=== PATIENT | female | born 1955 | race Caucasian/White ===

== ENCOUNTER → 2020-04-18 13:33 | Outpatient (REF) | payer MEDICARE, SELFPAY ==
--- NOTE | 2020-04-18 | NM_ITS ---
EXAMINATION: RENAL DYNAMIC IMAGING STUDY WITH LASIX CLINICAL INFORMATION: Chronic kidney disease stage IV, hypertension chronic kidney disease. COMPARISON: No previous radionuclide renal scan is available for comparison. No recent anatomic imaging studies of the kidneys are available for comparison. TECHNIQUE: Serial gamma scintillation camera images were obtained over the posterior trunk during the initial transit and subsequent distribution of a bolus intravenous injection of 10 mCi of Tc-99m DTPA. At 30 minutes later, 28 mg of Lasix was administered intravenously and an additional 30 minutes of images obtained. FINDINGS: Initial rapid sequence images show prompt perfusion to the right kidney which is slightly diminished, compare to the spleen. The left kidney is not visualized. Subsequent sequential static images obtained up to 30 minutes show mildly diminished concentration and the right kidney which appears normal in size. The left kidney is not visualized. There is evidence of excretory function by 5 minutes post injection. Initial visualization of the urinary bladder occurs at approximately 5 to 6 minutes post injection and gradually increases in intensity. At 30 minutes postinjection there is only mild retention in the right kidney, predominantly in the upper and lower pole calyces which does not appear dilated. There is good visualization of activity in the urinary bladder at this time. Following Lasix administration, there is prompt washout of the small amount of retained activity in the right renal collecting system and progressive additional filling of the urinary bladder. There continues to be nonvisualization of the left kidney. Meaningful T-1/2 washout times following Lasix administration cannot be calculated on either side. On the left, the kidney is never visualized. On the right, there is insufficient retention in the right renal collecting system at the time of Lasix administration. NM/NM renal flow w pharm int IMPRESSION: LEFT KIDNEY: Absent or nonfunctioning. RIGHT KIDNEY: Mildly diminished function as demonstrated by mildly diminished concentrating ability. There is no hydronephrosis or outflow obstruction.
[2020-04-18] MEDS: Furosemide 40 MG/4 ML VIAL 28 MG IVPUSH (16:08)
== END ==
LOC: HO.NUCMED 13:33
PROVIDERS: PCP Internal Medicine; Visit Provider Internal Medicine Nephrology
DX: I12.9 Hypertensive chronic kidney disease with stage 1 through stage 4 chronic kidney disease, or unspecified chronic kidney disease (principal); N18.4 Chronic kidney disease, stage 4 (severe); Z86.79 Personal history of other diseases of the circulatory system
CPT/HCPCS: 78708; A9539; J1940

== ENCOUNTER 2020-05-10 09:10 | Outpatient (REF) | payer MEDICARE, SELFPAY ==
--- NOTE | 2020-05-10 | US_ITS ---
EXAMINATION: US RENAL DOPPLER CLINICAL INFORMATION: Chronic kidney disease. Worsening renal function. COMPARISON: None. TECHNIQUE: Retroperitoneal ultrasound Doppler was performed. FINDINGS: On renal ultrasound Doppler evaluation, Right kidney: Renal artery velocity proximally measures 44.5 cm/second mid segment measures 112 cm/second and distal segment measures 150 cm/second. Segmental resistive index averages 0.77. The right kidney measures 11.1 cm in length. Renal aortic ratio cannot be evaluated as peak aortic velocity measures 28.8 cm/second and is below the normal 40 cm velocity. Left kidney: Peak systolic velocity proximal segment measures 67.0 cm. The mid and the distal segments are not visualized. Average resistive index is 0.57. Renal aortic ratio cannot be utilized due to decreased aortic velocity of 28.8 cm. Patient has history of AAA repair in the distal segment. On color flow, there is very minimal flow seen in the left renal artery. The left kidney is atrophic with diffuse cortical thinning measuring 6.8 cm in length. US/US renal doppler IMPRESSION: Based on renal Doppler exam, there is no suspicion for renal artery stenosis. However, patient has diminished aortic velocity of 28.8 cm and has AAA repair in the distal segment. The left kidney is small and atrophic measuring 6.8 cm. There is slight increased velocity in the distal right renal artery likely secondary to renal parenchymal disease.
--- NOTE | 2020-05-10 | US_ITS ---
EXAMINATION: US RETROPERITONEAL LIMITED (RENAL ONLY) CLINICAL INFORMATION: Nonfunctioning left kidney since AAA repair in June 2017. COMPARISON: None TECHNIQUE: Routine retroperitoneal Grayscale imaging of both kidneys was performed. FINDINGS: RIGHT KIDNEY: 11.1 x 6.1 x 5.0 cm (SAG x AP x TRV). The kidney is normal in size, contour, and echogenicity. Renal cortical thickness is normal. The anechoic cyst in the upper pole measuring 2.6 x 2.3 x 2.6 cm and an echogenic nonobstructive stone, lower pole, measuring 0.3 x 0.3 x 0.3 cm. LEFT KIDNEY: 6.8 x 3.4 x 2.8 cm (SAG x AP x TRV). The kidney is small size, normal contour, and echogenicity. There is diffuse cortical thinning and atrophy. Renal cortical thickness is normal. No calculi or focal parenchymal lesions. No hydronephrosis. US/US renal BI IMPRESSION: 1. Small atrophic left kidney with diffuse cortical thinning. 2. Nonobstructive echogenic stone in the lower pole and a cyst in the upper pole, right kidney. Normal right kidney size.
== END 2020-05-10 09:11 | disposition home or self-care (01) ==
LOC: HO.US 09:10
PROVIDERS: PCP Internal Medicine; Visit Provider Internal Medicine Nephrology
DX: I12.9 Hypertensive chronic kidney disease with stage 1 through stage 4 chronic kidney disease, or unspecified chronic kidney disease (principal); N18.9 Chronic kidney disease, unspecified
CPT/HCPCS: 76775; 93975

== ENCOUNTER 2020-05-17 07:17 | Outpatient (REF) | payer MEDICARE, SELFPAY ==
[2020-05-17 08:27] LABS: Hematocrit 32.6 % (37-47); Hemoglobin 10.7 g/dl (12.0-16.0); Imm Gran Abs Auto 0.04 X10*3/uL (0.00-0.03); Imm Gran Pct Auto 0.9 % (0.0-0.4); Immature Retic Fraction 9.6 % (3.0-15.9); Lymphocytes Absolute Auto 0.7 X10*3/uL (1.2-4.9); Lymphocytes Percent Auto 16.1 % (20-40); MANUAL DIFF FLAG SCAN; Mean Corpuscular HGB Conc 32.8 g/dl (31.0-35.0); Mean Corpuscular Volume 91.3 fL (80-98); Mean Platelet Volume 12.9 fL (9.4-12.3); Monocytes Absolute Auto 0.3 X10*3/uL (0.1-1.2); Monocytes Percent Auto 5.8 % (2-11); Neutrophils Absolute Auto 3.3 X10*3/uL (2.0-8.3); Neutrophils Percent Auto 77.2 % (45-73); Red Blood Count 3.57 X10*6/uL (4.20-5.50); Red Cell Distribution Width 14.9 % (11.0-16.0); Reticulocyte Percent 1.7 % (0.5-1.8); Reticulocytes Absolute 0.061 X10*6/uL (0.026-0.095); SCAN SMEAR FLAG 1; White Blood Count 4.3 X10*3/uL (4.8-10.8)
[2020-05-17 08:35] LABS: Phosphorus 3.5 mg/dL (2.7-4.5); Uric Acid 8.6 mg/dL (2.4-5.7)
[2020-05-17 08:50] LABS: Alanine Aminotransferase 9 U/L (0-31); Albumin Level 3.2 g/dL (3.5-5.0); Alkaline Phosphatase 102 U/L (39-117); Anion Gap 13 (12-20); Aspartate Amino Transferase 18 U/L (5-31); Bilirubin Total 0.5 mg/dL (0.0-1.0); Blood Urea Nitrogen 18 mg/dL (9-16); Calcium 8.9 mg/dL (8.4-10.2); Carbon Dioxide 23 mmol/L (22-29); Chloride 101 mmol/L (96-108); Cholesterol 160 mg/dL; Estimated Glomerular Filt Rate 30; Glucose Fasting 92 mg/dL (60-99); HDL Cholesterol 27 mg/dL; Iron 47 mcg/dL (30-160); LDL Cholesterol Calculated 97 mg/dl; Percent Iron Saturation 19 % (15-50); Potassium 3.6 mmol/l (3.3-5.1); Sodium 133 mmol/L (135-145); Total Iron Binding Capacity 243 mcg/dL (228-428); Total Protein 7.3 g/dL (6.5-8.0); Triglycerides 183 mg/dL; Unsaturated Iron Binding 196 ug/dL
[2020-05-17 09:13] LABS: T4 Thyroxine 6.2 ug/dL (4.5-12.0)
[2020-05-17 09:27] LABS: Renal w Reflex Lab Use Only Order verified
[2020-05-17 09:30] LABS: SLIDE REVIEW VERIFIED
[2020-05-17 09:45] LABS: Ferritin 183 ng/mL (10-250)
[2020-05-19 17:57] LABS: IgA 187 mg/dL (70-320); IgG 2170 mg/dL (600-1540); IgM 580 mg/dL (50-300)
== END 2020-05-17 07:18 | disposition home or self-care (01) ==
LOC: HO.LAB 07:17
PROVIDERS: Absent Provider Internal Medicine Nephrology; PCP Internal Medicine; Visit Provider Internal Medicine
DX: I12.9 Hypertensive chronic kidney disease with stage 1 through stage 4 chronic kidney disease, or unspecified chronic kidney disease (principal); N18.4 Chronic kidney disease, stage 4 (severe); D63.1 Anemia in chronic kidney disease; E03.9 Hypothyroidism, unspecified; E78.00 Pure hypercholesterolemia, unspecified
CPT/HCPCS: 36415; 80053; 80061; 82306; 82310; 82728; 82784; 83540; 83970; 84100; 84436; 84443; 84550; 85025; 85045

== ENCOUNTER 2020-08-04 12:33 | Outpatient (REF) | payer MEDICARE, SELFPAY ==
[2020-08-04 14:23] LABS: Anion Gap 13 (12-20); Blood Urea Nitrogen 18 mg/dL (9-16); Calcium 9.7 mg/dL (8.4-10.2); Carbon Dioxide 25 mmol/L (22-29); Chloride 100 mmol/L (96-108); Estimated Glomerular Filt Rate 33; Phosphorus 3.2 mg/dL (2.7-4.5); Potassium 3.1 mmol/L (3.3-5.1); Sodium 135 mmol/L (135-145)
[2020-08-04 15:06] LABS: Renal w Reflex Lab Use Only Order verified
== END 2020-08-04 12:34 | disposition home or self-care (01) ==
LOC: HO.LAB 12:33
PROVIDERS: PCP Internal Medicine; Visit Provider Internal Medicine
DX: I12.9 Hypertensive chronic kidney disease with stage 1 through stage 4 chronic kidney disease, or unspecified chronic kidney disease (principal); N18.4 Chronic kidney disease, stage 4 (severe); E87.6 Hypokalemia
CPT/HCPCS: 36415; 80051; 82310; 82565; 84100; 84520

== ENCOUNTER 2020-08-30 11:33 | Outpatient (REF) | payer MEDICARE, SELFPAY ==
[2020-08-30 13:48] LABS: Anion Gap 13 (12-20); Blood Urea Nitrogen 19 mg/dL (9-16); Calcium 9.7 mg/dL (8.4-10.2); Carbon Dioxide 25 mmol/L (22-29); Chloride 102 mmol/L (96-108); Estimated Glomerular Filt Rate 30; Glucose Random 80 mg/dL (60-115); Potassium 3.9 mmol/L (3.3-5.1); Sodium 136 mmol/L (135-145)
[2020-08-30 14:21] LABS: Free T4 (Free Thyroxine) 0.81 ng/dL (0.71-1.85)
[2020-08-30 14:25] LABS: Thyroid Stimulating Hormone 19.23 uIU/mL (0.32-4.0)
== END 2020-08-30 11:34 | disposition home or self-care (01) ==
LOC: HO.LAB 11:33
PROVIDERS: Absent Provider Internal Medicine; PCP Internal Medicine; Visit Provider Surgery Vascular Surgery
DX: E87.6 Hypokalemia (principal); E03.9 Hypothyroidism, unspecified; I71.4 Abdominal aortic aneurysm, without rupture
CPT/HCPCS: 36415; 80048; 84439; 84443

== ENCOUNTER 2020-12-24 18:56 | Inpatient (IN) | payer MEDICARE, SELFPAY ==
--- NOTE | ~2020-12-24 | XR_ITS ---
EXAMINATION: XR HAND, RIGHT CLINICAL INFORMATION: Dog bite. 4th metacarpophalangeal puncture wound. COMPARISON: None TECHNIQUE: PA, lateral, and oblique views of the right hand. FINDINGS: No radiopaque foreign body. No acute fracture or dislocation. Joint space narrowing with subchondral cirrhosis and marginal osteophytes at the 1st carpometacarpal joint. No osseous erosion. XR/XR hand RT min 3V IMPRESSION: No radiopaque foreign body. 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
[2020-12-24 19:17] VITALS: BP 121/75; PULSE 78; RESP 16; TEMP 38.5; O2SAT 100; BMI 16.9
[2020-12-24 20:55] LABS: MANUAL DIFF FLAG NO
[2020-12-24 20:57] LABS: Hemoglobin 8.4 g/dl (12.0-16.0); Imm Gran Abs Auto 0.02 X10*3/uL (0.00-0.03); Imm Gran Pct Auto 0.4 % (0.0-0.4); Lymphocytes Absolute Auto 0.6 X10*3/uL (1.2-4.9); Lymphocytes Percent Auto 10.7 % (20-40); Mean Corpuscular HGB Conc 32.3 g/dl (31.0-35.0); Mean Corpuscular Hemoglobin 30.5 pg (27.0-33.0); Mean Corpuscular Volume 94.5 fL (80-98); Mean Platelet Volume 10.9 fL (9.4-12.3); Monocytes Absolute Auto 0.4 X10*3/uL (0.1-1.2); Monocytes Percent Auto 7.7 % (2-11); Neutrophils Absolute Auto 4.3 X10*3/uL (2.0-8.3); Neutrophils Percent Auto 81.2 % (45-73); Platelet Count 145 X10*3/uL (160-400); Red Blood Count 2.75 X10*6/uL (4.20-5.50); Red Cell Distribution Width 13.8 % (11.0-16.0); White Blood Count 5.3 X10*3/uL (4.8-10.8)
[2020-12-24 21:23] LABS: Lactic Acid 0.7 mmol/L (0.5-2.0)
[2020-12-24 21:27] LABS: Anion Gap 11 (12-20); Blood Urea Nitrogen 23 mg/dL (9-16); Calcium 8.4 mg/dL (8.4-10.2); Carbon Dioxide 23 mmol/L (22-29); Chloride 100 mmol/L (96-108); Creatinine Clr Calc Pharmacy 18.8; Estimated Glomerular Filt Rate 25; Glucose Random 82 mg/dL (60-115); Potassium 4.1 mmol/L (3.3-5.1); Sodium 130 mmol/L (135-145)
[2020-12-24] MEDS: Acetaminophen 325 MG TABLET 650 MG PO (21:43)
[2020-12-24] MEDS: Acetaminophen 325 MG TABLET PO (21:44)
--- NOTE | 2020-12-24 21:57 | ED_ITS ---
HPI - Animal Bite General Chief Complaint: Animal Bite Stated Complaint: Dog bite Time Seen by Provider: 12/24/20 21:57 Source: patient Mode of arrival: ambulatory History of Present Illness HPI narrative: 65-year-old female with history of hypertension and CKD stage 3 presents after receiving a dog bite 3 days ago with increased swelling, pain at the right hand. states that dog has been vaccinated and his was trying to get the dog out of the yd when it bit her. Patient complaint of headache, stomach upset, subjective fever and chills, but otherwise denies dizziness, muscle spasm. Related Data Home Medications Medication Instructions Recorded Confirmed amlodipine 10 mg tablet 10 mg PO DAILY 06/09/20 09/06/20 aspirin 81 mg tablet,delayed 81 mg PO DAILY 06/09/20 09/06/20 release cyanocobalamin (vitamin B-12) 1,000 mcg PO DAILY 06/09/20 09/06/20 1,000 mcg capsule pravastatin 10 mg tablet 10 mg PO DAILY 06/09/20 09/06/20 Previous Rx's Medication Instructions Recorded hydralazine 50 mg tablet See Rx Instructions .ROUTE TID #90 04/14/20 tab metoprolol succinate 100 mg 150 mg PO DAILY #135 tab 05/09/20 tablet,extended release 24 hr ascorbate calcium (vitamin C) 500 500 mg PO BID #60 tab 06/09/20 mg tablet ferrous sulfate 325 mg (65 mg 325 mg PO BID #60 tab 06/09/20 iron) tablet potassium chloride 20 mEq 20 meq PO DAILY #30 tab 08/04/20 tablet,extended release(part/cryst) levothyroxine 150 mcg capsule 150 mcg PO DAILY #30 cap 09/02/20 tramadol 50 mg tablet See Rx Instructions .ROUTE 12/01/20 .COMPLEX #230 tab Allergies Allergy/AdvReac Type Severity Reaction Status Date / Time sumatriptan [From IMITREX] Allergy Severe ANGIOEDEMA Verified 12/24/20 19:17 atorvastatin [Lipitor] Allergy Unknown n Verified 12/24/20 19:17 rosuvastatin [Crestor] Allergy Unknown n Verified 12/24/20 19:17 simvastatin Allergy Unknown n Verified 12/24/20 19:17 pravastatin AdvReac Intermediate shaking Verified 12/24/20 19:17 muscle pain From IMITREX Allergy Severe ANGIOEDEMA Uncoded 02/25/20 15:39 Plavix Allergy Unknown rash Uncoded 10/16/19 00:00 Review of Systems Review of Systems: Pertinent positives and negatives as stated in HPI 10 point review of systems otherwise negative. FORMERLY [facility] Past Medical History Source: nursing notes reviewed Medical History Anxiety Cataract Chronic kidney disease (CKD) stage G4/A1, severely decreased glomerular filtration rate (GFR) between 15-29 mL/min/1.73 square meter and albuminuria creatinine ratio less than 30 mg/g Chronic low back pain History of renal calculi Hypercholesterolemia Hypertension Insomnia Vitamin D deficiency Wrist laceration Surgical History AAA (abdominal aortic aneurysm) History of colectomy History of rectal surgery Hx of cataract surgery Hx of cholecystectomy S/P AICHA-BSO Social History Social History Advance Directives: No Advance Directives Information Provided: No Physical Exam Vital Signs: Vital Signs: Last Vital Signs Temp 99.3 F 12/24/20 23:16 Pulse 78 12/24/20 19:17 Resp 16 12/24/20 23:16 BP 121/75 12/24/20 19:17 Pulse Ox 100 12/24/20 19:17 Body Mass Index 16.9 VITAL SIGNS: Reviewed. GENERAL: Well developed, well nourished, in no acute distress. HEAD: Normocephalic/atraumatic EYES: PERRLA, EOMI OROPHARYNX: no oral lesions noted, posterior pharynx clear NECK: Supple, no adenopathy LUNGS: Normal breath sounds. No adventitious sounds or accessory muscle use. SpO2<100> CARDIOVASCULAR: Regular rate and rhythm without noted murmurs, no JVD or lower extremity edema. ABDOMEN: Soft, non-tender, non-distended with bowel sounds. RIGHT HAND: Edematous, erythematous, puncture site at 4th MCP as well as medial aspect at mid with 5th carpal, limited range of motion secondary to pain and discomfort but sensory intact SKIN: Inspection of the skin reveals no rashes NEUROLOGIC: Alert and oriented x 4. Strength and sensation to light touch were grossly intact x 4. Course Course Course Narrative: 65-year-old female with history and clinical presentation consistent with dog bite to right hand with subsequent cellulitis, infection with systemic signs will receive IV antibiotics and be admitted with plans for hand surgery consultation. Review of all investigations with evidence of left shift, patient received antibiotics, case was discussed with inpatient hospitalist who is agreeable for admission and IV antibiotics. MDM - Animal Bite Lab Data Result diagrams: 12/24/20 20:45 12/24/20 20:45 Labs: Lab Results 12/24/20 12/24/20 12/24/20 Range/Units 20:45 20:45 20:45 WBC 5.3 (4.8-10.8) X10*3/uL RBC 2.75 L D (4.20-5.50) X10*6/uL Hgb 8.4 L D (12.0-16.0) g/dl Hct 26.0 L D (37-47) % MCV 94.5 (80-98) fL MCH 30.5 (27.0-33.0) pg MCHC 32.3 (31.0-35.0) g/dl RDW 13.8 (11.0-16.0) % Plt Count 145 L (160-400) X10*3/uL MPV 10.9 (9.4-12.3) fL Immature Gran % (Auto) 0.4 (0.0-0.4) % Neut % (Auto) 81.2 H (45-73) % Lymph % (Auto) 10.7 L (20-40) % [place] % (Auto) 7.7 (2-11) % Eos % (Auto) 0.0 (0-4) % Baso % (Auto) 0.0 (0-2) % Lymph # (Auto) 0.6 L (1.2-4.9) X10*3/uL [place] # (Auto) 0.4 (0.1-1.2) X10*3/uL Eos # (Auto) 0.0 (0.0-0.4) X10*3/uL Baso # (Auto) 0.0 (0.0-0.2) X10*3/uL Abs Immat Gran (auto) 0.02 (0.00-0.03) X10*3/uL Absolute Neuts (auto) 4.3 (2.0-8.3) X10*3/uL Absolute Nucleated RBC 0.000 (0.0-0.012) X10*3/uL Nucleated RBC % (auto) 0.0 (0.0-0.2) /100WBC Sodium 130 L (135-145) mmol/L Potassium 4.1 (3.3-5.1) mmol/L Chloride 100 (96-108) mmol/L Carbon Dioxide 23 (22-29) mmol/L Anion Gap 11 L (12-20) BUN 23 H (9-16) mg/dL Creatinine 2.02 H (0.5-1.4) mg/dL Estim Creat Clear Calc 18.8 Estimated GFR 25 Random Glucose 82 (60-115) mg/dL Lactic Acid 0.7 (0.5-2.0) mmol/L Calcium 8.4 D (8.4-10.2) mg/dL Discharge Plan Discharge Clinical Impression: Cellulitis of hand, Sepsis Patient Disposition: Admitted As Inpatient
[2020-12-24] MEDS: Diphth,Pertus(ACell),Tet Adult 0.5 ML SYRINGE IM (23:09)
[2020-12-24] MEDS: Clindamycin Phosphate/D5W 300 MG/50 ML PIGGYBACK 100 MG IV (23:12)
[2020-12-24] MEDS: 0.9 % Sodium Chloride 1,000 ML 999 ML IV (23:15)
[2020-12-24 23:16] VITALS: RESP 16; TEMP 37.4
[2020-12-24 23:47] VITALS: BP 161/79; PULSE 69; RESP 16; TEMP 37.1; O2SAT 99
[2020-12-25] VITALS (7 sets, daily range): BP systolic 130–169; BP diastolic 65–94; PULSE 69–78; RESP 16–18; TEMP 36.1–37; O2SAT 93–100; BMI 17.6
[2020-12-25 00:06] LABS: COVID-19 Test Negative (Negative); IDNOW Serial# 9DD0AD1C
[2020-12-25] MEDS: levoFLOXacin/D5W 500 MG/100 ML PIGGYBACK 100 MG IV (00:15)
[2020-12-25 01:48] LABS: C Reactive Protein 8.44 mg/dL (< or = 0.50)
[2020-12-25] MEDS: Piperacillin Sodium/Tazobactam 3.375 GM in 0.9 % Sodium Chloride 50 ML IV ×2 (03:25→13:57)
[2020-12-25] MEDS: 0.9 % Sodium Chloride 1,000 ML 100 ML IVCONT ×2 (03:25→13:57)
[2020-12-25] MEDS: Enoxaparin Sodium 30 MG/0.3 ML SYRINGE SUBCUT (03:29)
--- NOTE | 2020-12-25 03:48 | PC.NURSE ---
nurse to nurse report given to Antonietta CALVIN
--- NOTE | 2020-12-25 06:01 | P.HPHOSP_ITS ---
History of Present Illness Date of Service: 12/25/20 Chief Complaint: dog bite 65-year-old female with past medical history of CKD, hypertension, hyperlipidemia, hypothyroidism and chronic pain who presents to the hospital with complaints of dog bite on her right hand. Patient reports that her dog who is fully vaccinated bed her on Saturday, today she woke up with pain, and swollen hand. She is having difficulty moving her fingers due to the pain. She denies any fever or chills, no chest pain, no shortness of breath, denies any nausea vomiting no diarrhea constipation, no urinary symptoms and no lower extremity edema. Vitals are significant for temp of 101.3?, heart rate of 78, respiratory rate of 16, blood pressure of 121/75, satting 100% on room air Labs are significant for WBC count 5.3, hemoglobin of 8.4 it dropped from 10.7 in May, ESR 51, sodium of 130, BUN of 23, creatinine of 2.2 with a baseline around 1. 5-1.7, CRP of 8.4 Hand x-ray shows no radiopaque foreign body severe osteoarthritis Patient will be admitted and a consult will be made for hand surgeon Review of Systems Review of Systems: Yes all other systems are reviewed and are negative [facility]LY [facility] Medical History Anxiety Cataract Chronic kidney disease (CKD) stage G4/A1, severely decreased glomerular filtr ation rate (GFR) between 15-29 mL/min/1.73 square meter and albuminuria creatinine ratio less than 30 mg/g Chronic low back pain History of renal calculi Hypercholesterolemia Hypertension Insomnia Vitamin D deficiency Wrist laceration Surgical History AAA (abdominal aortic aneurysm) History of colectomy History of rectal surgery Hx of cataract surgery Hx of cholecystectomy S/P AICHA-BSO Social History Household Members: Spouse Housing: House Do you presently have visiting nurse or other home services: No Patient Tobacco Use Status: Former Tobacco user Quit Date: years ago Tobacco use type: Cigarette Smoked in Last 30 Days: No e-Cigarette/Vaping Use: Never Used Second Hand Smoke Exposure: No Use of substances other than those prescribed or required for medical reasons: No Currently Displaying Signs/Symptoms of Drug Intoxication Withdrawal: No Any prior treatment program specific to substance use: No Have you been hit, kicked, punched, or otherwise hurt by someone within the past year? If so, by whom?: No Do you feel safe in your current relationship?: Yes Is there a partner from a previous relationship who is making you feel unsafe now?: No Are you made to feel afraid or neglected: No Advance Directives: No Advance Directives Information Provided: No Do you have thoughts of harming others: None Do you have a plan to hurt others: No Plan Recently lost weight without trying: Unsure Eating poorly because of decreased appetite: Yes Nutrition Risks: Anorexia Patient : No : No Poor oral hygiene: No Meds Allergies Allergy/AdvReac Type Severity Reaction Status Date / Time sumatriptan [From IMITREX] Allergy Severe ANGIOEDEMA Verified 12/24/20 19:17 atorvastatin [Lipitor] Allergy Unknown n Verified 12/24/20 19:17 rosuvastatin [Crestor] Allergy Unknown n Verified 12/24/20 19:17 simvastatin Allergy Unknown n Verified 12/24/20 19:17 pravastatin AdvReac Intermediate shaking Verified 12/24/20 19:17 muscle pain From IMITREX Allergy Severe ANGIOEDEMA Uncoded 02/25/20 15:39 Plavix Allergy Unknown rash Uncoded 10/16/19 00:00 Active Medications: Current Medications Generic Name Dose Route Start Last Admin Trade Name Freq PRN Reason Stop Dose Admin Acetaminophen 650 mg 12/25/20 01:33 Acetaminophen 325 Mg Tablet PO Q6H PRN Pain, Mild (Pain Scale 1-3) Docusate Sodium 100 mg 12/25/20 01:33 Docusate Sodium 100 Mg Capsule PO DAILY PRN Constipation Enoxaparin Sodium 30 mg 12/25/20 02:45 12/25/20 03:29 Enoxaparin Sodium 30 Mg/0.3 Ml Syringe SUBCUT 30 mg Q24H YUNI Administration Sodium Chloride 1,000 mls @ 100 mls/hr 12/25/20 01:33 12/25/20 03:25 Ns IVCONT 100 mls/hr .Q10H YUNI Administration Piperacillin Sod/Tazobactam 50 mls @ 100 mls/hr 12/25/20 03:00 12/25/20 04:14 Sod 3.375 gm/ Sodium Chloride IV Infused Q12H YUNI Infusion Ondansetron HCl 4 mg 12/25/20 01:33 Ondansetron Hcl 4 Mg/2 Ml Vial IVPUSH Q8H PRN Nausea and Vomiting Oxycodone HCl 5 mg 12/25/20 01:33 Oxycodone Hcl Immed Release 5 Mg Tablet PO Q6H PRN Pain, Severe (Pain Scale 7-10) Sodium Chloride 3 ml 12/25/20 08:00 0.9 % Sodium Chloride Flush 3 Ml Syringe IVFLUSH QSHIFT [facility] Home Medications Medication Instructions Recorded Confirmed Last Taken Type amlodipine 10 mg tablet 10 mg PO DAILY 06/09/20 09/06/20 Unknown History aspirin 81 mg tablet,delayed 81 mg PO DAILY 06/09/20 09/06/20 Unknown History release cyanocobalamin (vitamin B-12) 1,000 mcg PO DAILY 06/09/20 09/06/20 Unknown History 1,000 mcg capsule pravastatin 10 mg tablet 10 mg PO DAILY 06/09/20 09/06/20 Unknown History Physical Exam 2 Vital Signs and Narrative: Vital Signs: Last Vital Signs Temp 97.2 F 12/25/20 04:00 Pulse 70 12/25/20 04:00 Resp 16 12/25/20 04:00 BP 148/80 H 12/25/20 04:54 Pulse Ox 93 12/25/20 04:00 Body Mass Index 17.6 Const: General: cooperative and no acute distress Orientation/consciousness: patient oriented x3 Eyes: General: appearance normal, both eyes and all related structures Resp: Effort & Inspection: normal respiratory effort and able to speak in complete sentences Cardio: Rate: regular rate Rhythm: regular rhythm GI: Palpation (GI): Soft to palpation Auscultation: normal bowel sounds Skin: Other: Erythema over the dorsal aspect of the right hand with a puncture wound over the 4th MCP Neuro: General: patient oriented x3 Cognition (Neuro): normal cognition Extrem: Other: Erythema over the dorsal aspect of the right hand with puncture wound over the 4th MCP, edema, tenderness General: Yes no pedal edema Results Labs CBC and Chem 7: 12/24/20 20:45 12/24/20 20:45 Labs: Laboratory Results - last 24 hr 12/24/20 12/24/20 12/24/20 20:45 20:45 20:45 MCV 94.5 MCH 30.5 MCHC 32.3 RDW 13.8 Plt Count 145 L MPV 10.9 Immature Gran % (Auto) 0.4 Neut % (Auto) 81.2 H Lymph % (Auto) 10.7 L [place] % (Auto) 7.7 Eos % (Auto) 0.0 Baso % (Auto) 0.0 Lymph # (Auto) 0.6 L [place] # (Auto) 0.4 Eos # (Auto) 0.0 Baso # (Auto) 0.0 Abs Immat Gran (auto) 0.02 Absolute Neuts (auto) 4.3 Absolute Nucleated RBC 0.000 Nucleated RBC % (auto) 0.0 ESR Anion Gap 11 L Estim Creat Clear Calc 18.8 Estimated GFR 25 Random Glucose 82 Lactic Acid 0.7 Calcium 8.4 D C-Reactive Protein 8.44 H COVID-19 (ROXANE) COVID-19 Clin Com 12/24/20 12/25/20 23:19 20:45 MCV MCH MCHC RDW Plt Count MPV Immature Gran % (Auto) Neut % (Auto) Lymph % (Auto) [place] % (Auto) Eos % (Auto) Baso % (Auto) Lymph # (Auto) [place] # (Auto) Eos # (Auto) Baso # (Auto) Abs Immat Gran (auto) Absolute Neuts (auto) Absolute Nucleated RBC Nucleated RBC % (auto) ESR 51 H Anion Gap Estim Creat Clear Calc Estimated GFR Random Glucose Lactic Acid Calcium C-Reactive Protein COVID-19 (ROXANE) Negative COVID-19 Clin Com See Note Imaging Radiologist's Impressions: Impressions Hand X-Ray 12/24/20 21:57 IMPRESSION: No radiopaque foreign body. 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 Assessment and Plan (1) Cellulitis of hand: Status: Acute (2) Dog bite: Status: Acute (3) Normocytic anemia: Status: Acute (4) Acute kidney injury superimposed on CKD: Status: Acute Female with past medical history of hypertension, hypothyroidism, CKD, who presents to the hospital with complaints of dog bite over her right hand. # cellulitis of the hand secondary to dog bite - per patient dogs fully vaccinated - no evidence of tenosynovitis - has fever with no leukocytosis - will start her on IV antibiotics - consult hand orthopedic surgeon # normocytic anemia - has a significant drop of hemoglobin from 10-8 within 7 months - denies melena or bright red blood per rectum - will obtain occult stool, ferritin, B12 levels - monitor CBC daily with threshold for transfusion hemoglobin less than 7 # TOMASA and CKD - possibly her new baseline - will started on IV fluids - follow BMP # hypertension - continue hydralazine, and amlodipine once medications are reconciled # hypothyroidism - continue levothyroxine once medications are reconciled # hyperlipidemia - continue statin DVT prophylaxis: Lovenox Quality Stroke Does the patient have a stroke diagnosis?: No VTE Prior VTE?: No VTE Risk Level:: Medical - moderate - high VTE Device Contraindication: Treatment Not Indicated VTE Drug Contraindication: N/A - Med Ordered
[2020-12-25 07:10] LABS: Ferritin 250 ng/mL (10-250)
[2020-12-25] MEDS: 0.9 % Sodium Chloride Flush 3 ML SYRINGE IVFLUSH (08:52)
[2020-12-25 09:15] LABS: Erythrocyte Sedimentation Rate 51 MM/HR (0-20)
[2020-12-25 09:24] LABS: Iron 15 mcg/dL (30-160); Percent Iron Saturation 8 % (15-50); Total Iron Binding Capacity 195 mcg/dL (228-428); Unsaturated Iron Binding 180 ug/dL
--- NOTE | 2020-12-25 09:43 | PM.CNOR ---
History of Present Illness HPI Consult date: 12/25/20 Consult reason: other (hand pain) Chief complaint: Dog bit,cellulitis Narrative: Patient presented to the ED yesterday after sustaining a dog bite to her right hand on 12/22/20. This dog was unknown to her and it is unclear if it has been vaccinated. She was admitted to the hospital for cellulitis and has been on abx for less than 24 hours but states that she has begun to see and feel improvement in her pain, erythema, and edema. Review of Systems Review of Systems: Yes all other systems are reviewed and are negative [facility] Past Medical History Medical History Anxiety Cataract Chronic kidney disease (CKD) stage G4/A1, severely decreased glomerular filtration rate (GFR) between 15-29 mL/min/1.73 square meter and albuminuria creatinine ratio less than 30 mg/g Chronic low back pain History of renal calculi Hypercholesterolemia Hypertension Insomnia Vitamin D deficiency Wrist laceration Surgical History Surgical History AAA (abdominal aortic aneurysm) History of colectomy History of rectal surgery Hx of cataract surgery Hx of cholecystectomy S/P AICHA-BSO Social History Social History Household Members: Spouse Housing: House Do you presently have visiting nurse or other home services: No Patient Tobacco Use Status: Former Tobacco user Quit Date: years ago Tobacco use type: Cigarette Smoked in Last 30 Days: No e-Cigarette/Vaping Use: Never Used Second Hand Smoke Exposure: No Use of substances other than those prescribed or required for medical reasons: No Currently Displaying Signs/Symptoms of Drug Intoxication Withdrawal: No Any prior treatment program specific to substance use: No Have you been hit, kicked, punched, or otherwise hurt by someone within the past year? If so, by whom?: No Do you feel safe in your current relationship?: Yes Is there a partner from a previous relationship who is making you feel unsafe now?: No Are you made to feel afraid or neglected: No Advance Directives: No Advance Directives Information Provided: No Do you have thoughts of harming others: None Do you have a plan to hurt others: No Plan Recently lost weight without trying: Unsure Eating poorly because of decreased appetite: Yes Nutrition Risks: Anorexia Patient : No : No Poor oral hygiene: No Meds Allergies Allergy/AdvReac Type Severity Reaction Status Date / Time sumatriptan [From IMITREX] Allergy Severe ANGIOEDEMA Verified 12/24/20 19:17 atorvastatin [Lipitor] Allergy Unknown n Verified 12/24/20 19:17 rosuvastatin [Crestor] Allergy Unknown n Verified 12/24/20 19:17 simvastatin Allergy Unknown n Verified 12/24/20 19:17 pravastatin AdvReac Intermediate shaking Verified 12/24/20 19:17 muscle pain From IMITREX Allergy Severe ANGIOEDEMA Uncoded 02/25/20 15:39 Plavix Allergy Unknown rash Uncoded 10/16/19 00:00 Active Medications: Current Medications Generic Name Dose Route Start Last Admin Trade Name Freq PRN Reason Stop Dose Admin Acetaminophen 650 mg 12/25/20 01:33 Acetaminophen 325 Mg Tablet PO Q6H PRN Pain, Mild (Pain Scale 1-3) Docusate Sodium 100 mg 12/25/20 01:33 Docusate Sodium 100 Mg Capsule PO DAILY PRN Constipation Enoxaparin Sodium 30 mg 12/25/20 02:45 12/25/20 03:29 Enoxaparin Sodium 30 Mg/0.3 Ml Syringe SUBCUT 30 mg Q24H YUNI Administration Sodium Chloride 1,000 mls @ 100 mls/hr 12/25/20 01:33 12/25/20 03:25 Ns IVCONT 100 mls/hr .Q10H YUNI Administration Piperacillin Sod/Tazobactam 50 mls @ 100 mls/hr 12/25/20 03:00 12/25/20 04:14 Sod 3.375 gm/ Sodium Chloride IV Infused Q12H YUNI Infusion Ondansetron HCl 4 mg 12/25/20 01:33 Ondansetron Hcl 4 Mg/2 Ml Vial IVPUSH Q8H PRN Nausea and Vomiting Oxycodone HCl 5 mg 12/25/20 01:33 Oxycodone Hcl Immed Release 5 Mg Tablet PO Q6H PRN Pain, Severe (Pain Scale 7-10) Sodium Chloride 3 ml 12/25/20 08:00 12/25/20 08:52 0.9 % Sodium Chloride Flush 3 Ml Syringe IVFLUSH 3 ml QSHIFT YUNI Administration Home Medications Medication Instructions Recorded Confirmed Last Taken Type amlodipine 10 mg tablet 10 mg PO DAILY 06/09/20 09/06/20 Unknown History aspirin 81 mg tablet,delayed 81 mg PO DAILY 06/09/20 09/06/20 Unknown History release cyanocobalamin (vitamin B-12) 1,000 mcg PO DAILY 06/09/20 09/06/20 Unknown History 1,000 mcg capsule pravastatin 10 mg tablet 10 mg PO DAILY 06/09/20 09/06/20 Unknown History Physical Exam Vital Signs: Vital Signs: Last Vital Signs Temp 97.2 F 12/25/20 04:00 Pulse 70 12/25/20 04:00 Resp 16 12/25/20 04:00 BP 148/80 H 12/25/20 04:54 Pulse Ox 93 12/25/20 04:00 Body Mass Index 17.6 Const: General: cooperative and no acute distress Orientation/consciousness: patient oriented x3 Resp: Effort & Inspection: normal respiratory effort and able to speak in complete sentences Cardio: Peripheral pulses: Peripheral pulses 2+ throughout Skin: General skin exam: no rashes or lesions noted Neuro: General: patient oriented x3 Extrem: Other: Right hand erythema located over the dorsal aspect. There is a puncture wound over the 4th MCP that is draining cloudy fluid. There is significant tenderness to palpation of the fourth and fifth metacarpals. No firm fluctuant area felt on palpation. She is able to demonstrate finger flexion and extension which is mildly limited do to pain and edema. Lacking about 8cm from making a closed fist. Sensation is intact. Radial pulse is intact. capillary refill is brisk. Results Labs Result Diagrams: 12/24/20 20:45 12/24/20 20:45 Labs: Abnormal lab results 12/24/20 12/24/20 12/24/20 Range/Units 20:45 20:45 20:45 RBC 2.75 L D (4.20-5.50) X10*6/uL Hgb 8.4 L D (12.0-16.0) g/dl Hct 26.0 L D (37-47) % Plt Count 145 L (160-400) X10*3/uL Neut % (Auto) 81.2 H (45-73) % Lymph % (Auto) 10.7 L (20-40) % Lymph # (Auto) 0.6 L (1.2-4.9) X10*3/uL ESR 51 H (0-20) MM/HR Sodium 130 L (135-145) mmol/L Anion Gap 11 L (12-20) BUN 23 H (9-16) mg/dL Creatinine 2.02 H (0.5-1.4) mg/dL Iron 15 L (30-160) mcg/dL TIBC 195 L (228-428) mcg/dL % Saturation 8 L (15-50) % C-Reactive Protein 8.44 H (< or = 0.50) mg/dL H & H 12/24/20 Range/Units 20:45 Hgb 8.4 L D (12.0-16.0) g/dl Hct 26.0 L D (37-47) % All other labs normal. Assessment and Plan (1) Dog bite: Status: Acute Continue abx per medicine recommendation Apply warm compress Continue working on wrist hand and finger gentle ROM No sign of tenosynovitis Patient states that dog was unknown to her and it is unknown if dog was vaccinated (2) Cellulitis of hand: Status: Acute Procedures Date of Service Date of Service: 12/25/20
--- NOTE | 2020-12-25 12:25 | HO.PM.IMPN ---
Subjective Subjective Date of Service: 12/26/20 Interval History: right hand celulitis s/p dog bite Physical Exam Vital Signs: Vital Signs: Last Vital Signs Temp 98.1 F 12/25/20 11:44 Pulse 73 12/25/20 11:44 Resp 16 12/25/20 11:44 BP 135/75 12/25/20 11:44 Pulse Ox 99 12/25/20 11:44 Body Mass Index 17.6 Physical exam : Cvs: rrr, [id number] , no murmur res: clear to auscultation ,no rhonchii or wheezing abd: no rebound or guarding ,nt, bs present. ext pulses present , no cyanosis right hand area: swelling and erythema neuro: axo3 , nonfocal. Objective Data Current Medications Generic Name Dose Route Start Last Admin Trade Name Freq PRN Reason Stop Dose Admin Acetaminophen 650 mg 12/25/20 01:33 Acetaminophen 325 Mg Tablet PO Q6H PRN Pain, Mild (Pain Scale 1-3) Docusate Sodium 100 mg 12/25/20 01:33 Docusate Sodium 100 Mg Capsule PO DAILY PRN Constipation Enoxaparin Sodium 30 mg 12/25/20 02:45 12/25/20 03:29 Enoxaparin Sodium 30 Mg/0.3 Ml Syringe SUBCUT 30 mg Q24H YUNI Administration Sodium Chloride 1,000 mls @ 100 mls/hr 12/25/20 01:33 12/25/20 03:25 Ns IVCONT 100 mls/hr .Q10H YUNI Administration Piperacillin Sod/Tazobactam 50 mls @ 100 mls/hr 12/25/20 03:00 12/25/20 04:14 Sod 3.375 gm/ Sodium Chloride IV Infused Q12H YUNI Infusion Ondansetron HCl 4 mg 12/25/20 01:33 Ondansetron Hcl 4 Mg/2 Ml Vial IVPUSH Q8H PRN Nausea and Vomiting Oxycodone HCl 5 mg 12/25/20 01:33 Oxycodone Hcl Immed Release 5 Mg Tablet PO Q6H PRN Pain, Severe (Pain Scale 7-10) Sodium Chloride 3 ml 12/25/20 08:00 12/25/20 08:52 0.9 % Sodium Chloride Flush 3 Ml Syringe IVFLUSH 3 ml QSHIFT YUNI Administration Labs CBC & Chem 7: 12/26/20 10:47 12/26/20 06:09 Labs: Laboratory Results - last 24 hr 12/24/20 12/24/20 12/24/20 20:45 20:45 20:45 WBC 5.3 RBC 2.75 L D Hgb 8.4 L D Hct 26.0 L D MCV 94.5 MCH 30.5 MCHC 32.3 RDW 13.8 Plt Count 145 L MPV 10.9 Immature Gran % (Auto) 0.4 Neut % (Auto) 81.2 H Lymph % (Auto) 10.7 L [place] % (Auto) 7.7 Eos % (Auto) 0.0 Baso % (Auto) 0.0 Lymph # (Auto) 0.6 L [place] # (Auto) 0.4 Eos # (Auto) 0.0 Baso # (Auto) 0.0 Abs Immat Gran (auto) 0.02 Absolute Neuts (auto) 4.3 Absolute Nucleated RBC 0.000 Nucleated RBC % (auto) 0.0 ESR Sodium 130 L Potassium 4.1 Chloride 100 Carbon Dioxide 23 Anion Gap 11 L BUN 23 H Creatinine 2.02 H Estim Creat Clear Calc 18.8 Estimated GFR 25 Random Glucose 82 Lactic Acid 0.7 Calcium 8.4 D Iron 15 L TIBC 195 L % Saturation 8 L Unsat Iron Binding 180 Ferritin C-Reactive Protein 8.44 H COVID-19 (ROXANE) COVID-[employer] 12/24/20 12/24/20 12/25/20 20:45 23:19 06:14 WBC RBC Hgb Hct MCV MCH MCHC RDW Plt Count MPV Immature Gran % (Auto) Neut % (Auto) Lymph % (Auto) [place] % (Auto) Eos % (Auto) Baso % (Auto) Lymph # (Auto) [place] # (Auto) Eos # (Auto) Baso # (Auto) Abs Immat Gran (auto) Absolute Neuts (auto) Absolute Nucleated RBC Nucleated RBC % (auto) ESR 51 H Sodium Potassium Chloride Carbon Dioxide Anion Gap BUN Creatinine Estim Creat Clear Calc Estimated GFR Random Glucose Lactic Acid Calcium Iron TIBC % Saturation Unsat Iron Binding Ferritin 250 C-Reactive Protein COVID-19 (ROXANE) Negative COVID-19 [employer] Info Com See Note 12/25/20 20:45 WBC RBC Hgb Hct MCV MCH MCHC RDW Plt Count MPV Immature Gran % (Auto) Neut % (Auto) Lymph % (Auto) [place] % (Auto) Eos % (Auto) Baso % (Auto) Lymph # (Auto) [place] # (Auto) Eos # (Auto) Baso # (Auto) Abs Immat Gran (auto) Absolute Neuts (auto) Absolute Nucleated RBC Nucleated RBC % (auto) ESR Cancelled Sodium Potassium Chloride Carbon Dioxide Anion Gap BUN Creatinine Estim Creat Clear Calc Estimated GFR Random Glucose Lactic Acid Calcium Iron TIBC % Saturation Unsat Iron Binding Ferritin C-Reactive Protein COVID-19 (ROXANE) COVID-19 Clin Com Quality Stroke Does the patient have a stroke diagnosis?: No VTE Prior VTE?: No VTE Risk Level:: Medical - moderate - high VTE Device Contraindication: Treatment Not Indicated VTE Drug Contraindication: N/A - Med Ordered Assessment and Plan (1) Dog bite: Status: Acute (2) Cellulitis of hand: Status: Acute Assessment and Plan: Female with past medical history of hypertension, hypothyroidism, CKD, who presents to the hospital with complaints of dog bite over her right hand. 1. cellulitis of the hand secondary to dog bite no evidence of tenosynovitis,has fever with no leukocytosis on IV zosyn consult hand orthopedic surgen eval pending 2. normocytic anemia:has a significant drop of hemoglobin from 10-8 within 7 months - denies melena or bright red blood per rectum occult stool for occult ordered, ferritin normal, B12 and folate levels pending iron levels 15 ,tibc 195 and iron sats:8-low monitor CBC daily with threshold for transfusion hemoglobin less than 7 3. TOMASA and CKD- may be cr new baseline cr around 1.6-1.8 since 2017 on IV fluids - follow BMP 4. hypertension- continue hydralazine, and amlodipine once medications are reconciled 5.hypothyroidism - continue levothyroxine once medications are reconciled 6. hyperlipidemia- continue statin. 7. left buttock ? pressure ulcer : as per patient she had it before coming to hospital, she said she was managing it with the dressing change at home. will add frequent turning, air loss mattress, wound care consult, nutrition.
[2020-12-25] MEDS: Acetaminophen 325 MG TABLET 650 MG PO (13:59)
--- NOTE | 2020-12-25 14:22 | MHC.CM.PN ---
PATIENT LIVES WITH HER SPOUSE. NEW HCP IS NOW IN CHART, NAMING HER SISTER, JOSH. COPY ALSO UPLOADED INTO Ratio. PATIENT USES A WHEELCHAIR WHEN SHE LEAVES THE HOME FOR ERRANDS OR APPOINTMENTS SHE IS ASKING FOR A REFERRAL TO [facility] FOR [facility]GEMENT OF HER SORES (NOTED ON ADMISSION) REFERRAL PLACED AND PROVIDER NOTIFIED. IMM 12/25 IN CHART.
--- NOTE | 2020-12-25 14:41 | MHC.CM.PN ---
PATIENT RECEIVED HER 2 DOSES OF [employer] VACCINES IN JUNE 2020.
[2020-12-25] MEDS: Multivitamin TABLET 1 TAB PO (20:13)
[2020-12-26] MEDS: 0.9 % Sodium Chloride 1,000 ML 100 ML IVCONT (00:02)
[2020-12-26] MEDS: Piperacillin Sodium/Tazobactam 3.375 GM in 0.9 % Sodium Chloride 50 ML IV ×2 (02:58→14:34)
[2020-12-26] MEDS: Enoxaparin Sodium 30 MG/0.3 ML SYRINGE SUBCUT (03:42)
[2020-12-26 03:50] VITALS: BP 159/72; PULSE 74; RESP 18; TEMP 36.2; O2SAT 98
[2020-12-26 06:54] LABS: Eosinophils Percent Auto 0.4 % (0-4); Hematocrit 24.9 % (37-47); Hemoglobin 8.1 g/dl (12.0-16.0); Imm Gran Abs Auto 0.03 X10*3/uL (0.00-0.03); Imm Gran Pct Auto 1.3 % (0.0-0.4); Lymphocytes Absolute Auto 0.6 X10*3/uL (1.2-4.9); MANUAL DIFF FLAG SCAN; Mean Corpuscular HGB Conc 32.5 g/dl (31.0-35.0); Mean Corpuscular Hemoglobin 30.3 pg (27.0-33.0); Mean Corpuscular Volume 93.3 fL (80-98); Monocytes Absolute Auto 0.2 X10*3/uL (0.1-1.2); Monocytes Percent Auto 9.3 % (2-11); Neutrophils Absolute Auto 1.4 X10*3/uL (2.0-8.3); Platelet Count 164 X10*3/uL (160-400); Red Blood Count 2.67 X10*6/uL (4.20-5.50); Red Cell Distribution Width 13.4 % (11.0-16.0); SCAN SMEAR FLAG 1
[2020-12-26 06:58] LABS: White Blood Count 2.3 X10*3/uL (4.8-10.8)
[2020-12-26 07:13] VITALS: BP 140/63; PULSE 72; RESP 18; TEMP 36; O2SAT 99
[2020-12-26 07:26] LABS: SLIDE REVIEW VERIFIED
[2020-12-26 07:41] LABS: Anion Gap 12 (12-20); Blood Urea Nitrogen 17 mg/dL (9-16); Calcium 7.5 mg/dL (8.4-10.2); Carbon Dioxide 19 mmol/L (22-29); Chloride 110 mmol/L (96-108); Estimated Glomerular Filt Rate 30; Glucose Random 77 mg/dL (60-115); Potassium 3.6 mmol/L (3.3-5.1); Sodium 137 mmol/L (135-145)
--- NOTE | 2020-12-26 08:12 | PM.PNORT ---
Subjective Subjective Date of Service: 12/26/20 Interval history: Patient presented to the ED two days ago after sustaining a dog bite to her right hand on 12/22/20. This dog was unknown to her and it is unclear if it has been vaccinated. She was admitted to the hospital for cellulitis and has been on abx for about 24 hours now and states that she has begun to see and feel improvement in her ROM, pain, erythema, and edema. Physical Exam Vital Signs: Vital Signs: Last Vital Signs Temp 96.8 F 12/26/20 07:13 Pulse 72 12/26/20 07:13 Resp 18 12/26/20 07:13 BP 140/63 H 12/26/20 07:13 Pulse Ox 99 12/26/20 07:13 Body Mass Index 17.6 Const: General: cooperative, healthy appearing and no acute distress Resp: Effort & Inspection: normal respiratory effort and able to speak in complete sentences Cardio: Rate: regular rate Peripheral pulses: Peripheral pulses 2+ throughout GI: Palpation (GI): Soft to palpation Skin: Lesions: no lesions Rashes: no rashes Extrem: Other: Right hand decrease in erythema located over the dorsal aspect of the hand. There is a puncture wound over the 4th MCP that has some bloody discharge. There is significant tenderness to palpation of the fourth and fifth metacarpals. No firm fluctuant area felt on palpation. She is able to demonstrate finger flexion and extension which is mildly limited do to pain and edema. She is now able to make a closed fist. Sensation is intact. Radial pulse is intact. capillary refill is brisk. Progress Note: A&P Assessment and plan (1) Dog bite: Status: Acute (2) Cellulitis of hand: Status: Acute Assessment and Plan: Continue abx per medicine recommendation Apply warm compress Continue working on wrist hand and finger gentle ROM -- Ordered OT No sign of tenosynovitis Fall Risk Details Current Medications: Current Medications Generic Name Dose Route Start Last Admin Trade Name Freq PRN Reason Stop Dose Admin Acetaminophen 650 mg 12/25/20 01:33 12/25/20 13:59 Acetaminophen 325 Mg Tablet PO 650 mg Q6H PRN Administration Pain, Mild (Pain Scale 1-3) Docusate Sodium 100 mg 12/25/20 01:33 Docusate Sodium 100 Mg Capsule PO DAILY PRN Constipation Ferrous Sulfate 324 mg 12/26/20 08:30 Ferrous Sulfate 324 Mg Tablet. PO BIDWM YUNI Piperacillin Sod/Tazobactam 50 mls @ 100 mls/hr 12/25/20 03:00 12/26/20 03:40 Sod 3.375 gm/ Sodium Chloride IV Infused Q12H YUNI Infusion Multivitamins/Vitamin C 1 tab 12/25/20 21:00 12/25/20 20:13 Multivitamin Tablet PO 1 tab BEDTIME YUNI Administration Ondansetron HCl 4 mg 12/25/20 01:33 Ondansetron Hcl 4 Mg/2 Ml Vial IVPUSH Q8H PRN Nausea and Vomiting Oxycodone HCl 5 mg 12/25/20 01:33 Oxycodone Hcl Immed Release 5 Mg Tablet PO Q6H PRN Pain, Severe (Pain Scale 7-10) Polyethylene Glycol 17 gm 12/26/20 09:00 Polyethylene Glycol 3350 17 Gm Powd.Pack PO DAILY YUNI Sodium Chloride 3 ml 12/25/20 08:00 12/26/20 00:03 0.9 % Sodium Chloride Flush 3 Ml Syringe IVFLUSH Not Given QSHIFT YUNI Time Spent With Patient Time: Total time spent is greater than 50% in coordination of care (as documented) at patient's floor/unit and/or counseling patient: Time with patient: less than 15 minutes Procedures Date of Service Date of Service: 12/26/20 Quality Stroke Does the patient have a stroke diagnosis?: No VTE Prior VTE?: No VTE Risk Level:: Medical - moderate - high VTE Device Contraindication: Treatment Not Indicated VTE Drug Contraindication: N/A - Med Ordered
[2020-12-26] MEDS: Ferrous Sulfate 324 MG TABLET.DR PO ×2 (08:40→17:47)
[2020-12-26 08:50] LABS: Folate 8.3 ng/mL (> or = 4.0); Vitamin B12 666 pg/mL (200-900)
[2020-12-26 11:13] VITALS: BP 178/84; PULSE 87; RESP 18; TEMP 36.1; O2SAT 90
[2020-12-26 11:16] LABS: Hematocrit 23.7 % (37-47); Hemoglobin 7.6 g/dl (12.0-16.0)
[2020-12-26] MEDS: Cyanocobalamin (Vitamin B-12) 1,000 MCG/ML VIAL 1000 MCG IM (14:34)
[2020-12-26] MEDS: hydrALAZINE HCl 25 MG TABLET 75 MG PO ×2 (14:34→20:54)
[2020-12-26 15:20] LABS: OBS Int Ctl Valid YES; OBS1 NEGATIVE (NEGATIVE)
[2020-12-26 15:41] VITALS: BP 165/89; PULSE 99; RESP 20; TEMP 36.8; O2SAT 98
[2020-12-26 15:56] VITALS: BMI 17.6
--- NOTE | 2020-12-26 16:09 | MHC.CLN ---
NUTRITION SEE NUTRITION ASSESSMENT. PATIENT WITH STAGE III COCCYX WOUND. STARTED ENSURE 240 ML BID AND MARCY 1 PAKET BID FOR NUTRITION AND TO PROMOTE WOUND HEALING.
--- NOTE | 2020-12-26 16:11 | W.PM.IDCN ---
History of Present Illness Data of Consult Service Date: 12/26/20 Requesting physician: Makeda Sultana Primary Care Provider: MD ALLY Reddy Reason for consult: right hand dog bite She presents with hospital with right hand pain and swelling after dog bite four days ago. She noticed swelling and serosanguinous drainage. She has no fever or chills Review of Systems Review of Systems: Yes all other systems are reviewed and are negative PMFSH Past Medical History Medical History Anxiety Cataract Chronic kidney disease (CKD) stage G4/A1, severely decreased glomerular filtration rate (GFR) between 15-29 mL/min/1.73 square meter and albuminuria creatinine ratio less than 30 mg/g Chronic low back pain History of renal calculi Hypercholesterolemia Hypertension Insomnia Vitamin D deficiency Wrist laceration Family History Family history: reviewed and not pertinent Surgical History Surgical History AAA (abdominal aortic aneurysm) History of colectomy History of rectal surgery Hx of cataract surgery Hx of cholecystectomy S/P AICHA-BSO Social History Social History Household Members: Spouse Housing: House Do you presently have visiting nurse or other home services: No Patient Tobacco Use Status: Former Tobacco user Quit Date: years ago Tobacco use type: Cigarette e-Cigarette/Vaping Use: Never Used Second Hand Smoke Exposure: No service: No Current occupational status: retired Meds Allergies Allergy/AdvReac Type Severity Reaction Status Date / Time sumatriptan [From IMITREX] Allergy Severe ANGIOEDEMA Verified 12/24/20 19:17 atorvastatin [Lipitor] Allergy Unknown n Verified 12/24/20 19:17 rosuvastatin [Crestor] Allergy Unknown n Verified 12/24/20 19:17 simvastatin Allergy Unknown n Verified 12/24/20 19:17 pravastatin AdvReac Intermediate shaking Verified 12/24/20 19:17 muscle pain From IMITREX Allergy Severe ANGIOEDEMA Uncoded 02/25/20 15:39 Plavix Allergy Unknown rash Uncoded 10/16/19 00:00 Active Medications: Current Medications Generic Name Dose Route Start Last Admin Trade Name Freq PRN Reason Stop Dose Admin Acetaminophen 650 mg 12/25/20 01:33 07/18/21 13:59 Acetaminophen 325 Mg Tablet PO 650 mg Q6H PRN Administration Pain, Mild (Pain Scale 1-3) Cyanocobalamin 1,000 mcg 12/26/20 11:00 12/26/20 14:34 Cyanocobalamin (Vitamin B-12) 1,000 Mcg/Ml Vial IM 1,000 mcg Q30D [facility] Administration Docusate Sodium 100 mg 12/25/20 01:33 Docusate Sodium 100 Mg Capsule PO DAILY PRN Constipation Ferrous Sulfate 324 mg 12/26/20 08:30 12/26/20 08:40 Ferrous Sulfate 324 Mg Tablet.Dr PO 324 mg BIDWM [facility] Administration Hydralazine HCl 75 mg 12/26/20 15:00 12/26/20 14:34 Hydralazine Hcl 25 Mg Tablet PO 75 mg TID [facility] Administration Protocol Piperacillin Sod/Tazobactam 50 mls @ 100 mls/hr 12/25/20 03:00 12/26/20 15:41 Sod 3.375 gm/ Sodium Chloride IV Infused Q12H [facility] Infusion Isosorbide Mononitrate 30 mg 12/27/20 09:00 Isosorbide Mononitrate 30 Mg Tab.Er.24h PO DAILY [facility] Protocol Levothyroxine Sodium 125 mcg 12/27/20 06:00 Levothyroxine Sodium 125 Mcg Tablet PO DAILY@0600 [facility] Metoprolol Succinate 150 mg 12/27/20 09:00 Metoprolol Succinate Er 50 Mg Tab.Er.24h PO DAILY [facility] Protocol Multivitamins/Vitamin C 1 tab 12/25/20 21:00 12/25/20 20:13 Multivitamin Tablet PO 1 tab BEDTIME [facility] Administration Ondansetron HCl 4 mg 12/25/20 01:33 Ondansetron Hcl 4 Mg/2 Ml Vial IVPUSH Q8H PRN Nausea and Vomiting Oxycodone HCl 5 mg 12/25/20 01:33 Oxycodone Hcl Immed Release 5 Mg Tablet PO Q6H PRN Pain, Severe (Pain Scale 7-10) Polyethylene Glycol 17 gm 12/26/20 09:00 12/26/20 08:40 Polyethylene Glycol 3350 17 Gm Powd.Pack PO Not Given DAILY [facility] Sodium Chloride 3 ml 12/25/20 08:00 12/26/20 08:40 0.9 % Sodium Chloride Flush 3 Ml Syringe IVFLUSH Not Given QSHIFT YUNI Tramadol HCl 50 mg 12/26/20 10:49 Tramadol Hcl 50 Mg Tablet PO Q6H PRN Pain Home Medications Medication Instructions Recorded Confirmed Last Taken Type aspirin 81 mg tablet,delayed 81 mg PO DAILY 06/09/20 12/25/20 Unknown History release cyanocobalamin (vitamin B-12) 1 ml IM QMONTH 12/25/20 12/25/20 Unknown History hydralazine 75 mg PO TID 12/25/20 12/25/20 Unknown History isosorbide mononitrate 1 tab PO DAILY 12/25/20 12/25/20 Unknown History levothyroxine 125 mcg PO DAILY 12/25/20 12/25/20 Unknown History tramadol 50 mg PO Q6-8H PRN 12/25/20 12/25/20 Unknown History Physical Exam Vital Signs: Vital Signs: Last Vital Signs Temp 98.3 F 12/26/20 15:41 Pulse 99 12/26/20 15:41 Resp 20 12/26/20 15:41 BP 165/89 H 12/26/20 15:41 Pulse Ox 98 12/26/20 15:41 Body Mass Index 17.6 Const: General: cooperative HENMT: Head: Yes normal to inspection Mouth: Normal oral and palatal mucosa present Resp: Effort & Inspection: normal respiratory effort Cardio: Rate: regular rate Rhythm: regular rhythm Heart sounds: S1 normal heart sound present GI: Palpation (GI): Soft to palpation and nontender Skin: General skin exam: no rashes or lesions noted Extrem: Other: right hand swelling and erythema can move nearly full ROM Results Labs CBC & Chem 7: 12/26/20 10:47 12/26/20 06:09 Labs: Short CBC 12/26/20 12/26/20 Range/Units 06:09 10:47 WBC 2.3 L (4.8-10.8) X10*3/uL Hgb 8.1 L 7.6 L (12.0-16.0) g/dl Hct 24.9 L 23.7 L (37-47) % Plt Count 164 (160-400) X10*3/uL BMP 12/26/20 06:09 Sodium 137 Potassium 3.6 Chloride 110 H Carbon Dioxide 19 L BUN 17 H Creatinine 1.72 H Calcium 7.5 L D Microbiology Microbiology Results: Microbiology 12/24/20 20:47 Blood - Venous Blood Culture - Preliminary Prelim: GNR Gram Stain only 12/24/20 20:47 Blood - Venous Blood Culture - Preliminary No growth after 24 hours. Assessment and Plan (1) Dog bite: Status: Acute The area is still swollen She has been on Zosyn Organisms include gram negative,anerobes and gram positive Would continue IV antibiotics another day but if not improving would give eval Hand Surgery Tetanus shot if not given (2) Cellulitis of hand: Status: Acute
--- NOTE | 2020-12-26 16:21 | P.PNIM_ITS ---
Subjective Subjective Date of Service: 12/26/20 Interval History: anemia , cellulitis Review of Systems Patient denies any chest pain shortness of breath or abdominal pain or nausea vomiting. Physical Exam Vital Signs: Vital Signs: Last Vital Signs Temp 98.3 F 12/26/20 15:41 Pulse 99 12/26/20 15:41 Resp 20 12/26/20 15:41 BP 165/89 H 12/26/20 15:41 Pulse Ox 98 12/26/20 15:41 Body Mass Index 17.6 Physical exam: Constitutional: not in acute distress Cvs: rrr, [id number] , no murmur res: clear to auscultation ,no rhonchii or wheezing abd: no rebound or guarding ,nt, bs present. ext pulses present , no cyanosis right hand area: swelling and erythema neuro: axo3 , nonfocal. Objective Data Current Medications Generic Name Dose Route Start Last Admin Trade Name Freq PRN Reason Stop Dose Admin Acetaminophen 650 mg 12/25/20 01:33 12/25/20 13:59 Acetaminophen 325 Mg Tablet PO 650 mg Q6H PRN Administration Pain, Mild (Pain Scale 1-3) Cyanocobalamin 1,000 mcg 12/26/20 11:00 12/26/20 14:34 Cyanocobalamin (Vitamin B-12) 1,000 Mcg/Ml Vial IM 1,000 mcg Q30D [facility]I Administration Docusate Sodium 100 mg 12/25/20 01:33 Docusate Sodium 100 Mg Capsule PO DAILY PRN Constipation Ferrous Sulfate 324 mg 12/26/20 08:30 12/26/20 08:40 Ferrous Sulfate 324 Mg Tablet. PO 324 mg BIDWM Y[facility]I Administration Hydralazine HCl 75 mg 12/26/20 15:00 12/26/20 14:34 Hydralazine Hcl 25 Mg Tablet PO 75 mg TID [facility] Administration Protocol Piperacillin Sod/Tazobactam 50 mls @ 100 mls/hr 12/25/20 03:00 12/26/20 15:41 Sod 3.375 gm/ Sodium Chloride IV Infused Q12H [facility]I Infusion Isosorbide Mononitrate 30 mg 12/27/20 09:00 Isosorbide Mononitrate 30 Mg Tab.Er.24h PO DAILY [facility] Protocol Levothyroxine Sodium 125 mcg 12/27/20 06:00 Levothyroxine Sodium 125 Mcg Tablet PO DAILY@0600 [facility] Metoprolol Succinate 150 mg 12/27/20 09:00 Metoprolol Succinate Er 50 Mg Tab.Er.24h PO DAILY [facility] Protocol Multivitamins/Vitamin C 1 tab 12/25/20 21:00 12/25/20 20:13 Multivitamin Tablet PO 1 tab BEDTIME [facility] Administration Ondansetron HCl 4 mg 12/25/20 01:33 Ondansetron Hcl 4 Mg/2 Ml Vial IVPUSH Q8H PRN Nausea and Vomiting Oxycodone HCl 5 mg 12/25/20 01:33 Oxycodone Hcl Immed Release 5 Mg Tablet PO Q6H PRN Pain, Severe (Pain Scale 7-10) Polyethylene Glycol 17 gm 12/26/20 09:00 12/26/20 08:40 Polyethylene Glycol 3350 17 Gm Powd.Pack PO Not Given DAILY [facility] Sodium Chloride 3 ml 12/25/20 08:00 12/26/20 08:40 0.9 % Sodium Chloride Flush 3 Ml Syringe IVFLUSH Not Given QSHIFT [facility] Tramadol HCl 50 mg 12/26/20 10:49 Tramadol Hcl 50 Mg Tablet PO Q6H PRN Pain Labs CBC & Chem 7: 12/26/20 10:47 12/26/20 06:09 Labs: Laboratory Results - last 24 hr 12/25/20 12/26/20 12/26/20 06:14 06:09 06:09 WBC 2.3 L RBC 2.67 L Hgb 8.1 L Hct 24.9 L MCV 93.3 MCH 30.3 MCHC 32.5 RDW 13.4 Plt Count 164 MPV 11.0 Immature Gran % (Auto) 1.3 H Neut % (Auto) 63.0 Lymph % (Auto) 26.0 [place] % (Auto) 9.3 Eos % (Auto) 0.4 Baso % (Auto) 0.0 Lymph # (Auto) 0.6 L [place] # (Auto) 0.2 Eos # (Auto) 0.0 Baso # (Auto) 0.0 Abs Immat Gran (auto) 0.03 Absolute Neuts (auto) 1.4 L Absolute Nucleated RBC 0.000 Nucleated RBC % (auto) 0.0 Smear Tech's Comments VERIFIED Sodium 137 Potassium 3.6 Chloride 110 H Carbon Dioxide 19 L Anion Gap 12 BUN 17 H Creatinine 1.72 H Estim Creat Clear Calc 23.0 Estimated GFR 30 Random Glucose 77 Calcium 7.5 L D Vitamin B12 666 Folate 8.3 Stool Occult Blood 12/26/20 12/26/20 10:47 14:55 WBC RBC Hgb 7.6 L Hct 23.7 L MCV MCH MCHC RDW Plt Count MPV Immature Gran % (Auto) Neut % (Auto) Lymph % (Auto) [place] % (Auto) Eos % (Auto) Baso % (Auto) Lymph # (Auto) [place] # (Auto) Eos # (Auto) Baso # (Auto) Abs Immat Gran (auto) Absolute Neuts (auto) Absolute Nucleated RBC Nucleated RBC % (auto) Smear Tech's Comments Sodium Potassium Chloride Carbon Dioxide Anion Gap BUN Creatinine Estim Creat Clear Calc Estimated GFR Random Glucose Calcium Vitamin B12 Folate Stool Occult Blood NEGATIVE Microbiology Microbiology Results: Microbiology 12/24/20 20:47 Blood Culture - Preliminary Blood - Venous Prelim: GNR Gram Stain only 12/24/20 20:47 Blood Culture - Preliminary Blood - Venous No growth after 24 hours. Quality Stroke Does the patient have a stroke diagnosis?: No VTE Prior VTE?: No VTE Risk Level:: Medical - moderate - high VTE Device Contraindication: Treatment Not Indicated VTE Drug Contraindication: N/A - Med Ordered Assessment and Plan (1) Cellulitis of hand: Status: Acute (2) CKD (chronic kidney disease) stage 3, GFR 30-59 ml/min: Status: Acute Assessment and Plan: Female with past medical history of hypertension, hypothyroidism, CKD, who presents to the hospital with complaints of dog bite over her right hand. 1. cellulitis of the hand secondary to dog bite no evidence of tenosynovitis,has fever with no leukocytosis on IV zosyn consult hand orthopedic surgen eval noted , id eval pending 2. normocytic anemia:has a significant drop of hemoglobin from 10-8 within 7 months - denies melena or bright red blood per rectum occult stool for occult ordered, ferritin normal, B12 and folate levels pending iron levels 15 ,tibc 195 and iron sats:8-low Probably iron deficiency plus anemia of chronic disease Stool for occult blood negative Also on home b12. A monitor CBC daily with threshold for transfusion hemoglobin less than 7 3. TOMASA and CKD- may be cr new baseline cr around 1.6-1.8 since 2017 on IV fluids - follow BMP 4. hypertension- continue hydralazine, and amlodipine once medications are reconciled 5.hypothyroidism - continue levothyroxine once medications are reconciled 6. hyperlipidemia- continue statin. 7. left buttock ? pressure ulcer : as per patient she had it before coming to hospital, she said she was managing it with the dressing change at home. will add frequent turning, air loss mattress, wound care consult, nutrition.
[2020-12-26] MEDS: 0.9 % Sodium Chloride Flush 3 ML SYRINGE IVFLUSH (17:47)
--- NOTE | 2020-12-26 18:16 | PC.NURSE ---
Skin/Wound assessment completed today. Patient has a stage 4 pressure ulcer which was present on admission. Patient states that she and her niece have been trying to take care of it at home. The wound looks very clean, no evidence of infection but is deep and tunnels at 12:00 o clock about 1 cm. It measures 2.5 x 1.2 x 0.3. Applied collagen gel to wound and covered with foam. Conferring with wound clinic if a wound vac may help her heal this wound. Also has some small shearing on buttocks. Triad applied to those wound. Patient also has a dog bite to right hand-Cellulitis. Covered with gauze and roll gauze.
[2020-12-26 19:27] VITALS: BP 146/67; PULSE 105; RESP 19; TEMP 37.3; O2SAT 98
[2020-12-26] MEDS: Multivitamin TABLET 1 TAB PO (20:54)
[2020-12-26 23:49] VITALS: BP 169/77; PULSE 98; RESP 20; TEMP 36; O2SAT 96
[2020-12-27] VITALS (15 sets, daily range): BP systolic 116–188; BP diastolic 62–84; PULSE 66–97; RESP 16–20; TEMP 36.1–37.5; O2SAT 97–99
[2020-12-27] MEDS: 0.9 % Sodium Chloride Flush 3 ML SYRINGE IVFLUSH ×3 (00:34→15:31)
[2020-12-27] MEDS: Piperacillin Sodium/Tazobactam 3.375 GM in 0.9 % Sodium Chloride 50 ML IV ×2 (02:58→14:34)
[2020-12-27] MEDS: Acetaminophen 325 MG TABLET 650 MG PO ×3 (02:58→22:26)
[2020-12-27] MEDS: Levothyroxine Sodium 125 MCG TABLET PO (06:36)
[2020-12-27 07:00] LABS: Hematocrit 23.6 % (37-47); Hemoglobin 7.6 g/dl (12.0-16.0)
--- NOTE | 2020-12-27 07:48 | P.PNIM_ITS ---
Subjective Subjective Date of Service: 12/27/20 Interval History: anemia , cellulits Review of Systems seems cellulitis area seems improving back wound seems clean Physical Exam Vital Signs: Vital Signs: Last Vital Signs Temp 97.7 F 12/27/20 07:27 Pulse 87 12/27/20 07:27 Resp 16 12/27/20 07:27 BP 188/82 H 12/27/20 07:27 Pulse Ox 99 12/27/20 07:27 Body Mass Index 17.6 Constitutional: not in acute distress Cvs: rrr, [id number] , no murmur res: clear to auscultation ,no rhonchii or wheezing abd: no rebound or guarding ,nt, bs present. ext pulses present , no cyanosis right hand area: swelling and erythema seems improving has back wound -seems clean , no discharge neuro: axo3 , nonfocal. Objective Data Current Medications Generic Name Dose Route Start Last Admin Trade Name Freq PRN Reason Stop Dose Admin Acetaminophen 650 mg 12/25/20 01:33 12/27/20 02:58 Acetaminophen 325 Mg Tablet PO 650 mg Q6H PRN Administration Pain, Mild (Pain Scale 1-3) Cyanocobalamin 1,000 mcg 12/26/20 11:00 12/26/20 14:34 Cyanocobalamin (Vitamin B-12) 1,000 Mcg/Ml Vial IM 1,000 mcg Q30D Y[facility]I Administration Docusate Sodium 100 mg 12/25/20 01:33 Docusate Sodium 100 Mg Capsule PO DAILY PRN Constipation Ferrous Sulfate 324 mg 12/26/20 08:30 12/26/20 17:47 Ferrous Sulfate 324 Mg Tablet. PO 324 mg BIDWM Y[facility]I Administration Hydralazine HCl 75 mg 12/26/20 15:00 12/26/20 20:54 Hydralazine Hcl 25 Mg Tablet PO 75 mg TID [facility] Administration Protocol Piperacillin Sod/Tazobactam 50 mls @ 100 mls/hr 12/25/20 03:00 12/27/20 03:35 Sod 3.375 gm/ Sodium Chloride IV Infused Q12H [facility]I Infusion Isosorbide Mononitrate 30 mg 12/27/20 09:00 Isosorbide Mononitrate 30 Mg Tab.Er.24h PO DAILY [facility] Protocol Levothyroxine Sodium 125 mcg 12/27/20 06:00 12/27/20 06:36 Levothyroxine Sodium 125 Mcg Tablet PO 125 mcg DAILY@0600 [facility] Administration Metoprolol Succinate 150 mg 12/27/20 09:00 Metoprolol Succinate Er 50 Mg Tab.Er.24h PO DAILY [facility] Protocol Multivitamins/Vitamin C 1 tab 12/25/20 21:00 12/26/20 20:54 Multivitamin Tablet PO 1 tab BEDTIME [facility] Administration Ondansetron HCl 4 mg 12/25/20 01:33 Ondansetron Hcl 4 Mg/2 Ml Vial IVPUSH Q8H PRN Nausea and Vomiting Oxycodone HCl 5 mg 12/25/20 01:33 Oxycodone Hcl Immed Release 5 Mg Tablet PO Q6H PRN Pain, Severe (Pain Scale 7-10) Polyethylene Glycol 17 gm 12/26/20 09:00 12/26/20 08:40 Polyethylene Glycol 3350 17 Gm Powd.Pack PO Not Given DAILY [facility] Sodium Chloride 3 ml 12/25/20 08:00 12/27/20 00:34 0.9 % Sodium Chloride Flush 3 Ml Syringe IVFLUSH 3 ml QSHIFT [facility] Administration Tramadol HCl 50 mg 12/26/20 10:49 Tramadol Hcl 50 Mg Tablet PO Q6H PRN Pain Labs CBC & Chem 7: 12/27/20 06:37 12/26/20 06:09 Labs: Laboratory Results - last 24 hr 12/25/20 12/26/20 12/26/20 06:14 10:47 14:55 Hgb 7.6 L Hct 23.7 L Vitamin B12 666 Folate 8.3 Stool Occult Blood NEGATIVE 12/27/20 06:37 Hgb 7.6 L Hct 23.6 L Vitamin B12 Folate Stool Occult Blood Microbiology Microbiology Results: Microbiology 12/24/20 20:47 Blood Culture - Preliminary Blood - Venous No growth after 48 hours. 12/24/20 20:47 Blood Culture - Preliminary Blood - Venous Prelim: GNR Gram Stain only Quality Stroke Does the patient have a stroke diagnosis?: No VTE Prior VTE?: No VTE Risk Level:: Medical - moderate - high VTE Device Contraindication: Treatment Not Indicated VTE Drug Contraindication: N/A - Med Ordered Assessment and Plan (1) Normocytic anemia: Status: Acute (2) Cellulitis of hand: Status: Acute Assessment and Plan: day-4 65 y/o fFemale with past medical history of hypertension, hypothyroidism, CKD, who presents to the hospital with complaints of dog bite over her right hand. 1. cellulitis of the hand secondary to dog bite Checked with pharmacy patient got tetanus short on arrival in [place]. no evidence of tenosynovitis,has fever with no leukocytosis on IV zosyn Ortho following-recommended continue dressing change, OT Id recommended to continue IV antibiotic . 2. normocytic anemia:has a significant drop of hemoglobin from 10-8 within 7 months - denies melena or bright red blood per rectum occult stool for occult ordered, ferritin normal, B12 and folate levels pending iron levels 15 ,tibc 195 and iron sats:8-low d/w nephro and hematology - added 2prbc 3. TOMASA and CKD- may be cr near baseline cr around 1.6-1.8 since 2017 off IV fluids - follow BMP 4. hypertension- continue hydralazine, and amlodipine once medications are reconciled 5.hypothyroidism - continue levothyroxine once medications are reconciled 6. hyperlipidemia- continue statin. 7. left buttock ? pressure ulcer : as per patient she had it before coming to hospital, she said she was managing it with the dressing change at home. will add frequent turning, air loss mattress, wound care and nutrition following .
--- NOTE | 2020-12-27 07:55 | P.PNOP_ITS ---
Subjective Subjective Date of Service: 12/27/20 Interval history: Patient is s/p dog bite right hand and has been on IV Zosyn. Patient states that her pain and rom continue to improve. She states that the drainage is better than yesterday. No overnight events. Physical Exam Vital Signs: Vital Signs: Last Vital Signs Temp 97.7 F 12/27/20 07:27 Pulse 87 12/27/20 07:27 Resp 16 12/27/20 07:27 BP 188/82 H 12/27/20 07:27 Pulse Ox 99 12/27/20 07:27 Body Mass Index 17.6 Const: General: cooperative and no acute distress Orientation/consciousness: patient oriented x3 Resp: Effort & Inspection: normal respiratory effort and able to speak in complete sentences Cardio: Peripheral pulses: Peripheral pulses 2+ throughout Skin: General skin exam: no rashes or lesions noted Neuro: General: patient oriented x3 Extrem: Other: Right hand decrease in erythema located over the dorsal aspect of the hand. There is a puncture wound over the 4th MCP that has some bloody discharge. There is significant tenderness to palpation of the fourth and fifth metacarpals. No firm fluctuant area felt on palpation. She is able to demonstrate finger flexion and extension which is mildly limited do to pain and edema. She is now able to make a closed fist. Sensation is intact. Radial pulse is intact. capillary refill is brisk. Progress Note: A&P Assessment and plan (1) Dog bite: Status: Acute Assessment and Plan: Continue abx per medicine recommendation Continue working on wrist hand and finger gentle ROM -- Ordered OT No sign of tenosynovitis Medicine to continue following with daily wound checks and dressing changes No additional orthopedic care needed at this time but will be available if symptoms worsen (2) Cellulitis of hand: Status: Acute Fall Risk Details Current Medications: Current Medications Generic Name Dose Route Start Last Admin Trade Name Freq PRN Reason Stop Dose Admin Acetaminophen 650 mg 12/25/20 01:33 12/27/20 02:58 Acetaminophen 325 Mg Tablet PO 650 mg Q6H PRN Administration Pain, Mild (Pain Scale 1-3) Cyanocobalamin 1,000 mcg 12/26/20 11:00 12/26/20 14:34 Cyanocobalamin (Vitamin B-12) 1,000 Mcg/Ml Vial IM 1,000 mcg Q30D YUNI Administration Docusate Sodium 100 mg 07/18/21 01:33 Docusate Sodium 100 Mg Capsule PO DAILY PRN Constipation Ferrous Sulfate 324 mg 12/26/20 08:30 12/26/20 17:47 Ferrous Sulfate 324 Mg Tablet.Dr PO 324 mg BIDWM [facility] Administration Hydralazine HCl 75 mg 12/26/20 15:00 12/26/20 20:54 Hydralazine Hcl 25 Mg Tablet PO 75 mg TID [facility] Administration Protocol Piperacillin Sod/Tazobactam 50 mls @ 100 mls/hr 12/25/20 03:00 12/27/20 03:35 Sod 3.375 gm/ Sodium Chloride IV Infused Q12H [facility] Infusion Isosorbide Mononitrate 30 mg 12/27/20 09:00 Isosorbide Mononitrate 30 Mg Tab.Er.24h PO DAILY [facility] Protocol Levothyroxine Sodium 125 mcg 12/27/20 06:00 12/27/20 06:36 Levothyroxine Sodium 125 Mcg Tablet PO 125 mcg DAILY@0600 [facility] Administration Metoprolol Succinate 150 mg 12/27/20 09:00 Metoprolol Succinate Er 50 Mg Tab.Er.24h PO DAILY [facility] Protocol Multivitamins/Vitamin C 1 tab 12/25/20 21:00 12/26/20 20:54 Multivitamin Tablet PO 1 tab BEDTIME [facility] Administration Ondansetron HCl 4 mg 12/25/20 01:33 Ondansetron Hcl 4 Mg/2 Ml Vial IVPUSH Q8H PRN Nausea and Vomiting Oxycodone HCl 5 mg 12/25/20 01:33 Oxycodone Hcl Immed Release 5 Mg Tablet PO Q6H PRN Pain, Severe (Pain Scale 7-10) Polyethylene Glycol 17 gm 12/26/20 09:00 12/26/20 08:40 Polyethylene Glycol 3350 17 Gm Powd.Pack PO Not Given DAILY [facility] Sodium Chloride 3 ml 12/25/20 08:00 12/27/20 00:34 0.9 % Sodium Chloride Flush 3 Ml Syringe IVFLUSH 3 ml QSHIFT [facility] Administration Tramadol HCl 50 mg 12/26/20 10:49 Tramadol Hcl 50 Mg Tablet PO Q6H PRN Pain Time Spent With Patient Time: Total time spent is greater than 50% in coordination of care (as documented) at patient's floor/unit and/or counseling patient: Time with patient: less than 15 minutes Procedures Date of Service Date of Service: 12/27/20 Quality Stroke Does the patient have a stroke diagnosis?: No VTE Prior VTE?: No VTE Risk Level:: Medical - moderate - high VTE Device Contraindication: Treatment Not Indicated VTE Drug Contraindication: N/A - Med Ordered
[2020-12-27 07:59] LABS: Imm Gran Abs Auto 0.04 X10*3/uL (0.00-0.03); Imm Gran Pct Auto 1.7 % (0.0-0.4); Lymphocytes Absolute Auto 0.3 X10*3/uL (1.2-4.9); Lymphocytes Percent Auto 12.7 % (20-40); MANUAL DIFF FLAG SCAN; Mean Corpuscular HGB Conc 31.9 g/dl (31.0-35.0); Mean Corpuscular Hemoglobin 30.2 pg (27.0-33.0); Mean Corpuscular Volume 94.4 fL (80-98); Mean Platelet Volume 10.9 fL (9.4-12.3); Monocytes Absolute Auto 0.2 X10*3/uL (0.1-1.2); Monocytes Percent Auto 8.3 % (2-11); Neutrophils Absolute Auto 1.8 X10*3/uL (2.0-8.3); Neutrophils Percent Auto 77.3 % (45-73); Platelet Count 113 X10*3/uL (160-400); Red Blood Count 2.52 X10*6/uL (4.20-5.50); Red Cell Distribution Width 13.9 % (11.0-16.0); SCAN SMEAR FLAG 1
[2020-12-27 08:01] LABS: White Blood Count 2.3 X10*3/uL (4.8-10.8)
[2020-12-27 08:17] LABS: Alanine Aminotransferase 12 U/L (0-31); Albumin Level 2.5 g/dL (3.5-5.0); Alkaline Phosphatase 112 U/L (39-117); Aspartate Amino Transferase 30 U/L (5-31); Bilirubin Direct 0.2 mg/dL (0.0-0.5); Bilirubin Total 0.4 mg/dL (0.0-1.0)
[2020-12-27 08:32] LABS: SLIDE REVIEW VERIFIED
[2020-12-27] MEDS: Ferrous Sulfate 324 MG TABLET.DR PO ×2 (09:03→15:31)
[2020-12-27] MEDS: Isosorbide Mononitrate 30 MG TAB.ER.24H PO (09:03)
[2020-12-27] MEDS: Metoprolol Succinate ER 50 MG TAB.ER.24H 150 MG PO (09:03)
[2020-12-27] MEDS: hydrALAZINE HCl 25 MG TABLET 75 MG PO ×3 (09:04→20:33)
[2020-12-27] MEDS: diphenhydrAMINE HCL 25 MG TABLET PO (10:23)
--- NOTE | 2020-12-27 13:41 | HO.WOUNDCONS ---
History of Present Illness Data of Consult Service Date: 12/27/20 Requesting physician: Makeda Sultana Primary Care Provider: MD ALLY Reddy Reason for consult: left medial gluteus stage 3 pressure ulcer 65 year old female currently having a blood transfusion for anemia, history of right lung mass, acute on chronic kidney disease now hospitalized for dog bite of the right hand. The wound on the buttock is painful. It has been present for several weeks. The wound nurse applied wound dress appropriately. It has been draining. No imaging is completed thus far. Review of Systems Review of Systems: Pain in the right hand is manageable, feeling better. Denies chest pain and shortness of breath. No urinary or bowel difficulties are reported. She has a history of colostomy about 15 years ago. Yes all other systems are reviewed and are negative [facility] Medical History Anxiety Cataract Chronic kidney disease (CKD) stage G4/A1, severely decreased glomerular filtration rate (GFR) between 15-29 mL/min/1.73 square meter and albuminuria creatinine ratio less than 30 mg/g Chronic low back pain History of renal calculi Hypercholesterolemia Hypertension Insomnia Vitamin D deficiency Wrist laceration Family history: reviewed and not pertinent Surgical History AAA (abdominal aortic aneurysm) History of colectomy History of rectal surgery Hx of cataract surgery Hx of cholecystectomy S/P AICHA-BSO Social History Household Members: Spouse Housing: House Do you presently have visiting nurse or other home services: No Patient Tobacco Use Status: Former Tobacco user Quit Date: years ago Tobacco use type: Cigarette e-Cigarette/Vaping Use: Never Used Second Hand Smoke Exposure: No service: No Current occupational status: retired Meds Allergies Allergy/AdvReac Type Severity Reaction Status Date / Time sumatriptan [From IMITREX] Allergy Severe ANGIOEDEMA Verified 12/24/20 19:17 atorvastatin [Lipitor] Allergy Unknown n Verified 12/24/20 19:17 rosuvastatin [Crestor] Allergy Unknown n Verified 12/24/20 19:17 simvastatin Allergy Unknown n Verified 12/24/20 19:17 pravastatin AdvReac Intermediate shaking Verified 12/24/20 19:17 muscle pain From IMITREX Allergy Severe ANGIOEDEMA Uncoded 02/25/20 15:39 Plavix Allergy Unknown rash Uncoded 10/16/19 00:00 Active Medications: Current Medications Generic Name Dose Route Start Last Admin Trade Name Freq PRN Reason Stop Dose Admin Acetaminophen 650 mg 12/25/20 01:33 12/27/20 02:58 Acetaminophen 325 Mg Tablet PO 650 mg Q6H PRN Administration Pain, Mild (Pain Scale 1-3) Cyanocobalamin 1,000 mcg 12/26/20 11:00 12/26/20 14:34 Cyanocobalamin (Vitamin B-12) 1,000 Mcg/Ml Vial IM 1,000 mcg Q30D [facility] Administration Docusate Sodium 100 mg 12/25/20 01:33 Docusate Sodium 100 Mg Capsule PO DAILY PRN Constipation Ferrous Sulfate 324 mg 12/26/20 08:30 12/27/20 09:03 Ferrous Sulfate 324 Mg Tablet.Dr PO 324 mg BIDWM [facility] Administration Hydralazine HCl 75 mg 12/26/20 15:00 12/27/20 09:04 Hydralazine Hcl 25 Mg Tablet PO 75 mg TID [facility] Administration Protocol Piperacillin Sod/Tazobactam 50 mls @ 100 mls/hr 12/25/20 03:00 12/27/20 03:35 Sod 3.375 gm/ Sodium Chloride IV Infused Q12H [facility] Infusion Isosorbide Mononitrate 30 mg 12/27/20 09:00 12/27/20 09:03 Isosorbide Mononitrate 30 Mg Tab.Er.24h PO 30 mg DAILY [facility] Administration Protocol Levothyroxine Sodium 125 mcg 12/27/20 06:00 12/27/20 06:36 Levothyroxine Sodium 125 Mcg Tablet PO 125 mcg DAILY@0600 [facility] Administration Metoprolol Succinate 150 mg 12/27/20 09:00 12/27/20 09:03 Metoprolol Succinate Er 50 Mg Tab.Er.24h PO 150 mg DAILY [facility] Administration Protocol Multivitamins/Vitamin C 1 tab 12/25/20 21:00 12/26/20 20:54 Multivitamin Tablet PO 1 tab BEDTIME [facility] Administration Ondansetron HCl 4 mg 12/25/20 01:33 Ondansetron Hcl 4 Mg/2 Ml Vial IVPUSH Q8H PRN Nausea and Vomiting Oxycodone HCl 5 mg 12/25/20 01:33 Oxycodone Hcl Immed Release 5 Mg Tablet PO Q6H PRN Pain, Severe (Pain Scale 7-10) Polyethylene Glycol 17 gm 12/26/20 09:00 12/27/20 09:05 Polyethylene Glycol 3350 17 Gm Powd.Pack PO Not Given DAILY [facility] Sodium Chloride 3 ml 12/25/20 08:00 12/27/20 09:05 0.9 % Sodium Chloride Flush 3 Ml Syringe IVFLUSH 3 ml QSHIFT [facility] Administration Tramadol HCl 50 mg 12/26/20 10:49 Tramadol Hcl 50 Mg Tablet PO Q6H PRN Pain Home Medications Medication Instructions Recorded Confirmed Last Taken Type aspirin 81 mg tablet,delayed 81 mg PO DAILY 06/09/20 12/25/20 Unknown History release cyanocobalamin (vitamin B-12) 1 ml IM QMONTH 12/25/20 12/25/20 Unknown History hydralazine 75 mg PO TID 12/25/20 12/25/20 Unknown History isosorbide mononitrate 1 tab PO DAILY 12/25/20 12/25/20 Unknown History levothyroxine 125 mcg PO DAILY 12/25/20 12/25/20 Unknown History tramadol 50 mg PO Q6-8H PRN 12/25/20 12/25/20 Unknown History Physical Exam Vital Signs and Narrative: Vital Signs: Last Vital Signs Temp 97.2 F 12/27/20 13:26 Pulse 66 12/27/20 13:26 Resp 20 12/27/20 13:26 BP 161/76 H 12/27/20 13:26 Pulse Ox 99 12/27/20 07:27 Body Mass Index 17.6 Body habitus is thin. Prominence of the left anterior superior iliac spine suggests protein calorie malnutrition. No redness streaking or warmth of the buttocks or left leg. The wound is stas sacral. It is full-thickness. There is some soft tissue in there that granular. It is not expressing any purulence. It is adjacent to sacral bone by proximity. There does not appear to be any cross contamination with stool at this time. Results Labs CBC and Chem 7: 12/27/20 06:37 12/26/20 06:09 Labs: Laboratory Results - last 24 hr 0712/26/20 12/27/20 06:09 14:55 06:37 MCV 94.4 MCH 30.2 MCHC 31.9 RDW 13.9 Plt Count 113 L D MPV 10.9 Immature Gran % (Auto) 1.7 H Neut % (Auto) 77.3 H Lymph % (Auto) 12.7 L [place] % (Auto) 8.3 Eos % (Auto) 0.0 Baso % (Auto) 0.0 Lymph # (Auto) 0.3 L [place] # (Auto) 0.2 Eos # (Auto) 0.0 Baso # (Auto) 0.0 Abs Immat Gran (auto) 0.04 H Absolute Neuts (auto) 1.8 L Absolute Nucleated RBC 0.000 Nucleated RBC % (auto) 0.0 Smear Tech's Comments VERIFIED Smear Path Review SEE NOTE Total Bilirubin Direct Bilirubin AST ALT Alkaline Phosphatase Total Protein Albumin Stool Occult Blood NEGATIVE Blood Type Antibody Screen Crossmatch 12/27/20 12/27/20 08:15 Unknown MCV MCH MCHC RDW Plt Count MPV Immature Gran % (Auto) Neut % (Auto) Lymph % (Auto) [place] % (Auto) Eos % (Auto) Baso % (Auto) Lymph # (Auto) [place] # (Auto) Eos # (Auto) Baso # (Auto) Abs Immat Gran (auto) Absolute Neuts (auto) Absolute Nucleated RBC Nucleated RBC % (auto) Smear Tech's Comments Smear Path Review Total Bilirubin 0.4 Direct Bilirubin 0.2 AST 30 D ALT 12 Alkaline Phosphatase 112 Total Protein 6.0 L Albumin 2.5 L D Stool Occult Blood Blood Type O Positive Antibody Screen NEGATIVE Crossmatch See Detail Assessment and Plan (1) Pressure ulcer of left buttock, stage 3: Start date: 12/27/20 Status: Acute 65-year-old female with impaired mobility hospitalized for non related issue with chronic comorbidities of anemia and kidney disease. Right lung mass. Pressure ulcer of the buttock is likely to be long-standing due to impaired mobility. Does not appear to be hospital acquired. Agree with wound nurse that wound dress is a reasonable waited provide moisture and collagen to the wound bed. It wound VAC is quite appropriate for this full-thickness wound particularly in its location. It will encourage offloading and promote granulation. It is imperative to consider osteomyelitis prior to placing a VAC. An x-ray would be most appropriate prior to placement. These are non urgent issues and if the patient wants to be seen as an outpatient in our clinic we could pursue the above recommendations at that time. In the meantime, continue wound dress every other day with dry clean dressing through transition of care. Thank you for allowing us to participate in your patient's care.
--- NOTE | 2020-12-27 14:23 | MHC.CM.PN ---
PATIENT TO REMAIN TODAY FOR BLOOD ADMINISTRATION. [facility] WOUND VAC ORDER/REFERRAL PLACED IN [facility]. [facility] MADE AWARE OF PLAN. CASE MANAGEMENT CONTINUING TO FOLLOW. PLAN IS DC HOME SATURDAY OR SATURDAY.
--- NOTE | 2020-12-27 15:27 | MHC.CLN ---
RE: CONSULT SEE CLINICAL NUTRITION ASSESSMENT 12/27/[address] TO PROMOTE WOUND HEALING FOLLOWING
--- NOTE | 2020-12-27 16:57 | CONS_ITS ---
DATE OF SERVICE: 12/27/2020 REASON FOR CONSULTATION: Consult requested by Dr. Sultana to evaluate and help in management of patient with acute kidney injury and anemia. HISTORY OF PRESENT ILLNESS: The patient is a 65-year-old female with past medical history of hypertension, history of coronary artery disease, hyperlipidemia, hypothyroidism, chronic pain, who presented to the hospital complains of dog bite in her right hand. She has difficulty moving her fingers due to pain. She denies any fever or chills. No chest pain or shortness of breath. She denies any nausea, vomiting, or diarrhea. There is no urinary symptoms or constipation. Vitals showed the patient was febrile at 101 degrees Fahrenheit. She was hemodynamically stable. Lab work showed the patient's creatinine was around 2.2 with a baseline of 1.5 to 1.7. She was admitted to the hospital and her creatinine has dropped to her baseline, but she is still anemic. She is getting 2 units of packed red blood transfusion at the present time. REVIEW OF SYSTEMS: As noted above. Other system review negative. PAST MEDICAL HISTORY: History of CKD stage 4 at baseline, history of proteinuria, chronic low back pain, cataract, anxiety, history of renal calculi, hypercholesterolemia, hypertension, insomnia, vitamin D deficiency, and wrist laceration. PAST SURGICAL HISTORY: Include history of AAA, history of colectomy, rectal surgery, cataract surgery, cholecystectomy, and total abdominal hysterectomy with bilateral salpingo-oophorectomy. PERSONAL AND SOCIAL HISTORY: The patient smokes cigarettes. Does not drink alcohol. ALLERGIES: INCLUDE ALLERGIES TO SUMATRIPTAN, ATORVASTATIN, ROSUVASTATIN, SIMVASTATIN, PRAVASTATIN, IMITREX, AND PLAVIX. MEDICATIONS: As an outpatient and inpatient were reviewed. Home medications include amlodipine, aspirin, cyanocobalamin, and pravastatin. PHYSICAL EXAMINATION: GENERAL: The patient is resting in the bed. Awake, alert, oriented x3. VITAL SIGNS: Blood pressure was 188/82, pulse 87, afebrile. HEENT: Shows pupils equal bilaterally and reactive to light. No jugular venous distention is noted. NECK: Supple. No thyromegaly is noted. Mucosa was dry. There is no scleral icterus or conjunctival congestion. CARDIOVASCULAR SYSTEM: S1, S2 without rub or murmur. RESPIRATORY SYSTEM: Air entry decreased in bases. No crepitation or rhonchi is noted. ABDOMEN: Soft, nontender. Bowel sounds normal. EXTREMITIES: Showed trace edema without any peripheral cyanosis or clubbing. NEURO: Essentially nonfocal. LABORATORY DATA: Labs done today. Sodium 137, potassium 3.6, chloride 110, CO2 of 19, BUN 17, creatinine 1.72. Baseline creatinine was 1.6 to 1.8. Iron stores; iron level was 15%, saturation 8%, ferritin 250, albumin 2.5. IMPRESSION: 1. 65-year-old female with acute kidney injury. Acute kidney injury in this patient likely secondary to renal hypoperfusion in the setting of cellulitis which is improved. 2. Chronic kidney disease stage 3B/4 at baseline in the setting of hypertension and possible renovascular disease. 3. Anemia mainly iron deficiency with low iron stores. We could also have component of erythropoietin deficiency given severe chronic kidney disease. 4. Hypertension, which is uncontrolled. RECOMMENDATIONS: At this juncture, the patient's renal function is improved and we will continue to avoid nephrotoxic agents. I agree with Zosyn dose on this patient q.12 hourly. In regard to anemia, I agree with the transfusion and I agree with ferrous sulfate 324 mg p.o. b.i.d. In regard to hypertension, I recommend optimizing of hydralazine. We can increase it to 100 mg 3 times a day. She is not a candidate for SUMMER inhibitor or angiotensin receptor jose rafael. We can try using clonidine patch. If needed, patch #1/1 mg if the pulse rate is above 60. I will give a dose of erythropoietin 20,000 units subcutaneously. Thank you for allowing me to participate in the medical management of patient. I will arrange for outpatient followup with the patient after discharge. MD CORRINE Larkin/SRINIVASAN / [phone]
[2020-12-27] MEDS: Multivitamin TABLET 1 TAB PO (20:33)
[2020-12-28] MEDS: 0.9 % Sodium Chloride Flush 3 ML SYRINGE IVFLUSH ×2 (00:17→08:14)
[2020-12-28] MEDS: Piperacillin Sodium/Tazobactam 3.375 GM in 0.9 % Sodium Chloride 50 ML IV (03:20)
[2020-12-28 03:48] VITALS: BP 171/77; PULSE 63; RESP 18; TEMP 36.2; O2SAT 95
[2020-12-28] MEDS: Levothyroxine Sodium 125 MCG TABLET PO (06:21)
[2020-12-28 06:29] LABS: Hematocrit 37.6 % (37-47); Hemoglobin 12.5 g/dl (12.0-16.0); Mean Corpuscular HGB Conc 33.2 g/dl (31.0-35.0); Mean Corpuscular Hemoglobin 30.9 pg (27.0-33.0); Mean Corpuscular Volume 93.1 fL (80-98); Platelet Count 127 X10*3/uL (160-400); Red Blood Count 4.04 X10*6/uL (4.20-5.50); Red Cell Distribution Width 14.1 % (11.0-16.0); White Blood Count 2.8 X10*3/uL (4.8-10.8)
[2020-12-28 06:57] LABS: Anion Gap 11 (12-20); Blood Urea Nitrogen 12 mg/dL (9-16); Calcium 7.9 mg/dL (8.4-10.2); Carbon Dioxide 20 mmol/L (22-29); Chloride 109 mmol/L (96-108); Creatinine Clr Calc Pharmacy 23.1; Estimated Glomerular Filt Rate 30; Glucose Random 82 mg/dL (60-115); Sodium 137 mmol/L (135-145)
[2020-12-28 08:00] VITALS: BP 191/85; PULSE 68; RESP 16; TEMP 36.5; O2SAT 97
[2020-12-28] MEDS: Potassium Chloride ER 20 MEQ TAB.ER.PRT 40 MEQ PO (08:13)
[2020-12-28] MEDS: Metoprolol Succinate ER 50 MG TAB.ER.24H 150 MG PO (08:14)
[2020-12-28] MEDS: Isosorbide Mononitrate 30 MG TAB.ER.24H PO (08:14)
[2020-12-28] MEDS: Ferrous Sulfate 324 MG TABLET.DR PO (08:14)
[2020-12-28] MEDS: hydrALAZINE HCl 25 MG TABLET 75 MG PO (08:14)
[2020-12-28 12:00] VITALS: BP 188/82; PULSE 66; RESP 18; TEMP 36.6; O2SAT 97
--- NOTE | 2020-12-28 12:14 | MHC.CLN ---
NUTRITION CONSULT STAGE IV WOUND PRESENT ON COCCYX. SEE CLINICAL NUTRITION ASSESSMENT. AMEND TO STAGE IV WOUND. HAS ENSURE BID AND MARCY BID IN PLACE TO PROMOTE NUTRITION AND WOUND HEALING. EATING 50-100% AT MEALS PER DOCUMENTATION. SUPPLEMENTS PROVIDING 860 KCAL AND 45 G PROTEIN. CONTINUE CURRENT DIET AND SUPPLEMENT ORDER.
--- NOTE | 2020-12-28 12:27 | PM.DS ---
DS: Providers Provider Date of Service: 12/28/20 Date of admission: 12/25/20 00:55 Primary care physician: Carla Koehler MD Consults: 12/25/20 01:33 Consult to Orthopedics Routine Consulting Provider: Keshia Woodward Reason for consultation: cellulitis of hand post dog bite, with bite puncture over MCP Has provider been notified: No 12/25/20 12:26 Consult to Infectious Diseases Routine Consulting Provider: Swetha Ladd Reason for consultation: hand cellulitis after dog bite Has provider been notified: No 12/26/20 15:25 Consult to Wound Care Routine Consulting Provider: Bernadette Brock Reason for consultation: stage 3 or 4 coccyx ulcer 12/27/20 07:46 Consult to Nephrology Routine Consulting Provider: Maximo Nick Reason for consultation: CKD/anemia Has provider been notified: No DS: Diagnosis Discharge Diagnosis (1) Pressure ulcer of left buttock, stage 3: Status: Acute (2) Dog bite: Status: Acute (3) Cellulitis of hand: Status: Acute DS: Medications Discharge Medications Home Medications: Home Medications Medication Instructions Recorded Confirmed aspirin 81 mg tablet,delayed 81 mg PO DAILY 06/09/20 12/25/20 release cyanocobalamin (vitamin B-12) 1 ml IM QMONTH 12/25/20 12/25/20 hydralazine 75 mg PO TID 12/25/20 12/25/20 isosorbide mononitrate 1 tab PO DAILY 12/25/20 12/25/20 levothyroxine 125 mcg PO DAILY 12/25/20 12/25/20 tramadol 50 mg PO Q6-8H PRN 12/25/20 12/25/20 Previous Rx's Medication Instructions Recorded metoprolol succinate 100 mg 150 mg PO DAILY #135 tab 05/09/20 tablet,extended release 24 hr amoxicillin-pot clavulanate 1 tab PO Q12H #20 tab 12/28/20 [Augmentin] ferrous sulfate 324 mg PO DAILY #30 tab 12/28/20 DS: Summary Hospital Course Hospital Course: patient was admitted for dog bite/cellulitis of right hand. was treated with zosyn, cultures negative, was seen by ortho who recommended no surgical intervention at this time. she had noted improvement and will continue 10 more days of augmentin. blood pressure was noted to be uncontrolled, hydralazine increased to 100mg tid. also seen by wound care for chronic stage III pressure ulcer, will follow up with them as outpatient. Time Spent with Patient Time attestation: Total time spent providing and/or coordinating discharge services: Discharge coordination time: Greater than 30 minutes Quality: Stroke Does the patient have a stroke diagnosis?: No Physical Exam Vital Signs: Vital Signs: Last Vital Signs Temp 97.9 F 12/28/20 12:00 Pulse 66 12/28/20 12:00 Resp 18 12/28/20 12:00 BP 188/82 H 12/28/20 12:00 Pulse Ox 97 12/28/20 12:00 Body Mass Index 17.6 General: AO X 3, no acute distress Resp: CTA bilateral CVS: S1,S2,RRR GI: soft, non tender, non distended Neuro: motor grossly intact Psych: appropriate affect Right hand dog bite DS: Data Data Completed and Pending Labs on day of discharge: Laboratory Results - last 24 hr 12/27/20 12/28/20 12/28/20 08:15 05:35 05:35 WBC 2.8 L RBC 4.04 L D Hgb 12.5 D Hct 37.6 D MCV 93.1 MCH 30.9 MCHC 33.2 RDW 14.1 Plt Count 127 L MPV 10.0 Absolute Nucleated RBC 0.000 Nucleated RBC % (auto) 0.0 Sodium 137 Potassium 3.0 L Chloride 109 H Carbon Dioxide 20 L Anion Gap 11 L BUN 12 Creatinine 1.71 H Estim Creat Clear Calc 23.1 Estimated GFR 30 Random Glucose 82 Calcium 7.9 L Blood Type O Positive Antibody Screen NEGATIVE Crossmatch See Detail Preliminary micro results at discharge 12/24/20 20:47 Blood Culture - Preliminary Blood - Venous Prelim: GNR Gram Stain only 12/24/20 20:47 Blood Culture - Preliminary Blood - Venous No growth after 48 hours. Discharge Plan Discharge Patient Disposition: Home, Self-Care Discharge Diagnosis: dog bite Referrals: [facility] [Outside] - 3-5 Days ([facility] WILL START ON Saturday12/31/2020 ) Carla Koehler MD [Primary Care Provider] - 1 Week Grecia Barajas MD [Physician] - 1 Week (APPT IS ON December AT 12:45PM, WOUND CLINIC WILL CALL YOU TOMORROW 12/29/2020.) Discharge Medications: New ferrous sulfate 324 mg (65 mg iron) Tablet,Delayed Release (Dr/Ec) 324 mg PO DAILY Qty: 30 RF: 0 amoxicillin-pot clavulanate [Augmentin] 875-125 mg tablet 1 tab PO Q12H Qty: 20 RF: 0 Continued metoprolol succinate 100 mg tablet extended release 24 hr 150 mg PO DAILY Qty: 135 RF: 2 tramadol 50 mg tablet 50 mg PO Q6-8H PRN (Reason: Pain) RF: 0 levothyroxine 150 mcg capsule 125 mcg PO DAILY RF: 0 isosorbide mononitrate 30 mg tablet extended release 24 hr 1 tab PO DAILY RF: 0 cyanocobalamin (vitamin B-12) 1,000 mcg/mL solution 1 ml IM QMONTH RF: 0 aspirin [Adult Aspirin Regimen] 81 mg tablet,delayed release (DR/EC) 81 mg PO DAILY RF: 0 Changed hydralazine 50 mg tablet 100 mg PO TID Qty: 90 RF: 0 Discharge Orders: Discharge Order (Routine); Ordered 12/28/20 Ordered By: Daniel Marino Diet: advance to usual diet Activity on Discharge: As tolerated Stand Alone Forms: Patient Portal Discharge page Care Plan Goals: recovery Health Concerns: dog bite pressure ulcer Plan of Treatment: augmentin, wound care follow up Assessment: see above Discharge Date/Time: 12/28/20 15:44
--- NOTE | 2020-12-28 13:00 | W.MHC.F2F ---
Service Date Service Date: 12/28/20 Reasons for Services Reason for intermediate: wound care Reason for occupational therapy: home safety and mobility and therapeutic exercises Homebound: Leaving the home is medically contraindicated at this time without the asist of a device and/or another person due th the listed conditions above and below. Certification: Based on the above findings, I certify that this patient is confined to the home and needs intermittent intermediate care, physical therapy and/or speech therapy, or continues to need occupational therapy. The patient is under my care, and I have initiated the establishment of the plan of care. The patient will be followed by a physician who will periodically review the plan of care.
[2020-12-28] MEDS: hydrALAZINE HCl 50 MG TABLET 100 MG PO (13:11)
--- NOTE | 2020-12-28 15:20 | MHC.CM.PN ---
PT DISCHARGING HOME W/[facility] FOR WOUND CARE AND HOME OT, PT'S TO TRANSPORT. PT HAS APPT W/KARY BILLINGS AT [facility] 01/06/2021 AT 12:45PM FOR [facility]OUND [facility]AC, [facility] IS AWARE.
--- NOTE | 2020-12-29 08:33 | MHC.CM.PN ---
CM CONTACTED PT AT 0815 AT NUMBER ON FILE TO NOTIFY HER OF [facility] CHANGE FROM [facility] TO [facility], PER PT SHE HAS ALREADY RECEIVED A CALL FROM [facility] AND THEY WILL BE AT PT'S HOME BETWEEN 10AM-12PM TODAY. PT ALSO NOTIFIED OF [facility] APPT CHANGE TO 01/06/2021 1245 AND DIRECTIONS TO BRING WOUND VAC WITH HER TO APPT AND THAT SHE WILL RECEIVE A CALL FROM OFFICE LATER TODAY.
== END 2020-12-28 15:44 | disposition home or self-care (01) | DRG 602 ==
LOC: HO.ED 23:22 → HO.EDOVER 12-25 01:09 → HO.S3 12-25 03:28
PROVIDERS: Internal Medicine; Admitting Provider Internal Medicine; Emergency Provider Student in an Organized Health Care Education/Training Program; PCP Internal Medicine; Visit Provider Internal Medicine
DX: L03.113 Cellulitis of right upper limb (principal); L89.323 Pressure ulcer of left buttock, stage 3; N17.9 Acute kidney failure, unspecified; I12.9 Hypertensive chronic kidney disease with stage 1 through stage 4 chronic kidney disease, or unspecified chronic kidney disease; E03.9 Hypothyroidism, unspecified; D63.1 Anemia in chronic kidney disease; E78.5 Hyperlipidemia, unspecified; N18.30 Chronic kidney disease, stage 3 unspecified; Z20.822 Contact with and (suspected) exposure to COVID-19; Z87.891 Personal history of nicotine dependence; Z79.82 Long term (current) use of aspirin; Z79.890 Hormone replacement therapy; Z79.891 Long term (current) use of opiate analgesic; Z79.899 Other long term (current) drug therapy
CPT/HCPCS: 36415; 73130; 80048; 80076; 82272; 82607; 82728; 82746; 83540; 83605; 85014; 85018; 85025; 85027; 85652; 86140; 86850; 86900; 86901; 86923; 87040; 87076; 87185; 87205; 87635; 90715; 97110; 97165; 99285; J0885; J1650; J1956; J2543; P9016; Q0163

== ENCOUNTER 2021-01-06 12:48 | Outpatient (RCR) | payer MEDICARE, SELFPAY ==
--- NOTE | ~2021-01-06 | XR_ITS ---
EXAMINATION: XR SACRUM AND COCCYX CLINICAL INFORMATION: Nonhealing wound COMPARISON: CT of March 04, 2012 TECHNIQUE: 2 views of the sacrum and 2 views of the coccyx were obtained. FINDINGS: No definite bony abnormality of the sacrum and coccyx identified. Vascular calcifications are seen. Distal aspect of aortoiliac stent graft present. No periosteal new bone formation or bony destruction is appreciated with question soft tissue ulceration overlying the coccyx. There is some mild degenerative change of the sacroiliac joints. There is bilateral facet arthropathy L5-S1. XR/XR sacrum coccyx min 2V IMPRESSION: Soft tissue defect without underlying bony abnormality of the sacrum and coccyx identified.
[2021-03-28 15:58] LABS: Hematocrit 24.8 % (37-47); Hemoglobin 8.1 g/dl (12.0-16.0); Imm Gran Abs Auto 0.03 X10*3/uL (0.00-0.03); Imm Gran Pct Auto 1.2 % (0.0-0.4); Immature Retic Fraction 7.9 % (3.0-15.9); Lymphocytes Absolute Auto 0.4 X10*3/uL (1.2-4.9); Lymphocytes Percent Auto 15.9 % (20-40); MANUAL DIFF FLAG SCAN; Mean Corpuscular HGB Conc 32.7 g/dl (31.0-35.0); Mean Corpuscular Hemoglobin 30.5 pg (27.0-33.0); Mean Corpuscular Volume 93.2 fL (80-98); Mean Platelet Volume 11.7 fL (9.4-12.3); Monocytes Absolute Auto 0.2 X10*3/uL (0.1-1.2); Monocytes Percent Auto 6.2 % (2-11); Neutrophils Percent Auto 76.7 % (45-73); PLT CLUMP 1; Red Blood Count 2.66 X10*6/uL (4.20-5.50); Retic HGB Equivalent 33.8 pg (30.0-35.0); Reticulocytes Absolute 0.052 X10*6/uL (0.026-0.095); SCAN SMEAR FLAG 1
[2021-03-28 15:59] LABS: White Blood Count 2.6 X10*3/uL (4.8-10.8)
[2021-03-28 16:04] LABS: Estimated Average Glucose 68 mg/dL
[2021-03-28 16:19] LABS: Alanine Aminotransferase 7 U/L (0-31); Albumin Level 2.9 g/dL (3.5-5.0); Alkaline Phosphatase 96 U/L (39-117); Anion Gap 14 (12-20); Aspartate Amino Transferase 19 U/L (5-31); Bilirubin Direct 0.2 mg/dL (0.0-0.5); Bilirubin Total 0.3 mg/dL (0.0-1.0); Blood Urea Nitrogen 33 mg/dL (9-16); C Reactive Protein 5.59 mg/dL (< or = 0.50); Calcium 9.6 mg/dL (8.4-10.2); Carbon Dioxide 20 mmol/L (22-29); Chloride 101 mmol/L (96-108); Estimated Glomerular Filt Rate 26; Glucose Random 73 mg/dL (60-115); Iron 49 mcg/dL (30-160); Lactate Dehydrogenase 236 U/L (122-220); Percent Iron Saturation 25 % (15-50); Potassium 3.6 mmol/L (3.3-5.1); Sodium 131 mmol/L (135-145); Total Iron Binding Capacity 193 mcg/dL (228-428); Total Protein 7.5 g/dL (6.5-8.0); Unsaturated Iron Binding 144 ug/dL
[2021-03-28 16:38] LABS: SLIDE REVIEW VERIFIED
[2021-03-28 16:40] LABS: Ferritin 438 ng/mL (10-250)
[2021-03-28 16:44] LABS: Erythrocyte Sedimentation Rate 64 MM/HR (0-20)
[2021-03-28 16:51] LABS: Folate 6.9 ng/mL (> or = 4.0); Vitamin B12 699 pg/mL (200-900)
[2021-03-29 11:42] LABS: Haptoglobin 199 mg/dL (43-212)
== END 2021-08-22 15:43 | disposition home or self-care (01) ==
LOC: HO.WCC 12:48
PROVIDERS: PCP Internal Medicine; Visit Provider Physician Assistant
DX: L89.153 Pressure ulcer of sacral region, stage 3 (principal); E44.0 Moderate protein-calorie malnutrition; D51.3 Other dietary vitamin B12 deficiency anemia; N18.9 Chronic kidney disease, unspecified; D63.1 Anemia in chronic kidney disease
CPT/HCPCS: 11042; 36415; 72220; 80048; 80076; 82607; 82728; 82746; 83010; 83036; 83540; 83615; 84134; 85025; 85045; 85652; 86140; 99212; 99213; 99214

== ENCOUNTER → 2021-01-16 14:51 | Outpatient (BNVA) | payer MEDICARE, SELFPAY | PROVIDERS: PCP Internal Medicine; Visit Provider Physician Assistant | DX: L03.011 Cellulitis of right finger (principal); W54.0XXA Bitten by dog, initial encounter | CPT/HCPCS: 99202 ==

== ENCOUNTER 2021-01-30 16:37 | Outpatient (REF) | payer MEDICARE, SELFPAY ==
[2021-01-30 17:55] LABS: MANUAL DIFF FLAG NO
[2021-01-30 17:56] LABS: Hematocrit 31.7 % (37-47); Hemoglobin 10.3 g/dl (12.0-16.0); Imm Gran Abs Auto 0.01 X10*3/uL (0.00-0.03); Imm Gran Pct Auto 0.4 % (0.0-0.4); Lymphocytes Absolute Auto 0.5 X10*3/uL (1.2-4.9); Lymphocytes Percent Auto 16.8 % (20-40); Mean Corpuscular HGB Conc 32.5 g/dl (31.0-35.0); Mean Corpuscular Hemoglobin 30.4 pg (27.0-33.0); Mean Corpuscular Volume 93.5 fL (80-98); Monocytes Absolute Auto 0.2 X10*3/uL (0.1-1.2); Monocytes Percent Auto 5.9 % (2-11); Neutrophils Absolute Auto 2.1 X10*3/uL (2.0-8.3); Neutrophils Percent Auto 76.9 % (45-73); Red Blood Count 3.39 X10*6/uL (4.20-5.50); Red Cell Distribution Width 13.9 % (11.0-16.0); White Blood Count 2.7 X10*3/uL (4.8-10.8)
[2021-01-30 18:04] LABS: Estimated Average Glucose 77 mg/dL; Hemoglobin A1c % 4.3 %
[2021-01-30 18:26] LABS: Anion Gap 11 (12-20); Blood Urea Nitrogen 25 mg/dL (9-16); C Reactive Protein 3.49 mg/dL (< or = 0.50); Calcium 9.3 mg/dL (8.4-10.2); Carbon Dioxide 23 mmol/L (22-29); Chloride 103 mmol/L (96-108); Estimated Glomerular Filt Rate 27; Glucose Random 85 mg/dL (60-115); Potassium 3.7 mmol/L (3.3-5.1); Sodium 133 mmol/L (135-145)
[2021-01-30 18:49] LABS: Erythrocyte Sedimentation Rate 25 MM/HR (0-20)
== END 2021-01-30 16:38 | disposition home or self-care (01) ==
LOC: HO.MRI 16:37
PROVIDERS: Surgery; PCP Internal Medicine; Visit Provider Physician Assistant
DX: Z13.89 Encounter for screening for other disorder (principal)
CPT/HCPCS: 36415; 80048; 83036; 84134; 85025; 85652; 86140

== ENCOUNTER 2021-02-02 15:41 | Outpatient (REF) | payer MEDICARE, SELFPAY ==
--- NOTE | ~2021-02-02 | MR_ITS ---
EXAMINATION: MR HAND WITH AND WITHOUT CONTRAST, RIGHT CLINICAL INFORMATION: Dog bite injury. One month of swelling and pain. COMPARISON: Radiograph dated 12/24/2020. TECHNIQUE: Multiplanar MR imaging was obtained through the right hand with and without contrast material on a 1.5 Nora magnet. Images were obtained before and after the intravenous administration of 4 mL Gadavist. FINDINGS: There is subcutaneous edema and soft tissue enhancement at the dorsal aspect of the hand near the 4th and 5th MCP joints as well as at the 4th intermetacarpal space between the 4th and 5th metacarpal head. No fractures. No peripherally enhancing fluid collections are identified. 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 MCP joints are unremarkable. There is mild/tenosynovitis involving the index finger flexor tendons and, to a lesser extent, the thumb flexor pollicis longus. Tendon sheaths are intact. No tendon tears or tendinosis. Extensor tendons are unremarkable. Subcortical cystic changes are present at the 2nd and 3rd metacarpals. No acute osseous abnormalities. Trace 2nd MTP joint effusion. MR/MR hand RT wo/w con IMPRESSION: 1. No evidence of abscess or chronic infection. 2. 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 No acute osseous or articular abnormalities.
== END 2021-02-02 15:42 | disposition home or self-care (01) ==
LOC: HO.MRI 15:41
PROVIDERS: PCP Internal Medicine; Visit Provider Physician Assistant
DX: S61.451A Open bite of right hand, initial encounter (principal)
CPT/HCPCS: 73220; A9585

== ENCOUNTER → 2021-02-20 12:52 | Outpatient (BNVA) | payer MEDICARE, SELFPAY | PROVIDERS: Visit Provider Physician Assistant | DX: L03.119 Cellulitis of unspecified part of limb (principal); W54.0XXD Bitten by dog, subsequent encounter | CPT/HCPCS: 99212 ==

== ENCOUNTER 2021-05-29 11:01 | Outpatient (REF) | payer MEDICARE, SELFPAY ==
--- NOTE | ~2021-05-29 | MR_ITS ---
EXAMINATION: MR PELVIS WITHOUT AND WITH CONTRAST CLINICAL INFORMATION: Pressure ulcer from the coccyx. Evaluate for osteomyelitis. COMPARISON: Previous x-ray of the sacrum and coccyx March 2021 TECHNIQUE: Sagittal, axial and coronal sequences through the pelvis were performed with and without contrast. The patient received 3.5 mL of intravenous gadolinium contrast. Exam is significantly limited due to artifact from aortobiiliac stent graft. FINDINGS: There is a soft tissue defect and fluid seen overlying the lower sacrum and coccyx. The fluid abuts the bone. No abnormal signal in the bone or enhancement to suggest osteomyelitis is seen. MR/MR pelvis wo/w con IMPRESSION: Very limited exam due to artifact from aortobiiliac stent graft. No evidence of osteomyelitis is seen. Other imaging such as CT scan or nuclear medicine Ceretec or bone scan should be considered if clinically indicated.
[2021-05-29 11:00] LABS: Hematocrit 33.2 % (37.0-47.0); Hemoglobin 10.3 g/dl (12.0-16.0); Imm Gran Abs Auto 0.01 X10*3/uL (0.00-0.03); Imm Gran Pct Auto 0.3 % (0.0-0.4); Lymphocytes Absolute Auto 0.4 X10*3/uL (1.2-4.9); Lymphocytes Percent Auto 14.1 % (20-40); MANUAL DIFF FLAG SCAN; Mean Corpuscular Hemoglobin 28.8 pg (27.0-33.0); Mean Corpuscular Volume 92.7 fL (80.0-98.0); Mean Platelet Volume 10.9 fL (9.4-12.3); Monocytes Absolute Auto 0.2 X10*3/uL (0.1-1.2); Monocytes Percent Auto 5.8 % (2-11); Neutrophils Absolute Auto 2.5 x10*3/uL (2.0-8.3); Neutrophils Percent Auto 79.8 % (45-73); PLT CLUMP 1; Red Blood Count 3.58 X10*6/uL (4.20-5.50); Red Cell Distribution Width 14.1 % (11.0-16.0); SCAN SMEAR FLAG 1
[2021-05-29 11:06] LABS: Estimated Average Glucose 77 mg/dL; Hemoglobin A1c % 4.3 %
[2021-05-29 11:21] LABS: Platelet Count 137 X10*3/uL (160-400); White Blood Count 3.1 X10*3/uL (4.8-10.8)
[2021-05-29 11:22] LABS: SLIDE REVIEW VERIFIED
[2021-05-29 11:48] LABS: Anion Gap 11 (12-20); Blood Urea Nitrogen 29 mg/dL (9-16); C Reactive Protein 2.33 mg/dL (< or = 0.50); Calcium 9.3 mg/dL (8.4-10.2); Carbon Dioxide 22 mmol/L (22-29); Chloride 106 mmol/L (96-108); Estimated Glomerular Filt Rate 28; Glucose Random 77 mg/dL (60-115); Potassium 3.6 mmol/L (3.3-5.1); Sodium 135 mmol/L (135-145)
[2021-05-29 11:55] LABS: Erythrocyte Sedimentation Rate 38 MM/HR (0-20)
== END 2021-05-29 11:02 | disposition home or self-care (01) ==
LOC: HO.MRI 11:01
PROVIDERS: Visit Provider Physician Assistant
DX: L89.153 Pressure ulcer of sacral region, stage 3 (principal); D64.9 Anemia, unspecified
CPT/HCPCS: 36415; 72197; 80048; 83036; 84134; 85025; 85652; 86140; A9585

== ENCOUNTER 2021-09-08 16:14 | Inpatient (IN) | payer MEDICARE, SELFPAY ==
--- NOTE | ~2021-09-08 | FL_ITS ---
EXAMINATION: XR BARIUM SWALLOW CLINICAL INFORMATION: Aspiration COMPARISON: None TECHNIQUE: Routine modified barium swallow was performed with the patient in a left lateral seated position. The patient took thin, pureed and solid food consistencies of barium without difficulty. FINDINGS: The patient demonstrated normal oral bolus formation. There was a no delay in the swallow trigger mechanism with no significant pooling of fluid in the vallecula and piriform sinuses. There was good contraction and elevation of the soft palate without evidence of nasopharyngeal reflux. There was good anterior-superior excursion of the laryngeal-hyoid complex with good posterior-inferior tipping of the epiglottis. Prominent cricopharyngeus noted. The pharynx and cervical spine have a normal appearance. No aspiration or laryngeal penetration was seen with any oral intake. FLUOROSCOPY TIME: 1.4 minutes DOSE AREA PRODUCT: 0.921 Gy-cm2 (mckeon-centimeter squared) FL/FL barium swallow modified IMPRESSION: No aspiration or penetration with any intake. Prominent cricopharyngeus. Otherwise unremarkable evaluation. Please see speech pathology report for further information and specific diet recommendations.
--- NOTE | ~2021-09-08 | CT_ITS ---
EXAMINATION: CT CHEST WITHOUT CONTRAST CLINICAL INFORMATION: Consolidation COMPARISON: Chest film dated 09/08/2021 TECHNIQUE: Multidetector volumetric CT imaging of the chest was done. Axial MIP volume rendering provided. Sagittal and coronal reformatted images were obtained. This CT examination was performed using dose optimization techniques as appropriate, variously including the following: *Automated exposure control *Adjustment of mA and/or kV according to patient size (this includes techniques or standardized protocols for targeted exams where dose is matched to indication/reason for exam; i.e. extremities or head) *Use of iterative reconstruction technique DLP: 145 mGy-cm FINDINGS: The thoracic inlet is within normal limits. The axillary regions are unremarkable. 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 Nonobstructing calculus mid pole right kidney. Atrophic calcified left kidney. Centrally coronary calcifications are noted and calcified aorta. There is some mild mediastinal adenopathy. The left hilum is within normal limits. The right hilum cannot be adequately evaluated. Lack of contrast limits this exam. Imaging lung voss. Right lung; There is evidence for COPD. Opacity on image 23 measures 1.4 x 1.1 cm. This could represent a lesion or focal patchy infiltrate. Large area of consolidation identified on plain film of the chest in the right middle lobe. Air bronchograms are noted There are other worrisome findings in the region. There is a spiculated mass on image 44 measuring 1.6 cm. I must consider also a mass at the right base measuring 2.4 cm but differential would include dense infiltrate. I must consider some enlargement of the right hilum. A central lesion or reactive adenopathy would be a consideration. There is a 1.2 cm lesion on image 32 and day 1.0 cm lesion on image 31 in the right lower lobe. Left lung; 1.3 cm lesion anterior on image 23. Bilateral small effusions are present. Review of the bone windows does not demonstrate evidence for bony lesion. CT/CT chest wo con IMPRESSION: This exam is abnormal. The opacity on recent chest film is felt to represent dense consolidation in the right middle lobe and part of the right lower lobe. There are, however other worrisome findings with lung lesions as described. I also feel there may be some enlargement of the right hilum and underlying lesion here cannot be excluded. Malignancy needs to be considered. PET/CT and/or tissue sampling is recommended in this patient's workup Fleischner guidelines were followed.
--- NOTE | ~2021-09-08 | XR_ITS ---
EXAMINATION: XR CHEST CLINICAL INFORMATION: Chest pain and cough. COMPARISON: None TECHNIQUE: Frontal portable view of the chest was obtained. 1747 hours FINDINGS: Dense consolidation at right lung base. Probable small right pleural effusion with blunting of the costophrenic angle. Cardiac mediastinal contours normal. No pulmonary vascular congestion. Vascular cast calcifications of aorta. Aortic stent seen in the upper abdomen. XR/XR chest 1V IMPRESSION: Dense consolidation at the right lung base
[2021-09-08 16:26] VITALS: BP 171/84; BP 242/130; PULSE 94; PULSE 95; RESP 16; TEMP 36.9; O2SAT 97; O2SAT 99; BMI 15.2
--- NOTE | 2021-09-08 16:37 | ED_ITS ---
HPI - General Adult General Chief complaint: General Medical Stated complaint: WEAKNESS/HYPERTENSION Time Seen by Provider: 09/08/21 16:19 Source: patient Mode of arrival: EMS Limitations: no limitations History of Present Illness HPI narrative: 65-year-old female who presents emergency department for evaluation of nausea, vomiting, diarrhea, cough weakness lightheadedness times 10 days. Patient states that she has had nausea and vomiting daily however this improved 3 days prior she has had no further episodes. She states she has also had diarrhea which continues. She has had ileostomy and states that she is putting out large amounts of fluid into the ileostomy bag. She has not noticed any blood in the emesis or the diarrhea. She had subjective fever and chills at home but did not take her temperature. She states she has a cough which is nonproductive. She is able to eat and drink but states that her appetite is poor. She states she is feeling very weak, lightheaded and dizzy. She is having myalgias. She denied frequency, urgency or dysuria. Patient states that she received the [employer] COVID-19 vaccine x2 and a booster shot as well. MD complaint: Nausea, vomiting, diarrhea cough Onset (ago): day(s) (10) Severity: moderate Relieving factors: none Exacerbating factors: none Associated symptoms: cough, fever/chills, loss of appetite, malaise, nausea/vomiting and weakness Treatments prior to arrival: none Related Data Home Medications Medication Instructions Recorded Confirmed isosorbide mononitrate 30 mg 1 tab PO DAILY 12/25/20 09/08/21 tablet,extended release 24 hr Previous Rx's Medication Instructions Recorded metoprolol succinate 100 mg 150 mg PO DAILY #135 tab 02/01/21 tablet,extended release 24 hr tramadol 50 mg tablet 50 mg PO Q6-8H PRN #230 tab 07/27/21 hydralazine 50 mg tablet 100 mg PO TID 90 Days #540 tab 08/08/21 levothyroxine 137 mcg tablet 137 mcg PO DAILY 90 Days #90 tab 08/08/21 Allergies Allergy/AdvReac Type Severity Reaction Status Date / Time sumatriptan [From IMITREX] Allergy Severe ANGIOEDEMA Verified 06/14/21 10:07 atorvastatin [Lipitor] Allergy Unknown n Verified 06/14/21 10:07 rosuvastatin [Crestor] Allergy Unknown n Verified 06/14/21 10:07 simvastatin Allergy Unknown n Verified 06/14/21 10:07 pravastatin AdvReac Intermediate shaking Verified 06/14/21 10:07 muscle pain From IMITREX Allergy Severe ANGIOEDEMA Uncoded 01/16/21 14:56 Plavix Allergy Unknown rash Uncoded 01/16/21 14:56 Review of Systems Review of Systems: Yes all other systems are reviewed and are negative [facility] Past Medical History [facility] Narrative: Past surgical history: Reviewed below, the patient has a right-sided ileostomy. Social history: She denies tobacco, alcohol and drug use. Medical History Anxiety Cataract Chronic kidney disease (CKD) stage G4/A1, severely decreased glomerular filtration rate (GFR) between 15-29 mL/min/1.73 square meter and albuminuria creatinine ratio less than 30 mg/g Chronic low back pain History of renal calculi Hypercholesterolemia Hypertension Insomnia Vitamin D deficiency Wrist laceration Surgical History AAA (abdominal aortic aneurysm) History of colectomy History of rectal surgery Hx of cataract surgery Hx of cholecystectomy S/P AICHA-BSO Family History Family History Mother Hypertension Father Lung cancer Brother Skin cancer (melanoma) Social History Social History Household Members: Spouse Housing: House Do you presently have visiting nurse or other home services: No Patient Tobacco Use Status: Former Tobacco user Quit Date: years ago Tobacco use type: Cigarette Smoked in Last 30 Days: No e-Cigarette/Vaping Use: Never Used Second Hand Smoke Exposure: No Use of substances other than those prescribed or required for medical reasons: No Advance Directives: No Advance Directives Information Provided: Yes service: No Current occupational status: retired Current occupation: left handed Physical Exam ED Vital Signs: Vital Signs - 24 hr 09/08/21 16:26 09/08/21 19:23 09/08/21 20:59 Temperature 98.5 F Pulse Rate 94 90 91 Respiratory Rate 16 16 14 Blood Pressure 171/84 H 165/84 H 135/80 Pulse Oximetry 97 100 97 BMI result Body Mass Index 15.2 Const Other: Very thin, female patient, awake, alert, very pleasant and cooperative, does not appear to be in distress, answers all questions appropriately. [facility] Head: Yes normal to inspection, Yes normocephalic and Yes atraumatic Ears: external ears normal General nose exam: Normal external nose present Face and sinus: Yes normal facial exam Mouth: Normal oral and palatal mucosa present Throat: Yes posterior oropharynx normal Eyes General: appearance normal, both eyes and all related structures Pupils: Equal, round and reactive pupils present Neck Neck: Yes normal visual inspection, Yes no lymphadenopathy, Yes trachea midline and Yes supple Chest Chest palpation & inspection: normal inspection of the chest and normal palpation of entire chest wall Resp Effort & Inspection: normal respiratory effort and able to speak in complete sentences Auscultation: clear to auscultation bilaterally Cardio Rate: regular rate Rhythm: regular rhythm Heart sounds: S1 normal heart sound present, S2 normal heart sound present and no murmurs GI Inspection: Yes normal to inspection Palpation (GI): Soft to palpation, nontender and no guarding Auscultation: normal bowel sounds General: Yes no CVA tenderness Back/Spine/Pelvis Back: no CVA tenderness Skin General skin exam: no rashes or lesions noted Neuro Cranial nerves: Yes CN's II-XII intact bilaterally and Yes Equal, round and reactive pupils present Cognition (Neuro): normal cognition Motor exam (neuro): 5/5 motor strength present throughout Extrem General: Yes normal to inspection Psych Appearance: grossly normal Speech and movement: Normal speech and movement present Affect: normal affect Attitude: cooperative Thought process: Normal thought process present Thought content: Normal thought content present Course Course Course Narrative: 65-year-old female who presents emergency department for evaluation of 10 days of viral-like illness with symptoms that include cough, shortness of breath, dyspnea on exertion, nausea, vomiting, diarrhea and subjective fever and chills. She also states she is feeling very weak and lightheaded and has had a poor appetite but is able to eat and drink. The patient's vital signs were normal. Physical examination was unremarkable. Laboratory evaluation be obtained including CBC, CMP, troponin, lactate, blood cultures x2, urinalysis. I will also obtain an EKG and chest x-ray. The patient will be tested for COVID-19, influenza and RSV. 1956: Laboratory evaluation anemia with an H&H of 8.1 and 25.3 with an MCV of 92, this is chronic. Low platelets a [id number], this is chronic. Elevated BUN and creatinine 292.15, chronic. COVID-19, influenza and RSV negative. Chest x-ray, one-view: Right lower lobe consolidation consistent with pneumonia Patient will be treated for the acquired pneumonia with ceftriaxone 1 g IV and azithromycin 500 mg IV. Lactic acid and blood cultures will be obtained prior to antibiotics. I will discuss the patient's admission with the covering hospitalist. Medical Decision Making Lab Data Result diagrams: 09/08/21 17:21 09/08/21 17:21 Labs: Lab Results 09/08/21 09/08/21 09/08/21 Range/Units 17:14 17:21 17:21 WBC 7.6 (4.8-10.8) X10*3/uL RBC 2.74 L D (4.20-5.50) X10*6/uL Hgb 8.1 L D (12.0-16.0) g/dl Hct 25.3 L D (37.0-47.0) % MCV 92.3 (80.0-98.0) fL MCH 29.6 (27.0-33.0) pg MCHC 32.0 (31.0-35.0) g/dl RDW 12.8 (11.0-16.0) % Plt Count 157 L (160-400) X10*3/uL MPV 11.1 (9.4-12.3) fL Immature Gran % (Auto) Cancelled Neut % (Auto) Cancelled Lymph % (Auto) Cancelled [place] % (Auto) Cancelled Eos % (Auto) Cancelled Baso % (Auto) Cancelled Lymph # (Auto) Cancelled [place] # (Auto) Cancelled Eos # (Auto) Cancelled Baso # (Auto) Cancelled Abs Immat Gran (auto) Cancelled Absolute Neuts (auto) Cancelled Absolute Nucleated RBC 0.000 (0.0-0.012) X10*3/uL Nucleated RBC % (auto) 0.0 (0.0-0.2) /100WBC Neutrophils % (Manual) 38 L (45-73) % Band Neutrophils % 51 H (3-5) % Lymphocytes % (Manual) 2 L (20-40) % Monocytes % (Manual) 8 (2-11) % Metamyelocytes % 1 % Abs Neuts (Manual) 6.8 (2.0-8.3) X10*3/uL Lymphocytes # (Manual) 0.2 L (1.2-4.9) X10*3/uL Monocytes # (Manual) 0.6 (0.1-1.2) X10*3/uL Metamyelocytes # 0.1 X10*3/uL Platelet Estimate NORMAL (NORMAL) Plt Morphology Comment NORMAL RBC Morphology NORMAL Sodium 127 L (135-145) mmol/L Potassium 4.0 (3.3-5.1) mmol/L Chloride 98 (96-108) mmol/L Carbon Dioxide 20 L (22-29) mmol/L Anion Gap 13 (12-20) BUN 29 H (9-16) mg/dL Creatinine 2.15 H (0.5-1.4) mg/dL Estim Creat Clear Calc 15.8 Estimated GFR 23 Random Glucose 74 (60-115) mg/dL Lactic Acid (0.5-2.0) mmol/L Calcium 9.6 (8.4-10.2) mg/dL Total Bilirubin 0.4 (0.0-1.0) mg/dL AST 21 (5-31) U/L ALT 11 (0-31) U/L Alkaline Phosphatase 96 (39-117) U/L Troponin I High Sens (<3.5-17.0) ng/L Total Protein 7.0 (6.5-8.0) g/dL Albumin 2.6 L (3.5-5.0) g/dL Lipase 26 (8-78) U/L Influenza Type A (PCR) NEGATIVE (Negative) Influenza Type B (PCR) NEGATIVE (Negative) RSV RNA Qual (PCR) NEGATIVE (Negative) SARS-CoV-2 RNA (RT-PCR) NEGATIVE (Negative) 09/08/21 09/08/21 Range/Units 17:21 17:21 WBC (4.8-10.8) X10*3/uL RBC (4.20-5.50) X10*6/uL Hgb (12.0-16.0) g/dl Hct (37.0-47.0) % MCV (80.0-98.0) fL MCH (27.0-33.0) pg MCHC (31.0-35.0) g/dl RDW (11.0-16.0) % Plt Count (160-400) X10*3/uL MPV (9.4-12.3) fL Immature Gran % (Auto) Neut % (Auto) Lymph % (Auto) Scott % (Auto) Eos % (Auto) Baso % (Auto) Lymph # (Auto) Scott # (Auto) Eos # (Auto) Baso # (Auto) Abs Immat Gran (auto) Absolute Neuts (auto) Absolute Nucleated RBC (0.0-0.012) X10*3/uL Nucleated RBC % (auto) (0.0-0.2) /100WBC Neutrophils % (Manual) (45-73) % Band Neutrophils % (3-5) % Lymphocytes % (Manual) (20-40) % Monocytes % (Manual) (2-11) % Metamyelocytes % % Abs Neuts (Manual) (2.0-8.3) X10*3/uL Lymphocytes # (Manual) (1.2-4.9) X10*3/uL Monocytes # (Manual) (0.1-1.2) X10*3/uL Metamyelocytes # X10*3/uL Platelet Estimate (NORMAL) Plt Morphology Comment RBC Morphology Sodium (135-145) mmol/L Potassium (3.3-5.1) mmol/L Chloride (96-108) mmol/L Carbon Dioxide (22-29) mmol/L Anion Gap (12-20) BUN (9-16) mg/dL Creatinine (0.5-1.4) mg/dL Estim Creat Clear Calc Estimated GFR Random Glucose (60-115) mg/dL Lactic Acid 1.2 (0.5-2.0) mmol/L Calcium (8.4-10.2) mg/dL Total Bilirubin (0.0-1.0) mg/dL AST (5-31) U/L ALT (0-31) U/L Alkaline Phosphatase (39-117) U/L Troponin I High Sens 4.8 (<3.5-17.0) ng/L Total Protein (6.5-8.0) g/dL Albumin (3.5-5.0) g/dL Lipase (8-78) U/L Influenza Type A (PCR) (Negative) Influenza Type B (PCR) (Negative) RSV RNA Qual (PCR) (Negative) SARS-CoV-2 RNA (RT-PCR) (Negative) ECG Data Interpretation: 1700: Normal sinus rhythm with a rate of 85, normal [place] interval QRS duration and QTC interval, no ST segment elevation, no ST segment depression, no PACs, no PVCs, LVH by voltage criteria Discharge Plan Discharge Clinical Impression: Pneumonia Qualifiers: Laterality: right Lung location: lower lobe of lung Patient Disposition: Admitted As Inpatient
--- NOTE | 2021-09-08 16:50 | ECG_ITS ---
Test Reason : CHEST PAIN/DYSPNEA Blood Pressure : / mmHG Vent. Rate : 085 BPM Atrial Rate : 085 BPM P-R Int : 124 ms QRS Dur : 104 ms QT Int : 360 ms P-R-T Axes : 071 056 047 degrees QTc Int : 428 ms Normal sinus rhythm Possible Left atrial enlargement Borderline ECG When compared with ECG of 13-JAN-2020 15:14, Vent. rate has increased BY 29 BPM Referred By: Yovany Jaramillo Electronically Signed By:OSVALDO MERA
[2021-09-08] MEDS: 0.9 % Sodium Chloride 1,000 ML 999 ML IV (17:21)
[2021-09-08 17:32] LABS: Hematocrit 25.3 % (37.0-47.0); Hemoglobin 8.1 g/dl (12.0-16.0); Mean Corpuscular Hemoglobin 29.6 pg (27.0-33.0); Mean Corpuscular Volume 92.3 fL (80.0-98.0); Mean Platelet Volume 11.1 fL (9.4-12.3); Platelet Count 157 X10*3/uL (160-400); Red Blood Count 2.74 X10*6/uL (4.20-5.50); Red Cell Distribution Width 12.8 % (11.0-16.0); White Blood Count 7.6 X10*3/uL (4.8-10.8)
[2021-09-08 17:42] LABS: Lactic Acid 1.2 mmol/L (0.5-2.0)
[2021-09-08 17:47] LABS: Alanine Aminotransferase 11 U/L (0-31); Albumin Level 2.6 g/dL (3.5-5.0); Alkaline Phosphatase 96 U/L (39-117); Anion Gap 13 (12-20); Aspartate Amino Transferase 21 U/L (5-31); Bilirubin Total 0.4 mg/dL (0.0-1.0); Blood Urea Nitrogen 29 mg/dL (9-16); Calcium 9.6 mg/dL (8.4-10.2); Carbon Dioxide 20 mmol/L (22-29); Chloride 98 mmol/L (96-108); Creatinine Clr Calc Pharmacy 15.8; Estimated Glomerular Filt Rate 23; Glucose Random 74 mg/dL (60-115); Lipase 26 U/L (8-78); Sodium 127 mmol/L (135-145)
[2021-09-08 17:54] LABS: Troponin-I High Sensitivity 4.8 ng/L (<3.5-17.0)
[2021-09-08 18:08] LABS: Influenza A PCR NEGATIVE (Negative); Influenza B PCR NEGATIVE (Negative); Resp Syncy Virus RNA Qual PCR NEGATIVE (Negative); SARS COV2 PCR INHOUSE NEGATIVE (Negative)
[2021-09-08 18:08] LABS: Band Neutrophils Percent 51 % (3-5); Lymphocytes Absolute Manual 0.2 X10*3/uL (1.2-4.9); Lymphocytes Percent Manual 2 % (20-40); Metamyelocytes Absolute 0.1 X10*3/uL; Metamyelocytes Percent 1 %; Monocytes Absolute Manual 0.6 X10*3/uL (0.1-1.2); Monocytes Percent Manual 8 % (2-11); Neutrophils Absolute Manual 6.8 X10*3/uL (2.0-8.3); Neutrophils Percent Manual 38 % (45-73); Platelet Estimate NORMAL (NORMAL); Platelet Morphology Comment NORMAL; RBC Morphology NORMAL
[2021-09-08 19:23] VITALS: BP 165/84; PULSE 90; RESP 16; O2SAT 100
--- NOTE | 2021-09-08 20:19 | PHA.MEDREC ---
Pharmacy Consult ? Medication Reconciliation Pharmacy has completed the medication reconciliation.
[2021-09-08] MEDS: cefTRIAXone sodium 1 GM in 0.9 % Sodium Chloride 50 ML IV (20:22)
[2021-09-08] MEDS: Lactated Ringers 1,000 ML 999 ML IV (20:58)
[2021-09-08] MEDS: Azithromycin 500 MG in 0.9 % Sodium Chloride 250 ML 125 MG IV (20:58)
[2021-09-08 20:59] VITALS: BP 135/80; PULSE 91; RESP 14; O2SAT 97
--- NOTE | 2021-09-08 22:09 | PM.IMHP ---
History of Present Illness Date of Service: 09/08/21 Chief Complaint: Nausea/vomiting/diarrhea 65F 65-year-old female with a past medical history of hypertension, hyperlipidemia, hypothyroidism, history of colectomy status post ileostomy bag; CKD; presented to the hospital today with a chief complaint of nausea vomiting and diarrhea. Patient reports that over the past 10 days she has been having nausea vomiting and diarrhea, decreased oral intake; also complains of runny nose and body aches. Denies any sick contacts or recent travel. At the symptoms were not improving decided to come to the hospital for further evaluation. Reported in generally weak. Denies any chest pain or palpitations. Denies any numbness tingling or focal weakness. Reports she is like are unsteady because of generalized weakness; denies any falls. Denies any loss of consciousness. Review of all other systems is negative except mentioned above ER course: Per ER team patient's abdominal exam was benign; chest x-ray showed pneumonia; started on antibiotics. Admitted for further management [facility] Medical History Anxiety Cataract Chronic kidney disease (CKD) stage G4/A1, severely decreased glomerular filtration rate (GFR) between 15-29 mL/min/1.73 square meter and albuminuria creatinine ratio less than 30 mg/g Chronic low back pain History of renal calculi Hypercholesterolemia Hypertension Insomnia Vitamin D deficiency Wrist laceration Family History Mother Hypertension Father Lung cancer Brother Skin cancer (melanoma) Surgical History AAA (abdominal aortic aneurysm) History of colectomy History of rectal surgery Hx of cataract surgery Hx of cholecystectomy S/P AICHA-BSO Social History Household Members: Spouse Housing: House Do you presently have visiting nurse or other home services: No Patient Tobacco Use Status: Former Tobacco user Quit Date: years ago Tobacco use type: Cigarette Smoked in Last 30 Days: No e-Cigarette/Vaping Use: Never Used Second Hand Smoke Exposure: No Use of substances other than those prescribed or required for medical reasons: No Advance Directives: No Advance Directives Information Provided: Yes service: No Current occupational status: retired Current occupation: left handed Meds Allergies Allergy/AdvReac Type Severity Reaction Status Date / Time sumatriptan [From IMITREX] Allergy Severe ANGIOEDEMA Verified 06/14/21 10:07 atorvastatin [Lipitor] Allergy Unknown n Verified 06/14/21 10:07 rosuvastatin [Crestor] Allergy Unknown n Verified 06/14/21 10:07 simvastatin Allergy Unknown n Verified 06/14/21 10:07 pravastatin AdvReac Intermediate shaking Verified 06/14/21 10:07 muscle pain From IMITREX Allergy Severe ANGIOEDEMA Uncoded 01/16/21 14:56 Plavix Allergy Unknown rash Uncoded 01/16/21 14:56 Active Medications: Current Medications Acetaminophen (Acetaminophen 325 Mg Tablet) 650 mg PO Q6H PRN PRN Reason: Pain, Mild (Pain Scale 1-3) Benzonatate (Benzonatate 100 Mg Capsule) 100 mg PO TID PRN PRN Reason: Cough Heparin Sodium (Porcine) (Heparin Sodium,Porcine 5,000 Unit/Ml Vial) 5,000 unit SUBCUT Q8H YUNI Dextrose/Sodium Chloride (D5ns) 1,000 mls @ 75 mls/hr IVCONT .[id number] YUNI Ceftriaxone Sodium 1 gm/ (Sodium Chloride) 50 mls @ 100 mls/hr IV Q24H YUNI Azithromycin 500 mg/ Sodium (Chloride) 250 mls @ 125 mls/hr IV Q24H YUNI Melatonin (Melatonin 3 Mg Tablet) 6 mg PO BEDTIME PRN PRN Reason: Insomnia Pharmacy Consult (Consult Rx Perform Med Rec) 1 each MISCELLANE ONCE PRN PRN Reason: Consult order Senna (Sennosides 8.6 Mg Tablet) 17.2 mg PO BEDTIME PRN PRN Reason: Constipation Sodium Chloride (0.9 % Sodium Chloride Flush 3 Ml Syringe) 3 ml IVFLUSH QSHIFT YUNI Temazepam (Temazepam 15 Mg Capsule) 15 mg PO BEDTIME PRN PRN Reason: Insomnia Home Medications Medication Instructions Recorded Confirmed Last Taken Type isosorbide mononitrate 30 mg 1 tab PO DAILY 12/25/20 09/08/21 09/07/21 History tablet,extended release 24 hr Physical Exam Vital Signs and Narrative: Vital Signs: Last Vital Signs Temp 98.5 F 09/08/21 16:26 Pulse 91 09/08/21 20:59 Resp 14 09/08/21 20:59 BP 135/80 09/08/21 20:59 Pulse Ox 97 09/08/21 20:59 BMI result Body Mass Index 15.2 Gen: Appears be in no acute distress HEENT: NCAT, Moist mucosa. Pulmonary: Vesicular breath sounds, fair air entry CVS: Normal S1-S2 Abdomen: BS+, Soft, Nontender Extremities: Warm well perfused Neuro: Alert and awake. Results Labs CBC and Chem 7: 09/08/21 17:21 09/08/21 17:21 Labs: Laboratory Results - last 24 hr 09/08/21 09/08/21 09/08/21 17:14 17:21 17:21 MCV 92.3 MCH 29.6 MCHC 32.0 RDW 12.8 Plt Count 157 L MPV 11.1 Immature Gran % (Auto) Cancelled Neut % (Auto) Cancelled Lymph % (Auto) Cancelled [place] % (Auto) Cancelled Eos % (Auto) Cancelled Baso % (Auto) Cancelled Lymph # (Auto) Cancelled [place] # (Auto) Cancelled Eos # (Auto) Cancelled Baso # (Auto) Cancelled Abs Immat Gran (auto) Cancelled Absolute Neuts (auto) Cancelled Absolute Nucleated RBC 0.000 Nucleated RBC % (auto) 0.0 Neutrophils % (Manual) 38 L Band Neutrophils % 51 H Lymphocytes % (Manual) 2 L Monocytes % (Manual) 8 Metamyelocytes % 1 Abs Neuts (Manual) 6.8 Lymphocytes # (Manual) 0.2 L Monocytes # (Manual) 0.6 Metamyelocytes # 0.1 Platelet Estimate NORMAL Plt Morphology Comment NORMAL RBC Morphology NORMAL Anion Gap 13 Estim Creat Clear Calc 15.8 Estimated GFR 23 Random Glucose 74 Lactic Acid Calcium 9.6 Total Bilirubin 0.4 AST 21 ALT 11 Alkaline Phosphatase 96 Troponin I High Sens Total Protein 7.0 Albumin 2.6 L Lipase 26 Influenza Type A (PCR) NEGATIVE Influenza Type B (PCR) NEGATIVE RSV RNA Qual (PCR) NEGATIVE SARS-CoV-2 RNA (RT-PCR) NEGATIVE 09/08/21 09/08/21 17:21 17:21 MCV MCH MCHC RDW Plt Count MPV Immature Gran % (Auto) Neut % (Auto) Lymph % (Auto) [place] % (Auto) Eos % (Auto) Baso % (Auto) Lymph # (Auto) [place] # (Auto) Eos # (Auto) Baso # (Auto) Abs Immat Gran (auto) Absolute Neuts (auto) Absolute Nucleated RBC Nucleated RBC % (auto) Neutrophils % (Manual) Band Neutrophils % Lymphocytes % (Manual) Monocytes % (Manual) Metamyelocytes % Abs Neuts (Manual) Lymphocytes # (Manual) Monocytes # (Manual) Metamyelocytes # Platelet Estimate Plt Morphology Comment RBC Morphology Anion Gap Estim Creat Clear Calc Estimated GFR Random Glucose Lactic Acid 1.2 Calcium Total Bilirubin AST ALT Alkaline Phosphatase Troponin I High Sens 4.8 Total Protein Albumin Lipase Influenza Type A (PCR) Influenza Type B (PCR) RSV RNA Qual (PCR) SARS-CoV-2 RNA (RT-PCR) Imaging Radiologist's Impressions: Impressions Chest X-Ray 09/08/21 17:47 IMPRESSION: Dense consolidation at the right lung base Assessment and Plan (1) Pneumonia: Qualifiers: Laterality: right Lung location: lower lobe of lung Status: Acute (2) Gastroenteritis: Status: Acute Plan 65F 65-year-old female with a past medical history of hypertension, hyperlipidemia, hypothyroidism, history of colectomy status post ileostomy bag; CKD; presented to the hospital today with a chief complaint of nausea vomiting and diarrhea. Nausea/vomiting/diarrhea: Benign abdominal examination. Likely gastroenteritis. Supportive care. Pneumonia: Continue ceftriaxone azithromycin. Follow up cultures. Hyponatremia: Likely in the setting of low solute state. Patient on IV fluids. Sodium level on presentation was 127. Repeat BMP. History of CKD: Creatinine at baseline. Avoid nephrotoxins. History of hypothyroidism: Continue home levothyroxine History of hypertension/hyperlipidemia: Continue home medications DVT prophylaxis: Subcu heparin Code status: DNR/DNI Quality Stroke Does the patient have a stroke diagnosis?: No VTE Prior VTE?: No VTE Risk Level:: Medical - moderate - high VTE Device Contraindication: Treatment Not Indicated VTE Drug Contraindication: N/A - Med Ordered
[2021-09-09] VITALS (7 sets, daily range): BP systolic 120–172; BP diastolic 58–84; PULSE 69–87; RESP 12–18; TEMP 36.6–37.6; O2SAT 96–99
--- NOTE | 2021-09-09 00:15 | PC.NURSE ---
PATIENT CAME OVER TO ED OVER FLOW ,CARE CONTINUE ,PATIENT VITALS TAKEN PATIENT WAS HELP INTO BED ,PATIENT NOW RESTING IN BED .
[2021-09-09] MEDS: 0.9 % Sodium Chloride Flush 3 ML SYRINGE IVFLUSH ×2 (01:05→20:09)
[2021-09-09] MEDS: Heparin Sodium,Porcine 5,000 UNIT/ML VIAL 5000 UNIT SUBCUT ×4 (01:05→22:45)
[2021-09-09] MEDS: Dextrose 5 % and 0.9 % NaCl 1,000 ML 75 ML IVCONT ×3 (01:05→19:11)
[2021-09-09 02:46] LABS: MANUAL DIFF FLAG NO
[2021-09-09 02:48] LABS: Basophils Percent Auto 0.2 % (0-2); Eosinophils Percent Auto 0.6 % (0-4); Hematocrit 23.9 % (37.0-47.0); Hemoglobin 7.8 g/dl (12.0-16.0); Imm Gran Abs Auto 0.04 X10*3/uL (0.00-0.03); Imm Gran Pct Auto 0.8 % (0.0-0.4); Lymphocytes Absolute Auto 0.4 X10*3/uL (1.2-4.9); Lymphocytes Percent Auto 8.1 % (20-40); Mean Corpuscular HGB Conc 32.6 g/dl (31.0-35.0); Mean Corpuscular Hemoglobin 30.1 pg (27.0-33.0); Mean Corpuscular Volume 92.3 fL (80.0-98.0); Mean Platelet Volume 10.5 fL (9.4-12.3); Monocytes Absolute Auto 0.4 X10*3/uL (0.1-1.2); Monocytes Percent Auto 6.8 % (2-11); Neutrophils Absolute Auto 4.3 x10*3/uL (2.0-8.3); Neutrophils Percent Auto 83.5 % (45-73); Platelet Count 179 X10*3/uL (160-400); Red Blood Count 2.59 X10*6/uL (4.20-5.50); Red Cell Distribution Width 12.9 % (11.0-16.0); White Blood Count 5.2 X10*3/uL (4.8-10.8)
[2021-09-09 03:13] LABS: Anion Gap 10 (12-20); Blood Urea Nitrogen 26 mg/dL (9-16); Calcium 8.6 mg/dL (8.4-10.2); Carbon Dioxide 19 mmol/L (22-29); Chloride 104 mmol/L (96-108); Estimated Glomerular Filt Rate 27; Glucose Random 78 mg/dL (60-115); Potassium 3.9 mmol/L (3.3-5.1); Sodium 129 mmol/L (135-145)
[2021-09-09 07:22] LABS: Anion Gap 11 (12-20); Blood Urea Nitrogen 25 mg/dL (9-16); Calcium 8.6 mg/dL (8.4-10.2); Carbon Dioxide 19 mmol/L (22-29); Chloride 106 mmol/L (96-108); Creatinine Clr Calc Pharmacy 18.8; Estimated Glomerular Filt Rate 28; Glucose Random 83 mg/dL (60-115); Potassium 3.8 mmol/L (3.3-5.1); Sodium 132 mmol/L (135-145)
[2021-09-09] MEDS: Levothyroxine Sodium 112 MCG, Levothyroxine Sodium 25 MCG 137 MCG PO (07:26)
[2021-09-09] MEDS: Metoprolol Succinate ER 50 MG TAB.ER.24H 150 MG PO (09:36)
[2021-09-09] MEDS: hydrALAZINE HCl 50 MG TABLET 100 MG PO ×3 (09:36→22:45)
[2021-09-09] MEDS: Isosorbide Mononitrate 30 MG TAB.ER.24H PO (09:37)
[2021-09-09 11:43] LABS: Appearance Urine HAZY; Color Urine YELLOW; Glucose Urine UA NEG (NEG); Leukocyte Esterase Urine NEG (NEG); Nitrite Urine NEG (NEG); Specific Gravity - Urine 1.025 (1.005-1.025); UACC Culture Trigger NO; Urine Blood 1+ (NEG); Urine Ketones NEG (NEG); Urine Protein TRACE MG/DL (NEG-TRACE)
[2021-09-09 11:50] LABS: Bacteria Urine TRACE /LPF; Calcium Oxalate Crystals Urine 1+ /LPF
[2021-09-09 11:54] LABS: Mucus Urine TRACE /LPF; Squamous Epithelial Cell Urine TRACE /LPF
--- NOTE | 2021-09-09 12:34 | PC.NURSE ---
Addendum entered by Martina Bustillos RN 09/09/21 12:37: Continuous telemetry and pulse ox discontinued per written order from hospitalist Chela Thapa. Original Note: Pt resting in hospital bed. A/O, ambulatory to the bedside commode with ax1, urine sample sent to the lab. Pt emptied her own illeostomy into urinal. medicated pt AUG. callshiva and belongins within reach.
--- NOTE | 2021-09-09 12:59 | HO.PM.IMPN ---
Subjective Subjective Date of Service: 09/09/21 Review of Systems Follow up CAP Feeling better today, no sob or chest pain no nausea or vomiting Physical Exam Vital Signs: Vital Signs: Last Vital Signs Temp 98.3 F 09/09/21 08:21 Pulse 84 09/09/21 09:36 Resp 18 09/09/21 09:36 BP 163/84 H 09/09/21 09:36 Pulse Ox 99 09/09/21 09:36 BMI result Body Mass Index 15.2 Appearing in no acute distress lung sounds are clear to auscultation heart regular rate rhythm, clear S1, S2 positive bowel sounds, abdomen is soft, nontender neuro patient is alert x3, no focal deficits Objective Data Active Medications Acetaminophen (Acetaminophen 325 Mg Tablet) 650 mg PO Q6H PRN PRN Reason: Pain, Mild (Pain Scale 1-3) Benzonatate (Benzonatate 100 Mg Capsule) 100 mg PO TID PRN PRN Reason: Cough Heparin Sodium (Porcine) (Heparin Sodium,Porcine 5,000 Unit/Ml Vial) 5,000 unit SUBCUT Q8H [facility] Last Admin: 09/09/21 09:37 Dose: 5,000 unit Documented by: VIV Hydralazine HCl (Hydralazine Hcl 50 Mg Tablet) 100 mg PO TID [facility]; Protocol Last Admin: 09/09/21 09:36 Dose: 100 mg Documented by: VIV Dextrose/Sodium Chloride (D5ns) 1,000 mls @ 75 mls/hr IVCONT .[id number] [facility] Last Admin: 09/09/21 12:23 Dose: 75 mls/hr Documented by: VIV Ceftriaxone Sodium 1 gm/ (Sodium Chloride) 50 mls @ 100 mls/hr IV Q24H [facility] Azithromycin 500 mg/ Sodium (Chloride) 250 mls @ 125 mls/hr IV Q24H [facility] Isosorbide Mononitrate (Isosorbide Mononitrate 30 Mg Tab.Er.24h) 30 mg PO DAILY [facility]; Protocol Last Admin: 09/09/21 09:37 Dose: 30 mg Documented by: VIV Levothyroxine Sodium 112 mcg/ (Levothyroxine Sodium 25 mcg) 137 mcg PO DAILY@0600 [facility] Last Admin: 09/09/21 07:26 Dose: 137 mcg Documented by: MADDISON Melatonin (Melatonin 3 Mg Tablet) 6 mg PO BEDTIME PRN PRN Reason: Insomnia Metoprolol Succinate (Metoprolol Succinate Er 50 Mg Tab.Er.24h) 150 mg PO DAILY [facility]; Protocol Last Admin: 09/09/21 09:36 Dose: 150 mg Documented by: VIV Pharmacy Consult (Consult Rx Perform Med Rec) 1 each MISCELLANE ONCE PRN PRN Reason: Consult order Senna (Sennosides 8.6 Mg Tablet) 17.2 mg PO BEDTIME PRN PRN Reason: Constipation Sodium Chloride (0.9 % Sodium Chloride Flush 3 Ml Syringe) 3 ml IVFLUSH QSHIFT [facility] Last Admin: 09/09/21 09:37 Dose: Not Given Documented by: VIV Non-Admin Reason: Previously Administered Temazepam (Temazepam 15 Mg Capsule) 15 mg PO BEDTIME PRN PRN Reason: Insomnia Labs CBC & Chem 7: 09/09/21 02:42 09/09/21 06:43 Labs: Laboratory Results - last 24 hr 09/08/21 09/08/21 09/08/21 17:14 17:21 17:21 MCV 92.3 MCH 29.6 MCHC 32.0 RDW 12.8 Plt Count 157 L MPV 11.1 Immature Gran % (Auto) Cancelled Neut % (Auto) Cancelled Lymph % (Auto) Cancelled Hutchinson % (Auto) Cancelled Eos % (Auto) Cancelled Baso % (Auto) Cancelled Lymph # (Auto) Cancelled Hutchinson # (Auto) Cancelled Eos # (Auto) Cancelled Baso # (Auto) Cancelled Abs Immat Gran (auto) Cancelled Absolute Neuts (auto) Cancelled Absolute Nucleated RBC 0.000 Nucleated RBC % (auto) 0.0 Neutrophils % (Manual) 38 L Band Neutrophils % 51 H Lymphocytes % (Manual) 2 L Monocytes % (Manual) 8 Metamyelocytes % 1 Abs Neuts (Manual) 6.8 Lymphocytes # (Manual) 0.2 L Monocytes # (Manual) 0.6 Metamyelocytes # 0.1 Platelet Estimate NORMAL Plt Morphology Comment NORMAL RBC Morphology NORMAL Anion Gap 13 Estim Creat Clear Calc 15.8 Estimated GFR 23 Random Glucose 74 Lactic Acid Calcium 9.6 Total Bilirubin 0.4 AST 21 ALT 11 Alkaline Phosphatase 96 Troponin I High Sens Total Protein 7.0 Albumin 2.6 L Lipase 26 Urine Color Urine Appearance Urine pH Ur Specific [place] Urine Protein Urine Glucose (UA) Urine Ketones Urine Blood Urine Nitrite Ur Leukocyte Esterase Urine RBC Urine WBC Ur Squamous Epith Cells Calcium Oxalate Crystal Urine Bacteria Urine Mucus Influenza Type A (PCR) NEGATIVE Influenza Type B (PCR) NEGATIVE RSV RNA Qual (PCR) NEGATIVE SARS-CoV-2 RNA (RT-PCR) NEGATIVE 09/08/21 09/08/21 09/09/21 17:21 17:21 02:42 MCV 92.3 MCH 30.1 MCHC 32.6 RDW 12.9 Plt Count 179 MPV 10.5 Immature Gran % (Auto) 0.8 H Neut % (Auto) 83.5 H Lymph % (Auto) 8.1 L Hutchinson % (Auto) 6.8 Eos % (Auto) 0.6 Baso % (Auto) 0.2 Lymph # (Auto) 0.4 L Hutchinson # (Auto) 0.4 Eos # (Auto) 0.0 Baso # (Auto) 0.0 Abs Immat Gran (auto) 0.04 H Absolute Neuts (auto) 4.3 Absolute Nucleated RBC 0.000 Nucleated RBC % (auto) 0.0 Neutrophils % (Manual) Band Neutrophils % Lymphocytes % (Manual) Monocytes % (Manual) Metamyelocytes % Abs Neuts (Manual) Lymphocytes # (Manual) Monocytes # (Manual) Metamyelocytes # Platelet Estimate Plt Morphology Comment RBC Morphology Anion Gap Estim Creat Clear Calc Estimated GFR Random Glucose Lactic Acid 1.2 Calcium Total Bilirubin AST ALT Alkaline Phosphatase Troponin I High Sens 4.8 Total Protein Albumin Lipase Urine Color Urine Appearance Urine pH Ur Specific [place] Urine Protein Urine Glucose (UA) Urine Ketones Urine Blood Urine Nitrite Ur Leukocyte Esterase Urine RBC Urine WBC Ur Squamous Epith Cells Calcium Oxalate Crystal Urine Bacteria Urine Mucus Influenza Type A (PCR) Influenza Type B (PCR) RSV RNA Qual (PCR) SARS-CoV-2 RNA (RT-PCR) 09/09/21 09/09/21 09/09/21 02:42 06:43 11:25 MCV MCH MCHC RDW Plt Count MPV Immature Gran % (Auto) Neut % (Auto) Lymph % (Auto) Hutchinson % (Auto) Eos % (Auto) Baso % (Auto) Lymph # (Auto) Hutchinson # (Auto) Eos # (Auto) Baso # (Auto) Abs Immat Gran (auto) Absolute Neuts (auto) Absolute Nucleated RBC Nucleated RBC % (auto) Neutrophils % (Manual) Band Neutrophils % Lymphocytes % (Manual) Monocytes % (Manual) Metamyelocytes % Abs Neuts (Manual) Lymphocytes # (Manual) Monocytes # (Manual) Metamyelocytes # Platelet Estimate Plt Morphology Comment RBC Morphology Anion Gap 10 L 11 L Estim Creat Clear Calc 18.0 18.8 Estimated GFR 27 28 Random Glucose 78 83 Lactic Acid Calcium 8.6 D 8.6 Total Bilirubin AST ALT Alkaline Phosphatase Troponin I High Sens Total Protein Albumin Lipase Urine Color YELLOW Urine Appearance HAZY Urine pH 6.0 Ur Specific [place] 1.025 Urine Protein TRACE Urine Glucose (UA) NEG Urine Ketones NEG Urine Blood 1+ H Urine Nitrite NEG Ur Leukocyte Esterase NEG Urine RBC 15-29 H Urine WBC 1-4 Ur Squamous Epith Cells TRACE Calcium Oxalate Crystal 1+ Urine Bacteria TRACE Urine Mucus TRACE Influenza Type A (PCR) Influenza Type B (PCR) RSV RNA Qual (PCR) SARS-CoV-2 RNA (RT-PCR) Assessment and Plan (1) Pneumonia: Status: Acute Plan 65F 65-year-old female with a past medical history of hypertension, hyperlipidemia, hypothyroidism, history of colectomy status post ileostomy bag; CKD; presented to the hospital today with a chief complaint of nausea vomiting and diarrhea.? CAP. No hypoxia Continue ceftriaxone azithromycin.? Follow up cultures.? Chest CT pending to better assess consolidation Nausea/vomiting/diarrhea Benign abdominal examination.? Likely gastroenteritis.? Supportive care.? Hyponatremia Likely in the setting of low solute state.? IV fluids.? Follow History of CKD4 Creatinine at baseline.? Avoid nephrotoxins.? History of hypothyroidism Continue home levothyroxine History of hypertension/hyperlipidemia Continue home medications DVT prophylaxis:? Subcu heparin Code status:? DNR/DNI Attending Dr. Jamila Aguirre Stroke Does the patient have a stroke diagnosis?: No VTE Prior VTE?: No VTE Risk Level:: Medical - moderate - high VTE Device Contraindication: Treatment Not Indicated VTE Drug Contraindication: N/A - Med Ordered
[2021-09-09] MEDS: Benzonatate 100 MG CAPSULE PO (19:11)
[2021-09-09] MEDS: cefTRIAXone sodium 1 GM in 0.9 % Sodium Chloride 50 ML IV (19:11)
[2021-09-09] MEDS: Azithromycin 500 MG in 0.9 % Sodium Chloride 250 ML 125 MG IV (20:06)
[2021-09-10] MEDS: 0.9 % Sodium Chloride Flush 3 ML SYRINGE IVFLUSH ×2 (02:23→23:38)
--- NOTE | 2021-09-10 03:23 | PC.NURSE ---
Patient denies nausea, vomiting, or diarrhea since admission. Endoses some transient SOB at times with cough. Tessalon perles with good effect. Patient ileostomy with minimal output. Appliance intact. Says her will bring in additional appliance. Denies pain, but said her chest was tender in response to the weight of the stethescope while listening to breath sounds. Appears cachectic and malnourished, apparent sarcopenia. Patient with very poor intake and hyponnatremia on D5% NS, trending up. Patient ate only 25% of dinner despite encouragement. Patient drank about 100 ccs of coca cola her brought in. 1 assist to commode, 2x voided, patient reports very little and concentrated urine, CKD 4, creatinine was 1.81 today, and her baseline looked like 1.5-1.6 per simple review of labs over last two years. No renal consult yet. H/H dropped over last 24 hours 7.8/23.9. Discussed with MD ? renal and nutrition consult and also passing to day shift in nursing report
[2021-09-10 06:30] VITALS: BP 137/67; PULSE 73; RESP 16; TEMP 37; O2SAT 96
[2021-09-10 06:42] LABS: Hematocrit 25.4 % (37.0-47.0); Hemoglobin 8.3 g/dl (12.0-16.0); Mean Corpuscular HGB Conc 32.7 g/dl (31.0-35.0); Mean Corpuscular Volume 91.7 fL (80.0-98.0); Mean Platelet Volume 10.6 fL (9.4-12.3); Platelet Count 203 X10*3/uL (160-400); Red Blood Count 2.77 X10*6/uL (4.20-5.50); Red Cell Distribution Width 12.9 % (11.0-16.0); White Blood Count 5.9 X10*3/uL (4.8-10.8)
[2021-09-10] MEDS: Levothyroxine Sodium 112 MCG, Levothyroxine Sodium 25 MCG 137 MCG PO (06:57)
[2021-09-10] MEDS: Heparin Sodium,Porcine 5,000 UNIT/ML VIAL 5000 UNIT SUBCUT ×3 (06:58→22:34)
[2021-09-10 07:03] LABS: Anion Gap 9 (12-20); Blood Urea Nitrogen 21 mg/dL (9-16); Calcium 8.7 mg/dL (8.4-10.2); Carbon Dioxide 19 mmol/L (22-29); Chloride 109 mmol/L (96-108); Creatinine Clr Calc Pharmacy 18.4; Estimated Glomerular Filt Rate 27; Glucose Random 93 mg/dL (60-115); Potassium 3.4 mmol/L (3.3-5.1); Sodium 134 mmol/L (135-145)
[2021-09-10 10:03] VITALS: BP 153/75; PULSE 64; RESP 20; O2SAT 99
[2021-09-10] MEDS: Metoprolol Succinate ER 50 MG TAB.ER.24H 150 MG PO (10:04)
[2021-09-10] MEDS: Isosorbide Mononitrate 30 MG TAB.ER.24H PO (10:04)
[2021-09-10] MEDS: hydrALAZINE HCl 50 MG TABLET 100 MG PO ×3 (10:04→20:43)
--- NOTE | 2021-09-10 11:10 | PC.NURSE ---
Pt resting in hospital bed. VSS. pt denies pain and discomfort at this time. family at bedside. pt ambulatory to the bedside commode with ax1. Callbell and belongings within reach.
--- NOTE | 2021-09-10 11:51 | HO.PM.IMPN ---
Subjective Subjective Date of Service: 09/11/21 Review of Systems Follow up CAP Feeling better today, no sob or chest pain no nausea or vomiting Physical Exam Vital Signs: Vital Signs: Last Vital Signs Temp 98.6 F 09/10/21 06:30 Pulse 64 09/10/21 10:03 Resp 20 09/10/21 10:03 BP 153/75 H 09/10/21 10:03 Pulse Ox 99 09/10/21 10:03 BMI result Body Mass Index 15.2 Appearing in no acute distress head is normocephalic atraumatic eyes pupils are PERRLA sclera is anicteric mouth throat mucous membranes are intact and moist neck is supple no lymphadenopathy, no JVD noted lung sounds are clear to auscultation heart regular rate rhythm, clear S1, S2 positive bowel sounds, abdomen is soft, nontender neuro patient is alert x3, no focal deficits Objective Data Active Medications Acetaminophen (Acetaminophen 325 Mg Tablet) 650 mg PO Q6H PRN PRN Reason: Pain, Mild (Pain Scale 1-3) Benzonatate (Benzonatate 100 Mg Capsule) 100 mg PO TID PRN PRN Reason: Cough Last Admin: 09/09/21 19:11 Dose: 100 mg Documented by: ROXIE Heparin Sodium (Porcine) (Heparin Sodium,Porcine 5,000 Unit/Ml Vial) 5,000 unit SUBCUT Q8H [facility] Last Admin: 09/10/21 06:58 Dose: 5,000 unit Documented by: URVASHI Hydralazine HCl (Hydralazine Hcl 50 Mg Tablet) 100 mg PO TID [facility]; Protocol Last Admin: 09/10/21 10:04 Dose: 100 mg Documented by: VIV Dextrose/Sodium Chloride (D5ns) 1,000 mls @ 75 mls/hr IVCONT .[id number] [facility] Last Infusion: 09/10/21 09:02 Dose: 0 mls/hr Documented by: VIV Ceftriaxone Sodium 1 gm/ (Sodium Chloride) 50 mls @ 100 mls/hr IV Q24H [facility] Last Infusion: 09/09/21 20:06 Dose: 0 mls/hr Documented by: ROXIE Azithromycin 500 mg/ Sodium (Chloride) 250 mls @ 125 mls/hr IV Q24H [facility] Last Infusion: 09/10/21 03:51 Dose: 0 mls/hr Documented by: URVASHI Isosorbide Mononitrate (Isosorbide Mononitrate 30 Mg Tab.Er.24h) 30 mg PO DAILY [facility]; Protocol Last Admin: 09/10/21 10:04 Dose: 30 mg Documented by: VIV Levothyroxine Sodium 112 mcg/ (Levothyroxine Sodium 25 mcg) 137 mcg PO DAILY@0600 [facility] Last Admin: 09/10/21 06:57 Dose: 137 mcg Documented by: URVASHI Melatonin (Melatonin 3 Mg Tablet) 6 mg PO BEDTIME PRN PRN Reason: Insomnia Metoprolol Succinate (Metoprolol Succinate Er 50 Mg Tab.Er.24h) 150 mg PO DAILY [facility]; Protocol Last Admin: 09/10/21 10:04 Dose: 150 mg Documented by: VIV Pharmacy Consult (Consult Rx Perform Med Rec) 1 each MISCELLANE ONCE PRN PRN Reason: Consult order Senna (Sennosides 8.6 Mg Tablet) 17.2 mg PO BEDTIME PRN PRN Reason: Constipation Sodium Chloride (0.9 % Sodium Chloride Flush 3 Ml Syringe) 3 ml IVFLUSH QSHIFT [facility] Last Admin: 09/10/21 09:02 Dose: Not Given Documented by: VIV Non-Admin Reason: IV Running Temazepam (Temazepam 15 Mg Capsule) 15 mg PO BEDTIME PRN PRN Reason: Insomnia Labs CBC & Chem 7: 09/10/21 06:25 09/10/21 06:25 Labs: Laboratory Results - last 24 hr 09/09/21 09/10/21 09/10/21 11:25 06:25 06:25 MCV 91.7 MCH 30.0 MCHC 32.7 RDW 12.9 Plt Count 203 MPV 10.6 Absolute Nucleated RBC 0.000 Nucleated RBC % (auto) 0.0 Anion Gap 9 L Estim Creat Clear Calc 18.4 Estimated GFR 27 Random Glucose 93 Calcium 8.7 Urine RBC 15-29 H Urine WBC 1-4 Ur Squamous Epith Cells TRACE Calcium Oxalate Crystal 1+ Urine Bacteria TRACE Urine Mucus TRACE Microbiology Microbiology Results: Microbiology 09/08/21 18:02 Blood Culture - Preliminary Blood - Venous No growth after 24 hours. 09/08/21 17:21 Blood Culture - Preliminary Blood - Venous No growth after 24 hours. Assessment and Plan (1) Pneumonia: Status: Acute Plan 65F 65-year-old female with a past medical history of hypertension, hyperlipidemia, hypothyroidism, history of colectomy status post ileostomy bag; CKD; presented to the hospital today with a chief complaint of nausea vomiting and diarrhea.? CAP. No hypoxia Continue ceftriaxone azithromycin.? Follow up cultures.? Chest CT pending to better assess consolidation Nausea/vomiting/diarrhea Benign abdominal examination.? Likely gastroenteritis.? Supportive care.? Hyponatremia Likely in the setting of low solute state.? IV fluids.? Follow History of CKD4 Creatinine at baseline.? Avoid nephrotoxins.? History of hypothyroidism Continue home levothyroxine History of hypertension/hyperlipidemia Continue home medications DVT prophylaxis:? Subcu heparin Code status:? DNR/DNI Attending Dr. Marino Quality Stroke Does the patient have a stroke diagnosis?: No VTE Prior VTE?: No VTE Risk Level:: Medical - moderate - high VTE Device Contraindication: Treatment Not Indicated VTE Drug Contraindication: N/A - Med Ordered
[2021-09-10] MEDS: Dextrose 5 % and 0.9 % NaCl 1,000 ML 75 ML IVCONT (14:31)
[2021-09-10 16:22] VITALS: BP 134/64
[2021-09-10] MEDS: cefTRIAXone sodium 1 GM in 0.9 % Sodium Chloride 50 ML IV (18:42)
[2021-09-10 20:45] VITALS: BP 132/58; PULSE 60; RESP 18; TEMP 36.6; O2SAT 98
[2021-09-10] MEDS: Azithromycin 500 MG in 0.9 % Sodium Chloride 250 ML 125 MG IV (20:47)
[2021-09-11] VITALS (8 sets, daily range): BP systolic 119–154; BP diastolic 55–70; PULSE 50–61; RESP 14–18; TEMP 36.3–36.9; O2SAT 96–98
[2021-09-11] MEDS: Heparin Sodium,Porcine 5,000 UNIT/ML VIAL 5000 UNIT SUBCUT ×2 (06:38→15:47)
[2021-09-11] MEDS: Levothyroxine Sodium 112 MCG, Levothyroxine Sodium 25 MCG 137 MCG PO (06:38)
[2021-09-11] MEDS: Isosorbide Mononitrate 30 MG TAB.ER.24H PO (08:04)
[2021-09-11] MEDS: Metoprolol Succinate ER 50 MG TAB.ER.24H 150 MG PO (08:04)
[2021-09-11] MEDS: hydrALAZINE HCl 50 MG TABLET 100 MG PO ×3 (08:04→22:06)
--- NOTE | 2021-09-11 09:50 | HO.PM.IMPN ---
Subjective Subjective Date of Service: 09/11/21 Review of Systems Follow up PNA Feeling fine no sob or coughing no nausea Physical Exam Vital Signs: Vital Signs: Last Vital Signs Temp 97.4 F 09/11/21 07:58 Pulse 55 09/11/21 07:58 Resp 14 09/11/21 07:58 BP 128/65 09/11/21 07:58 Pulse Ox 98 09/11/21 07:58 BMI result Body Mass Index 15.2 Appearing in no acute distress lung sounds are clear to auscultation heart regular rate rhythm, clear S1, S2 positive bowel sounds, abdomen is soft, nontender neuro patient is alert x3, no focal deficits Objective Data Active Medications Acetaminophen (Acetaminophen 325 Mg Tablet) 650 mg PO Q6H PRN PRN Reason: Pain, Mild (Pain Scale 1-3) Benzonatate (Benzonatate 100 Mg Capsule) 100 mg PO TID PRN PRN Reason: Cough Last Admin: 09/09/21 19:11 Dose: 100 mg Documented by: ROXIE Heparin Sodium (Porcine) (Heparin Sodium,Porcine 5,000 Unit/Ml Vial) 5,000 unit SUBCUT Q8H [facility] Last Admin: 09/11/21 06:38 Dose: 5,000 unit Documented by: TATI Hydralazine HCl (Hydralazine Hcl 50 Mg Tablet) 100 mg PO TID [facility]; Protocol Last Admin: 09/11/21 08:04 Dose: 100 mg Documented by: VIV Vancomycin HCl 1,000 mg/ (Sodium Chloride) 270 mls @ 270 mls/hr IV Q12H [facility] Piperacillin Sod/Tazobactam (Sod 2.25 gm/ Sodium Chloride) 50 mls @ 100 mls/hr IV Q6H [facility] Isosorbide Mononitrate (Isosorbide Mononitrate 30 Mg Tab.Er.24h) 30 mg PO DAILY [facility]; Protocol Last Admin: 09/11/21 08:04 Dose: 30 mg Documented by: VIV Levothyroxine Sodium 112 mcg/ (Levothyroxine Sodium 25 mcg) 137 mcg PO DAILY@0600 [facility] Last Admin: 09/11/21 06:38 Dose: 137 mcg Documented by: TATI Melatonin (Melatonin 3 Mg Tablet) 6 mg PO BEDTIME PRN PRN Reason: Insomnia Metoprolol Succinate (Metoprolol Succinate Er 50 Mg Tab.Er.24h) 150 mg PO DAILY [facility]; Protocol Last Admin: 09/11/21 08:04 Dose: 150 mg Documented by: VIV Pharmacy Consult (Consult Rx Perform Med Rec) 1 each MISCELLANE ONCE PRN PRN Reason: Consult order Pharmacy Consult (Consult Rx Vancomycin Dosing) 1 each MISCELLANE DAILY PRN PRN Reason: Consult order Senna (Sennosides 8.6 Mg Tablet) 17.2 mg PO BEDTIME PRN PRN Reason: Constipation Sodium Chloride (0.9 % Sodium Chloride Flush 3 Ml Syringe) 3 ml IVFLUSH QSHIFT [facility] Last Admin: 09/11/21 09:45 Dose: Not Given Documented by: VIV Non-Admin Reason: IV Running Temazepam (Temazepam 15 Mg Capsule) 15 mg PO BEDTIME PRN PRN Reason: Insomnia Labs CBC & Chem 7: 09/10/21 06:25 09/10/21 06:25 Microbiology Microbiology Results: Microbiology 09/08/21 18:02 Blood Culture - Preliminary Blood - Venous No growth after 48 hours. 09/08/21 17:21 Blood Culture - Preliminary Blood - Venous No growth after 48 hours. Assessment and Plan (1) Pneumonia: Status: Acute Plan 65F 65-year-old female with a past medical history of hypertension, hyperlipidemia, hypothyroidism, history of colectomy status post ileostomy bag; CKD; presented to the hospital today with a chief complaint of nausea vomiting and diarrhea.? CAP. No hypoxia Changed ceftriaxone, azithromycin to vancomycin and zosyn Chest CT showed concern for malignancy with continued dense consolidation Pulm consult, may need bronch neg cx to date continue supplemental oxygen as needed Nausea/vomiting/diarrhea. Resolved Benign abdominal examination.? Likely gastroenteritis.? Supportive care.? Hyponatremia. mild Likely in the setting of low solute state.? ? Follow History of CKD4 Creatinine at baseline.? Avoid nephrotoxins.? History of hypothyroidism Continue home levothyroxine History of hypertension/hyperlipidemia Continue home medications DVT prophylaxis:? Subcu heparin Code status:? DNR/DNI Attending Dr. Molina Patient requires continued hospitalization for follow-up with pulmonology for question of malignancy on chest CT and continue treatment with IV antibiotics. Quality Stroke Does the patient have a stroke diagnosis?: No VTE Prior VTE?: No VTE Risk Level:: Medical - moderate - high VTE Device Contraindication: Treatment Not Indicated VTE Drug Contraindication: N/A - Med Ordered
[2021-09-11] MEDS: Piperacillin Sodium/Tazobactam 2.25 GM in 0.9 % Sodium Chloride 50 ML IV ×3 (10:11→22:00)
--- NOTE | 2021-09-11 10:23 | MHC.CDI.CONC ---
CDI Concurrent Query Documentation Clarification: PHYSICIAN'S DOCUMENTATION REQUEST Date of Query: 09/11/21 1024 Patient Name: Hayley Bassett Admit Date: 09/08/21 Dear Doctor, A review of the medical record indicates additional documentation may be needed. Please review below and update the documentation accordingly. Clinical Indicators: Documentation in the medical record includes: Risk Factors/Clinical Indicators/Treatments BMI: 15.2 5' 3 in height Albumin 2.6 poor appetite ,poor oral intake, malaise, weakness. ASPEN Criteria* Acute Illness Chronic Illness Clinical Characteristic Non-Severe (2 or more criteria present) Severe (2 or more criteria present) Non-Severe (2 or more criteria present) Severe (2 or more criteria present) Energy Intake <75% for >7 days <=50% for >=5 days <75% for >=1 month <=75% for >=1 month Weight Loss 1 week 1 ? 2% >2% N/A N/A 1 month 5% >5% 5% >5% 3 months 7.5 % >7.5% 7.5% >7.5% 6 months N/A N/A 10% >10% 1 year N/A N/A 20% >20% Body Fat Mild Moderate Mild Severe Muscle Mass Mild Moderate Mild Severe Fluid Accumulation Mild Moderate to Severe Mild Severe Reduced Foundry Operator Strength N/A Measurably Reduced N/A Measurably Reduced *[facility] Hospitalist, 2017 Based on the above, which of the following most accurately represents the patient's BMI: Underweight Malnutrition (specify if mild, moderate, or severe) Protein calorie malnutrition (specify if mild, moderate, or severe) Cachexia without malnutrition No nutritional deficiency Other (please specify): Unable to determine Use of terms such as suspected, likely, concern for, or probable (associated with a specific diagnosis that is being evaluated, monitored, or treated as if it exists) are acceptable and can be coded in the inpatient setting, when documented at the time of discharge. Thank you, Tiffany Webb [facility], CDIS Extension: [phone] Please use your independent medical judgment in providing your response. THIS QUERY IS PART OF THE PERMANENT MEDICAL RECORD Provider Response: Moderate Protein-Calorie Malnutrition
--- NOTE | 2021-09-11 10:32 | PHA.PROG ---
Admission Date/Time: September 08, 2021 22:06 Indication: pnemonia Weight in k.2 kg Adjusted body weight in Kg: Tyler body weight in Kg: Obesity Dosing Indication % IBW: Serum Creatinine - Last 168 Hours 09/08/21 09/09/21 09/09/21 17:21 02:42 06:43 Creatinine 2.15 H 1.89 H 1.81 H 09/10/21 06:25 Creatinine 1.85 H Estimated CrCl and GFR - Last 168 Hours 09/08/21 09/09/21 09/09/21 17:21 02:42 06:43 Estim Creat Clear Calc 15.8 18.0 18.8 Estimated GFR 23 27 28 09/10/21 06:25 Estim Creat Clear Calc 18.4 Estimated GFR 27 Vancomycin Loading Dose: 750 mg Current Vancomycin Dosing Regimen: 500 mg q48 Vancomycin Monitoring using AUC goal of 400 - 600 range with trough as surrogate marker: Date and Time for next Vancomycin Level to be drawn: 09/12@0800 Pharmacist Comments on Vancomycin Plan:Patient is underweight- verified weight with RN 40.2 kg as bed scale weight. Patient also has CKD 4, recommending q48 hrs based on age, weight, and renal function status. First level to be tomorrow at 0800, may need to adjust dose/frequency. Vancomycin dosing will take advantage of [employer] as a clinical decision support tool that uses Bayesian modeling to calculate individual patient's pharmacokinetic parameters and forecast the patient's drug concentration time course with the target goal AUC 24 range of 400 - 600 mg/L/hr.
--- NOTE | 2021-09-11 10:44 | PC.NURSE ---
Pt is alert and oriented. VSS. Resting in hospital bed. Wound dressing changed and cleaned to her coccyx and left hip by this RN yesterday. Pt is ax1 to the bedside commode, emptys illeostomy independently. Family at bedside. Report given to Eun CALVIN in [facility]. Pt offering no complaints. Tech to bring pt upstairs at this time.
[2021-09-11] MEDS: vancomycin HCL 750 MG in 0.9 % Sodium Chloride 250 ML 265 MG IV (11:42)
--- NOTE | 2021-09-11 13:02 | MHC.CM.PN ---
CM met with Patient//Sister(Alternate HCP) at bedside and addressed IMM with them, providing original to Patient and a copy has been placed on the chart. Patient lives in a house with her /HCP and she was active with [facility]. Home/resume said services is the goal and CM has initiated and will follow for dc planning. Patient has received Covid/Pfizer vax X3 and the PCP is Dr. MACK.
--- NOTE | 2021-09-11 17:46 | MHC.SL.IMP ---
Date of Plan of Treatment: 09/11/21 Onset of Symptoms/Illness: 09/11/21 Date Treatment Started: 09/11/21 Admitting Diagnosis: Hypertension Hyperlipidemia Hypothyroidism Colectomy s/p ileostomy bag CKD Anxiety Cataract Chronic low back pain Hx renal calculi Hypercholesterolemia Vitamin D deficiency Wrist laceration AAA Rectal surgery Cataract surgery Cholecystectomy s/p AICHA-BSO Primary Speech & Language Diagnosis: R13.12 Oropharyngeal Phase Dysphagia Reason for Today's Visit: 44496 Modified Barium Swallow Study Pre-evaluation Dietary Consistencies: Regular Pre-evaluation Liquid Consistency: Thin Pre-evaluation Medication Administration: Whole with Liquid Medical History: [place], [place] Modified Barium Swallow Study Fluoroscopic Evaluation of Swallowing Function CPT Code 15601 Evaluation Year: 2021 Reason for Study: ? Dysphagia Referring Physician: Chela Thapa NP Evaluating Clinician: Janice Magallon MA, CCC-GRAVEL WEIGHER Study Number: 1 Patient Name: Hayley Bassett Status: Inpatient, Stretcher Age: 65 Gender: Female MEDICAL HISTORY: Year of Onset or Diagnosis: 2021 Comorbidities: Hypertension Hyperlipidemia Hypothyroidism Colectomy s/p ileostomy bag CKD Anxiety Cataract Chronic low back pain Hx renal calculi Hypercholesterolemia Vitamin D deficiency Wrist laceration AAA Rectal surgery Cataract surgery Cholecystectomy s/p AICHA-BSO Current (pre-evaluation) Intake/Diet: Route: PO Diet Grade: Regular Liquid Consistencies: Thin Pre-Study Functional Oral Intake Scale (FOIS): 7- Total oral intake with no restrictions Pain: None reported at time of study SUBJECTIVE: Patient is a 65 year old female brought to ED with nausea, vomiting, diarrhea. Patient was admitted for hyponatremia, CAP, 09/10/[address] showing concern for malignancy w/ continued dense consolidation. Patient denies dysphagia. She denies coughing when eating, globus sensation, and odynophagia. 09/10/[address]: ?This exam is abnormal. The opacity on recent chest film is felt to represent dense consolidation in the right middle lobe and part of the right lower lobe. There are, however other worrisome findings with lung lesions as described. I also feel there may be some enlargement of the right hilum and underlying lesion here cannot be excluded. Malignancy needs to be considered. PET/CT and/or tissue sampling is recommended in this patient's workup? Oral Motor Exam Facial Symmetry: Symmetrical Mouth Occlusion: Normal Oral-Facial Teeth Characteristics: Edentulous Oral-Facial Lip Pucker Description: Normal Oral-Facial Smile (Lips) Description: Normal Oral-Facial Puff Cheeks Description: Reduced Strength Tongue Size: Normal Tongue Excursion Description: Normal Tongue Range of Movement Description: Normal Tongue Speed of Movement Description: Normal Tongue Strength of Movement (against opposing pressure): Normal Tongue Movement Characteristics: Normal/Absent Tongue Movement Miscellaneous Observation: Patient reports she has dentures that do not fit well. Is patient able to manage secretions?: Yes Food and Liquid Trials: Oral Impairment: Lip Closure: Did not test Oral Impairment: Tongue Control During Bolus Hold: 0=Cohesive bolus between tongue to palatal seal Oral Impairment: Bolus Preparation/Mastication: 1=Slow prolonged chewing/mashing with complete re-collection Oral Impairment: Bolus Transport/Lingual Motion: 2=Slowed tongue motion Oral Impairment: Oral Residue: 2=Residue collection on oral structures Oral Impairment:Initiation of Pharyngeal Swallow: 1=Bolus head in valleculae Pharyngeal Impairment: Soft Palate Elevation: 0=No bolus between soft palate (SP)/pharyngeal wall (PW) Pharyngeal Impairment: Laryngeal Elevation: 1=Partial thyroid cartilage/arytenoids to epiglottic petiole movement Pharyngeal Impairment: Anterior Hyoid Excursion: 1=Partial anterior movement Pharyngeal Impairment: Epiglottic Movement: 0=Complete inversion Pharyngeal Impairment: Laryngeal Vestibular Closure:: 0=Complete: no air/contrast in laryngeal vestibule Pharyngeal Impairment: Pharyngeal Stripping Wave: 0=Present: complete Pharyngeal Impairment: Pharyngeal Contraction: Did not test Pharyngeal Impairment: Pharyngoesophageal Segment Openin=Complete distension and complete duration: no obstruction of flow Pharyngeal Impairment: Tongue Base (TB) Retraction: 2=Narrow column of contrast/air between TB and posterior PW Pharyngeal Impairment: Pharyngeal Residue: 0=Complete pharyngeal clearance Pharyngeal Impairment: Esophageal Clearance Upright Position: Did not test Impressions and Recommendations Clinical Observations: OBJECTIVE: Time-out: performed at 02:45 Evaluation Start: 02:30; Stop: 02:40 Patient Positioning: Seated 70-90 degrees Viewing Planes: LATERAL ONLY Contrast: MBSImP? Standardized Protocol using commercially prepared, standardized Barium viscosities, including: Varibar? THIN LIQUID (40% w/v, <15 cps) , 1/2 Shortbread Cookie (1 x1 x.25 ) MBSImP ID: [id number] [facility] Results: Lip closure for intraoral bolus containment could not be assessed due to logistical reasons not related to physiologic impairment. Tongue control during bolus hold maintained a cohesive bolus held between tongue to palate seal. Bolus preparation and mastication resulted in slow, prolonged chewing/mashing but with complete re-collection. Bolus transport/lingual motion was with slowed tongue motion. Oral residue was a collection on oral structures. Initiation of the pharyngeal swallow occurred when the bolus head was in the valleculae. Soft palate elevation resulted in no bolus between the soft palate and the pharyngeal wall. Laryngeal elevation was decreased, with partial superior movement of the thyroid cartilage/partial approximation of the arytenoids to the epiglottic petiole. Anterior hyoid excursion demonstrated partial anterior movement. Epiglottic movement resulted in complete inversion. Laryngeal vestibular closure was complete, as indicated by no air or contrast within the laryngeal vestibule at the height of the swallow. Pharyngeal stripping wave was present and complete. Pharyngeal contraction could not be determined due to logistical reasons not related to physiologic impairment. Pharyngoesophageal segment opening was completely distended for complete duration with no obstruction of bolus flow. Tongue base retraction allowed a narrow column of contrast or air between the retracted tongue base and the posterior pharyngeal wall. Pharyngeal residue was not present. There was complete pharyngeal clearance. Esophageal clearance in the upright position could not be assessed due to logistical reasons not related to physiologic impairment. Oral Impairment Score: 6 (absence of score, component 1) Pharyngeal Impairment Score: 4 (absence of score, component 13) Esophageal Impairment Score: --- (absence of score, component 17) Laryngeal Penetration and Aspiration: Neither penetration nor aspiration was observed in today's study with Cookie, Thin. ASSESSMENT: Clinician Assessment: This exam was conducted by a multidisciplinary team, which included radiologist, speech pathologist, and special equipment technician. Patient was seated upright at 90 degree angle in chair for lateral view only. Patient trialed the following liquid and solid consistencies: 5 mL thin liquid barium, individual cup sip thin liquid barium, chain sips thin liquid barium, pureed solid (mixture applesauce with barium paste), ground solid (mixture chicken salad with barium paste), regular solid (Anum Doone cookie coated with barium paste). Patient demonstrated good bolus control, maintaining a cohesive bolus between tongue to palatal seal. Mastication was mildly prolonged secondary to edentulous status. Slowed posterior tongue movement. Mild oral residue cleared with subsequent dry swallow. Pharyngeal swallow trigger initiated as bolus head reached valleculae. No nasopharyngeal reflux. Partial laryngeal elevation with partial anterior hyoid excursion. Complete epiglottic inversion. Complete laryngeal vestibular closure. No evidence of penetration or aspiration with solids and liquids. Complete pharyngeal clearance. No obstruction of flow through pharyngoesophageal segment opening. Radiologist noted cricopharyngeal prominence. Liquid Intake Recommendation: Thin Liquid Intake Strategies: Unrestricted Dietary Recommendations: Regular Medication Administration: Whole with Liquid Please contact the pharmacy regarding appropriate crushable or liquid drug formulations that are available whenever modified delivery is recommended. Compensatory Strategies Recommended: Sitting Upright (90 deg) Small Bites and Sips Alternate Liquids/Solids Rate of Ingestion Change Avoid Specific Foods Supervision during eating and or drinking: None Needed Recommendation for Speech Therapy: NA:Typical Evaluation PLAN: Intake Recommendations: Route: PO Diet Grade: Regular Liquid Consistencies: Thin Post-Study Functional Oral Intake Scale (FOIS): 7- Total oral intake with no restrictions No evidence of aspiration or penetration during this exam. Good clearance of oral and pharyngeal cavities. This exam was unremarkable. Recommend continue with unmodified diet regular solids and thin liquids. Further ST intervention is not warranted as swallow function is deemed to be within functional limits. Therapy Recommendations: Therapy will be discontinued Prognosis for Improvement: The prognosis for the patient to meet nutritional needs by mouth is excellent based on results of this exam. Clinician - Supplemental, Miscellaneous Communication: It is important to note MBSS objective studies are snapshots in time and Patient function might vary with factors such as time of day or concomitant medical conditions. For this reason, the final treatment plan for this patient should rest with their medical care team. Additional recommendations should be considered with the totality of the Patient in mind. Thank for the opportunity to participate in the care of this patient. If you have any questions about the content of this report, please contact the [facility] at [facility]. Education: Education regarding findings from today's study and plans for therapy were provided to Patient only through Verbal Instruction. Understanding was expressed by the Patient only. Cloth [employer] Singer Clinician/Clinical Fellow: No Supervisory Statement: N/A Speech Language Pathologist: Janice Magallon M.A., CCC-GRAVEL WEIGHER
[2021-09-11] MEDS: 0.9 % Sodium Chloride Flush 3 ML SYRINGE IVFLUSH (22:06)
[2021-09-12] MEDS: Heparin Sodium,Porcine 5,000 UNIT/ML VIAL 5000 UNIT SUBCUT ×3 (00:39→17:52)
[2021-09-12 03:33] VITALS: BP 150/71; PULSE 54; RESP 20; TEMP 36.8; O2SAT 97
[2021-09-12] MEDS: Piperacillin Sodium/Tazobactam 2.25 GM in 0.9 % Sodium Chloride 50 ML IV ×4 (03:34→20:32)
[2021-09-12] MEDS: Levothyroxine Sodium 112 MCG, Levothyroxine Sodium 25 MCG 137 MCG PO (06:13)
[2021-09-12 07:32] VITALS: BP 154/77; PULSE 63; RESP 18; TEMP 36.9; O2SAT 98
--- NOTE | 2021-09-12 08:31 | MHC.CDI.CONC ---
CDI Concurrent Query Documentation Clarification: PHYSICIAN'S DOCUMENTATION REQUEST Date of Query: 09/12/21 0831 Patient Name: Hayley Bassett Admit Date: 09/08/21 Dear Doctor, A review of the medical record indicates additional documentation may be needed. Please review below and update the documentation accordingly. Clinical Indicators: Risk Factors/Clinical Indicators/Treatments PN: Nausea/vomiting/diarrhea/poor appetite/malnourished/viral like illness. Gastroenteritis, supportive care. Please indicate in your progress notes if you are in agreement that the above diagnosis is valid for this patient: Gastroenteritis Viral gastroenteritis Infectious gastroenteritis Other (please specify) Unable to determine Use of terms such as suspected, likely, concern for, or probable (associated with a specific diagnosis that is being evaluated, monitored, or treated as if it exists) are acceptable and can be coded in the inpatient setting, when documented at the time of discharge. Thank you, Tiffany Webb [facility], CDIS Extension:[phone] Please use your independent medical judgment in providing your response. THIS QUERY IS PART OF THE PERMANENT MEDICAL RECORD Other Diagnosis: nausea and vomiting due to infection
[2021-09-12 08:56] LABS: Anion Gap 12 (12-20); Blood Urea Nitrogen 22 mg/dL (9-16); Calcium 9.1 mg/dL (8.4-10.2); Carbon Dioxide 19 mmol/L (22-29); Chloride 108 mmol/L (96-108); Creatinine Clr Calc Pharmacy 15.3; Estimated Glomerular Filt Rate 22; Glucose Random 73 mg/dL (60-115); Potassium 3.5 mmol/L (3.3-5.1); Sodium 135 mmol/L (135-145)
[2021-09-12] MEDS: Isosorbide Mononitrate 30 MG TAB.ER.24H PO (09:00)
[2021-09-12] MEDS: Metoprolol Succinate ER 50 MG TAB.ER.24H 150 MG PO (09:00)
[2021-09-12] MEDS: hydrALAZINE HCl 50 MG TABLET 100 MG PO ×3 (09:01→20:33)
[2021-09-12] MEDS: 0.9 % Sodium Chloride Flush 3 ML SYRINGE IVFLUSH ×2 (09:01→20:33)
[2021-09-12 09:05] LABS: Vancomycin Random 8.7 mcg/mL (15-20)
--- NOTE | 2021-09-12 09:19 | P.CONPL_ITS ---
History of Present Illness History of Present Illness Consult date: 09/12/21 Chief complaint: Pneumonia/gastroenteritis Narrative: This is an inpatient pulmonary consultation. The patient is a 65-year-old female with a past medical history of hypertension, hyperlipidemia, hypothyroidism, history of colectomy status post ileostomy bag; CKD; presented to the hospital today with a chief complaint of nausea vomiting and diarrhea.?Patient reports that over the past 10 days she has been having nausea vomiting and diarrhea, decreased oral intake; also complains of runny nose and body aches.?In the ER, the patient's abdominal exam was benign; chest x-ray showed pneumonia; started on antibiotics.? Admitted for further management. The patient has been slow to recover even after multiple days of antibiotics. In addition to that she started complaining of significant right-sided pleuritic discomfort. Therefore she had a CT scan of the chest to better address the abnormal findings on the x-ray and her ongoing symptoms. She is found to have a significant right lower lobe consolidation with some other irregular nodular densities which appear to be spiculated to some degree. Also associated with small pleural effusion that is not palpable. But is could resulting in significant pleuritic discomfort. Unfortunately she has renal insufficiency and she cannot tolerate NSAIDs. Although will provide her with some anti- inflammatories to help her with the discomfort at this time. I talked to the patient about treating the pneumonia currently she is on more broaden coverage and hopefully if her pain is under control she can be switched to an oral regimen which she can complete and follow up closely with Pulmonary. The patient will need to have close monitoring of the imaging findings in case she could have a concomitant process because malignancy is still in the differen tial. Malignancy will be more concerning specially if the findings do not clear after adequate antibiotic coverage. Review of Systems Constitutional: Constitutional: Reports fatigue and Denies fever(s) Eyes: Eyes: Denies change in vision ENT: Denies nasal congestion and Denies sore throat Cardiovascular: Cardiovascular: Denies rapid heart rate and Denies leg edema Respiratory: Respiratory: Reports chest congestion, Reports cough, Reports pain on inspiration and Reports pain with cough Gastrointestinal: Gastrointestinal: Reports as per HPI Musculoskeletal: Musculoskeletal: Reports myalgias Endocrine: Endocrine: Reports fatigue PMFSH Past Medical History Medical History (Updated 09/12/21 @ 09:24 by Greyson Thapa MD) Anxiety Cataract Chronic kidney disease (CKD) stage G4/A1, severely decreased glomerular filtration rate (GFR) between 15-29 mL/min/1.73 square meter and albuminuria creatinine ratio less than 30 mg/g Chronic low back pain COPD (chronic obstructive pulmonary disease) History of renal calculi Hypercholesterolemia Hypertension Insomnia Pulmonary nodules Vitamin D deficiency Wrist laceration Family History Family History Mother Hypertension Father Lung cancer Brother Skin cancer (melanoma) Surgical History Surgical History AAA (abdominal aortic aneurysm) History of colectomy History of rectal surgery Hx of cataract surgery Hx of cholecystectomy S/P AICHA-BSO Social History Social History Household Members: Spouse Housing: House Do you presently have visiting nurse or other home services: No Patient Tobacco Use Status: Former Tobacco user Quit Date: years ago Tobacco use type: Cigarette e-Cigarette/Vaping Use: Never Used Second Hand Smoke Exposure: No service: No Current occupational status: retired Current occupation: left handed Meds Allergies Allergy/AdvReac Type Severity Reaction Status Date / Time sumatriptan [From IMITREX] Allergy Severe ANGIOEDEMA Verified 06/14/21 10:07 atorvastatin [Lipitor] Allergy Unknown n Verified 06/14/21 10:07 rosuvastatin [Crestor] Allergy Unknown n Verified 06/14/21 10:07 simvastatin Allergy Unknown n Verified 06/14/21 10:07 pravastatin AdvReac Intermediate shaking Verified 06/14/21 10:07 muscle pain From IMITREX Allergy Severe ANGIOEDEMA Uncoded 01/16/21 14:56 Plavix Allergy Unknown rash Uncoded 01/16/21 14:56 Active Medications: Current Medications Acetaminophen (Acetaminophen 325 Mg Tablet) 650 mg PO Q6H PRN PRN Reason: Pain, Mild (Pain Scale 1-3) Benzonatate (Benzonatate 100 Mg Capsule) 100 mg PO TID PRN PRN Reason: Cough Last Admin: 09/09/21 19:11 Dose: 100 mg Documented by: Heparin Sodium (Porcine) (Heparin Sodium,Porcine 5,000 Unit/Ml Vial) 5,000 unit SUBCUT Q8H YUNI Last Admin: 09/12/21 09:02 Dose: 5,000 unit Documented by: Hydralazine HCl (Hydralazine Hcl 50 Mg Tablet) 100 mg PO TID [facility]; Protocol Last Admin: 09/12/21 09:01 Dose: 100 mg Documented by: Piperacillin Sod/Tazobactam (Sod 2.25 gm/ Sodium Chloride) 50 mls @ 100 mls/hr IV Q6H [facility] Last Admin: 09/12/21 09:02 Dose: 100 mls/hr Documented by: Vancomycin HCl 500 mg/ Sodium (Chloride) 110 mls @ 110 mls/hr IV Q48H [facility] Isosorbide Mononitrate (Isosorbide Mononitrate 30 Mg Tab.Er.24h) 30 mg PO DAILY [facility]; Protocol Last Admin: 09/12/21 09:00 Dose: 30 mg Documented by: Levothyroxine Sodium 112 mcg/ (Levothyroxine Sodium 25 mcg) 137 mcg PO DAILY@0600 [facility] Last Admin: 09/12/21 06:13 Dose: 137 mcg Documented by: Melatonin (Melatonin 3 Mg Tablet) 6 mg PO BEDTIME PRN PRN Reason: Insomnia Metoprolol Succinate (Metoprolol Succinate Er 50 Mg Tab.Er.24h) 150 mg PO DAILY [facility]; Protocol Last Admin: 09/12/21 09:00 Dose: 150 mg Documented by: Pharmacy Consult (Consult Rx Perform Med Rec) 1 each MISCELLANE ONCE PRN PRN Reason: Consult order Pharmacy Consult (Consult Rx Vancomycin Dosing) 1 each MISCELLANE DAILY PRN PRN Reason: Consult order Senna (Sennosides 8.6 Mg Tablet) 17.2 mg PO BEDTIME PRN PRN Reason: Constipation Sodium Chloride (0.9 % Sodium Chloride Flush 3 Ml Syringe) 3 ml IVFLUSH QSHIFT [facility] Last Admin: 09/12/21 09:01 Dose: 3 ml Documented by: Temazepam (Temazepam 15 Mg Capsule) 15 mg PO BEDTIME PRN PRN Reason: Insomnia Home Medications Medication Instructions Recorded Confirmed Last Taken Type isosorbide mononitrate 30 mg 1 tab PO DAILY 12/25/20 09/08/21 09/07/21 History tablet,extended release 24 hr Physical Exam Vital Signs: Vital Signs: Last Vital Signs Temp 98.4 F 09/12/21 07:32 Pulse 63 09/12/21 07:32 Resp 18 09/12/21 07:32 BP 154/77 H 09/12/21 07:32 Pulse Ox 98 09/12/21 07:32 BMI result Body Mass Index 15.2 Const: General: alert Neck: Neck: Yes normal visual inspection, Yes full ROM and Yes no lymphadenopathy Chest: Chest palpation & inspection: normal inspection of the chest Resp: Auscultation: diminished lung sounds Cardio: Rate: regular rate Rhythm: regular rhythm Heart sounds: S1 normal heart sound present and S2 normal heart sound present GI: Palpation (GI): Soft to palpation and nontender Auscultation: normal bowel sounds Skin: General skin exam: rashes and/or lesions noted Results Laboratory Findings CBC and BMP: 09/10/21 06:25 09/12/21 08:27 Abnormal lab findings: Abnormal Labs 09/08/21 09/08/21 09/09/21 17:21 17:21 02:42 RBC 2.74 L D 2.59 L Hgb 8.1 L D 7.8 L Hct 25.3 L D 23.9 L Plt Count 157 L Immature Gran % (Auto) 0.8 H Neut % (Auto) 83.5 H Lymph % (Auto) 8.1 L Lymph # (Auto) 0.4 L Abs Immat Gran (auto) 0.04 H Neutrophils % (Manual) 38 L Band Neutrophils % 51 H Lymphocytes % (Manual) 2 L Lymphocytes # (Manual) 0.2 L Sodium 127 L Chloride Carbon Dioxide 20 L Anion Gap BUN 29 H Creatinine 2.15 H Albumin 2.6 L Urine Blood Urine RBC Random Vancomycin 09/09/21 09/09/21 09/09/21 02:42 06:43 11:25 RBC Hgb Hct Plt Count Immature Gran % (Auto) Neut % (Auto) Lymph % (Auto) Lymph # (Auto) Abs Immat Gran (auto) Neutrophils % (Manual) Band Neutrophils % Lymphocytes % (Manual) Lymphocytes # (Manual) Sodium 129 L 132 L Chloride Carbon Dioxide 19 L 19 L Anion Gap 10 L 11 L BUN 26 H 25 H Creatinine 1.89 H 1.81 H Albumin Urine Blood 1+ H Urine RBC 15-29 H Random Vancomycin 09/10/21 09/10/21 09/12/21 06:25 06:25 08:27 RBC 2.77 L Hgb 8.3 L Hct 25.4 L Plt Count Immature Gran % (Auto) Neut % (Auto) Lymph % (Auto) Lymph # (Auto) Abs Immat Gran (auto) Neutrophils % (Manual) Band Neutrophils % Lymphocytes % (Manual) Lymphocytes # (Manual) Sodium 134 L Chloride 109 H Carbon Dioxide 19 L Anion Gap 9 L BUN 21 H Creatinine 1.85 H Albumin Urine Blood Urine RBC Random Vancomycin 8.7 L 09/12/21 08:27 RBC Hgb Hct Plt Count Immature Gran % (Auto) Neut % (Auto) Lymph % (Auto) Lymph # (Auto) Abs Immat Gran (auto) Neutrophils % (Manual) Band Neutrophils % Lymphocytes % (Manual) Lymphocytes # (Manual) Sodium Chloride Carbon Dioxide 19 L Anion Gap BUN 22 H Creatinine 2.22 H Albumin Urine Blood Urine RBC Random Vancomycin Microbiology: Microbiology 09/08/21 18:02 Blood - Venous Blood Culture - Preliminary No growth after 48 hours. 09/08/21 17:21 Blood - Venous Blood Culture - Preliminary No growth after 48 hours. Assessment and Plan (1) Pneumonia: Qualifiers: Laterality: right Lung location: lower lobe of lung Status: Acute (2) Pleuritic chest pain: Status: Acute (3) Pulmonary nodules: Status: Acute (4) COPD (chronic obstructive pulmonary disease): Status: Acute Plan Continue broad spectrum antibiotics with Zosyn and vancomycin. Hopefully deescalate to oral antibiotics the next 48 hours Prednisone to treat her significant pleuritis since she cannot tolerate NSAIDs Mucinex to help with expectoration Please provide a flutter valve for chest physical therapy Will continue to monitor her in the hospital. Hold off on any bronchoscopies at this point. Will arrange for her to have close outpatient follow-up with imaging studies once she is discharged. Procedures Date of Service Date of Service: 09/12/21
--- NOTE | 2021-09-12 09:27 | P.PNIM_ITS ---
Subjective Subjective Date of Service: 09/12/21 Review of Systems Follow up PNA Feeling fine no sob , dry cough no nausea Physical Exam 2 Vital Signs: Vital Signs: Last Vital Signs Temp 98.4 F 09/12/21 07:32 Pulse 63 09/12/21 07:32 Resp 18 09/12/21 07:32 BP 154/77 H 09/12/21 07:32 Pulse Ox 98 09/12/21 07:32 BMI result Body Mass Index 15.2 Appearing in no acute distress lung sounds are clear to auscultation heart regular rate rhythm, clear S1, S2 positive bowel sounds, abdomen is soft, nontender neuro patient is alert x3, no focal deficits Objective Data Active Medications Acetaminophen (Acetaminophen 325 Mg Tablet) 650 mg PO Q6H PRN PRN Reason: Pain, Mild (Pain Scale 1-3) Benzonatate (Benzonatate 100 Mg Capsule) 100 mg PO TID PRN PRN Reason: Cough Last Admin: 09/09/21 19:11 Dose: 100 mg Documented by: ROXIE Heparin Sodium (Porcine) (Heparin Sodium,Porcine 5,000 Unit/Ml Vial) 5,000 unit SUBCUT Q8H [facility] Last Admin: 09/12/21 09:02 Dose: 5,000 unit Documented by: AYLIN Hydralazine HCl (Hydralazine Hcl 50 Mg Tablet) 100 mg PO TID [facility]; Protocol Last Admin: 09/12/21 09:01 Dose: 100 mg Documented by: AYLIN Piperacillin Sod/Tazobactam (Sod 2.25 gm/ Sodium Chloride) 50 mls @ 100 mls/hr IV Q6H [facility] Last Admin: 09/12/21 09:02 Dose: 100 mls/hr Documented by: AYLIN Vancomycin HCl 500 mg/ Sodium (Chloride) 110 mls @ 110 mls/hr IV Q48H [facility] Isosorbide Mononitrate (Isosorbide Mononitrate 30 Mg Tab.Er.24h) 30 mg PO DAILY [facility]; Protocol Last Admin: 09/12/21 09:00 Dose: 30 mg Documented by: AYLIN Levothyroxine Sodium 112 mcg/ (Levothyroxine Sodium 25 mcg) 137 mcg PO DAILY@0600 [facility] Last Admin: 09/12/21 06:13 Dose: 137 mcg Documented by: EMERSON Melatonin (Melatonin 3 Mg Tablet) 6 mg PO BEDTIME PRN PRN Reason: Insomnia Metoprolol Succinate (Metoprolol Succinate Er 50 Mg Tab.Er.24h) 150 mg PO DAILY [facility]; Protocol Last Admin: 09/12/21 09:00 Dose: 150 mg Documented by: AYLIN Pharmacy Consult (Consult Rx Perform Med Rec) 1 each MISCELLANE ONCE PRN PRN Reason: Consult order Pharmacy Consult (Consult Rx Vancomycin Dosing) 1 each MISCELLANE DAILY PRN PRN Reason: Consult order Senna (Sennosides 8.6 Mg Tablet) 17.2 mg PO BEDTIME PRN PRN Reason: Constipation Sodium Chloride (0.9 % Sodium Chloride Flush 3 Ml Syringe) 3 ml IVFLUSH QSHIFT [facility] Last Admin: 09/12/21 09:01 Dose: 3 ml Documented by: AYLIN Temazepam (Temazepam 15 Mg Capsule) 15 mg PO BEDTIME PRN PRN Reason: Insomnia Labs CBC & Chem 7: 09/10/21 06:25 09/12/21 08:27 Labs: Laboratory Results - last 24 hr 09/12/21 09/12/21 08:27 08:27 Anion Gap 12 Estim Creat Clear Calc 15.3 Estimated GFR 22 Random Glucose 73 Calcium 9.1 Random Vancomycin 8.7 L Assessment and Plan (1) Pneumonia: Status: Acute Plan 65F 65-year-old female with a past medical history of hypertension, hyperlipidemia, hypothyroidism, history of colectomy status post ileostomy bag; CKD; presented to the hospital today with a chief complaint of nausea vomiting and diarrhea.? CAP. No hypoxia Changed ceftriaxone, azithromycin to vancomycin and zosyn due to continued dense consolidation Chest CT showed concern for malignancy, seen and evaluated by pulmonology, no n eed for invasive procedure at this time, will treat pneumonia 1st and then likely outpatient follow-up with pulmonology office neg cx to date Will add Mucinex for dry cough, Scheduled tylenol for msk pain, IS continue supplemental oxygen as needed Nausea/vomiting/diarrhea. Resolved Benign abdominal examination.? Likely secondary to infection Hyponatremia. Resolved Likely in the setting of low solute state.? ? Follow History of CKD4 Creatinine at baseline.? Avoid nephrotoxins.? History of hypothyroidism Continue home levothyroxine History of hypertension/hyperlipidemia Continue home medications DVT prophylaxis:? Subcu heparin Code status:? DNR/DNI Attending Dr. Molina Patient requires continued hospitalization for For treatment with IV antibiotics of dense consolidation. Quality Stroke Does the patient have a stroke diagnosis?: No VTE Prior VTE?: No VTE Risk Level:: Medical - moderate - high VTE Device Contraindication: Treatment Not Indicated VTE Drug Contraindication: N/A - Med Ordered
--- NOTE | 2021-09-12 10:03 | HE.PHANOTE ---
RE FRANCINE Patient SCR elevated at 2.22 today. Will keep 500 q48h, but will start from today to get pt therapeutic faster. Scheduled trough for tomorrow 09/13 @0900
[2021-09-12] MEDS: methylPREDNISolone Sod Succ 40 MG/ML VIAL IVPUSH ×2 (10:19→20:33)
[2021-09-12 11:24] VITALS: BP 132/65; PULSE 52; RESP 17; TEMP 36.6; O2SAT 98
[2021-09-12 11:28] VITALS: BMI 15.2
--- NOTE | 2021-09-12 11:33 | MHC.CLN ---
RE: CONSULT PT IS MODERATELY MALNOURISHED PT WITH MILDLY DEPLETED SUBCUTANEOUS FAT AND MODERATELY DEPLETED MUSCE MASS, BMI 15.2 WITH POOR PO INTAKE X 10 DAYS AND 14% SIGNIFICANT WT LOSS X 6MONTHS PO 25-50% X 3 MEALS DIET RX: 2GM NA-APPROPRIATE IF PO INTAKE REMAINS POOR MAY CONSIDER LIBERALIZING DIET RECOMMEND ADDING ENSURE BID TO INCREASE KCALS AND PROMOTE WOUND HEALING SUPP TO PROVIDE 700KCALS, 40G PROTEIN MONITOR PO INTAKE CLOSELY SEE ALSO CLINICAL NUTRITION ASSESSMENT
[2021-09-12] MEDS: vancomycin HCL 500 MG in 0.9 % Sodium Chloride 100 ML 110 MG IV (11:40)
--- NOTE | 2021-09-12 15:11 | PC.NURSE ---
Skin/wound assessment completed. Patient has stage 2 pressure injuries with detached wound margins with undermining. Granulation and yellow tissue present. Hydrofera blue applied to all wound beds covered with foam dressing. Patient also has discolored skin on bilateral thighs and scabs from a heating pad. Sween 24 moisturizer cream applied.
[2021-09-12 15:14] VITALS: BP 140/67; PULSE 53; RESP 18; TEMP 37.2; O2SAT 97
[2021-09-12 19:40] VITALS: BP 118/59; PULSE 57; RESP 17; TEMP 37; O2SAT 97
[2021-09-12] MEDS: Acetaminophen 325 MG TABLET 650 MG PO (20:33)
[2021-09-12] MEDS: guaiFENesin LA 600 MG TAB.ER.12H PO (20:33)
[2021-09-12 23:31] VITALS: BP 134/63; PULSE 50; RESP 16; TEMP 36.4; O2SAT 99
[2021-09-13] MEDS: Piperacillin Sodium/Tazobactam 2.25 GM in 0.9 % Sodium Chloride 50 ML IV ×4 (03:33→21:14)
[2021-09-13] MEDS: Acetaminophen 325 MG TABLET 650 MG PO ×2 (03:34→10:18)
[2021-09-13] MEDS: Heparin Sodium,Porcine 5,000 UNIT/ML VIAL 5000 UNIT SUBCUT ×3 (03:34→18:04)
[2021-09-13 04:00] VITALS: BP 149/71; PULSE 50; RESP 20; TEMP 36.4; O2SAT 100
[2021-09-13] MEDS: Levothyroxine Sodium 112 MCG, Levothyroxine Sodium 25 MCG 137 MCG PO (04:07)
[2021-09-13 07:48] VITALS: BP 151/70; PULSE 55; RESP 18; TEMP 36.4; O2SAT 99
[2021-09-13] MEDS: guaiFENesin LA 600 MG TAB.ER.12H PO ×2 (08:15→21:14)
[2021-09-13] MEDS: hydrALAZINE HCl 50 MG TABLET 100 MG PO ×3 (08:15→21:14)
[2021-09-13] MEDS: Metoprolol Succinate ER 50 MG TAB.ER.24H 150 MG PO (08:15)
[2021-09-13] MEDS: Isosorbide Mononitrate 30 MG TAB.ER.24H PO (08:15)
[2021-09-13] MEDS: 0.9 % Sodium Chloride Flush 3 ML SYRINGE IVFLUSH ×3 (08:17→21:14)
--- NOTE | 2021-09-13 08:39 | P.CONGS_ITS ---
History of Present Illness Consult details Consult date: 09/13/21 Narrative: 65-year-old female referred for decubitus ulcers. She was admitted last 09/08/2021 for nausea and vomiting and was diagnosed to have a gastroenteritis. She also has and pneumonia. She was noted to have sacral decubitus ulcers, stage III shows consulted. She says she feels better overall. She had a previous ileostomy for colon resection. The exact indication is uncertain at this time. She also has COPD as well as pulmonary nodules. Review of Systems Constitutional: Constitutional: Denies chills and Denies fever(s) Cardiovascular: Cardiovascular: Denies chest pain, Denies dyspnea and Reports dyspnea on exertion Respiratory: Respiratory: Denies cough, Denies dyspnea and Reports dyspnea on exertion Gastrointestinal: Gastrointestinal: Denies hematochezia and Denies change in bowel habits Comments: Has ileostomy Genitourinary: Genitourinary: Denies hematuria Musculoskeletal: Musculoskeletal: Denies back pain and Denies limited range of motion Neurologic: Denies focal weakness and Denies convulsions Psychiatric: Psychiatric: Denies depression and Denies mood swings [facility] Past Medical History Medical History (Updated 09/13/21 @ 08:45 by Gregorio Knutson MD) Anxiety Cataract Chronic kidney disease (CKD) stage G4/A1, severely decreased glomerular filtration rate (GFR) between 15-29 mL/min/1.73 square meter and albuminuria creatinine ratio less than 30 mg/g Chronic low back pain COPD (chronic obstructive pulmonary disease) History of renal calculi Hypercholesterolemia Hypertension Insomnia Pulmonary nodules Sacral decubitus ulcer, stage III Vitamin D deficiency Wrist laceration Family History Family History Mother Hypertension Father Lung cancer Brother Skin cancer (melanoma) Surgical History Surgical History AAA (abdominal aortic aneurysm) History of colectomy History of rectal surgery Hx of cataract surgery Hx of cholecystectomy S/P AICHA-BSO Social History Social History Household Members: Spouse Housing: House Do you presently have visiting nurse or other home services: No Patient Tobacco Use Status: Former Tobacco user Quit Date: years ago Tobacco use type: Cigarette Smoked in Last 30 Days: No e-Cigarette/Vaping Use: Never Used Second Hand Smoke Exposure: No Use of substances other than those prescribed or required for medical reasons: No Currently Displaying Signs/Symptoms of Drug Intoxication Withdrawal: No Have you been hit, kicked, punched, or otherwise hurt by someone within the past year? If so, by whom?: No Do you feel safe in your current relationship?: Yes Is there a partner from a previous relationship who is making you feel unsafe now?: No Are you made to feel afraid or neglected: No Advance Directives: No Advance Directives Information Provided: Yes Do you have thoughts of harming others: None Do you have a plan to hurt others: No Plan Recently lost weight without trying: Yes How much weight loss: 34pounds or more Eating poorly because of decreased appetite: Yes Nutrition screen score: 7 service: No Current occupational status: retired Current occupation: left handed Meds Allergies Allergy/AdvReac Type Severity Reaction Status Date / Time sumatriptan [From IMITREX] Allergy Severe ANGIOEDEMA Verified 06/14/21 10:07 atorvastatin [Lipitor] Allergy Unknown n Verified 06/14/21 10:07 rosuvastatin [Crestor] Allergy Unknown n Verified 06/14/21 10:07 simvastatin Allergy Unknown n Verified 06/14/21 10:07 pravastatin AdvReac Intermediate shaking Verified 06/14/21 10:07 muscle pain From IMITREX Allergy Severe ANGIOEDEMA Uncoded 01/16/21 14:56 Plavix Allergy Unknown rash Uncoded 01/16/21 14:56 Active Medications: Current Medications Acetaminophen (Acetaminophen 325 Mg Tablet) 650 mg PO Q6H PRN PRN Reason: Pain, Mild (Pain Scale 1-3) Acetaminophen (Acetaminophen 325 Mg Tablet) 650 mg PO Q6H [facility] Last Admin: 09/13/21 03:34 Dose: 650 mg Documented by: Benzonatate (Benzonatate 100 Mg Capsule) 100 mg PO TID PRN PRN Reason: Cough Last Admin: 09/09/21 19:11 Dose: 100 mg Documented by: Guaifenesin (Guaifenesin La 600 Mg Tab.Er.12h) 600 mg PO BID [facility] Last Admin: 09/13/21 08:15 Dose: 600 mg Documented by: Heparin Sodium (Porcine) (Heparin Sodium,Porcine 5,000 Unit/Ml Vial) 5,000 unit SUBCUT Q8H [facility] Last Admin: 09/13/21 03:34 Dose: 5,000 unit Documented by: Hydralazine HCl (Hydralazine Hcl 50 Mg Tablet) 100 mg PO TID [facility]; Protocol Last Admin: 09/13/21 08:15 Dose: 100 mg Documented by: Piperacillin Sod/Tazobactam (Sod 2.25 gm/ Sodium Chloride) 50 mls @ 100 mls/hr IV Q6H [facility] Last Infusion: 09/13/21 04:08 Dose: Infused Documented by: Vancomycin HCl 500 mg/ Sodium (Chloride) 110 mls @ 110 mls/hr IV Q48H [facility] Last Infusion: 09/12/21 12:51 Dose: Infused Documented by: Isosorbide Mononitrate (Isosorbide Mononitrate 30 Mg Tab.Er.24h) 30 mg PO DAILY [facility]; Protocol Last Admin: 09/13/21 08:15 Dose: 30 mg Documented by: Levothyroxine Sodium 112 mcg/ (Levothyroxine Sodium 25 mcg) 137 mcg PO DAILY@0600 [facility] Last Admin: 09/13/21 04:07 Dose: 137 mcg Documented by: Melatonin (Melatonin 3 Mg Tablet) 6 mg PO BEDTIME PRN PRN Reason: Insomnia Methylprednisolone Sodium Succinate (Methylprednisolone Sod Succ 40 Mg/Ml Vial) 40 mg IVPUSH Q12H [facility] Last Admin: 09/12/21 20:33 Dose: 40 mg Documented by: Metoprolol Succinate (Metoprolol Succinate Er 50 Mg Tab.Er.24h) 150 mg PO DAILY [facility]; Protocol Last Admin: 09/13/21 08:15 Dose: 150 mg Documented by: Pharmacy Consult (Consult Rx Perform Med Rec) 1 each MISCELLANE ONCE PRN PRN Reason: Consult order Pharmacy Consult (Consult Rx Vancomycin Dosing) 1 each MISCELLANE DAILY PRN PRN Reason: Consult order Senna (Sennosides 8.6 Mg Tablet) 17.2 mg PO BEDTIME PRN PRN Reason: Constipation Sodium Chloride (0.9 % Sodium Chloride Flush 3 Ml Syringe) 3 ml IVFLUSH QSHIFT [facility] Last Admin: 09/13/21 08:17 Dose: 3 ml Documented by: Temazepam (Temazepam 15 Mg Capsule) 15 mg PO BEDTIME PRN PRN Reason: Insomnia Home Medications Medication Instructions Recorded Confirmed Last Taken Type isosorbide mononitrate 30 mg 1 tab PO DAILY 12/25/20 09/08/21 09/07/21 History tablet,extended release 24 hr Physical Exam Vital Signs: Vital Signs: Last Vital Signs Temp 97.6 F 09/13/21 07:48 Pulse 55 09/13/21 07:48 Resp 18 09/13/21 07:48 BP 151/70 H 09/13/21 07:48 Pulse Ox 99 09/13/21 07:48 BMI result Body Mass Index 15.2 Const: Other: Appears frail General: comfortable and no acute distress Orientation/consciousness: patient oriented x3 Neck: Neck: Yes no lymphadenopathy Resp: Auscultation: clear to auscultation bilaterally Cardio: Rhythm: regular rhythm GI: Other: Ileostomy functioning Palpation (GI): Soft to palpation, nontender and no guarding Back/Spine/Pelvis: Other: Decubitus ulcers, sacral area, near the buttock 1. 4x3 cm in diameter, stage 3, clean, no necrotic areas, with undermining of edges 2. 3 x 3 cm in diameter, stage III, clean, also with undermining of edges, and seems to tunnel to another much smaller ulcer laterally Neuro: General: patient oriented x3 Results Labs Result diagrams: 09/10/21 06:25 09/12/21 08:27 Labs: Abnormal lab results 09/12/21 09/12/21 Range/Units 08:27 08:27 Carbon Dioxide 19 L (22-29) mmol/L BUN 22 H (9-16) mg/dL Creatinine 2.22 H (0.5-1.4) mg/dL Random Vancomycin 8.7 L (15-20) mcg/mL BMP 09/12/21 08:27 Sodium 135 Potassium 3.5 Chloride 108 Carbon Dioxide 19 L BUN 22 H Creatinine 2.22 H Calcium 9.1 Urine 09/09/21 Range/Units 11:25 Urine Color YELLOW Urine Appearance HAZY Urine pH 6.0 (5.0-8.0) Ur Specific Vista 1.025 (1.005-1.025) Urine Protein TRACE (NEG-TRACE) MG/DL Urine Glucose (UA) NEG (NEG) MG/DL All other labs normal. Assessment and Plan (1) Sacral decubitus ulcer, stage III: Status: Acute She has multiple decubitus ulcers as described above. These are all clean, non necrotic, with no pus or cellulitis. She does not require any treatment at this time. These do have some undermining of the edges. The most important thing is for her to not stay in 1 position for long periods of time to allow healing. She will require good wound care as well. I have discussed the above with the wound care nurse Melania Kumar. Procedures Date of Service Date of Service: 09/13/21
--- NOTE | 2021-09-13 09:32 | PM.PNPUL ---
Subjective Subjective Date of Service: 09/13/21 Interval history: The patient was seen on exam. Her chest discomfort appears to be improved. Her cough is better. She feels a little better. She still on room air. She is still on IV antibiotics. She seems to have responded better to broad-spectrum antibiotics. Likely can start deescalating tomorrow if continues to be stable Objective Data Labs CBC & Chem 7: 09/10/21 06:25 09/12/21 08:27 Microbiology Microbiology Results: Microbiology 09/08/21 18:02 Blood - Venous Blood Culture - Preliminary No growth after 48 hours. 09/08/21 17:21 Blood - Venous Blood Culture - Preliminary No growth after 48 hours. Review of Systems Constitutional: Reports fatigue and Denies fever(s) Eyes: Denies change in vision Denies nasal congestion and Denies sore throat Cardiovascular: Denies rapid heart rate and Denies leg edema Respiratory: Reports chest congestion, Reports cough, Reports pain on inspiration and Reports pain with cough Gastrointestinal: Reports as per HPI Musculoskeletal: Reports myalgias Endocrine: Reports fatigue Physical Exam Vital Signs: Vital Signs: Last Vital Signs Temp 97.6 F 09/13/21 07:48 Pulse 55 09/13/21 07:48 Resp 18 09/13/21 07:48 BP 151/70 H 09/13/21 07:48 Pulse Ox 99 09/13/21 07:48 BMI result Body Mass Index 15.2 Const: General: alert Neck: Neck: Yes normal visual inspection, Yes full ROM and Yes no lymphadenopathy Chest: Chest palpation & inspection: normal inspection of the chest Resp: Auscultation: rales on the right at the base and diminished lung sounds Cardio: Rate: regular rate Rhythm: regular rhythm Heart sounds: S1 normal heart sound present and S2 normal heart sound present GI: Palpation (GI): Soft to palpation and nontender Auscultation: normal bowel sounds Skin: General skin exam: rashes and/or lesions noted Procedures Date of Service Date of Service: 09/13/21 Assessment and Plan Assessment and plan (1) COPD (chronic obstructive pulmonary disease): Status: Acute (2) Pulmonary nodules: Status: Acute (3) Pleuritic chest pain: Status: Acute (4) Pneumonia: Status: Acute Plan Continue IV antibiotics will likely be okay to switch over to the oral equivalent to their tomorrow Continue prednisone taper which is helping for the pleuritis Continue respiratory therapy Will need close follow-up regarding the nodular densities in the masslike consolidation in case this is a concomitant malignant process Time Spent With Patient Time: Total time spent is greater than 50% in coordination of care (as documented) at patient's floor/unit and/or counseling patient: Progress Note: Quality Stroke Does the patient have a stroke diagnosis?: No
[2021-09-13 09:38] LABS: Hematocrit 27.4 % (37.0-47.0); Hemoglobin 8.8 g/dl (12.0-16.0); Mean Corpuscular HGB Conc 32.1 g/dl (31.0-35.0); Mean Corpuscular Hemoglobin 29.5 pg (27.0-33.0); Mean Corpuscular Volume 91.9 fL (80.0-98.0); Mean Platelet Volume 11.1 fL (9.4-12.3); Platelet Count 179 X10*3/uL (160-400); Red Blood Count 2.98 X10*6/uL (4.20-5.50); Red Cell Distribution Width 13.3 % (11.0-16.0); White Blood Count 5.5 X10*3/uL (4.8-10.8)
[2021-09-13 09:51] LABS: Creatinine Clr Calc Pharmacy 15.3; Estimated Glomerular Filt Rate 22
[2021-09-13] MEDS: methylPREDNISolone Sod Succ 40 MG/ML VIAL IVPUSH ×2 (10:17→21:14)
[2021-09-13 10:21] LABS: Vancomycin Trough 11.5 mcg/mL (10.0-20.0)
[2021-09-13 10:36] LABS: MRSA Nasal PCR NEGATIVE (Negative); SA Nasal PCR NEGATIVE (Negative)
--- NOTE | 2021-09-13 11:02 | HE.PHANOTE ---
Pt trough today was 11.5, since pt is underweight- 39 kg and cr was elevated from admission, will keep q48 for now, if cr decreased or is stable, may be able to increase to 750 mg q48h or 500 mg q24 hr
[2021-09-13 11:05] VITALS: BP 137/61; PULSE 50; RESP 18; TEMP 36.3; O2SAT 99
--- NOTE | 2021-09-13 11:33 | MHC.CLN ---
RE: CONSULT PT IS MODERATELY MALNOURISHED SEE CLINICAL NUTRITION ASSESSMENT DATED 09/12/21 PO 25-50% DIET RX: 2GM NA-APPROPRIATE IF PO INTAKE REMAINS POOR MAY CONSIDER LIBERALIZING DIET PT RECEIVING ENSURE BID TO INCREASE KCALS AND PROMOTE WOUND HEALING SUPP PROVIDES 700KCALS, 40G PROTEIN MONITOR PO INTAKE CLOSELY
[2021-09-13 15:13] VITALS: BP 147/67; PULSE 55; RESP 18; TEMP 37.2; O2SAT 98
--- NOTE | 2021-09-13 16:06 | HO.PM.IMPN ---
Subjective Subjective Date of Service: 09/13/21 Interval History: No acute issues overnight; improved since admission per patient Review of Systems Denies chest pain Denies shortness of breath Denies nausea vomiting diarrhea Physical Exam Vital Signs: Vital Signs: Last Vital Signs Temp 98.9 F 09/13/21 15:13 Pulse 55 09/13/21 15:13 Resp 18 09/13/21 15:13 BP 147/67 H 09/13/21 15:13 Pulse Ox 98 09/13/21 15:13 BMI result Body Mass Index 15.2 Const: Other: Awake alert oriented x3 no acute distress Resp: Other: Diminished throughout with rales at bilateral bases right greater than left Cardio: Other: No S4; positive S1-S2; no S3 murmurs rubs or gallops GI: Other: Soft nontender nondistended with normoactive bowel sounds Extrem: Other: No edema bilaterally Objective Data Active Medications Acetaminophen (Acetaminophen 325 Mg Tablet) 650 mg PO Q6H PRN PRN Reason: Pain, Mild (Pain Scale 1-3) Acetaminophen (Acetaminophen 325 Mg Tablet) 650 mg PO Q6H [facility] Last Admin: 09/13/21 15:35 Dose: Not Given Documented by: OSEI Non-Admin Reason: Patient Refused Benzonatate (Benzonatate 100 Mg Capsule) 100 mg PO TID PRN PRN Reason: Cough Last Admin: 09/09/21 19:11 Dose: 100 mg Documented by: ROXIE Guaifenesin (Guaifenesin La 600 Mg Tab.Er.12h) 600 mg PO BID [facility] [place] Last Admin: 09/13/21 08:15 Dose: 600 mg Documented by: KATH Heparin Sodium (Porcine) (Heparin Sodium,Porcine 5,000 Unit/Ml Vial) 5,000 unit SUBCUT Q8H [facility] [place] Last Admin: 09/13/21 10:17 Dose: 5,000 unit Documented by: KATH Hydralazine HCl (Hydralazine Hcl 50 Mg Tablet) 100 mg PO TID [facility] [place]; Protocol Last Admin: 09/13/21 14:27 Dose: 100 mg Documented by: KATH Piperacillin Sod/Tazobactam (Sod 2.25 gm/ Sodium Chloride) 50 mls @ 100 mls/hr IV Q6H [facility] [place] Last Infusion: 09/13/21 15:06 Dose: 0 mls/hr Documented by: KATH Vancomycin HCl 500 mg/ Sodium (Chloride) 110 mls @ 110 mls/hr IV Q48H [facility] [place] Last Infusion: 09/12/21 12:51 Dose: 0 mls/hr Documented by: AYLIN Isosorbide Mononitrate (Isosorbide Mononitrate 30 Mg Tab.Er.24h) 30 mg PO DAILY [facility] [place]; Protocol Last Admin: 09/13/21 08:15 Dose: 30 mg Documented by: KATH Levothyroxine Sodium 112 mcg/ (Levothyroxine Sodium 25 mcg) 137 mcg PO DAILY@0600 [facility] [place] Last Admin: 09/13/21 04:07 Dose: 137 mcg Documented by: JACK Comments: pt request. pt wnts to sleep Melatonin (Melatonin 3 Mg Tablet) 6 mg PO BEDTIME PRN PRN Reason: Insomnia Methylprednisolone Sodium Succinate (Methylprednisolone Sod Succ 40 Mg/Ml Vial) 40 mg IVPUSH Q12H [facility] [place] Last Admin: 09/13/21 10:17 Dose: 40 mg Documented by: KATH Metoprolol Succinate (Metoprolol Succinate Er 50 Mg Tab.Er.24h) 150 mg PO DAILY [facility] [place]; Protocol Last Admin: 09/13/21 08:15 Dose: 150 mg Documented by: KATH Pharmacy Consult (Consult Rx Perform Med Rec) 1 each MISCELLANE ONCE PRN PRN Reason: Consult order Pharmacy Consult (Consult Rx Vancomycin Dosing) 1 each MISCELLANE DAILY PRN PRN Reason: Consult order Senna (Sennosides 8.6 Mg Tablet) 17.2 mg PO BEDTIME PRN PRN Reason: Constipation Sodium Chloride (0.9 % Sodium Chloride Flush 3 Ml Syringe) 3 ml IVFLUSH QSHIFT [facility] Last Admin: 09/13/21 15:35 Dose: 3 ml Documented by: OSEI Temazepam (Temazepam 15 Mg Capsule) 15 mg PO BEDTIME PRN PRN Reason: Insomnia Labs CBC & Chem 7: 09/13/21 09:11 09/13/21 09:10 Labs: Laboratory Results - last 24 hr 09/08/21 09/09/21 09/09/21 17:21 02:42 06:43 MCV MCH MCHC RDW Plt Count MPV Absolute Nucleated RBC Nucleated RBC % (auto) Creatinine 2.15 H 1.89 H 1.81 H Estim Creat Clear Calc Estimated GFR Nasal Screen MRSA (PCR) Nasal S. aureus Screen Nasal MRSA/S.aureus Interp Vancomycin Trough 09/10/21 09/12/21 09/13/21 06:25 08:27 08:11 MCV MCH MCHC RDW Plt Count MPV Absolute Nucleated RBC Nucleated RBC % (auto) Creatinine 1.85 H 2.22 H Estim Creat Clear Calc Estimated GFR Nasal Screen MRSA (PCR) NEGATIVE Nasal S. aureus Screen NEGATIVE Nasal MRSA/S.aureus Interp SEE NOTE Vancomycin Trough 09/13/21 09/13/21 09/13/21 09:10 09:10 09:11 MCV 91.9 MCH 29.5 MCHC 32.1 RDW 13.3 Plt Count 179 MPV 11.1 Absolute Nucleated RBC 0.000 Nucleated RBC % (auto) 0.0 Creatinine 2.22 H Estim Creat Clear Calc 15.3 Estimated GFR 22 Nasal Screen MRSA (PCR) Nasal S. aureus Screen Nasal MRSA/S.aureus Interp Vancomycin Trough 11.5 Assessment and Plan (1) Pneumonia: Status: Acute (2) CKD (chronic kidney disease) stage 3, GFR 30-59 ml/min: Status: Acute (3) Anemia: Status: Acute Plan 65F 65-year-old female with a past medical history of hypertension, hyperlipidemia, hypothyroidism, history of colectomy status post ileostomy bag; CKD; presented to the hospital today with a chief complaint of nausea vomiting and diarrhea.?INfiltrates/?mass on CT 1.Community acquired pneumonia -good response to IV vancomycin/azithromycin -titrate steroids as per pulmonology -titrate O2 2.CKD 3 -Creatinine at baseline.? -follow renals/divalents 3. HTN -acceptable control -adjust as indicated 4. Anemia -baseline -follow CBC DVT prophylaxis:? Subcu heparin Code status:? DNR/DNI Will likely require 1-2 midnights to complete IV therapy for pneumonia before switching to orals Quality Stroke Does the patient have a stroke diagnosis?: No VTE Prior VTE?: No VTE Risk Level:: Medical - moderate - high VTE Device Contraindication: Treatment Not Indicated VTE Drug Contraindication: N/A - Med Ordered
[2021-09-13 19:11] VITALS: BP 149/68; PULSE 55; RESP 18; TEMP 37.1; O2SAT 98
[2021-09-13 23:18] VITALS: BP 140/60; PULSE 54; RESP 18; TEMP 36.4; O2SAT 98
[2021-09-14] MEDS: Piperacillin Sodium/Tazobactam 2.25 GM in 0.9 % Sodium Chloride 50 ML IV ×3 (03:23→15:35)
[2021-09-14] MEDS: Heparin Sodium,Porcine 5,000 UNIT/ML VIAL 5000 UNIT SUBCUT ×3 (03:23→17:26)
[2021-09-14 03:45] VITALS: BP 157/73; PULSE 52; RESP 16; TEMP 36.1; O2SAT 98
[2021-09-14] MEDS: Levothyroxine Sodium 112 MCG, Levothyroxine Sodium 25 MCG 137 MCG PO (06:09)
[2021-09-14 06:35] LABS: MANUAL DIFF FLAG NO
[2021-09-14 06:44] LABS: Basophils Percent Auto 0.3 % (0-2); Hematocrit 25.4 % (37.0-47.0); Hemoglobin 7.9 g/dl (12.0-16.0); Imm Gran Abs Auto 0.29 X10*3/uL (0.00-0.03); Imm Gran Pct Auto 4.2 % (0.0-0.4); Lymphocytes Absolute Auto 0.6 X10*3/uL (1.2-4.9); Lymphocytes Percent Auto 8.9 % (20-40); Mean Corpuscular HGB Conc 31.1 g/dl (31.0-35.0); Mean Corpuscular Hemoglobin 29.2 pg (27.0-33.0); Mean Corpuscular Volume 93.7 fL (80.0-98.0); Mean Platelet Volume 10.5 fL (9.4-12.3); Monocytes Absolute Auto 0.4 X10*3/uL (0.1-1.2); Monocytes Percent Auto 6.1 % (2-11); Neutrophils Absolute Auto 5.6 x10*3/uL (2.0-8.3); Neutrophils Percent Auto 80.5 % (45-73); Platelet Count 210 X10*3/uL (160-400); Red Blood Count 2.71 X10*6/uL (4.20-5.50); Red Cell Distribution Width 13.3 % (11.0-16.0); White Blood Count 6.9 X10*3/uL (4.8-10.8)
[2021-09-14 07:27] LABS: Alanine Aminotransferase 7 U/L (0-31); Albumin Level 2.3 g/dL (3.5-5.0); Alkaline Phosphatase 75 U/L (39-117); Anion Gap 12 (12-20); Aspartate Amino Transferase 15 U/L (5-31); Bilirubin Total 0.3 mg/dL (0.0-1.0); Blood Urea Nitrogen 31 mg/dL (9-16); Calcium 9.2 mg/dL (8.4-10.2); Carbon Dioxide 20 mmol/L (22-29); Chloride 108 mmol/L (96-108); Estimated Glomerular Filt Rate 22; Glucose Fasting 118 mg/dL (60-99); Potassium 3.7 mmol/L (3.3-5.1); Sodium 136 mmol/L (135-145)
[2021-09-14 07:39] VITALS: BP 169/82; PULSE 54; RESP 20; TEMP 36.3; O2SAT 100
[2021-09-14] MEDS: 0.9 % Sodium Chloride Flush 3 ML SYRINGE IVFLUSH ×2 (10:04→15:40)
[2021-09-14] MEDS: methylPREDNISolone Sod Succ 40 MG/ML VIAL IVPUSH (10:06)
[2021-09-14] MEDS: guaiFENesin LA 600 MG TAB.ER.12H PO (10:12)
[2021-09-14] MEDS: Isosorbide Mononitrate 30 MG TAB.ER.24H PO (10:12)
[2021-09-14] MEDS: hydrALAZINE HCl 50 MG TABLET 100 MG PO ×2 (10:12→15:36)
[2021-09-14 10:16] VITALS: BP 169/82; PULSE 53; O2SAT 99
--- NOTE | 2021-09-14 10:33 | P.PNPL_ITS ---
Subjective Subjective Date of Service: 09/14/21 Interval history: The patient was seen on exam. She is feeling better. She continues to be on room air. Denies any pleuritic discomfort. She continues on the IV antibiotics. Will switch her today to oral antibiotics and she can go home. The patient should be evaluated by physical therapy to make sure that should be safe at home. I will make sure she has a follow-up appointment in 2 weeks without pulmonary office to follow-up with the masslike consolidation and other pulmonary nodules. Objective Data Labs CBC & Chem 7: 09/14/21 06:22 09/14/21 06:22 Labs: Laboratory Results - last 24 hr 09/13/21 09/14/21 09/14/21 08:11 06:22 06:22 WBC 6.9 RBC 2.71 L Hgb 7.9 L Hct 25.4 L MCV 93.7 MCH 29.2 MCHC 31.1 RDW 13.3 Plt Count 210 MPV 10.5 Immature Gran % (Auto) 4.2 H Neut % (Auto) 80.5 H Lymph % (Auto) 8.9 L [place] % (Auto) 6.1 Eos % (Auto) 0.0 Baso % (Auto) 0.3 Lymph # (Auto) 0.6 L [place] # (Auto) 0.4 Eos # (Auto) 0.0 Baso # (Auto) 0.0 Abs Immat Gran (auto) 0.29 H Absolute Neuts (auto) 5.6 Absolute Nucleated RBC 0.000 Nucleated RBC % (auto) 0.0 Sodium 136 Potassium 3.7 Chloride 108 Carbon Dioxide 20 L Anion Gap 12 BUN 31 H Creatinine 2.27 H Estim Creat Clear Calc 15.0 Estimated GFR 22 Fasting Glucose 118 H Calcium 9.2 Total Bilirubin 0.3 AST 15 ALT 7 Alkaline Phosphatase 75 D Total Protein 6.0 L Albumin 2.3 L Nasal Screen MRSA (PCR) NEGATIVE Nasal S. aureus Screen NEGATIVE Nasal MRSA/S.aureus Interp SEE NOTE Microbiology Microbiology Results: Microbiology 09/08/21 18:02 Blood - Venous Blood Culture - Final No growth after 5 days. 09/08/21 17:21 Blood - Venous Blood Culture - Final No growth after 5 days. Review of Systems Constitutional: Reports fatigue and Denies fever(s) Eyes: Denies change in vision Denies nasal congestion and Denies sore throat Cardiovascular: Denies rapid heart rate and Denies leg edema Respiratory: Reports chest congestion, Reports cough, Reports pain on inspiration and Reports pain with cough Gastrointestinal: Reports as per HPI Musculoskeletal: Reports myalgias Endocrine: Reports fatigue Physical Exam Vital Signs: Vital Signs: Last Vital Signs Temp 97.4 F 09/14/21 07:39 Pulse 53 09/14/21 10:16 Resp 20 09/14/21 07:39 BP 169/82 H 09/14/21 10:16 Pulse Ox 99 09/14/21 10:16 BMI result Body Mass Index 15.2 Const: General: alert Neck: Neck: Yes normal visual inspection, Yes full ROM and Yes no lymphadenopathy Chest: Chest palpation & inspection: normal inspection of the chest Resp: Auscultation: diminished lung sounds Cardio: Rate: regular rate Rhythm: regular rhythm Heart sounds: S1 normal heart sound present and S2 normal heart sound present GI: Palpation (GI): Soft to palpation and nontender Auscultation: normal bowel sounds Procedures Date of Service Date of Service: 09/14/21 Assessment and Plan Assessment and plan (1) COPD (chronic obstructive pulmonary disease): Status: Acute (2) Pulmonary nodules: Status: Acute (3) Pneumonia: Status: Acute (4) Physical deconditioning: Status: Acute Plan Switch over to oral antibiotics; Augmentin and doxycycline would be sufficient to complete a 2 week course Continue respiratory therapy Will need follow-up with Pulmonary in 2 weeks Prednisone taper Disposition rehab versus home with services Time Spent With Patient Time: Total time spent is greater than 50% in coordination of care (as documented) at patient's floor/unit and/or counseling patient: Progress Note: Quality Stroke Does the patient have a stroke diagnosis?: No
[2021-09-14 11:01] VITALS: BP 165/77; PULSE 51; RESP 20; TEMP 36.3; O2SAT 100
[2021-09-14] MEDS: vancomycin HCL 500 MG in 0.9 % Sodium Chloride 100 ML 110 MG IV (11:29)
--- NOTE | 2021-09-14 14:49 | PM.DS ---
DS: Providers Provider Date of Service: 09/14/21 Date of admission: 09/08/21 22:06 Date of discharge: 09/14/21 Primary care physician: Carla Koehler MD Consults: 09/11/21 07:43 Consult to Pulmonology Routine Consulting Provider: Greyson Thapa Reason for consultation: abnormal chest CT Has provider been notified: No 09/12/21 15:04 Consult to General Surgery Routine Consulting Provider: Gregorio Knutson Reason for consultation: Pressure injuries to sacrum with undermining and detached margins DS: Diagnosis Discharge Diagnosis (1) COPD (chronic obstructive pulmonary disease): Status: Acute (2) Pulmonary nodules: Status: Acute (3) Pneumonia: Status: Acute (4) Physical deconditioning: Status: Acute DS: Summary Status at Discharge Cognitive/behavioral status at discharge: The patient is a? 65-year-old female with a past medical history of hypertension, hyperlipidemia, hypothyroidism, history of colectomy status post ileostomy bag; CKD; presented to the hospital today with a chief complaint of nausea vomiting and diarrhea.?Patient reports that over the past 10 days she has been having nausea vomiting and diarrhea, decreased oral intake; also complains of runny nose and body aches.?In the ER, the patient's abdominal exam was benign; chest x-ray showed pneumonia; started on antibiotics.? Admitted for further management.? The patient has been slow to recover even after multiple days of antibiotics.? In addition to that she started complaining of significant right-sided pleuritic discomfort.? Therefore she had a CT scan of the chest to better address the abnormal findings on the x-ray and her ongoing symptoms.? She is found to have a significant right lower lobe consolidation with some other irregular nodular densities which appear to be spiculated to some degree.? Also associated with small pleural effusion that is not palpable.? [facility] Patient admitted IV fluids and antiemetics. Over the course of the next 2 days gastroenteritis resolved. She was seen in consultation by pulmonology who advised broad-spectrum antibiotics along with a prednisone taper. Over the next several days she continue to improve and at this point in time is stable from a medical/pulmonary standpoint for discharge. She was seen by Physical therapy for evaluation and was deemed safe to go home with home physical therapy. At this time she will be discharged home in stable/improved condition and will follow-up with PCP and Dr. Thapa in the office Time Spent with Patient Time attestation: Total time spent providing and/or coordinating discharge services: Discharge coordination time: Greater than 30 minutes Quality: Safe Use of Opioids Does Pt have an Active Cancer Diagnosis on the Problem List?: No Quality: Stroke Does the patient have a stroke diagnosis?: No Physical Exam Vital Signs: Vital Signs: Last Vital Signs Temp 97.4 F 09/14/21 11:01 Pulse 51 09/14/21 11:01 Resp 20 09/14/21 11:01 BP 165/77 H 09/14/21 11:01 Pulse Ox 100 09/14/21 11:01 BMI result Body Mass Index 15.2 Const: Other: Awake alert oriented x3 no acute distress Resp: Other: Diminished throughout with rales at bilateral bases right greater than left Cardio: Other: No S4; positive S1-S2; no S3 murmurs rubs or gallops GI: Other: Soft nontender nondistended with normoactive bowel sounds Extrem: Other: No edema bilaterally DS: Data Data Completed and Pending Completed studies during hospitalization [Text1]: Procedures Transfusion of Nonautologous Red Blood Cells into Peripheral Vein, Percutaneous Approach (12/25/20) Labs on day of discharge: Laboratory Results - last 24 hr 09/14/21 09/14/21 06:22 06:22 WBC 6.9 RBC 2.71 L Hgb 7.9 L Hct 25.4 L MCV 93.7 MCH 29.2 MCHC 31.1 RDW 13.3 Plt Count 210 MPV 10.5 Immature Gran % (Auto) 4.2 H Neut % (Auto) 80.5 H Lymph % (Auto) 8.9 L [place] % (Auto) 6.1 Eos % (Auto) 0.0 Baso % (Auto) 0.3 Lymph # (Auto) 0.6 L [place] # (Auto) 0.4 Eos # (Auto) 0.0 Baso # (Auto) 0.0 Abs Immat Gran (auto) 0.29 H Absolute Neuts (auto) 5.6 Absolute Nucleated RBC 0.000 Nucleated RBC % (auto) 0.0 Sodium 136 Potassium 3.7 Chloride 108 Carbon Dioxide 20 L Anion Gap 12 BUN 31 H Creatinine 2.27 H Estim Creat Clear Calc 15.0 Estimated GFR 22 Fasting Glucose 118 H Calcium 9.2 Total Bilirubin 0.3 AST 15 ALT 7 Alkaline Phosphatase 75 D Total Protein 6.0 L Albumin 2.3 L Discharge Plan Discharge Patient Disposition: Home Health Service Discharge Diagnosis: Pneumonia Referrals: Po,Carla Fuchs MD [Primary Care Provider] - 1 Week Discharge Medications: New amoxicillin-pot clavulanate 875-125 mg tablet 1 tab PO BID Qty: 14 0RF doxycycline hyclate 100 mg tablet 100 mg PO BID 7 Days Qty: 14 0RF prednisone 10 mg tablet See Rx Instructions .Route .COMPLEX Qty: 45 0RF Rx Instructions: 10 mg orally; 5 tabs p.o. daily x3 days; 4 tabs p.o. daily x3 days; 3 tabs daily x3 days; 2 tabs daily x3 days; 1 tab daily x3 days Continued metoprolol succinate 100 mg tablet extended release 24 hr 150 mg PO DAILY Qty: 135 3RF tramadol 50 mg tablet 50 mg PO Q6-8H PRN (Reason: Pain) Qty: 230 1RF Rx Instructions: 1-2 tablets every 6-8 hours as needed for pain; hydralazine 50 mg tablet 100 mg PO TID 90 Days Qty: 540 2RF Rx Instructions: This is the corrected dose 02/28/2021 ( Nephrology changed dose to this one) levothyroxine 137 mcg tablet 137 mcg PO DAILY 90 Days Qty: 90 3RF isosorbide mononitrate 30 mg tablet extended release 24 hr 1 tab PO DAILY 0RF Discharge Orders: Discharge Order (Routine); Ordered 09/14/21 Ordered By: Amadou Dash Diet: advance to usual diet Activity on Discharge: As tolerated Stand Alone Forms: Patient Portal Discharge page Care Plan Goals: Complete Augmentin and doxycycline twice a day for 7 days as ordered Health Concerns: Follow-up with Dr. Thapa; his office will call for appointment Plan of Treatment: Complete prednisone taper as outlined Assessment: See discharge summary
--- NOTE | 2021-09-14 14:54 | P.F2F_ITS ---
Service Date Service Date: 09/14/21 Encounter Date of encounter: 09/14/21 Encounter: Acute hospitalization Reasons for Services Signs and symptoms assessed: Deconditioning secondary to pneumonia Homebound: Leaving the home is medically contraindicated at this time without the asist of a device and/or another person due th the listed conditions above and below. Reason homebound: unsteady gait / fall risk and shortness of breath with minimal effort Certification: Based on the above findings, I certify that this patient is confined to the home and needs intermittent [facility] care, physical therapy and/or speech therapy, or continues to need occupational therapy. The patient is under my care, and I have initiated the establishment of the plan of care. The patient will be followed by a physician who will periodically review the plan of care.
[2021-09-14 15:01] VITALS: BP 184/88; PULSE 57; RESP 17; TEMP 36; O2SAT 98
--- NOTE | 2021-09-14 16:16 | MHC.CM.PN ---
PT WILL DC HOME TODAY WITH RESUMPTION OF [facility] DC SUMMARY AND FACE TO FACE SENT TO [facility]IA [facility]
== END 2021-09-14 18:35 | disposition home health service (06) | DRG 193 ==
LOC: HO.ED 20:07 → HO.EDOVER 22:34 → HO.IMC 09-11 09:09
PROVIDERS: Nurse Practitioner Acute Care; Admitting Provider Hospitalist; Emergency Provider Emergency Medicine Emergency Medical Services; PCP Internal Medicine; Visit Provider Hospitalist
DX: J18.9 Pneumonia, unspecified organism (principal); L89.153 Pressure ulcer of sacral region, stage 3; E87.1 Hypo-osmolality and hyponatremia; N18.4 Chronic kidney disease, stage 4 (severe); E44.0 Moderate protein-calorie malnutrition; Z68.1 Body mass index [BMI] 19.9 or less, adult; J44.0 Chronic obstructive pulmonary disease with (acute) lower respiratory infection; J91.8 Pleural effusion in other conditions classified elsewhere; Z66 Do not resuscitate; I12.9 Hypertensive chronic kidney disease with stage 1 through stage 4 chronic kidney disease, or unspecified chronic kidney disease; R91.8 Other nonspecific abnormal finding of lung field; D63.1 Anemia in chronic kidney disease; E78.5 Hyperlipidemia, unspecified; K52.9 Noninfective gastroenteritis and colitis, unspecified; E03.9 Hypothyroidism, unspecified; Z93.2 Ileostomy status; Z20.822 Contact with and (suspected) exposure to COVID-19; Z87.891 Personal history of nicotine dependence; Z79.890 Hormone replacement therapy; Z79.899 Other long term (current) drug therapy
CPT/HCPCS: 0241U; 36415; 71045; 71250; 74230; 80048; 80053; 80202; 81001; 82565; 83605; 83690; 84484; 85007; 85025; 85027; 87040; 87640; 87641; 92611; 93005; 96361; 96365; 96367; 97162; 99285; J0456; J0696; J2543; J2920; J3370

== ENCOUNTER 2021-09-15 18:06 | Observation (INO) | payer MEDICARE, SELFPAY ==
[2021-09-15 18:15] VITALS: BP 199/110; PULSE 80; RESP 16; TEMP 36.7; O2SAT 99; BMI 15.4
--- NOTE | 2021-09-15 18:40 | ED.NAVMDI ---
HPI - Nausea/Vomiting/Diarrhea General Chief complaint: Nausea/Vomiting/Diarrhea Stated complaint: nausea Time Seen by Provider: 09/15/21 18:40 Source: patient Mode of arrival: ambulatory Limitations: no limitations History of Present Illness HPI Narrative: 65-year-old female returned to the emergency department for vomiting and unable to tolerate p.o. intake. Patient just had a recent hospitalization for nausea, vomiting, diarrhea due to right lower lobe pneumonia, patient was hospitalized for a week, which just discharged home yesterday after tolerated p.o. intake, when patient got home chest start have nausea and vomiting and could not tolerate p.o. intake And patient feels generalized weakness. Patient is unable to take her p.o. medication for blood pressure. Related Data Home Medications Medication Instructions Recorded Confirmed isosorbide mononitrate 30 mg 1 tab PO DAILY 12/25/20 09/08/21 tablet,extended release 24 hr Previous Rx's Medication Instructions Recorded metoprolol succinate 100 mg 150 mg PO DAILY #135 tab 02/01/21 tablet,extended release 24 hr tramadol 50 mg tablet 50 mg PO Q6-8H PRN #230 tab 07/27/21 hydralazine 50 mg tablet 100 mg PO TID 90 Days #540 tab 08/08/21 levothyroxine 137 mcg tablet 137 mcg PO DAILY 90 Days #90 tab 08/08/21 amoxicillin 875 mg-potassium 1 tab PO BID #14 tab 09/14/21 clavulanate 125 mg tablet doxycycline hyclate 100 mg tablet 100 mg PO BID 7 Days #14 tab 09/14/21 prednisone 10 mg tablet See Rx Instructions .ROUTE 09/14/21 .COMPLEX #45 tab Allergies Allergy/AdvReac Type Severity Reaction Status Date / Time sumatriptan [From IMITREX] Allergy Severe ANGIOEDEMA Verified 06/14/21 10:07 atorvastatin [Lipitor] Allergy Unknown n Verified 06/14/21 10:07 rosuvastatin [Crestor] Allergy Unknown n Verified 06/14/21 10:07 simvastatin Allergy Unknown n Verified 06/14/21 10:07 pravastatin AdvReac Intermediate shaking Verified 06/14/21 10:07 muscle pain From IMITREX Allergy Severe ANGIOEDEMA Uncoded 01/16/21 14:56 Plavix Allergy Unknown rash Uncoded 01/16/21 14:56 Review of Systems Review of Systems: All other systems are reviewed and are negative Constitutional: Reports as per HPI and Reports no additional constitutional complaints Eyes: Reports as per HPI and Reports no additional eye complaints Reports system reviewed and no additional complaints, except as documented Cardiovascular: Reports as per HPI and Reports no additional cardiovascular complaints Respiratory: Reports as per HPI and Reports no additional respiratory complaints Gastrointestinal: Reports as per HPI and Reports no additional gastrointestinal complaints Genitourinary: Reports no additional female genitourinary complaints Musculoskeletal: Reports no additional musculoskeletal complaints Skin/Breast: Reports system reviewed and no additional complaints, except as docu Psychiatric: Reports no additional psychiatric complaints Endocrine: Reports no additional endocrine complaints Hematologic/Lymphatic: Reports no additional hematologic/lymphatic complaints Allergic/Immunologic: Reports no additional allergic/immunologic complaints Reports system reviewed and no additional complaints, except as documented and Reports Abnormal speech present [facility] Past Medical History Medical History Anxiety Cataract Chronic kidney disease (CKD) stage G4/A1, severely decreased glomerular filtration rate (GFR) between 15-29 mL/min/1.73 square meter and albuminuria creatinine ratio less than 30 mg/g Chronic low back pain COPD (chronic obstructive pulmonary disease) History of renal calculi Hypercholesterolemia Hypertension Insomnia Physical deconditioning Pulmonary nodules Sacral decubitus ulcer, stage III Vitamin D deficiency Wrist laceration Surgical History AAA (abdominal aortic aneurysm) History of colectomy History of rectal surgery Hx of cataract surgery Hx of cholecystectomy S/P AICHA-BSO Family History Family History Mother Hypertension Father Lung cancer Brother Skin cancer (melanoma) Social History Social History Household Members: Spouse Housing: House Do you presently have visiting nurse or other home services: No Alcohol intake: never Patient Tobacco Use Status: Former Tobacco user Quit Date: years ago Tobacco use type: Cigarette e-Cigarette/Vaping Use: Never Used Second Hand Smoke Exposure: No Use of substances other than those prescribed or required for medical reasons: No Advance Directives: No Advance Directives Information Provided: No service: No Current occupational status: retired Current occupation: left handed Physical Exam Vital Signs: Vital Signs: Last Vital Signs Temp 98.2 F 09/15/21 22:00 Pulse 64 09/15/21 22:00 Resp 15 09/15/21 22:00 BP 178/84 H 09/15/21 22:00 Pulse Ox 98 09/15/21 22:00 BMI result Body Mass Index 15.4 Vital signs have been reviewed as appeared to be correct. Blood pressure elevated. Heart rate normal. Respiration rate normal. Temperature normal. Oxygen saturation normal. Appearance: Alert. Oriented X3. No acute distress. Head: Normal external exam. Normocephalic. Atraumatic. No S[place] signs noted. No raccoon eyes noted Eyes: PERRLA. EOMI. Conjunctiva and sclera normal. Eyelids normal. ENT: TM's Normal. Pharynx normal. Uvula midline. Moist mucous membranes. No trismus noted. No drooling noted. No muffled voice noted. Neck: Normal inspection. Neck supple. FROM. No adenopathy. Thyroid Normal. No meningeal signs. No neck mass noted. CVS: Normal heart rate and rhythm. Heart sound normal. No murmurs noted. Pulses normal throughout. Respiratory: No respiratory distress. Painless inspiration. Breath sounds normal. No wheezes/rales/rhonchi noted. Chest nontender. No accessory muscle usage noted or decreased air movement noted. Abdomen: Soft and nontender. Bowel sounds normal in all 4 quadrants. No distention noted. No organomegaly noted. No visible injury noted. Back: No CVA tenderness. Full range of motion noted. Skin: Skin warm and dry. Normal skin color. Normal skin turgor. No rashes/lesions/lacerations noted. Extremities: No lower extremity edema. Extremities exhibit normal range of motion. Extremities nontender. Neuro: Oriented X 3. Cranial nerve exam: II-XII are grossly intact No motor deficit. No sensory deficit. Reflexes normal. Course Course Course Narrative: assessment and plan. 65-year-old female recently discharged from the hospital for intractable vomiting and treatment for pneumonia, patient came back for unable to tolerate p.o. intake including her blood pressure medication, patient found to be hypertensive was given IV metoprolol and IV hydralazine, patient also found to be hypokalemic. Will IV hydration, replete potassium, keep monitoring blood pressure, and a readmit. MDM - Nausea/Vomiting/Diarrhea Medical Records Attestation: I reviewed the patient's medical records. Lab Data Attestation: I reviewed the patient's lab results. Result diagrams: 09/15/21 19:46 09/15/21 19:46 Labs: Lab Results 09/15/21 09/15/21 09/15/21 Range/Units 19:46 19:46 19:46 WBC 5.6 (4.8-10.8) X10*3/uL RBC 3.03 L (4.20-5.50) X10*6/uL Hgb 8.9 L (12.0-16.0) g/dl Hct 27.9 L (37.0-47.0) % MCV 92.1 (80.0-98.0) fL MCH 29.4 (27.0-33.0) pg MCHC 31.9 (31.0-35.0) g/dl RDW 13.2 (11.0-16.0) % Plt Count 190 (160-400) X10*3/uL MPV 10.0 (9.4-12.3) fL Immature Gran % (Auto) 1.4 H (0.0-0.4) % Neut % (Auto) 87.0 H (45-73) % Lymph % (Auto) 7.5 L (20-40) % [place] % (Auto) 4.1 (2-11) % Eos % (Auto) 0.0 (0-4) % Baso % (Auto) 0.0 (0-2) % Lymph # (Auto) 0.4 L (1.2-4.9) X10*3/uL [place] # (Auto) 0.2 (0.1-1.2) X10*3/uL Eos # (Auto) 0.0 (0.0-0.4) X10*3/uL Baso # (Auto) 0.0 (0.0-0.2) X10*3/uL Abs Immat Gran (auto) 0.08 H (0.00-0.03) X10*3/uL Absolute Neuts (auto) 4.9 (2.0-8.3) x10*3/uL Absolute Nucleated RBC 0.000 (0.0-0.012) X10*3/uL Nucleated RBC % (auto) 0.0 (0.0-0.2) /100WBC Sodium 134 L (135-145) mmol/L Potassium 2.6 L D (3.3-5.1) mmol/L Chloride 102 (96-108) mmol/L Carbon Dioxide 24 (22-29) mmol/L Anion Gap 11 L (12-20) BUN 28 H (9-16) mg/dL Creatinine 1.86 H (0.5-1.4) mg/dL Estim Creat Clear Calc 19.1 Estimated GFR 27 Random Glucose 71 (60-115) mg/dL Calcium 9.0 (8.4-10.2) mg/dL Total Bilirubin 0.3 (0.0-1.0) mg/dL Direct Bilirubin 0.2 (0.0-0.5) mg/dL AST 34 H D (5-31) U/L ALT 15 (0-31) U/L Alkaline Phosphatase 95 D (39-117) U/L Troponin I High Sens 7.1 (<3.5-17.0) ng/L Total Protein 6.5 (6.5-8.0) g/dL Albumin 2.7 L (3.5-5.0) g/dL Lipase 29 (8-78) U/L Urine Color Urine Appearance Urine pH (5.0-8.0) Ur Specific [place] (1.005-1.025) Urine Protein (NEG-TRACE) MG/DL Urine Glucose (UA) (NEG) MG/DL Urine Ketones (NEG) MG/DL Urine Blood (NEG) Urine Nitrite (NEG) Ur Leukocyte Esterase (NEG) 09/15/21 Range/Units 20:43 WBC (4.8-10.8) X10*3/uL RBC (4.20-5.50) X10*6/uL Hgb (12.0-16.0) g/dl Hct (37.0-47.0) % MCV (80.0-98.0) fL MCH (27.0-33.0) pg MCHC (31.0-35.0) g/dl RDW (11.0-16.0) % Plt Count (160-400) X10*3/uL MPV (9.4-12.3) fL Immature Gran % (Auto) (0.0-0.4) % Neut % (Auto) (45-73) % Lymph % (Auto) (20-40) % [place] % (Auto) (2-11) % Eos % (Auto) (0-4) % Baso % (Auto) (0-2) % Lymph # (Auto) (1.2-4.9) X10*3/uL [place] # (Auto) (0.1-1.2) X10*3/uL Eos # (Auto) (0.0-0.4) X10*3/uL Baso # (Auto) (0.0-0.2) X10*3/uL Abs Immat Gran (auto) (0.00-0.03) X10*3/uL Absolute Neuts (auto) (2.0-8.3) x10*3/uL Absolute Nucleated RBC (0.0-0.012) X10*3/uL Nucleated RBC % (auto) (0.0-0.2) /100WBC Sodium (135-145) mmol/L Potassium (3.3-5.1) mmol/L Chloride (96-108) mmol/L Carbon Dioxide (22-29) mmol/L Anion Gap (12-20) BUN (9-16) mg/dL Creatinine (0.5-1.4) mg/dL Estim Creat Clear Calc Estimated GFR Random Glucose (60-115) mg/dL Calcium (8.4-10.2) mg/dL Total Bilirubin (0.0-1.0) mg/dL Direct Bilirubin (0.0-0.5) mg/dL AST (5-31) U/L ALT (0-31) U/L Alkaline Phosphatase (39-117) U/L Troponin I High Sens (<3.5-17.0) ng/L Total Protein (6.5-8.0) g/dL Albumin (3.5-5.0) g/dL Lipase (8-78) U/L Urine Color YELLOW Urine Appearance CLEAR Urine pH 5.5 (5.0-8.0) Ur Specific [place] 1.020 (1.005-1.025) Urine Protein TRACE (NEG-TRACE) MG/DL Urine Glucose (UA) NEG (NEG) MG/DL Urine Ketones NEG (NEG) MG/DL Urine Blood NEG (NEG) Urine Nitrite NEG (NEG) Ur Leukocyte Esterase NEG (NEG) Discharge Plan Discharge Clinical Impression: Intractable vomiting, Hypertension, Dehydration, Acute hypokalemia Patient Disposition: Admitted As Inpatient Prescriptions: No Action metoprolol succinate 100 mg tablet extended release 24 hr 150 mg PO DAILY Qty: 135 3RF tramadol 50 mg tablet 50 mg PO Q6-8H PRN (Reason: Pain) Qty: 230 1RF Rx Instructions: 1-2 tablets every 6-8 hours as needed for pain; hydralazine 50 mg tablet 100 mg PO TID 90 Days Qty: 540 2RF Rx Instructions: This is the corrected dose 02/28/2021 ( Nephrology changed dose to this one) levothyroxine 137 mcg tablet 137 mcg PO DAILY 90 Days Qty: 90 3RF isosorbide mononitrate 30 mg tablet extended release 24 hr 1 tab PO DAILY 0RF amoxicillin-pot clavulanate 875-125 mg tablet 1 tab PO BID Qty: 14 0RF doxycycline hyclate 100 mg tablet 100 mg PO BID 7 Days Qty: 14 0RF prednisone 10 mg tablet See Rx Instructions .Route .COMPLEX Qty: 45 0RF Rx Instructions: 10 mg orally; 5 tabs p.o. daily x3 days; 4 tabs p.o. daily x3 days; 3 tabs daily x3 days; 2 tabs daily x3 days; 1 tab daily x3 days
[2021-09-15 19:01] VITALS: BP 203/99; PULSE 73; RESP 16; TEMP 36.6; O2SAT 99
--- NOTE | 2021-09-15 19:06 | ECG_ITS ---
Test Reason : NAUSEA/VOMITING Blood Pressure : / mmHG Vent. Rate : 064 BPM Atrial Rate : 064 BPM P-R Int : 108 ms QRS Dur : 104 ms QT Int : 422 ms P-R-T Axes : 051 060 063 degrees QTc Int : 435 ms Sinus rhythm with short IA Minimal voltage criteria for LVH, may be normal variant ( Terrance product ) Borderline ECG When compared with ECG of 08-SEP-2021 17:00, No significant change was found Referred By: Selvin Monsivais Electronically Signed By:RANDY SIDDIQI MD
[2021-09-15] MEDS: Metoprolol Tartrate 5 MG/5 ML VIAL IVPUSH (19:44)
[2021-09-15] MEDS: ondansetron HCL 4 MG/2 ML VIAL IVPUSH (19:44)
[2021-09-15] MEDS: hydrALAZINE HCl 20 MG/ML VIAL 5 MG IVPUSH (19:44)
[2021-09-15] MEDS: 0.9 % Sodium Chloride 1,000 ML 999 ML IV (19:45)
--- NOTE | 2021-09-15 19:50 | PC.NURSE ---
IV established, pt medicated per AUG. sleep lab technician at bedside for EKG.
[2021-09-15 19:51] LABS: MANUAL DIFF FLAG NO
[2021-09-15 19:53] LABS: Hematocrit 27.9 % (37.0-47.0); Hemoglobin 8.9 g/dl (12.0-16.0); Imm Gran Abs Auto 0.08 X10*3/uL (0.00-0.03); Imm Gran Pct Auto 1.4 % (0.0-0.4); Lymphocytes Absolute Auto 0.4 X10*3/uL (1.2-4.9); Lymphocytes Percent Auto 7.5 % (20-40); Mean Corpuscular HGB Conc 31.9 g/dl (31.0-35.0); Mean Corpuscular Hemoglobin 29.4 pg (27.0-33.0); Mean Corpuscular Volume 92.1 fL (80.0-98.0); Monocytes Absolute Auto 0.2 X10*3/uL (0.1-1.2); Monocytes Percent Auto 4.1 % (2-11); Neutrophils Absolute Auto 4.9 x10*3/uL (2.0-8.3); Platelet Count 190 X10*3/uL (160-400); Red Blood Count 3.03 X10*6/uL (4.20-5.50); Red Cell Distribution Width 13.2 % (11.0-16.0); White Blood Count 5.6 X10*3/uL (4.8-10.8)
[2021-09-15 20:00] VITALS: BP 179/81; PULSE 63; RESP 16; TEMP 37; O2SAT 100
[2021-09-15 20:12] LABS: Troponin-I High Sensitivity 7.1 ng/L (<3.5-17.0)
[2021-09-15 20:14] LABS: Alanine Aminotransferase 15 U/L (0-31); Albumin Level 2.7 g/dL (3.5-5.0); Alkaline Phosphatase 95 U/L (39-117); Anion Gap 11 (12-20); Aspartate Amino Transferase 34 U/L (5-31); Bilirubin Direct 0.2 mg/dL (0.0-0.5); Bilirubin Total 0.3 mg/dL (0.0-1.0); Blood Urea Nitrogen 28 mg/dL (9-16); Carbon Dioxide 24 mmol/L (22-29); Chloride 102 mmol/L (96-108); Creatinine Clr Calc Pharmacy 19.1; Estimated Glomerular Filt Rate 27; Glucose Random 71 mg/dL (60-115); Lipase 29 U/L (8-78); Potassium 2.6 mmol/L (3.3-5.1); Sodium 134 mmol/L (135-145); Total Protein 6.5 g/dL (6.5-8.0)
--- NOTE | 2021-09-15 20:44 | PC.NURSE ---
PATIENT WAS ASSISTED ON BEDPAN BY THIS PCT .
[2021-09-15 21:15] LABS: Appearance Urine CLEAR; Color Urine YELLOW; Glucose Urine UA NEG (NEG); Leukocyte Esterase Urine NEG (NEG); Nitrite Urine NEG (NEG); PH 5.5 (5.0-8.0); Urine Blood NEG (NEG); Urine Ketones NEG (NEG); Urine Protein TRACE MG/DL (NEG-TRACE)
--- NOTE | 2021-09-15 21:59 | PC.NURSE ---
PATIENT WAS ASSISTED ON BED FINCH ,VOIDED LARGE AMOUNT .
[2021-09-15 22:00] VITALS: BP 178/84; PULSE 64; RESP 15; TEMP 36.8; O2SAT 98
--- NOTE | 2021-09-15 22:48 | PHA.MEDREC ---
Pharmacy Consult ? Medication Reconciliation Pharmacy has completed the medication reconciliation. completed as per her discharge summary from yesterday
[2021-09-15] MEDS: Potassium Chloride/H20 10 MEQ/100 ML PIGGYBACK 100 MEQ IV (22:54)
--- NOTE | 2021-09-15 23:12 | PC.NURSE ---
Took report from Parisa to assume care of Pt, Pt resting, call light in reach, this RN continues to monitor.
--- NOTE | 2021-09-15 23:38 | P.HPHOSP_ITS ---
History of Present Illness Date of Service: 09/15/21 Chief Complaint: nausea, vomiting, weakness pt presented to the hospital later in the evening with complaints of persistent nausea and vomiting, patient had been discharged from the hospital on 09/14 after being managed for gastroenteritis. Patient was also treated for pneumonia and was discharged with antibiotics. Patient also stated that she has been feeling very weak and unsteady and unable to stay home without relying completely on her . The plan was to admit the patient, continue her p.o. antibiotics for treatment of pneumonia, IV hydration, and antiemetics for nausea vomiting, with plan for possible rehab and evaluation by Physical therapy parted around 04:00 patient stated that she wants to leave AMA. She had called a ride for self bef ore talking to me. I went and discussed the situation with the patient stating that she would be leaving against my advice as I do believe that she needs IV hydration and IV antiemetics in order to be able to tolerate her p.o. antibiotics the patient adamant that she is doing better and that she does not want to stay in the hospital for treatment. I also discussed the risk of leaving while being weak and not having adequate support at home, risk being falling, hip fractures, intracranial trauma, and potentially but patient reports that she will have support at home And is hiring support 24 hours a day and she understands the risks she is taking by leaving AMA. patient is leaving against my medical advice [facility] Medical History Anxiety Cataract Chronic kidney disease (CKD) stage G4/A1, severely decreased glomerular filtration rate (GFR) between 15-29 mL/min/1.73 square meter and albuminuria creatinine ratio less than 30 mg/g Chronic low back pain COPD (chronic obstructive pulmonary disease) History of renal calculi Hypercholesterolemia Hypertension Insomnia Physical deconditioning Pulmonary nodules Sacral decubitus ulcer, stage III Vitamin D deficiency Wrist laceration Family History Mother Hypertension Father Lung cancer Brother Skin cancer (melanoma) Surgical History AAA (abdominal aortic aneurysm) History of colectomy History of rectal surgery Hx of cataract surgery Hx of cholecystectomy S/P AICHA-BSO Social History Household Members: Spouse Housing: House Do you presently have visiting nurse or other home services: No Alcohol intake: never Patient Tobacco Use Status: Former Tobacco user Quit Date: years ago Tobacco use type: Cigarette e-Cigarette/Vaping Use: Never Used Second Hand Smoke Exposure: No Use of substances other than those prescribed or required for medical reasons: No Advance Directives: No Advance Directives Information Provided: No service: No Current occupational status: retired Current occupation: left handed Meds Allergies Allergy/AdvReac Type Severity Reaction Status Date / Time sumatriptan [From IMITREX] Allergy Severe ANGIOEDEMA Verified 06/14/21 10:07 atorvastatin [Lipitor] Allergy Unknown n Verified 06/14/21 10:07 rosuvastatin [Crestor] Allergy Unknown n Verified 06/14/21 10:07 simvastatin Allergy Unknown n Verified 06/14/21 10:07 pravastatin AdvReac Intermediate shaking Verified 06/14/21 10:07 muscle pain From IMITREX Allergy Severe ANGIOEDEMA Uncoded 01/16/21 14:56 Plavix Allergy Unknown rash Uncoded 01/16/21 14:56 Active Medications: Current Medications Acetaminophen (Acetaminophen 325 Mg Tablet) 650 mg PO Q6H PRN PRN Reason: Pain, Mild (Pain Scale 1-3) Docusate Sodium (Docusate Sodium 100 Mg Capsule) 100 mg PO DAILY PRN PRN Reason: Constipation Heparin Sodium (Porcine) (Heparin Sodium,Porcine 5,000 Unit/Ml Vial) 5,000 unit SUBCUT Q12H YUNI Sodium Chloride (Ns) 1,000 mls @ 100 mls/hr IVCONT .Q10H YUNI Ondansetron HCl (Ondansetron Hcl 4 Mg/2 Ml Vial) 4 mg IVPUSH Q8H PRN PRN Reason: Nausea and Vomiting Sodium Chloride (0.9 % Sodium Chloride Flush 3 Ml Syringe) 3 ml IVFLUSH QSHIFT [facility] Home Medications Medication Instructions Recorded Confirmed Last Taken Type isosorbide mononitrate 30 mg 1 tab PO DAILY 12/25/20 09/15/21 09/07/21 History tablet,extended release 24 hr Physical Exam Vital Signs and Narrative: Vital Signs: Last Vital Signs Temp 98.2 F 09/15/21 22:00 Pulse 64 09/15/21 22:00 Resp 15 09/15/21 22:00 BP 178/84 H 09/15/21 22:00 Pulse Ox 98 09/15/21 22:00 BMI result Body Mass Index 15.4 Results Labs CBC and Chem 7: 09/15/21 19:46 09/15/21 19:46 Labs: Laboratory Results - last 24 hr 09/15/21 09/15/21 09/15/21 19:46 19:46 19:46 MCV 92.1 MCH 29.4 MCHC 31.9 RDW 13.2 Plt Count 190 MPV 10.0 Immature Gran % (Auto) 1.4 H Neut % (Auto) 87.0 H Lymph % (Auto) 7.5 L Crawford % (Auto) 4.1 Eos % (Auto) 0.0 Baso % (Auto) 0.0 Lymph # (Auto) 0.4 L Crawford # (Auto) 0.2 Eos # (Auto) 0.0 Baso # (Auto) 0.0 Abs Immat Gran (auto) 0.08 H Absolute Neuts (auto) 4.9 Absolute Nucleated RBC 0.000 Nucleated RBC % (auto) 0.0 Anion Gap 11 L Estim Creat Clear Calc 19.1 Estimated GFR 27 Random Glucose 71 Calcium 9.0 Total Bilirubin 0.3 Direct Bilirubin 0.2 AST 34 H D ALT 15 Alkaline Phosphatase 95 D Troponin I High Sens 7.1 Total Protein 6.5 Albumin 2.7 L Lipase 29 Urine Color Urine Appearance Urine pH Ur Specific [place] Urine Protein Urine Glucose (UA) Urine Ketones Urine Blood Urine Nitrite Ur Leukocyte Esterase 09/15/21 20:43 MCV MCH MCHC RDW Plt Count MPV Immature Gran % (Auto) Neut % (Auto) Lymph % (Auto) Crawford % (Auto) Eos % (Auto) Baso % (Auto) Lymph # (Auto) Crawford # (Auto) Eos # (Auto) Baso # (Auto) Abs Immat Gran (auto) Absolute Neuts (auto) Absolute Nucleated RBC Nucleated RBC % (auto) Anion Gap Estim Creat Clear Calc Estimated GFR Random Glucose Calcium Total Bilirubin Direct Bilirubin AST ALT Alkaline Phosphatase Troponin I High Sens Total Protein Albumin Lipase Urine Color YELLOW Urine Appearance CLEAR Urine pH 5.5 Ur Specific [place] 1.020 Urine Protein TRACE Urine Glucose (UA) NEG Urine Ketones NEG Urine Blood NEG Urine Nitrite NEG Ur Leukocyte Esterase NEG Quality Stroke Does the patient have a stroke diagnosis?: No VTE Prior VTE?: No VTE Risk Level:: Medical - moderate - high VTE Device Contraindication: Treatment Not Indicated VTE Drug Contraindication: N/A - Med Ordered
[2021-09-16] MEDS: Heparin Sodium,Porcine 5,000 UNIT/ML VIAL 5000 UNIT SUBCUT (00:43)
[2021-09-16] MEDS: 0.9 % Sodium Chloride 1,000 ML 100 ML IVCONT (00:57)
[2021-09-16 01:42] VITALS: BP 175/78; PULSE 67; RESP 14; TEMP 36.6; O2SAT 100
[2021-09-16 05:02] VITALS: BP 210/97; PULSE 83; RESP 16; O2SAT 98
--- NOTE | 2021-09-16 05:17 | PC.NURSE ---
Hospitalist at bedside due to pt request to leave AMA.
== END 2021-09-16 07:20 | disposition left against medical advice (07) ==
LOC: HO.ED 22:14 → HO.EDOVER 23:37
PROVIDERS: Admitting Provider Internal Medicine; Emergency Provider Emergency Medicine; Visit Provider Hospitalist
DX: R11.10 Vomiting, unspecified (principal); I12.9 Hypertensive chronic kidney disease with stage 1 through stage 4 chronic kidney disease, or unspecified chronic kidney disease; E86.0 Dehydration; E87.6 Hypokalemia; R19.7 Diarrhea, unspecified; J18.9 Pneumonia, unspecified organism; J44.9 Chronic obstructive pulmonary disease, unspecified; R91.8 Other nonspecific abnormal finding of lung field; N18.4 Chronic kidney disease, stage 4 (severe); L89.153 Pressure ulcer of sacral region, stage 3; E78.00 Pure hypercholesterolemia, unspecified; E55.9 Vitamin D deficiency, unspecified; Z87.891 Personal history of nicotine dependence; Z20.822 Contact with and (suspected) exposure to COVID-19; Z90.49 Acquired absence of other specified parts of digestive tract; Z90.3 Acquired absence of stomach [part of]; Z88.8 Allergy status to other drugs, medicaments and biological substances; Z79.899 Other long term (current) drug therapy; Z53.29 Procedure and treatment not carried out because of patient's decision for other reasons
CPT/HCPCS: 36415; 80048; 80076; 81003; 83690; 84484; 85025; 93005; 96361; 96365; 96372; 96375; 96376; 99218; 99284; 99285; J2405

== ENCOUNTER 2021-12-06 14:16 | Inpatient (IN) | payer MEDICARE, SELFPAY ==
--- NOTE | 2021-12-06 | ECG_ITS ---
Test Reason : chest pain Blood Pressure : / mmHG Vent. Rate : 092 BPM Atrial Rate : 092 BPM P-R Int : 122 ms QRS Dur : 098 ms QT Int : 372 ms P-R-T Axes : 081 060 076 degrees QTc Int : 460 ms Normal sinus rhythm Right atrial enlargement Minimal voltage criteria for LVH, may be normal variant ( [place] product ) Nonspecific ST abnormality Abnormal ECG When compared with ECG of 15-SEP-2021 20:00, No significant change was found Referred By: Angle Clement Electronically Signed By:OSVALDO MERA
--- NOTE | ~2021-12-06 | XR_ITS ---
EXAMINATION: XR CHEST CLINICAL INFORMATION: Chest pain COMPARISON: Chest 09/08/2021 TECHNIQUE: Frontal view of the chest was obtained. FINDINGS: The lungs are hyperexpanded with patchy ill-defined opacities seen in the right upper mid and lower lobe and the parahilar fashion question small infiltrates or nodules. Relatively left lung is clear. The heart size and pulmonary vascularity is normal. The patient is rotated to the right side. No gross bony abnormality seen. XR/XR chest 1V IMPRESSION: Hyperinflated lungs with patchy opacity right upper, mid and lower lobe question infiltrate versus nodules. Right lower lobe consolidation seen on 09/08/2021 has resolved.
--- NOTE | ~2021-12-06 | CT_ITS ---
EXAMINATION: CT CHEST WITHOUT CONTRAST CLINICAL INFORMATION: Evaluate consolidation versus nodules. Chest x-ray earlier today demonstrated hyperinflated lungs with patchy opacity right upper, mid and lower lobe, question infiltrate versus nodules. COMPARISON: Chest radiograph earlier today, 12/06/2021. In addition, the patient had a chest radiograph on 09/08/2021 followed by a chest CT on 09/10/2021. TECHNIQUE: Multidetector volumetric CT imaging of the chest was done. Axial MIP volume rendering provided. Sagittal and coronal reformatted images were obtained. This CT examination was performed using dose optimization techniques as appropriate, variously including the following: *Automated exposure control. *Adjustment of mA and/or kV according to patient size (this includes techniques or standardized protocols for targeted exams where dose is matched to indication/reason for exam; i.e. extremities or head). *Use of iterative reconstruction technique. DLP: 165 mGy-cm FINDINGS: LUNGS: Compared to the prior chest CT from 09/10/2021: - A 1.5 cm mass-like area in the right upper lobe has cleared completely and is no longer present (5:208 compare prior 5:185). - A 1.4 cm left upper lobe mass-like area has completely cleared (5:210 compare prior 5:187). - Marked consolidation along with mass-like opacities in the right middle lobe and right lower lobe have significantly cleared (compare 5:321 with prior 5:298). - There is a new area of infiltrate present in the right upper lobe posteriorly which was not present previously (5:194). No worrisome new lung masses are seen. The process is consistent with an inflammatory/infectious process and not a neoplastic process. MEDIASTINUM: Some prominent mediastinal lymph nodes are present but there is no gross adenopathy. Evaluation for hilar lymphadenopathy is suboptimal because of lack of IV contrast. PLEURA: There is no pleural effusion. No pleural mass or thickening. AXILLA: No lymphadenopathy. UPPER ABDOMEN: The upper portion of an aortic stent graft is seen with stented bilateral renal artery and presumed SMA, poorly assessed without IV contrast. The left kidney is tiny and atrophic with multiple calcifications. There is a 2 cm Bosniak class I right upper pole renal cyst which needs no further imaging or follow up. OSSEOUS STRUCTURES: Mild degenerative changes in the spine. CT/CT chest wo con IMPRESSION: Pattern and behavior of disease in the chest is not compatible with malignancy but compatible with infectious/inflammatory etiologies. Mass-like areas of infiltrate have completely resolved and there is a new area of benign-appearing infiltrate in the right lower lobe. Incidental abdominal findings as described above. Fleischner guidelines were followed.
[2021-12-06 14:25] VITALS: BP 153/84; BP 161/90; PULSE 105; PULSE 120; RESP 18; TEMP 37.4; O2SAT 100; O2SAT 96; BMI 14.2
[2021-12-06 14:45] VITALS: BP 172/82; PULSE 99; RESP 14; TEMP 37.4; O2SAT 97
--- NOTE | 2021-12-06 15:00 | ED.CHESTPAIN ---
HPI - Chest Pain General Chief Complaint: Chest Pain Stated Complaint: CP Time Seen by Provider: 12/06/21 14:20 Source: patient and EMS Mode of arrival: EMS History of Present Illness HPI narrative: 66-year-old female with a past medical history of anxiety, CKD, COPD, HLD, HTN, insomnia, pulmonary nodules, vitamin-D deficiency, presenting to ED via EMS complaining of substernal/left-sided chest pain radiating to left shoulder since last night. Patient also reports generalized fatigue/weakness, lethargy, lightheadedness, exertional SOB, diarrhea, nausea and vomiting with decreased p.o. intake. Reports she is falling asleep/needing to take naps every few hours. Denies falls, abdominal pain, pedal edema MD complaint: chest pain Pertinent past history: coronary artery disease Onset (ago): day(s) Related Data Home Medications Medication Instructions Recorded Confirmed tramadol 50 mg tablet 100 mg PO Q6H PRN Pain 12/06/21 12/06/21 Previous Rx's Medication Instructions Recorded levothyroxine 137 mcg tablet 137 mcg PO DAILY 90 days #90 tabs 08/08/21 hydralazine 50 mg tablet 100 mg PO TID 90 days #540 tabs 10/23/21 metoprolol succinate 100 mg 150 mg PO DAILY #135 tabs 10/23/21 tablet,extended release 24 hr isosorbide mononitrate 30 mg 30 mg PO DAILY 90 days #90 tabs 10/26/21 tablet,extended release 24 hr Allergies Allergy/AdvReac Type Severity Reaction Status Date / Time sumatriptan [From IMITREX] Allergy Severe ANGIOEDEMA Verified 06/14/21 10:07 atorvastatin [Lipitor] Allergy Unknown n Verified 06/14/21 10:07 rosuvastatin [Crestor] Allergy Unknown n Verified 06/14/21 10:07 simvastatin Allergy Unknown n Verified 06/14/21 10:07 pravastatin AdvReac Intermediate shaking Verified 06/14/21 10:07 muscle pain From IMITREX Allergy Severe ANGIOEDEMA Uncoded 01/16/21 14:56 Plavix Allergy Unknown rash Uncoded 01/16/21 14:56 Review of Systems Review of Systems: Constitutional: No Fever, No Chills, + Fatigue, + Malaise ENT/Mouth: No Ear Pain, No Nasal Congestion, No Sinus Pain, No Hoarseness, No sore throat, No Rhinorrhea, No Swallowing Difficulty Eyes: No Eye Pain, No Swelling, No Redness, No Vision Changes Cardiovascular: + Chest Pain, No SOB, + Dyspnea on Exertion, No Orthopnea, No Edema, No Palpitations Respiratory: No Cough, No Sputum, No Dyspnea Gastrointestinal: + Nausea, + Vomiting, + Diarrhea, No Constipation, No Abdominal pain, No Hematochezia, No Melena Genitourinary: No Dysuria, No Urinary Frequency, No Hematuria, No Flank Pain, No Urinary Flow Changes Musculoskeletal: No joint pain, No Myalgias, No Joint Swelling Skin: No Skin Lesions, No rash Neuro: + Weakness, No Numbness, No Paresthesias, No Loss of Consciousness, + Lightheadedness, No Headache Yes all other systems are reviewed and are negative [facility] Past Medical History Attestation statement: The following information was validated with the patient. Medical History Cataract Chronic kidney disease (CKD) stage G4/A1, severely decreased glomerular filtration rate (GFR) between 15-29 mL/min/1.73 square meter and albuminuria creatinine ratio less than 30 mg/g History of renal calculi Insomnia Vitamin D deficiency Wrist laceration Surgical History AAA (abdominal aortic aneurysm) History of colectomy History of rectal surgery Hx of cataract surgery Hx of cholecystectomy S/P AICHA-BSO Family History Family History Mother Hypertension Father Lung cancer Brother Skin cancer (melanoma) Social History Social History Household Members: Spouse Housing: House Do you presently have visiting nurse or other home services: No Alcohol intake: never Patient Tobacco Use Status: Current someday Tobacco user Tobacco use type: Cigarette Smoked in Last 30 Days: Yes e-Cigarette/Vaping Use: Never Used Second Hand Smoke Exposure: No Use of substances other than those prescribed or required for medical reasons: No Advance Directives: No Advance Directives Information Provided: No service: No Current occupational status: retired Current occupation: left handed Physical Exam Vital Signs: Vital Signs: Last Vital Signs Temp 99.7 F 12/06/21 15:29 Pulse 94 12/06/21 15:29 Resp 12 12/06/21 15:29 BP 170/82 H 12/06/21 15:29 Pulse Ox 98 12/06/21 15:29 O2 Del Method 12/06/21 15:29 BMI result Body Mass Index 14.2 Const: General: cooperative, no acute distress and ill appearing Nutritional Appearance: cachectic Orientation/consciousness: patient oriented x3 Limitations: no limitations HEENT: Head: Yes normal to inspection and Yes atraumatic Ears: hearing grossly normal bilaterally General nose exam: Normal external nose present Face and sinus: Yes normal facial exam Eyes: General: appearance normal, both eyes and all related structures Pupils: Equal, round and reactive pupils present EOM: EOMs intact bilaterally Neck: Neck: Yes normal visual inspection and Yes no meningeal signs Resp: Effort & Inspection: normal respiratory effort and no respiratory distress Auscultation: clear to auscultation bilaterally and diminished lung sounds diffuse Cardio: Rate: regular rate Heart sounds: S1 normal heart sound present and S2 normal heart sound present GI: Inspection: Yes normal to inspection Palpation (GI): Soft to palpation, nontender, no guarding and not rigid : General: Yes no CVA tenderness Back/Spine/Pelvis: Back: no CVA tenderness Skin: Rashes: no rashes Wounds: no wounds Neuro: General: patient oriented x3, tone normal, moves all extremities, no meningeal signs, no focal motor deficits and CN's II-XI intact bilaterally Cranial nerves: Yes Equal, round and reactive pupils present Extrem: General: Yes normal to inspection and Yes no pedal edema Course Course Course Narrative: -1621--leukopenic to 3.9. H&H at patient's baseline. Platelets acute on chronically low. Hyponatremic to 131 likely from dehydration -BUN/creatinine chronically elevated. Magnesium low at 1.3 > 2 g IV repletion ordered -COVID-19 and influenza negative XR chest 1V IMPRESSION: Hyperinflated lungs with patchy opacity right upper, mid and lower lobe question infiltrate versus nodules. Right lower lobe consolidation seen on 09/08/2021 has resolved. > will obtain CT chest for further evaluation 1809--CT chest wo con IMPRESSION: Pattern and behavior of disease in the chest is not compatible with malignancy but compatible with infectious/inflammatory etiologies. Mass-like areas of infiltrate have completely resolved and there is a new area of benign-appearing infiltrate in the right lower lobe. Incidental abdominal findings as described above. ? Fleischner guidelines were followed. >> empiric IV Zosyn ordered. Plan to repeat troponin and BMP. Port score =67 meaning outpatient treatment could be reasonable. Patient would like to be discharged home. >1900--ED care transferred to [facility] [place] pending repeat BMP/magnesium and troponin, if improved/unchanged patient can be sent home for outpatient treatment with close follow-up MDM - Chest Pain MDM Narrative Medical decision making narrative: 66-year-old female with a past medical history of anxiety, CKD, COPD, HLD, HTN, insomnia, pulmonary nodules, vitamin-D deficiency, presenting to ED via EMS complaining of substernal/left-sided chest pain radiating to left shoulder since last night. Patient also reports generalized fatigue/weakness, lethargy, lightheadedness, exertional SOB, diarrhea, nausea and vomiting with decreased p.o. intake. On exam initially tachycardic likely from dehydration, low-grade temperature to 99.4, cachectic, lungs with diminished lung sounds throughout, no focal neuro deficits. Concern for ACS vs metabolic abnormalities due to dehydration vs malignancy. Rule out infectious etiologies. Low suspicion for severe sepsis at this time Plan: EKG, labs, UA, CXR, IVF, COVID-19/influenza testing, admission Differential Diagnosis Differential diagnosis: Likely stable angina, unstable angina pectoris and atypical chest pain Medical Records Data Attestation: I reviewed the patient's medical records. Lab Data Attestation: I reviewed the patient's lab results. Result diagrams: 12/06/21 15:42 12/06/21 15:42 Labs: Lab Results 12/06/21 12/06/21 12/06/21 Range/Units 15:42 15:42 15:42 WBC 3.9 L (4.8-10.8) X10*3/uL RBC 2.83 L (4.20-5.50) X10*6/uL Hgb 8.3 L (12.0-16.0) g/dl Hct 25.6 L (37.0-47.0) % MCV 90.5 (80.0-98.0) fL MCH 29.3 (27.0-33.0) pg MCHC 32.4 (31.0-35.0) g/dl RDW 13.2 (11.0-16.0) % Plt Count 119 L D (160-400) X10*3/uL MPV 10.9 (9.4-12.3) fL Immature Gran % (Auto) Cancelled Neut % (Auto) Cancelled Lymph % (Auto) Cancelled Beckham % (Auto) Cancelled Eos % (Auto) Cancelled Baso % (Auto) Cancelled Lymph # (Auto) Cancelled [place] # (Auto) Cancelled Eos # (Auto) Cancelled Baso # (Auto) Cancelled Abs Immat Gran (auto) Cancelled Absolute Neuts (auto) Cancelled Absolute Nucleated RBC 0.000 (0.0-0.012) X10*3/uL Nucleated RBC % (auto) 0.0 (0.0-0.2) /100WBC Neutrophils % (Manual) 66 (45-73) % Band Neutrophils % 27 H (3-5) % Lymphocytes % (Manual) 5 L (20-40) % Monocytes % (Manual) 2 (2-11) % Abs Neuts (Manual) 3.6 (2.0-8.3) X10*3/uL Lymphocytes # (Manual) 0.2 L (1.2-4.9) X10*3/uL Monocytes # (Manual) 0.1 (0.1-1.2) X10*3/uL Dohle Bodies PRESENT Platelet Estimate SLIGHTLY DECREASED (NORMAL) Plt Morphology Comment NORMAL RBC Morphology NOTED Hypochromasia 1+ (5-14) /OIF Macrocytosis 1+ (5-14) /OIF Sodium 131 L (135-145) mmol/L Potassium 3.5 D (3.3-5.1) mmol/L Chloride 101 (96-108) mmol/L Carbon Dioxide 22 (22-29) mmol/L Anion Gap 12 (12-20) BUN 24 H (9-16) mg/dL Creatinine 1.90 H (0.5-1.4) mg/dL Estim Creat Clear Calc 17.0 Estimated GFR 26 Random Glucose 69 (60-115) mg/dL Lactic Acid (0.5-2.0) mmol/L Calcium 8.9 (8.4-10.2) mg/dL Magnesium 1.3 L* (1.6-2.6) mg/dL Total Bilirubin 0.4 (0.0-1.0) mg/dL Direct Bilirubin 0.2 (0.0-0.5) mg/dL AST 22 (5-31) U/L ALT 7 (0-31) U/L Alkaline Phosphatase 76 (39-117) U/L Troponin I High Sens 8.7 (<3.5-17.0) ng/L B-Natriuretic Peptide (<100) pg/mL Total Protein 6.6 (6.5-8.0) g/dL Albumin 2.5 L (3.5-5.0) g/dL Lipase 11 (8-78) U/L COVID-19 (ROXANE) (Negative) COVID-19 Clin Com Influenza Type A (JAY) (Negative) Influenza Type B (JAY) (Negative) Influenza A & B Note 12/06/21 12/06/21 12/06/21 Range/Units 15:42 15:42 15:42 WBC (4.8-10.8) X10*3/uL RBC (4.20-5.50) X10*6/uL Hgb (12.0-16.0) g/dl Hct (37.0-47.0) % MCV (80.0-98.0) fL MCH (27.0-33.0) pg MCHC (31.0-35.0) g/dl RDW (11.0-16.0) % Plt Count (160-400) X10*3/uL MPV (9.4-12.3) fL Immature Gran % (Auto) Neut % (Auto) Lymph % (Auto) Beck[place] % (Auto) Eos % (Auto) Baso % (Auto) Lymph # (Auto) Beck[place] # (Auto) Eos # (Auto) Baso # (Auto) Abs Immat Gran (auto) Absolute Neuts (auto) Absolute Nucleated RBC (0.0-0.012) X10*3/uL Nucleated RBC % (auto) (0.0-0.2) /100WBC Neutrophils % (Manual) (45-73) % Band Neutrophils % (3-5) % Lymphocytes % (Manual) (20-40) % Monocytes % (Manual) (2-11) % Abs Neuts (Manual) (2.0-8.3) X10*3/uL Lymphocytes # (Manual) (1.2-4.9) X10*3/uL Monocytes # (Manual) (0.1-1.2) X10*3/uL Dohle Bodies Platelet Estimate (NORMAL) Plt Morphology Comment RBC Morphology Hypochromasia /OIF Macrocytosis /OIF Sodium (135-145) mmol/L Potassium (3.3-5.1) mmol/L Chloride (96-108) mmol/L Carbon Dioxide (22-29) mmol/L Anion Gap (12-20) BUN (9-16) mg/dL Creatinine (0.5-1.4) mg/dL Estim Creat Clear Calc Estimated GFR Random Glucose (60-115) mg/dL Lactic Acid 1.2 (0.5-2.0) mmol/L Calcium (8.4-10.2) mg/dL Magnesium (1.6-2.6) mg/dL Total Bilirubin (0.0-1.0) mg/dL Direct Bilirubin (0.0-0.5) mg/dL AST (5-31) U/L ALT (0-31) U/L Alkaline Phosphatase (39-117) U/L Troponin I High Sens (<3.5-17.0) ng/L B-Natriuretic Peptide 159 H (<100) pg/mL Total Protein (6.5-8.0) g/dL Albumin (3.5-5.0) g/dL Lipase (8-78) U/L COVID-19 (ROXANE) Negative (Negative) COVID-19 Clin Com See Note Influenza Type A (JAY) (Negative) Influenza Type B (JAY) (Negative) Influenza A & B Note 12/06/21 Range/Units 15:42 WBC (4.8-10.8) X10*3/uL RBC (4.20-5.50) X10*6/uL Hgb (12.0-16.0) g/dl Hct (37.0-47.0) % MCV (80.0-98.0) fL MCH (27.0-33.0) pg MCHC (31.0-35.0) g/dl RDW (11.0-16.0) % Plt Count (160-400) X10*3/uL MPV (9.4-12.3) fL Immature Gran % (Auto) Neut % (Auto) Lymph % (Auto) Beck[place] % (Auto) Eos % (Auto) Baso % (Auto) Lymph # (Auto) [place] # (Auto) Eos # (Auto) Baso # (Auto) Abs Immat Gran (auto) Absolute Neuts (auto) Absolute Nucleated RBC (0.0-0.012) X10*3/uL Nucleated RBC % (auto) (0.0-0.2) /100WBC Neutrophils % (Manual) (45-73) % Band Neutrophils % (3-5) % Lymphocytes % (Manual) (20-40) % Monocytes % (Manual) (2-11) % Abs Neuts (Manual) (2.0-8.3) X10*3/uL Lymphocytes # (Manual) (1.2-4.9) X10*3/uL Monocytes # (Manual) (0.1-1.2) X10*3/uL Dohle Bodies Platelet Estimate (NORMAL) Plt Morphology Comment RBC Morphology Hypochromasia /OIF Macrocytosis /OIF Sodium (135-145) mmol/L Potassium (3.3-5.1) mmol/L Chloride (96-108) mmol/L Carbon Dioxide (22-29) mmol/L Anion Gap (12-20) BUN (9-16) mg/dL Creatinine (0.5-1.4) mg/dL Estim Creat Clear Calc Estimated GFR Random Glucose (60-115) mg/dL Lactic Acid (0.5-2.0) mmol/L Calcium (8.4-10.2) mg/dL Magnesium (1.6-2.6) mg/dL Total Bilirubin (0.0-1.0) mg/dL Direct Bilirubin (0.0-0.5) mg/dL AST (5-31) U/L ALT (0-31) U/L Alkaline Phosphatase (39-117) U/L Troponin I High Sens (<3.5-17.0) ng/L B-Natriuretic Peptide (<100) pg/mL Total Protein (6.5-8.0) g/dL Albumin (3.5-5.0) g/dL Lipase (8-78) U/L COVID-19 (ROXANE) (Negative) COVID-19 Clin Com Influenza Type A (JAY) Negative (Negative) Influenza Type B (JAY) Negative (Negative) Influenza A & B Note See Note ECG Data ECG #1: Attestation: I personally reviewed and interpreted this ECG as follows: ECG interpretation date: 12/06/21 ECG interpretation time: 14:32 Prior ECG tracings: available for review Interpretation: EKG normal sinus rhythm at a rate of 92. QTC 460. Nonspecific ST abnormality. When compared to prior EKG from September 2021 no significant change Critical Care Time Critical Care Time Critical Care Time: Yes Total Critical Care Time: 35 Attestation: I have personally provided critical care time exclusive of time spent on separately billable procedures. Time includes review of lab data, radiology results, discussion with consultants, and monitoring for potential decompensation. Intervention performed as documented. Discharge Plan Discharge Clinical Impression: Pneumonia Patient Disposition: Still a Patient Instructions: Pneumonia (ED) Prescriptions: No Action levothyroxine 137 mcg tablet 137 mcg PO DAILY 90 Days Qty: 90 3RF hydralazine 50 mg tablet 100 mg PO TID 90 Days Qty: 540 2RF Rx Instructions: This is the corrected dose 02/28/2021 ( Nephrology changed dose to this one) metoprolol succinate 100 mg tablet extended release 24 hr 150 mg PO DAILY Qty: 135 3RF isosorbide mononitrate 30 mg tablet extended release 24 hr 30 mg PO DAILY 90 Days Qty: 90 2RF tramadol 50 mg tablet 100 mg PO Q6H PRN (Reason: Pain) Rx Instructions: 1-2 tablets every 6-8 hours as needed for pain;
[2021-12-06] MEDS: 0.9 % Sodium Chloride 1,000 ML 999 ML IV (15:22)
[2021-12-06 15:29] VITALS: BP 170/82; PULSE 94; RESP 12; TEMP 37.6; O2SAT 98
--- NOTE | 2021-12-06 15:54 | PHA.MEDREC ---
Pharmacy Consult ? Medication Reconciliation Pharmacy has completed the medication reconciliation.
[2021-12-06 15:58] LABS: Hematocrit 25.6 % (37.0-47.0); Hemoglobin 8.3 g/dl (12.0-16.0); Mean Corpuscular HGB Conc 32.4 g/dl (31.0-35.0); Mean Corpuscular Hemoglobin 29.3 pg (27.0-33.0); Mean Corpuscular Volume 90.5 fL (80.0-98.0); Mean Platelet Volume 10.9 fL (9.4-12.3); Platelet Count 119 X10*3/uL (160-400); Red Blood Count 2.83 X10*6/uL (4.20-5.50); Red Cell Distribution Width 13.2 % (11.0-16.0); White Blood Count 3.9 X10*3/uL (4.8-10.8)
[2021-12-06 16:03] LABS: Lactic Acid 1.2 mmol/L (0.5-2.0)
[2021-12-06 16:10] LABS: COVID-19 Test Negative (Negative); IDNOW Serial# 16C4AD1C; Influenza A Negative (Negative); Influenza B2 Negative (Negative)
[2021-12-06 16:13] LABS: B Type Natriuretic Peptide 159 pg/mL (<100)
[2021-12-06 16:14] LABS: Troponin-I High Sensitivity 8.7 ng/L (<3.5-17.0)
[2021-12-06 16:16] LABS: Alanine Aminotransferase 7 U/L (0-31); Albumin Level 2.5 g/dL (3.5-5.0); Alkaline Phosphatase 76 U/L (39-117); Anion Gap 12 (12-20); Aspartate Amino Transferase 22 U/L (5-31); Bilirubin Direct 0.2 mg/dL (0.0-0.5); Bilirubin Total 0.4 mg/dL (0.0-1.0); Blood Urea Nitrogen 24 mg/dL (9-16); Calcium 8.9 mg/dL (8.4-10.2); Carbon Dioxide 22 mmol/L (22-29); Chloride 101 mmol/L (96-108); Estimated Glomerular Filt Rate 26; Glucose Random 69 mg/dL (60-115); Lipase 11 U/L (8-78); Magnesium 1.3 mg/dL (1.6-2.6); Potassium 3.5 mmol/L (3.3-5.1); Sodium 131 mmol/L (135-145); Total Protein 6.6 g/dL (6.5-8.0)
[2021-12-06] MEDS: Magnesium Sulfate/H2O 2 GM/50 ML PIGGYBACK IV (16:34)
[2021-12-06 16:36] LABS: Band Neutrophils Percent 27 % (3-5); Lymphocytes Absolute Manual 0.2 X10*3/uL (1.2-4.9); Lymphocytes Percent Manual 5 % (20-40); Monocytes Absolute Manual 0.1 X10*3/uL (0.1-1.2); Monocytes Percent Manual 2 % (2-11); Neutrophils Absolute Manual 3.6 X10*3/uL (2.0-8.3); Neutrophils Percent Manual 66 % (45-73)
[2021-12-06 16:38] LABS: Hypochromasia 1+ (5-14) /OIF; RBC Morphology NOTED
[2021-12-06 16:40] LABS: Dohle Bodies PRESENT; Platelet Estimate SLIGHTLY DECREASED (NORMAL); Platelet Morphology Comment NORMAL
[2021-12-06 16:41] LABS: Macrocytosis 1+ (5-14) /OIF
[2021-12-06] MEDS: Piperacillin Sodium/Tazobactam 2.25 GM in 0.9 % Sodium Chloride 50 ML IV (18:24)
[2021-12-06 19:09] VITALS: BP 159/77; PULSE 102; RESP 16; TEMP 37.3; O2SAT 97
[2021-12-06 19:38] LABS: Anion Gap 10 (12-20); Blood Urea Nitrogen 21 mg/dL (9-16); Calcium 8.2 mg/dL (8.4-10.2); Carbon Dioxide 21 mmol/L (22-29); Chloride 105 mmol/L (96-108); Creatinine Clr Calc Pharmacy 19.4; Estimated Glomerular Filt Rate 31; Glucose Random 70 mg/dL (60-115); Magnesium 1.8 mg/dL (1.6-2.6); Potassium 3.2 mmol/L (3.3-5.1); Sodium 133 mmol/L (135-145)
[2021-12-06 19:42] LABS: Troponin-I High Sensitivity 12.3 ng/L (<3.5-17.0)
[2021-12-06 21:42] VITALS: BP 194/85; PULSE 107; RESP 14; TEMP 37.6; O2SAT 97
--- NOTE | 2021-12-06 22:28 | PM.IMHP ---
History of Present Illness Date of Service: 12/06/21 Chief Complaint: Chest pain This is a 66-year-old female with past medical history of CKD, COPD, HTN, HLD, pulmonary nodules, vitamin-D deficiency, pressure ulcers, who presents to the hospital with complaints of significant fatigue. Patient reports that she has been very tired, sleeping all the time, short of breath, has a cough, sputum production, chills, as well as left-sided chest pain radiating to the left shoulder that started last night. Chest pain constant, no relieving or exacerbating factors, 7/10, heavy in nature, Patient otherwise denies any headache, no change in vision, no palpitations, no abdominal pain nausea or vomiting, no diarrhea constipation, no urinary symptoms and no lower extremity edema is On arrival to the ED patient hemodynamically stable with no significant abnormal vitals satting 97% on room air Labs are significant for WBC count of 3.9, hemoglobin of 8.3, sodium of 131, BUN of 24, creatinine of 1.90 which is around her baseline, magnesium of 1.3, BNP of 159, UA negative, Chest CT showed infection inflammatory disease. Patient will be admitted for further management Review of Systems Review of Systems: Yes all other systems are reviewed and are negative [facility] Medical History Anxiety Cataract Chronic kidney disease (CKD) stage G4/A1, severely decreased glomerular filtration rate (GFR) between 15-29 mL/min/1.73 square meter and albuminuria creatinine ratio less than 30 mg/g Chronic low back pain COPD (chronic obstructive pulmonary disease) History of renal calculi Hypercholesterolemia Hypertension Insomnia Physical deconditioning Pulmonary nodules Sacral decubitus ulcer, stage III Vitamin D deficiency Wrist laceration Family History Mother Hypertension Father Lung cancer Brother Skin cancer (melanoma) Surgical History AAA (abdominal aortic aneurysm) History of colectomy History of rectal surgery Hx of cataract surgery Hx of cholecystectomy S/P AICHA-BSO Social History Household Members: Spouse Housing: House Do you presently have visiting nurse or other home services: No Alcohol intake: never Patient Tobacco Use Status: Current someday Tobacco user Tobacco use type: Cigarette Smoked in Last 30 Days: Yes e-Cigarette/Vaping Use: Never Used Second Hand Smoke Exposure: No Use of substances other than those prescribed or required for medical reasons: No Advance Directives: No Advance Directives Information Provided: No service: No Current occupational status: retired Current occupation: left handed Meds Allergies Allergy/AdvReac Type Severity Reaction Status Date / Time sumatriptan [From IMITREX] Allergy Severe ANGIOEDEMA Verified 06/14/21 10:07 atorvastatin [Lipitor] Allergy Unknown n Verified 06/14/21 10:07 rosuvastatin [Crestor] Allergy Unknown n Verified 06/14/21 10:07 simvastatin Allergy Unknown n Verified 06/14/21 10:07 pravastatin AdvReac Intermediate shaking Verified 06/14/21 10:07 muscle pain From IMITREX Allergy Severe ANGIOEDEMA Uncoded 01/16/21 14:56 Plavix Allergy Unknown rash Uncoded 01/16/21 14:56 Active Medications: Current Medications Acetaminophen (Acetaminophen 325 Mg Tablet) 650 mg PO Q6H PRN PRN Reason: Pain, Mild (Pain Scale 1-3) Docusate Sodium (Docusate Sodium 100 Mg Capsule) 100 mg PO DAILY PRN PRN Reason: Constipation Heparin Sodium (Porcine) (Heparin Sodium,Porcine 5,000 Unit/Ml Vial) 5,000 unit SUBCUT Q12H YUNI Piperacillin Sod/Tazobactam (Sod 3.375 gm/ Sodium Chloride) 50 mls @ 100 mls/hr IV Q6H YUNI Sodium Chloride (Ns) 1,000 mls @ 100 mls/hr IVCONT .Q10H YUNI Ondansetron HCl (Ondansetron Hcl 4 Mg/2 Ml Vial) 4 mg IVPUSH Q8H PRN PRN Reason: Nausea and Vomiting Pharmacy Consult (Consult Rx Perform Med Rec) 1 each MISCELLANE ONCE PRN PRN Reason: Consult order Sodium Chloride (0.9 % Sodium Chloride Flush 3 Ml Syringe) 3 ml IVFLUSH QSHIFT [facility] Home Medications Medication Instructions Recorded Confirmed Last Taken Type tramadol 50 mg tablet 100 mg PO Q6H PRN Pain 12/06/21 12/06/21 12/06/21 History Physical Exam Vital Signs and Narrative: Vital Signs: Last Vital Signs Temp 99.6 F 12/06/21 21:42 Pulse 107 H 12/06/21 21:42 Resp 14 12/06/21 21:42 BP 194/85 H 12/06/21 21:42 Pulse Ox 97 12/06/21 21:42 O2 Del Method 12/06/21 21:42 BMI result Body Mass Index 14.2 Resp: Other: crackles bl Results Labs CBC and Chem 7: 12/07/21 03:46 12/07/21 03:46 Labs: Laboratory Results - last 24 hr 12/06/21 12/06/21 12/06/21 15:42 15:42 15:42 MCV 90.5 MCH 29.3 MCHC 32.4 RDW 13.2 Plt Count 119 L D MPV 10.9 Immature Gran % (Auto) Cancelled Neut % (Auto) Cancelled Lymph % (Auto) Cancelled [place] % (Auto) Cancelled Eos % (Auto) Cancelled Baso % (Auto) Cancelled Lymph # (Auto) Cancelled [place] # (Auto) Cancelled Eos # (Auto) Cancelled Baso # (Auto) Cancelled Abs Immat Gran (auto) Cancelled Absolute Neuts (auto) Cancelled Absolute Nucleated RBC 0.000 Nucleated RBC % (auto) 0.0 Neutrophils % (Manual) 66 Band Neutrophils % 27 H Lymphocytes % (Manual) 5 L Monocytes % (Manual) 2 Abs Neuts (Manual) 3.6 Lymphocytes # (Manual) 0.2 L Monocytes # (Manual) 0.1 Dohle Bodies PRESENT Platelet Estimate SLIGHTLY DECREASED Plt Morphology Comment NORMAL RBC Morphology NOTED Hypochromasia 1+ (5-14) Macrocytosis 1+ (5-14) Anion Gap 12 Estim Creat Clear Calc 17.0 Estimated GFR 26 Random Glucose 69 Lactic Acid Calcium 8.9 Magnesium 1.3 L* Total Bilirubin 0.4 Direct Bilirubin 0.2 AST 22 ALT 7 Alkaline Phosphatase 76 Troponin I High Sens 8.7 B-Natriuretic Peptide Total Protein 6.6 Albumin 2.5 L Lipase 11 COVID-19 (ROXANE) COVID-19 Clin Com Influenza Type A (JAY) Influenza Type B (JAY) Influenza A & B Note 12/06/21 12/06/21 12/06/21 15:42 15:42 15:42 MCV MCH MCHC RDW Plt Count MPV Immature Gran % (Auto) Neut % (Auto) Lymph % (Auto) [place] % (Auto) Eos % (Auto) Baso % (Auto) Lymph # (Auto) [place] # (Auto) Eos # (Auto) Baso # (Auto) Abs Immat Gran (auto) Absolute Neuts (auto) Absolute Nucleated RBC Nucleated RBC % (auto) Neutrophils % (Manual) Band Neutrophils % Lymphocytes % (Manual) Monocytes % (Manual) Abs Neuts (Manual) Lymphocytes # (Manual) Monocytes # (Manual) Dohle Bodies Platelet Estimate Plt Morphology Comment RBC Morphology Hypochromasia Macrocytosis Anion Gap Estim Creat Clear Calc Estimated GFR Random Glucose Lactic Acid 1.2 Calcium Magnesium Total Bilirubin Direct Bilirubin AST ALT Alkaline Phosphatase Troponin I High Sens B-Natriuretic Peptide 159 H Total Protein Albumin Lipase COVID-19 (ROXANE) Negative COVID-19 Clin Com See Note Influenza Type A (JAY) Influenza Type B (JAY) Influenza A & B Note 12/06/21 12/06/21 12/06/21 15:42 19:08 19:09 MCV MCH MCHC RDW Plt Count MPV Immature Gran % (Auto) Neut % (Auto) Lymph % (Auto) [place] % (Auto) Eos % (Auto) Baso % (Auto) Lymph # (Auto) [place] # (Auto) Eos # (Auto) Baso # (Auto) Abs Immat Gran (auto) Absolute Neuts (auto) Absolute Nucleated RBC Nucleated RBC % (auto) Neutrophils % (Manual) Band Neutrophils % Lymphocytes % (Manual) Monocytes % (Manual) Abs Neuts (Manual) Lymphocytes # (Manual) Monocytes # (Manual) Dohle Bodies Platelet Estimate Plt Morphology Comment RBC Morphology Hypochromasia Macrocytosis Anion Gap 10 L Estim Creat Clear Calc 19.4 Estimated GFR 31 Random Glucose 70 Lactic Acid Calcium 8.2 L D Magnesium 1.8 Total Bilirubin Direct Bilirubin AST ALT Alkaline Phosphatase Troponin I High Sens 12.3 B-Natriuretic Peptide Total Protein Albumin Lipase COVID-19 (ROXANE) COVID-19 Clin Com Influenza Type A (JAY) Negative Influenza Type B (JAY) Negative Influenza A & B Note See Note 12/06/21 19:09 MCV MCH MCHC RDW Plt Count MPV Immature Gran % (Auto) Neut % (Auto) Lymph % (Auto) [place] % (Auto) Eos % (Auto) Baso % (Auto) Lymph # (Auto) [place] # (Auto) Eos # (Auto) Baso # (Auto) Abs Immat Gran (auto) Absolute Neuts (auto) Absolute Nucleated RBC Nucleated RBC % (auto) Neutrophils % (Manual) Band Neutrophils % Lymphocytes % (Manual) Monocytes % (Manual) Abs Neuts (Manual) Lymphocytes # (Manual) Monocytes # (Manual) Dohle Bodies Platelet Estimate Plt Morphology Comment RBC Morphology Hypochromasia Macrocytosis Anion Gap Estim Creat Clear Calc Estimated GFR Random Glucose Lactic Acid Calcium Magnesium Total Bilirubin Direct Bilirubin AST ALT Alkaline Phosphatase Troponin I High Sens Cancelled B-Natriuretic Peptide Total Protein Albumin Lipase COVID-19 (ROXANE) COVID-19 Clin Com Influenza Type A (JAY) Influenza Type B (JAY) Influenza A & B Note Imaging Radiologist's Impressions: Impressions Chest X-Ray 12/06/21 15:07 IMPRESSION: Hyperinflated lungs with patchy opacity right upper, mid and lower lobe question infiltrate versus nodules. Right lower lobe consolidation seen on 09/08/[address] 12/06/21 16:23 IMPRESSION: Pattern and behavior of disease in the chest is not compatible with malignancy but compatible with infectious/inflammatory etiologies. Mass-like areas of infiltrate have completely resolved and there is a new area of benign-appearing infiltrate in the right lower lobe. Incidental abdominal findings as described above. Fleischner guidelines were followed. Assessment and Plan (1) Pneumonia: Status: Acute (2) Hypomagnesemia: Status: Acute Plan 66-year-old female with significant past medical history as above who presents to the hospital with complaints of fatigue found to have pneumonia # acute pneumonia - patient had a hospitalization in September therefore will treat for Hcap - CT findings as above - hemodynamically stable, with no hypoxia - COVID-19 negative - will follow cultures # hypomagnesemia - repleted - will repeat level # hypertension - stable - continue hydralazine # hypothyroidism - continue levothyroxine DVT prophylaxis: Heparin subQ Quality Stroke Does the patient have a stroke diagnosis?: No VTE Prior VTE?: No VTE Risk Level:: Medical - moderate - high VTE Device Contraindication: Treatment Not Indicated VTE Drug Contraindication: N/A - Med Ordered
[2021-12-06] MEDS: Isosorbide Mononitrate 30 MG TAB.ER.24H PO (22:44)
[2021-12-06] MEDS: hydrALAZINE HCl 50 MG TABLET 100 MG PO (22:44)
[2021-12-06] MEDS: Metoprolol Succinate ER 50 MG TAB.ER.24H 150 MG PO (22:44)
[2021-12-06] MEDS: 0.9 % Sodium Chloride 1,000 ML 100 ML IVCONT (22:45)
[2021-12-06] MEDS: Heparin Sodium,Porcine 5,000 UNIT/ML VIAL 5000 UNIT SUBCUT (22:46)
[2021-12-06 23:46] VITALS: BP 158/79; PULSE 98; RESP 12; O2SAT 96
[2021-12-07] MEDS: Piperacillin Sodium/Tazobactam 2.25 GM in 0.9 % Sodium Chloride 50 ML IV ×2 (00:24→06:32)
[2021-12-07 00:54] LABS: Appearance Urine CLEAR; Color Urine YELLOW; Glucose Urine UA NEG (NEG); Leukocyte Esterase Urine NEG (NEG); Nitrite Urine NEG (NEG); PH 5.5 (5.0-8.0); Specific Gravity - Urine >= 1.030 (1.005-1.025); UACC Culture Trigger NO; Urine Blood TRACE (NEG); Urine Ketones NEG (NEG); Urine Protein TRACE MG/DL (NEG-TRACE)
[2021-12-07 01:01] LABS: Bacteria Urine 1+ /LPF; Calcium Phosphate Crystals Ur TRACE /LPF; Granular Casts Urine 0-2 /LPF; Mucus Urine 1+ /LPF; Squamous Epithelial Cell Urine 2+ /LPF; WBC Urine 0-2 /HPF (0-4)
[2021-12-07 03:51] LABS: Hematocrit 23.5 % (37.0-47.0); Hemoglobin 7.6 g/dl (12.0-16.0); Mean Corpuscular HGB Conc 32.3 g/dl (31.0-35.0); Mean Corpuscular Hemoglobin 29.5 pg (27.0-33.0); Mean Corpuscular Volume 91.1 fL (80.0-98.0); Mean Platelet Volume 9.7 fL (9.4-12.3); Platelet Count 152 X10*3/uL (160-400); Red Blood Count 2.58 X10*6/uL (4.20-5.50); Red Cell Distribution Width 13.2 % (11.0-16.0)
[2021-12-07 04:19] VITALS: BP 143/73; PULSE 68; O2SAT 100
[2021-12-07 04:20] LABS: Band Neutrophils Percent 19 % (3-5); Lymphocytes Absolute Manual 0.2 X10*3/uL (1.2-4.9); Lymphocytes Percent Manual 4 % (20-40); Monocytes Absolute Manual 0.2 X10*3/uL (0.1-1.2); Monocytes Percent Manual 5 % (2-11); Neutrophils Absolute Manual 3.6 X10*3/uL (2.0-8.3); Neutrophils Percent Manual 72 % (45-73)
[2021-12-07 04:21] LABS: Platelet Estimate NORMAL (NORMAL); Platelet Morphology Comment NORMAL; RBC Morphology NORMAL; Toxic Granulation PRESENT
[2021-12-07 04:22] LABS: Anion Gap 12 (12-20); Blood Urea Nitrogen 20 mg/dL (9-16); Calcium 8.2 mg/dL (8.4-10.2); Carbon Dioxide 18 mmol/L (22-29); Chloride 105 mmol/L (96-108); Estimated Glomerular Filt Rate 30; Glucose Random 68 mg/dL (60-115); Potassium 3.4 mmol/L (3.3-5.1); Sodium 132 mmol/L (135-145)
--- NOTE | 2021-12-07 04:23 | PC.NURSE ---
When doing Vitals patient informed tech she didn't call for help, and unable to hold urine anymore. Tech and RN helped change bedding and dressing and repositioned patient.
[2021-12-07 04:45] VITALS: BP 165/77; PULSE 64
[2021-12-07 04:46] VITALS: BP 146/76; PULSE 68
[2021-12-07 04:47] VITALS: BP 145/69; PULSE 66
[2021-12-07] MEDS: Levothyroxine Sodium 112 MCG, Levothyroxine Sodium 25 MCG 137 MCG PO (06:42)
[2021-12-07 08:17] VITALS: BP 141/64; PULSE 63; RESP 12; O2SAT 98
[2021-12-07 09:12] LABS: Magnesium 1.6 mg/dL (1.6-2.6)
--- NOTE | 2021-12-07 09:19 | PM.DS ---
DS: Providers Provider Date of Service: 12/07/21 Date of admission: 12/06/21 22:23 Primary care physician: Carla Koehler MD DS: Diagnosis Discharge Diagnosis (1) Pneumonia: Status: Acute (2) Hypomagnesemia: Status: Acute DS: Summary Hospital Course Hospital Course: Chief Complaint: Chest pain This is a 66-year-old female with past medical history of CKD, COPD, HTN, HLD, pulmonary nodules, vitamin-D deficiency, pressure ulcers, who presents to the hospital with complaints of significant fatigue.? Patient reports that she has been very tired, sleeping all the time, short of breath, has a cough, sputum production, chills, as well as left-sided chest pain radiating to the left shoulder that started last night.? Chest pain constant, no relieving or exacerbating factors, 7/10, heavy in nature, Patient otherwise denies any headache, no change in vision, no palpitations, no abdominal pain nausea or vomiting, no diarrhea constipation, no urinary symptoms and no lower extremity edema is On arrival to the ED patient hemodynamically stable with no significant abnormal vitals satting 97% on room air Labs are significant for WBC count of 3.9, hemoglobin of 8.3, sodium of 131, BUN of 24, creatinine of 1.90 which is around her baseline, magnesium of 1.3, BNP of 159, UA negative, Chest CT showed infection inflammatory disease. Patient will be admitted for further management Hospital course: Patient was admitted overnight and treated with IV Zosyn, WBC is on low side, she is not hypoxic, not cough, no fever, breathing easy, she would like to go home and therefore will transition to oral Ceftin and Doxycline and to follow up on outpatient basis.. Of note she has chronic anemia and with slightly low hemoglobin today compare yesterday likely from phlebotomy, no sings of bleeding Time Spent with Patient Time attestation: Total time spent providing and/or coordinating discharge services: Discharge coordination time: Greater than 30 minutes Quality: Safe Use of Opioids Does Pt have an Active Cancer Diagnosis on the Problem List?: No Quality: Stroke Does the patient have a stroke diagnosis?: No Physical Exam Vital Signs: Vital Signs: Last Vital Signs Temp 99.6 F 12/06/21 21:42 Pulse 63 12/07/21 08:17 Resp 12 06/30/22 08:17 BP 141/64 H 12/07/21 08:17 Pulse Ox 98 12/07/21 08:17 O2 Del Method 12/07/21 08:17 BMI result Body Mass Index 14.2 DS: Data Data Completed and Pending Completed studies during hospitalization [Text1]: Procedures Transfusion of Nonautologous Red Blood Cells into Peripheral Vein, Percutaneous Approach (12/25/20) Labs on day of discharge: Laboratory Results - last 24 hr 12/06/21 12/06/21 12/06/21 15:42 15:42 15:42 WBC 3.9 L RBC 2.83 L Hgb 8.3 L Hct 25.6 L MCV 90.5 MCH 29.3 MCHC 32.4 RDW 13.2 Plt Count 119 L D MPV 10.9 Immature Gran % (Auto) Cancelled Neut % (Auto) Cancelled Lymph % (Auto) Cancelled [facility] % (Auto) Cancelled Eos % (Auto) Cancelled Baso % (Auto) Cancelled Lymph # (Auto) Cancelled [facility] # (Auto) Cancelled Eos # (Auto) Cancelled Baso # (Auto) Cancelled Abs Immat Gran (auto) Cancelled Absolute Neuts (auto) Cancelled Absolute Nucleated RBC 0.000 Nucleated RBC % (auto) 0.0 Neutrophils % (Manual) 66 Band Neutrophils % 27 H Lymphocytes % (Manual) 5 L Monocytes % (Manual) 2 Abs Neuts (Manual) 3.6 Lymphocytes # (Manual) 0.2 L Monocytes # (Manual) 0.1 Toxic Granulation Dohle Bodies PRESENT Platelet Estimate SLIGHTLY DECREASED Plt Morphology Comment NORMAL RBC Morphology NOTED Hypochromasia 1+ (5-14) Macrocytosis 1+ (5-14) Sodium 131 L Potassium 3.5 D Chloride 101 Carbon Dioxide 22 Anion Gap 12 BUN 24 H Creatinine 1.90 H Estim Creat Clear Calc 17.0 Estimated GFR 26 Random Glucose 69 Lactic Acid Calcium 8.9 Magnesium 1.3 L* Total Bilirubin 0.4 Direct Bilirubin 0.2 AST 22 ALT 7 Alkaline Phosphatase 76 Troponin I High Sens 8.7 B-Natriuretic Peptide Total Protein 6.6 Albumin 2.5 L Lipase 11 Urine Color Urine Appearance Urine pH Ur Specific E[place] Urine Protein Urine Glucose (UA) Urine Ketones Urine Blood Urine Nitrite Ur Leukocyte Esterase Urine RBC Urine WBC Ur Squamous Epith Cells Calcium Phosphate Cryst Urine Bacteria Granular Casts Urine Mucus COVID-19 (ROXANE) COVID-19 Clin Com Influenza Type A (JAY) Influenza Type B (JAY) Influenza A & B Note 12/06/21 12/06/21 12/06/21 15:42 15:42 15:42 WBC RBC Hgb Hct MCV MCH MCHC RDW Plt Count MPV Immature Gran % (Auto) Neut % (Auto) Lymph % (Auto) [facility] % (Auto) Eos % (Auto) Baso % (Auto) Lymph # (Auto) [facility] # (Auto) Eos # (Auto) Baso # (Auto) Abs Immat Gran (auto) Absolute Neuts (auto) Absolute Nucleated RBC Nucleated RBC % (auto) Neutrophils % (Manual) Band Neutrophils % Lymphocytes % (Manual) Monocytes % (Manual) Abs Neuts (Manual) Lymphocytes # (Manual) Monocytes # (Manual) Toxic Granulation Dohle Bodies Platelet Estimate Plt Morphology Comment RBC Morphology Hypochromasia Macrocytosis Sodium Potassium Chloride Carbon Dioxide Anion Gap BUN Creatinine Estim Creat Clear Calc Estimated GFR Random Glucose Lactic Acid 1.2 Calcium Magnesium Total Bilirubin Direct Bilirubin AST ALT Alkaline Phosphatase Troponin I High Sens B-Natriuretic Peptide 159 H Total Protein Albumin Lipase Urine Color Urine Appearance Urine pH Ur Specific [place] Urine Protein Urine Glucose (UA) Urine Ketones Urine Blood Urine Nitrite Ur Leukocyte Esterase Urine RBC Urine WBC Ur Squamous Epith Cells Calcium Phosphate Cryst Urine Bacteria Granular Casts Urine Mucus COVID-19 (ROXANE) Negative COVID-19 Clin Com See Note Influenza Type A (JAY) Influenza Type B (JAY) Influenza A & B Note 12/06/21 12/06/21 12/06/21 15:42 19:08 19:09 WBC RBC Hgb Hct MCV MCH MCHC RDW Plt Count MPV Immature Gran % (Auto) Neut % (Auto) Lymph % (Auto) [facility] % (Auto) Eos % (Auto) Baso % (Auto) Lymph # (Auto) [facility] # (Auto) Eos # (Auto) Baso # (Auto) Abs Immat Gran (auto) Absolute Neuts (auto) Absolute Nucleated RBC Nucleated RBC % (auto) Neutrophils % (Manual) Band Neutrophils % Lymphocytes % (Manual) Monocytes % (Manual) Abs Neuts (Manual) Lymphocytes # (Manual) Monocytes # (Manual) Toxic Granulation Dohle Bodies Platelet Estimate Plt Morphology Comment RBC Morphology Hypochromasia Macrocytosis Sodium 133 L Potassium 3.2 L Chloride 105 Carbon Dioxide 21 L Anion Gap 10 L BUN 21 H Creatinine 1.67 H Estim Creat Clear Calc 19.4 Estimated GFR 31 Random Glucose 70 Lactic Acid Calcium 8.2 L D Magnesium 1.8 Total Bilirubin Direct Bilirubin AST ALT Alkaline Phosphatase Troponin I High Sens 12.3 B-Natriuretic Peptide Total Protein Albumin Lipase Urine Color Urine Appearance Urine pH Ur Specific [place] Urine Protein Urine Glucose (UA) Urine Ketones Urine Blood Urine Nitrite Ur Leukocyte Esterase Urine RBC Urine WBC Ur Squamous Epith Cells Calcium Phosphate Cryst Urine Bacteria Granular Casts Urine Mucus COVID-19 (ROXANE) COVID-19 Clin Com Influenza Type A (JAY) Negative Influenza Type B (JAY) Negative Influenza A & B Note See Note 12/06/21 12/07/21 12/07/21 19:09 00:41 03:46 WBC 4.0 L RBC 2.58 L Hgb 7.6 L Hct 23.5 L MCV 91.1 MCH 29.5 MCHC 32.3 RDW 13.2 Plt Count 152 L D MPV 9.7 Immature Gran % (Auto) Cancelled Neut % (Auto) Cancelled Lymph % (Auto) Cancelled [facility] % (Auto) Cancelled Eos % (Auto) Cancelled Baso % (Auto) Cancelled Lymph # (Auto) Cancelled [facility] # (Auto) Cancelled Eos # (Auto) Cancelled Baso # (Auto) Cancelled Abs Immat Gran (auto) Cancelled Absolute Neuts (auto) Cancelled Absolute Nucleated RBC 0.000 Nucleated RBC % (auto) 0.0 Neutrophils % (Manual) 72 Band Neutrophils % 19 H Lymphocytes % (Manual) 4 L Monocytes % (Manual) 5 Abs Neuts (Manual) 3.6 Lymphocytes # (Manual) 0.2 L Monocytes # (Manual) 0.2 Toxic Granulation PRESENT Dohle Bodies Platelet Estimate NORMAL Plt Morphology Comment NORMAL RBC Morphology NORMAL Hypochromasia Macrocytosis Sodium Potassium Chloride Carbon Dioxide Anion Gap BUN Creatinine Estim Creat Clear Calc Estimated GFR Random Glucose Lactic Acid Calcium Magnesium Total Bilirubin Direct Bilirubin AST ALT Alkaline Phosphatase Troponin I High Sens Cancelled B-Natriuretic Peptide Total Protein Albumin Lipase Urine Color YELLOW Urine Appearance CLEAR Urine pH 5.5 Ur Specific Ecker[place] >= 1.030 H Urine Protein TRACE Urine Glucose (UA) NEG Urine Ketones NEG Urine Blood TRACE Urine Nitrite NEG Ur Leukocyte Esterase NEG Urine RBC 15-29 H Urine WBC 0-2 Ur Squamous Epith Cells 2+ Calcium Phosphate Cryst TRACE Urine Bacteria 1+ Granular Casts 0-2 Urine Mucus 1+ COVID-19 (ROXANE) COVID-19 Clin Com Influenza Type A (JAY) Influenza Type B (JAY) Influenza A & B Note 12/07/21 12/07/21 03:46 08:48 WBC RBC Hgb Hct MCV MCH MCHC RDW Plt Count MPV Immature Gran % (Auto) Neut % (Auto) Lymph % (Auto) [facility] % (Auto) Eos % (Auto) Baso % (Auto) Lymph # (Auto) [facility] # (Auto) Eos # (Auto) Baso # (Auto) Abs Immat Gran (auto) Absolute Neuts (auto) Absolute Nucleated RBC Nucleated RBC % (auto) Neutrophils % (Manual) Band Neutrophils % Lymphocytes % (Manual) Monocytes % (Manual) Abs Neuts (Manual) Lymphocytes # (Manual) Monocytes # (Manual) Toxic Granulation Dohle Bodies Platelet Estimate Plt Morphology Comment RBC Morphology Hypochromasia Macrocytosis Sodium 132 L Potassium 3.4 Chloride 105 Carbon Dioxide 18 L Anion Gap 12 BUN 20 H Creatinine 1.71 H Estim Creat Clear Calc 19.0 Estimated GFR 30 Random Glucose 68 Lactic Acid Calcium 8.2 L Magnesium 1.6 Total Bilirubin Direct Bilirubin AST ALT Alkaline Phosphatase Troponin I High Sens B-Natriuretic Peptide Total Protein Albumin Lipase Urine Color Urine Appearance Urine pH Ur Specific [place] Urine Protein Urine Glucose (UA) Urine Ketones Urine Blood Urine Nitrite Ur Leukocyte Esterase Urine RBC Urine WBC Ur Squamous Epith Cells Calcium Phosphate Cryst Urine Bacteria Granular Casts Urine Mucus COVID-19 (ROXANE) COVID-19 Clin Com Influenza Type A (JAY) Influenza Type B (JAY) Influenza A & B Note Discharge Plan Discharge Anticipated Discharge Date/Time: 12/07/21 09:14 Patient Disposition: Home Health Service Discharge Diagnosis: Pneumonia, HypOmagnesemia Referrals: [facility] [Outside] - 1 Week Po,Carla Fuchs MD [Primary Care Provider] - 1 Week Discharge Medications: New cefuroxime axetil 500 mg tablet 500 mg PO BID 7 Days Qty: 14 0RF doxycycline hyclate 100 mg tablet 100 mg PO BID 10 Days Qty: 20 0RF Continued levothyroxine 137 mcg tablet 137 mcg PO DAILY 90 Days Qty: 90 3RF hydralazine 50 mg tablet 100 mg PO TID 90 Days Qty: 540 2RF Rx Instructions: This is the corrected dose 02/28/2021 ( Nephrology changed dose to this one) metoprolol succinate 100 mg tablet extended release 24 hr 150 mg PO DAILY Qty: 135 3RF isosorbide mononitrate 30 mg tablet extended release 24 hr 30 mg PO DAILY 90 Days Qty: 90 2RF tramadol 50 mg tablet 100 mg PO Q6H PRN (Reason: Pain) Rx Instructions: 1-2 tablets every 6-8 hours as needed for pain; Discharge Orders: Discharge Order (Routine); Ordered 12/07/21 Ordered By: Reddy Vieyra Diet: Advance to usual diet Activity on Discharge: As tolerated Stand Alone Forms: Patient Portal Discharge page Care Plan Goals: full recovery from pneumonia Health Concerns: pneumonia, chronic anemia Plan of Treatment: Take Doxcycline and Ceftin as recommended and follow up with your Doctor in a week Assessment: as above Patient Instructions: Pneumonia (ED) Discharge Date/Time: 12/07/21 11:21
[2021-12-07] MEDS: Isosorbide Mononitrate 30 MG TAB.ER.24H PO (10:42)
[2021-12-07] MEDS: hydrALAZINE HCl 50 MG TABLET 100 MG PO (10:42)
[2021-12-07] MEDS: Metoprolol Succinate ER 50 MG TAB.ER.24H 150 MG PO (10:42)
--- NOTE | 2021-12-07 13:17 | P.F2F_ITS ---
Service Date Service Date: 12/07/21 Encounter Date of encounter: 12/07/21 Reasons for Services Signs and symptoms assessed: weakness from Pneumonia and hospialization Reason for jail: medication management and teach disease management Homebound: Leaving the home is medically contraindicated at this time without the asist of a device and/or another person due th the listed conditions above and below. Reason homebound: weakness related to hospital stay Homebound supporting statement: homebound due to weakness from pneumonia and hospitalization and needs the assistance of another person Certification: Based on the above findings, I certify that this patient is confined to the home and needs intermittent jail care, physical therapy and/or speech therapy, or continues to need occupational therapy. The patient is under my care, and I have initiated the establishment of the plan of care. The patient will be followed by a physician who will periodically review the plan of care.
== END 2021-12-07 11:21 | disposition home health service (06) | DRG 190 ==
LOC: HO.ED 22:31 → HO.EDOVER 22:56
PROVIDERS: Physician Assistant; Admitting Provider Internal Medicine; Emergency Provider Emergency Medicine; PCP Internal Medicine; Visit Provider Internal Medicine
DX: J44.0 Chronic obstructive pulmonary disease with (acute) lower respiratory infection (principal); J18.9 Pneumonia, unspecified organism; N18.4 Chronic kidney disease, stage 4 (severe); G47.00 Insomnia, unspecified; I12.9 Hypertensive chronic kidney disease with stage 1 through stage 4 chronic kidney disease, or unspecified chronic kidney disease; E78.5 Hyperlipidemia, unspecified; E83.42 Hypomagnesemia; F17.210 Nicotine dependence, cigarettes, uncomplicated; Z20.822 Contact with and (suspected) exposure to COVID-19; Z87.442 Personal history of urinary calculi; Z71.6 Tobacco abuse counseling; Z88.8 Allergy status to other drugs, medicaments and biological substances; Z79.890 Hormone replacement therapy; Z79.899 Other long term (current) drug therapy
CPT/HCPCS: 36415; 71045; 71250; 80048; 80076; 81001; 83605; 83690; 83735; 83880; 84484; 85007; 85025; 85027; 87040; 87502; 87635; 93005; 96361; 96365; 96366; 96375; 99285; J2543; J3475

== ENCOUNTER 2022-02-27 13:42 | Outpatient (REF) | payer MEDICARE, SELFPAY ==
[2022-02-27 14:05] LABS: MANUAL DIFF FLAG NO
[2022-02-27 14:16] LABS: Basophils Percent Auto 0.4 % (0-2); Hematocrit 28.2 % (37.0-47.0); Imm Gran Abs Auto 0.01 X10*3/uL (0.00-0.03); Imm Gran Pct Auto 0.4 % (0.0-0.4); Lymphocytes Absolute Auto 0.5 X10*3/uL (1.2-4.9); Lymphocytes Percent Auto 17.8 % (20-40); Mean Corpuscular HGB Conc 31.9 g/dl (31.0-35.0); Mean Corpuscular Hemoglobin 29.2 pg (27.0-33.0); Mean Corpuscular Volume 91.6 fL (80.0-98.0); Mean Platelet Volume 10.3 fL (9.4-12.3); Monocytes Absolute Auto 0.2 X10*3/uL (0.1-1.2); Monocytes Percent Auto 5.8 % (2-11); Neutrophils Absolute Auto 2.1 x10*3/uL (2.0-8.3); Neutrophils Percent Auto 75.6 % (45-73); Platelet Count 119 X10*3/uL (160-400); Red Blood Count 3.08 X10*6/uL (4.20-5.50); Red Cell Distribution Width 13.2 % (11.0-16.0); White Blood Count 2.8 X10*3/uL (4.8-10.8)
[2022-02-27 14:38] LABS: Alanine Aminotransferase 10 U/L (0-31); Albumin Level 2.9 g/dL (3.5-5.0); Alkaline Phosphatase 88 U/L (39-117); Anion Gap 14 (12-20); Aspartate Amino Transferase 19 U/L (5-31); Bilirubin Total 0.4 mg/dL (0.0-1.0); Blood Urea Nitrogen 25 mg/dL (9-16); Calcium 8.6 mg/dL (8.4-10.2); Carbon Dioxide 24 mmol/L (22-29); Chloride 99 mmol/L (96-108); Estimated Glomerular Filt Rate 22; Glucose Random 99 mg/dL (60-115); Potassium 3.8 mmol/L (3.3-5.1); Sodium 133 mmol/L (135-145); Total Protein 7.4 g/dL (6.5-8.0)
[2022-02-27 14:39] LABS: Estimated Average Glucose 80 mg/dL; Hemoglobin A1c % 4.4 %
[2022-02-27 14:58] LABS: TSH reflex Free T4 2.91 uIU/mL (0.32-4.0); Vitamin D 25-OH Total 28.6 ng/mL (>30)
[2022-02-27 15:22] LABS: Folate 7.9 ng/mL (> or = 4.0); Vitamin B12 595 pg/mL (200-900)
== END 2022-02-27 13:43 | disposition home or self-care (01) ==
LOC: HO.LAB 13:42
PROVIDERS: PCP Internal Medicine; Visit Provider Nurse Practitioner Family
DX: I10 Essential (primary) hypertension (principal); D64.9 Anemia, unspecified
CPT/HCPCS: 36415; 80053; 82306; 82607; 82746; 83036; 84443; 85025

== ENCOUNTER 2022-03-05 07:45 | Outpatient (REF) | payer MEDICARE, SELFPAY ==
[2022-03-05 12:45] LABS: Hematocrit 33.4 % (37.0-47.0); Hemoglobin 10.7 g/dl (12.0-16.0); Mean Corpuscular Hemoglobin 28.5 pg (27.0-33.0); Mean Corpuscular Volume 89.1 fL (80.0-98.0); Mean Platelet Volume 9.4 fL (9.4-12.3); Platelet Count 154 X10*3/uL (160-400); Red Blood Count 3.75 X10*6/uL (4.20-5.50); Red Cell Distribution Width 14.4 % (11.0-16.0); White Blood Count 4.2 X10*3/uL (4.8-10.8)
== END 2022-03-05 07:46 | disposition home or self-care (01) ==
LOC: HO.MDS 07:45
PROVIDERS: Visit Provider Internal Medicine
DX: D64.9 Anemia, unspecified (principal)
CPT/HCPCS: 36415; 36430; 85027; 86850; 86900; 86901; 86923; P9016

== ENCOUNTER 2022-07-24 12:36 | Emergency (ER) | payer MEDICARE, SELFPAY ==
--- NOTE | ~2022-07-24 | CT_ITS ---
EXAMINATION: CT CHEST, ABDOMEN AND PELVIS WITHOUT CONTRAST CLINICAL INFORMATION: Cough. Shortness of breath. Abdominal pain. Weakness. COMPARISON: CT chest 07/08/2021. CT abdomen pelvis 03/04/2012 TECHNIQUE: Multidetector volumetric CT imaging of the chest, abdomen and pelvis was obtained without oral or intravenous contrast. Coronal and sagittal reformatted images are performed at CT scanner [This CT examination was performed using dose optimization techniques as appropriate, variously including the following: *Automated exposure control *Adjustment of mA and/or kV according to patient size (this includes techniques or standardized protocols for targeted exams where dose is matched to indication/reason for exam; i.e. extremities or head) *Use of iterative reconstruction technique] DLP: 356 mGy-cm. FINDINGS: CT CHEST: Lungs: Small area of focal parenchymal opacity in the right upper lobe along the minor fissure. This is a area of new airspace opacities since CAT scan of 12/06/2021. There are a few additional new areas of parenchymal opacity compared with prior CAT scan 12/06/2021. This includes an area at the anterior left upper lobe at the midline and another small region at the anterior lower lingula. The additional previously seen patchy parenchymal opacities in the lungs bilaterally seen on the CAT scan of 12/06/2021 have resolved. Central bronchial airways remain open. Mediastinum: No mediastinal mass or significant lymphadenopathy. Vascular calcifications of aorta present. Redemonstration of the distal thoracic and upper abdominal aortic stent with aneurysm. Heart size is normal. Heavy calcification of coronary arteries. Pleura: There is no pleural effusion. No pleural mass or thickening. Axilla: No lymphadenopathy. CT ABDOMEN AND PELVIS: Liver, Gallbladder and Biliary Tree: Small well-defined hypodense lesion at the inferior right lobe of liver measuring 5 mm too small to characterize. This is likely small hepatic cysts. Status post cholecystectomy. Chronic dilatation of the extrahepatic CBD to a diameter of 1.1 cm. Pancreas: No acute change of the pancreas. No mass. No pancreatic duct dilatation. Spleen: Spleen normal in size and contour. No focal lesion. Adrenal Glands: Adrenal glands are normal in size. No focal mass. Kidneys and Ureters: Left kidney: The kidneys are atrophic. Numerous calcified stone seen at the kidney. No hydronephrosis. No ureteral stone. Right kidney: Right kidney normal in size measuring 9.8 cm. 2.2 cm cortical cyst upper pole right kidney. No follow-up imaging is recommended for simple renal cyst.. There is a nonobstructive 6 mm stone at the upper pole and an 8 mm stone at the lower pole right kidney. Lower pole stone density measurement 750 Hounsfield units. This stone lies 4.1 cm from the posterior skin line. No ureteral stone or hydronephrosis. Bladder: Unremarkable. Gastrointestinal Tract: Ostomy right lower quadrant. Status post left-sided colectomy.. No acute abnormality of the bowel. There is no bowel wall thickening /edema. There is no bowel obstruction. There is a moderate to large volume of stool in the colon. The appendix is nonvisualized . The small bowel loops are unremarkable. The stomach is normal. There is no hiatal hernia. Mesentery: No focal inflammation. No free fluid. No free air. Abdominal Wall: No ventral wall hernia. Right-sided ostomy. Lymph Nodes: Normal. Vascular: Vascular stent in the distal thoracic and the abdominal aortic aneurysm. Abdominal aorta measures 5.1 cm transverse and spinous. Vascular stent extends into the common iliac arteries. Pelvic Viscera: Unremarkable. Osseous Structures: Unremarkable. CT/CT abdomen pelvis wo IV con IMPRESSION: CT CHEST: There are new areas of parenchymal opacity in the lungs bilaterally since prior CAT scan 12/06/2021. The previously seen patchy parenchymal opacities in the lungs on the CAT scan of 12/06/[address] ABDOMEN PELVIS: 1. No acute abnormality the abdomen or pelvis. 2. Status post left-sided colectomy. Right-sided ostomy. No acute abnormality of the bowel. 3. Abdominal aortic aneurysm with stent in place. 4. Status post cholecystectomy. 5. Atrophic left kidney. Nonobstructive stones in the right kidney. No ureteral stone or hydronephrosis.
--- NOTE | 2022-07-24 12:52 | ED_ITS ---
HPI - General Adult General Chief complaint: Weakness Stated complaint: CP,HIGH BP 180/92 Time Seen by Provider: 07/24/22 12:51 Source: patient and EMS Mode of arrival: EMS Limitations: no limitations History of Present Illness HPI narrative: Patient is a 66 year old assigned female at with a history of chronic kidney disease, COPD, and pulmonary nodules presenting to the emergency department today with increased weakness. Patient states that over the last few days she has felt more weak. Patient states that her magnesium is always low and she does not want to stay in the hospital. Patient denies any dizziness, lightheadedness, abdominal pain, nausea, vomiting, fever, chills, blurry vision, double vision, loss of vision, chest pain, difficulty breathing, shortness of breath, back pain, night sweats, pain with urination, increased urinary frequency, increased urinary urgency, blood in her urine or stool, syncope or a near syncopal episode, recent trauma or falls, bowel incontinence, bladder incontinence, bowel retention, bladder retention, or any other complaints at this time. Onset (ago): day(s) Severity: mild Severity scale (1-10): 2 Relieving factors: none Exacerbating factors: none Associated symptoms: weakness Treatments prior to arrival: none Related Data Previous Rx's Medication Instructions Recorded levothyroxine 137 mcg tablet 137 mcg PO DAILY 90 days #90 tabs 08/08/21 hydralazine 50 mg tablet 100 mg PO TID 90 days #540 tabs 10/23/21 metoprolol succinate 100 mg 150 mg PO DAILY #135 tabs 10/23/21 tablet,extended release 24 hr isosorbide mononitrate 30 mg 30 mg PO DAILY 90 days #90 tabs 10/26/21 tablet,extended release 24 hr cholecalciferol (vitamin D3) 25 25 mcg PO DAILY #90 tabs 03/01/22 mcg (1,000 unit) tablet doxycycline hyclate 100 mg tablet 100 mg PO BID 7 days #14 tabs 07/24/22 tramadol 50 mg tablet 50 mg PO Q6-8H PRN Pain #230 tabs 07/27/22 Allergies Allergy/AdvReac Type Severity Reaction Status Date / Time sumatriptan [From IMITREX] Allergy Severe ANGIOEDEMA Verified 06/29/22 11:25 atorvastatin [Lipitor] Allergy Unknown n Verified 06/29/22 11:25 rosuvastatin [Crestor] Allergy Unknown n Verified 06/29/22 11:25 simvastatin Allergy Unknown n Verified 06/29/22 11:25 pravastatin AdvReac Intermediate shaking Verified 06/29/22 11:25 muscle pain From IMITREX Allergy Severe ANGIOEDEMA Uncoded 06/29/22 11:25 Plavix Allergy Unknown rash Uncoded 06/29/22 11:25 Review of Systems Constitutional: Constitutional: Reports no additional constitutional complaints, Denies chills, Denies fever(s), Denies night sweats and Reports weakness Eyes: Eyes: Reports no additional eye complaints, Denies blurry vision, Denies change in vision, Denies diplopia, Denies eye discharge, Denies loss of vision and Denies eye pain ENT: Denies dizziness Cardiovascular: Cardiovascular: Reports no additional cardiovascular complaints, Denies chest pain, Denies lightheadedness, Denies Loss of Consciousness and Denies dyspnea Respiratory: Respiratory: Reports no additional respiratory complaints and Denies dyspnea Gastrointestinal: Gastrointestinal: Reports no additional gastrointestinal complaints, Denies abdominal pain, Denies melena, Denies hematochezia, Denies change in bowel habits and Denies change in stool character Genitourinary: Genitourinary: Denies hematuria, Denies urinary frequency, Denies dysuria, Denies urinary incontinence, Denies urinary hesitancy and Denies urinary urgency Musculoskeletal: Musculoskeletal: Reports no additional musculoskeletal complaints, Denies numbness and Denies tingling Neurologic: Denies dizziness, Denies loss of vision, Denies numbness, Denies tingling and Reports weakness Psychiatric: Psychiatric: Reports no additional psychiatric complaints Endocrine: Endocrine: Reports no additional endocrine complaints Hematologic/Lymphatic: Hematologic/Lymphatic: Reports no additional mauricio tologic/lymphatic complaints Allergic/Immunologic: Allergic/Immunologic: Reports no additional allergic/immunologic complaints PMFSH Past Medical History Attestation statement: The following information was validated with the patient. Source: old records reviewed and nursing notes reviewed Medical History Anxiety Cataract Chronic kidney disease (CKD) stage G4/A1, severely decreased glomerular filtration rate (GFR) between 15-29 mL/min/1.73 square meter and albuminuria creatinine ratio less than 30 mg/g Chronic low back pain COPD (chronic obstructive pulmonary disease) History of renal calculi Hypercholesterolemia Hypertension Insomnia Physical deconditioning Pulmonary nodules Sacral decubitus ulcer, stage III Vitamin D deficiency Wrist laceration Surgical History AAA (abdominal aortic aneurysm) History of colectomy History of rectal surgery Hx of cataract surgery Hx of cholecystectomy S/P AICHA-BSO Family History Family History Mother Hypertension Father Lung cancer Brother Skin cancer (melanoma) Social History Social History Household Members: Spouse Housing: House Do you presently have visiting nurse or other home services: No Alcohol intake: never Patient Tobacco Use Status: Current someday Tobacco user Tobacco use type: Cigarette e-Cigarette/Vaping Use: Never Used Second Hand Smoke Exposure: No service: No Current occupational status: retired Current occupation: left handed Cognitive needs: Yes (wheelchair) Hearing needs: Yes (hearing aids) Vision needs: Yes Physical Exam ED Vital Signs: Vital Signs - 24 hr 07/24/22 13:17 Temperature 98 F Pulse Rate 63 Respiratory Rate 14 Blood Pressure 190/88 H Pulse Oximetry 96 Oxygen Delivery Method Room Air BMI result Body Mass Index 30.1 Const General: cooperative, no acute distress, alert and awake Nutritional Appearance: well nourished Orientation/consciousness: patient oriented x3 Limitations: no limitations HENMT Head: Yes normal to inspection and Yes atraumatic Ears: hearing grossly normal bilaterally and external ears normal General nose exam: Normal external nose present, no nasal discharge noted and no epistaxis Face and sinus: Yes normal facial exam, No abrasion and No laceration Mouth: Normal oral and palatal mucosa present, no drooling and no muffled voice Eyes General: appearance normal, both eyes and all related structures Periorbital: periorbital findings normal Eyelids: Yes eyelids normal Conjunctivae: conjunctivae normal Pupils: Equal, round and reactive pupils present EOM: EOMs intact bilaterally Neck Neck: Yes normal visual inspection, Yes full ROM and Yes no lymphadenopathy Chest Chest palpation & inspection: normal inspection of the chest Resp Effort & Inspection: normal respiratory effort and able to speak in complete sentences Auscultation: clear to auscultation bilaterally Cardio Rate: regular rate Rhythm: regular rhythm GI Inspection: Yes normal to inspection Palpation (GI): Soft to palpation, not firm, nontender, no guarding and not rigid Neuro General: patient oriented x3 and moves all extremities Cranial nerves: Yes Equal, round and reactive pupils present Cognition (Neuro): normal cognition Motor exam (neuro): 5/5 motor strength present throughout Sensory Exam: Normal double simultaneous stimulation for sensation Coordination: [id number] test normal Extrem General: Yes normal to inspection, Yes full ROM and Yes capillary refill normal Psych Appearance: grossly normal Mental Status: mental status grossly normal Affect: normal affect Attitude: cooperative Thought process: Normal thought process present Thought content: Normal thought content present Insight: Good insight present (Psych) Medications Administered Discontinued Medications Generic Name Dose Route Start Last Admin Trade Name Freq PRN Reason Stop Dose Admin Magnesium Sulfate 2 gm in 50 mls @ 25 mls/hr 07/24/22 14:24 07/24/22 17:07 Magnesium Sulfate/H2o IV 07/24/22 16:23 Infused ONCE ONE Infusion Medical Decision Making Medical Decision Making MDM Narrative: Patient is a 66 year old assigned female at with a history of CKD, COPD, a nd pulmonary nodules presenting to the emergency department today with increased weakness. Patient's physical exam was unremarkable. Patient's blood work showed a chronically elevated creatinine of 2.07, a magnesium of 1.4, and a BNP of 311. Patient was given IV fluids and magnesium. Patient's EKG was unremarkable. Patient's chest CT and abdomen/pelvis CT showed no acute process. I explained my physical exam findings as well as all test results to the patient. I answered all questions asked by the patient. I stressed the importance of the patient taking her medication as prescribed. I stressed the importance of the patient following up with her primary care provider. I stressed the importance of the patient returning to the emergency department immediately if her symptoms were to worsen or if she were to develop any dizziness, shortness of breath, difficulty breathing, chest pain, blurry vision, loss of vision, nausea, vomiting, abdominal pain, fever, chills, back pain, or any other complaints. Patient verbalized agreement and understanding with this treatment plan and discharge. Differential Diagnosis Differential Diagnoses: The differential diagnosis associated with the presentation includes weakness Lab Data [facility] Lab Attestation statement: I reviewed the patient's lab results. 07/24/22 13:55 07/24/22 13:55 Labs: Lab Results 07/24/22 07/24/22 07/24/22 Range/Units 13:49 13:55 13:55 WBC 3.1 L (4.8-10.8) X10*3/uL RBC 3.10 L (4.20-5.50) X10*6/uL Hgb 9.1 L (12.0-16.0) g/dl Hct 28.0 L (37.0-47.0) % MCV 90.3 (80.0-98.0) fL MCH 29.4 (27.0-33.0) pg MCHC 32.5 (31.0-35.0) g/dl RDW 13.4 (11.0-16.0) % Plt Count TNP MPV Not Reportable Immature Gran % (Auto) 0.3 (0.0-0.4) % Neut % (Auto) 81.6 H (45-73) % Lymph % (Auto) 11.7 L (20-40) % [place] % (Auto) 5.8 (2-11) % Eos % (Auto) 0.3 (0-4) % Baso % (Auto) 0.3 (0-2) % Lymph # (Auto) 0.4 L (1.2-4.9) X10*3/uL [place] # (Auto) 0.2 (0.1-1.2) X10*3/uL Eos # (Auto) 0.0 (0.0-0.4) X10*3/uL Baso # (Auto) 0.0 (0.0-0.2) X10*3/uL Abs Immat Gran (auto) 0.01 (0.00-0.03) X10*3/uL Absolute Neuts (auto) 2.5 (2.0-8.3) x10*3/uL Absolute Nucleated RBC 0.000 (0.0-0.012) X10*3/uL Nucleated RBC % (auto) 0.0 (0.0-0.2) /100WBC Smear Tech's Comments VERIFIED Sodium 134 L (135-145) mmol/L Potassium 3.6 (3.3-5.1) mmol/L Chloride 103 (96-108) mmol/L Carbon Dioxide 23 (22-29) mmol/L Anion Gap 12 (12-20) BUN 22 H (9-16) mg/dL Creatinine 2.07 H (0.5-1.4) mg/dL Estim Creat Clear Calc 25.9 Estimated GFR 24 Random Glucose 78 (60-115) mg/dL Calcium 8.2 L (8.4-10.2) mg/dL Magnesium 1.4 L* (1.6-2.6) mg/dL Total Bilirubin 0.5 (0.0-1.0) mg/dL AST 16 (5-31) U/L ALT < 6 (0-31) U/L Alkaline Phosphatase 76 (39-117) U/L Troponin I High Sens (<3.5-17.0) ng/L B-Natriuretic Peptide (<100) pg/mL Total Protein 6.8 (6.5-8.0) g/dL Albumin 2.6 L (3.5-5.0) g/dL Influenza Type A (PCR) NEGATIVE (Negative) Influenza Type B (PCR) NEGATIVE (Negative) RSV RNA Qual (PCR) NEGATIVE (Negative) SARS-CoV-2 RNA (RT-PCR) NEGATIVE (Negative) 07/24/22 07/24/22 Range/Units 13:55 13:55 WBC (4.8-10.8) X10*3/uL RBC (4.20-5.50) X10*6/uL Hgb (12.0-16.0) g/dl Hct (37.0-47.0) % MCV (80.0-98.0) fL MCH (27.0-33.0) pg MCHC (31.0-35.0) g/dl RDW (11.0-16.0) % Plt Count MPV Immature Gran % (Auto) (0.0-0.4) % Neut % (Auto) (45-73) % Lymph % (Auto) (20-40) % [place] % (Auto) (2-11) % Eos % (Auto) (0-4) % Baso % (Auto) (0-2) % Lymph # (Auto) (1.2-4.9) X10*3/uL [place] # (Auto) (0.1-1.2) X10*3/uL Eos # (Auto) (0.0-0.4) X10*3/uL Baso # (Auto) (0.0-0.2) X10*3/uL Abs Immat Gran (auto) (0.00-0.03) X10*3/uL Absolute Neuts (auto) (2.0-8.3) x10*3/uL Absolute Nucleated RBC (0.0-0.012) X10*3/uL Nucleated RBC % (auto) (0.0-0.2) /100WBC Smear Tech's Comments Sodium (135-145) mmol/L Potassium (3.3-5.1) mmol/L Chloride (96-108) mmol/L Carbon Dioxide (22-29) mmol/L Anion Gap (12-20) BUN (9-16) mg/dL Creatinine (0.5-1.4) mg/dL Estim Creat Clear Calc Estimated GFR Random Glucose (60-115) mg/dL Calcium (8.4-10.2) mg/dL Magnesium (1.6-2.6) mg/dL Total Bilirubin (0.0-1.0) mg/dL AST (5-31) U/L ALT (0-31) U/L Alkaline Phosphatase (39-117) U/L Troponin I High Sens 3.7 (<3.5-17.0) ng/L B-Natriuretic Peptide 311 H (<100) pg/mL Total Protein (6.5-8.0) g/dL Albumin (3.5-5.0) g/dL Influenza Type A (PCR) (Negative) Influenza Type B (PCR) (Negative) RSV RNA Qual (PCR) (Negative) SARS-CoV-2 RNA (RT-PCR) (Negative) Independent Interpretation I performed an independent interpretation of an: EKG Interpretation: Vent. Rate: 065 BPM ? ? Atrial Rate: 065 BPM P-R Int: 126 ms? QRS Dur: 104 ms QT Int: 440 ms ? ? ? P-R-T Axes: 080 072 075 degrees QTc Int: 457 ms ? Normal sinus rhythm Right atrial enlargement Minimal voltage criteria for LVH, may be normal variant ( [place] product ) Borderline ECG When compared with ECG of 06-DEC-2021 14:32, No significant change was found ? Electronically Signed By:Tashi Abhijeet Dictated By: Tashi Jha MD Signed By: Electronically signed by Tashi Jha MD 07/24/222130 Radiology Impression Radiologist Impression: My interpretation is in agreement with the radiologist's impression of these imaging studies. EXAMINATION: CT CHEST, ABDOMEN AND PELVIS WITHOUT CONTRAST CLINICAL INFORMATION: Cough. Shortness of breath. Abdominal pain. Weakness.? COMPARISON: CT chest 07/08/2021. CT abdomen pelvis 03/04/2012 TECHNIQUE: Multidetector volumetric CT imaging of the chest, abdomen and pelvis was obtained without oral or intravenous contrast. Coronal and sagittal reformatted images are performed at CT scanner [This CT examination was performed using dose optimization techniques as appropriate, variously including the following: *Automated exposure control *Adjustment of mA and/or kV according to patient size (this includes techniques or standardized protocols for targeted exams where dose is matched to indication/reason for exam; i.e. extremities or head) *Use of iterative reconstruction technique] DLP: 356 mGy-cm. FINDINGS: CT CHEST: Lungs: Small area of focal parenchymal opacity in the right upper lobe along the minor fissure. This is a area of new airspace opacities since CAT scan of 12/06/2021. There are a few additional new areas of parenchymal opacity compared with prior CAT scan 12/06/2021. This includes an area at the anterior left upper lobe at the midline and another small region at the anterior lower lingula. The additional previously seen patchy parenchymal opacities in the lungs bilaterally seen on the CAT scan of 12/06/2021 have resolved. Central bronchial airways remain open. Mediastinum: No mediastinal mass or significant lymphadenopathy. Vascular calcifications of aorta present. Redemonstration of the distal thoracic and upper abdominal aortic stent with aneurysm. Heart size is normal. Heavy calcification of coronary arteries.? Pleura: There is no pleural effusion. No pleural mass or thickening.? Axilla: No lymphadenopathy.? CT ABDOMEN AND PELVIS: Liver, Gallbladder and Biliary Tree: Small well-defined hypodense lesion at the inferior right lobe of liver measuring 5 mm too small to characterize. This is likely small hepatic cysts. Status post cholecystectomy. Chronic dilatation of the extrahepatic CBD to a diameter of 1.1 cm. Pancreas: No acute change of the pancreas. No mass. No pancreatic duct dilatation.? Spleen: Spleen normal in size and contour. No focal lesion.? Adrenal Glands: Adrenal glands are normal in size. No focal mass.? Kidneys and Ureters: Left kidney: The kidneys are atrophic. Numerous calcified stone seen at the kidney. No hydronephrosis. No ureteral stone. Right kidney: Right kidney normal in size measuring 9.8 cm. 2.2 cm cortical cyst upper pole right kidney. No follow-up imaging is recommended for simple renal cyst.. There is a nonobstructive 6 mm stone at the upper pole and an 8 mm stone at the lower pole right kidney. Lower pole stone density measurement 750 Hounsfield units. This stone lies 4.1 cm from the posterior skin line. No ureteral stone or hydronephrosis.? Bladder: Unremarkable.? Gastrointestinal Tract: Ostomy right lower quadrant. Status post left-sided colectomy.. No acute abnormality of the bowel. There is no bowel wall thickening /edema. There is no bowel obstruction. There is a moderate to large volume of stool in the colon. The appendix is nonvisualized . The small bowel loops are unremarkable. The stomach is normal. There is no hiatal hernia.? Mesentery: No focal inflammation. No free fluid. No free air. Abdominal Wall: No ventral wall hernia. Right-sided ostomy.? Lymph Nodes: Normal. Vascular: Vascular stent in the distal thoracic and the abdominal aortic aneurysm. Abdominal aorta measures 5.1 cm transverse and spinous. Vascular stent extends into the common iliac arteries. Pelvic Viscera: Unremarkable.? Osseous Structures: Unremarkable.? CT/CT abdomen pelvis wo IV con IMPRESSION: CT CHEST: There are new areas of parenchymal opacity in the lungs bilaterally since prior CAT scan 12/06/2021. The previously seen patchy parenchymal opacities in the lungs on the CAT scan of 12/06/2021 have resolved. ? CT ABDOMEN PELVIS: 1.? No acute abnormality the abdomen or pelvis. 2.? Status post left-sided colectomy. Right-sided ostomy. No acute abnormality of the bowel. 3.? Abdominal aortic aneurysm with stent in place. 4.? Status post cholecystectomy. 5.? Atrophic left kidney. Nonobstructive stones in the right kidney. No ureteral stone or hydronephrosis. Dictated By: Urban Mac MD Signed By: Electronically signed by Urban Mac MD 07/24/22 [id number] Independent Historian Clinical information obtained from an independent historian. History obtained from or confirmed by: EMS Discharge Plan Discharge Clinical Impression: Atrophic kidney, Weakness, Hypomagnesemia Patient Disposition: Home, Self-Care Instructions: Weakness (ED), Hypomagnesemia (ED) Additional Instructions: Follow up with your primary care provider, vehicle return associate, and your client leader. Return to the emergency department immediately if your symptoms worsen or if you develop any dizziness, shortness of breath, difficulty breathing, chest pain, blurry vision, loss of vision, nausea, vomiting, abdominal pain, fever, chills, back pain, or any other complaints. Prescriptions: New doxycycline hyclate 100 mg tablet 100 mg PO BID 7 Days Qty: 14 0RF No Action levothyroxine 137 mcg tablet 137 mcg PO DAILY 90 Days Qty: 90 3RF hydralazine 50 mg tablet 100 mg PO TID 90 Days Qty: 540 2RF Rx Instructions: This is the corrected dose 02/28/2021 ( Nephrology changed dose to this one) metoprolol succinate 100 mg tablet extended release 24 hr 150 mg PO DAILY Qty: 135 3RF isosorbide mononitrate 30 mg tablet extended release 24 hr 30 mg PO DAILY 90 Days Qty: 90 2RF cholecalciferol (vitamin D3) 25 mcg (1,000 unit) tablet 25 mcg PO DAILY Qty: 90 0RF tramadol 50 mg tablet 50 mg PO Q6-8H PRN (Reason: Pain) Qty: 230 1RF Rx Instructions: 1-2 tablets every 6-8 hours as needed for pain; Referrals: Po,Carla Fuchs MD [Primary Care Provider] - Interventions: ED Discharge Assessment Last Done: 07/24/22 18:17 Discharge Date/Time: 07/24/22 18:17 Print Language: Marshallese
[2022-07-24 12:53] VITALS: BP 197/97; PULSE 63; O2SAT 96
--- NOTE | 2022-07-24 12:53 | ECG_ITS ---
Test Reason : chest pain Blood Pressure : / mmHG Vent. Rate : 065 BPM Atrial Rate : 065 BPM P-R Int : 126 ms QRS Dur : 104 ms QT Int : 440 ms P-R-T Axes : 080 072 075 degrees QTc Int : 457 ms Normal sinus rhythm Right atrial enlargement Minimal voltage criteria for LVH, may be normal variant ( [place] product ) Borderline ECG When compared with ECG of 06-DEC-2021 14:32, No significant change was found Referred By: Lorraine Lucas Electronically Signed By:Tashi Jha
[2022-07-24 13:17] VITALS: BP 190/88; PULSE 63; RESP 14; TEMP 36.6; O2SAT 96; BMI 30.1
[2022-07-24 14:10] LABS: Basophils Percent Auto 0.3 % (0-2); Eosinophils Percent Auto 0.3 % (0-4); Hemoglobin 9.1 g/dl (12.0-16.0); Imm Gran Abs Auto 0.01 X10*3/uL (0.00-0.03); Imm Gran Pct Auto 0.3 % (0.0-0.4); Lymphocytes Absolute Auto 0.4 X10*3/uL (1.2-4.9); Lymphocytes Percent Auto 11.7 % (20-40); MANUAL DIFF FLAG SCAN; Mean Corpuscular HGB Conc 32.5 g/dl (31.0-35.0); Mean Corpuscular Hemoglobin 29.4 pg (27.0-33.0); Mean Corpuscular Volume 90.3 fL (80.0-98.0); Monocytes Absolute Auto 0.2 X10*3/uL (0.1-1.2); Monocytes Percent Auto 5.8 % (2-11); Neutrophils Absolute Auto 2.5 x10*3/uL (2.0-8.3); Neutrophils Percent Auto 81.6 % (45-73); PLT CLUMP 1; Red Cell Distribution Width 13.4 % (11.0-16.0); SCAN SMEAR FLAG 1
[2022-07-24 14:16] VITALS: BP 173/82; PULSE 65; RESP 14; O2SAT 99
[2022-07-24 14:24] LABS: Alanine Aminotransferase < 6 U/L (0-31); Albumin Level 2.6 g/dL (3.5-5.0); Alkaline Phosphatase 76 U/L (39-117); Anion Gap 12 (12-20); Aspartate Amino Transferase 16 U/L (5-31); Bilirubin Total 0.5 mg/dL (0.0-1.0); Blood Urea Nitrogen 22 mg/dL (9-16); Calcium 8.2 mg/dL (8.4-10.2); Carbon Dioxide 23 mmol/L (22-29); Chloride 103 mmol/L (96-108); Creatinine Clr Calc Pharmacy 25.9; Estimated Glomerular Filt Rate 24; Glucose Random 78 mg/dL (60-115); Magnesium 1.4 mg/dL (1.6-2.6); Potassium 3.6 mmol/L (3.3-5.1); Sodium 134 mmol/L (135-145); Total Protein 6.8 g/dL (6.5-8.0)
[2022-07-24 14:25] LABS: B Type Natriuretic Peptide 311 pg/mL (<100)
[2022-07-24 14:27] LABS: Troponin-I High Sensitivity 3.7 ng/L (<3.5-17.0)
[2022-07-24 14:34] LABS: White Blood Count 3.1 X10*3/uL (4.8-10.8)
[2022-07-24 14:45] LABS: Influenza A PCR NEGATIVE (Negative); Influenza B PCR NEGATIVE (Negative); Resp Syncy Virus RNA Qual PCR NEGATIVE (Negative); SARS COV2 PCR INHOUSE NEGATIVE (Negative)
[2022-07-24 14:52] LABS: SLIDE REVIEW VERIFIED
[2022-07-24] MEDS: Magnesium Sulfate/H2O 2 GM/50 ML PIGGYBACK IV (14:52)
[2022-07-24 18:16] VITALS: BP 163/77; PULSE 74; RESP 18; TEMP 37.3; O2SAT 98
== END 2022-07-24 18:17 | disposition home or self-care (01) ==
PROVIDERS: Physician Assistant Medical; Emergency Provider Emergency Medicine; PCP Internal Medicine
DX: R07.89 Other chest pain (principal); E83.42 Hypomagnesemia; N28.9 Disorder of kidney and ureter, unspecified; R06.02 Shortness of breath; R10.9 Unspecified abdominal pain; M54.6 Pain in thoracic spine; F17.210 Nicotine dependence, cigarettes, uncomplicated; Z20.822 Contact with and (suspected) exposure to COVID-19; Z20.828 Contact with and (suspected) exposure to other viral communicable diseases; Z71.6 Tobacco abuse counseling; Z79.899 Other long term (current) drug therapy
CPT/HCPCS: 0241U; 71250; 74176; 80053; 83735; 83880; 84484; 85025; 93005; 96365; 96366; 99284; 99285; J3475

== ENCOUNTER 2022-08-22 14:34 | Outpatient (REF) | payer MEDICARE, SELFPAY ==
[2022-08-22 16:35] LABS: Hematocrit 27.5 % (37.0-47.0); Hemoglobin 8.6 g/dl (12.0-16.0); Immature Retic Fraction 10.5 % (3.0-15.9); Mean Corpuscular HGB Conc 31.3 g/dl (31.0-35.0); Mean Corpuscular Hemoglobin 28.9 pg (27.0-33.0); Mean Corpuscular Volume 92.3 fL (80.0-98.0); Mean Platelet Volume 12.3 fL (9.4-12.3); Red Blood Count 2.98 X10*6/uL (4.20-5.50); Red Cell Distribution Width 13.9 % (11.0-16.0); Retic HGB Equivalent 34.7 pg (30.0-35.0); Reticulocyte Percent 1.5 % (0.5-1.8); Reticulocytes Absolute 0.044 X10*6/uL (0.026-0.095); White Blood Count 3.3 X10*3/uL (4.8-10.8)
[2022-08-22 16:55] LABS: Alanine Aminotransferase 9 U/L (0-31); Albumin Level 2.6 g/dL (3.5-5.0); Alkaline Phosphatase 82 U/L (39-117); Anion Gap 13 (12-20); Aspartate Amino Transferase 18 U/L (5-31); Bilirubin Total 0.2 mg/dL (0.0-1.0); Blood Urea Nitrogen 26 mg/dL (9-16); C Reactive Protein 4.59 mg/dL (< or = 0.50); Calcium 8.2 mg/dL (8.4-10.2); Carbon Dioxide 22 mmol/L (22-29); Chloride 104 mmol/L (96-108); Cholesterol 139 mg/dL; Estimated Glomerular Filt Rate 26; Glucose Random 81 mg/dL (60-115); HDL Cholesterol 30 mg/dL; LDL Cholesterol Calculated 83 mg/dl; Potassium 3.9 mmol/L (3.3-5.1); Sodium 135 mmol/L (135-145); Total Protein 6.9 g/dL (6.5-8.0); Triglycerides 131 mg/dL
[2022-08-22 17:23] LABS: Ferritin 297 ng/mL (10-250); Folate 6.2 ng/mL (> or = 4.0); Thyroid Stimulating Hormone 0.56 uIU/mL (0.32-4.0); Vitamin B12 620 pg/mL (200-900)
[2022-08-22 17:28] LABS: Erythrocyte Sedimentation Rate 59 MM/HR (0-20)
[2022-08-27 12:57] LABS: Anti Nuclear Antibody Pattern Nuclear, Homogeneous; Anti Nuclear Antibody Screen POSITIVE (NEGATIVE)
== END 2022-08-22 14:35 | disposition home or self-care (01) ==
LOC: HO.HVNA 14:34
PROVIDERS: PCP Internal Medicine; Visit Provider Internal Medicine
DX: I12.9 Hypertensive chronic kidney disease with stage 1 through stage 4 chronic kidney disease, or unspecified chronic kidney disease (principal); N18.32 Chronic kidney disease, stage 3b; D64.9 Anemia, unspecified
CPT/HCPCS: 36415; 80053; 80061; 82607; 82728; 82746; 84443; 85027; 85045; 85652; 86038; 86039; 86140

== ENCOUNTER 2022-10-04 15:09 | Emergency (ER) | payer MEDICARE, SELFPAY ==
--- NOTE | 2022-10-04 | ECG_ITS ---
Test Reason : CHEST PAIN Blood Pressure : / mmHG Vent. Rate : 055 BPM Atrial Rate : 055 BPM P-R Int : 118 ms QRS Dur : 098 ms QT Int : 460 ms P-R-T Axes : 077 066 073 degrees QTc Int : 440 ms Sinus bradycardia Possible Left atrial enlargement Minimal voltage criteria for LVH, may be normal variant ( Terrance product ) Borderline ECG When compared with ECG of 24-JUL-2022 13:33, No significant change was found Referred By: Generic ED Physician Electronically Signed By:Tashi Jha
--- NOTE | ~2022-10-04 | XR_ITS ---
EXAMINATION: XR CHEST CLINICAL INFORMATION: Chest pain COMPARISON: 12/06/2021.. CT dated 07/24/2022 TECHNIQUE: 2 views of the chest were obtained. FINDINGS: Basilar opacity. This may represent a small area of atelectasis or infiltrate. Otherwise markings throughout the lungs are felt to be comparable to previous. There is a nodular opacity in the left lower lung zone which I believe is documented on CT from July. The cardiac silhouette is comparable. The hilar structures do not appear pathologically enlarged. There is no effusion. XR/XR chest 2V IMPRESSION: Mild left medial basilar opacity may be consistent with a new small area of atelectasis or infiltrate. Differential this would be a soft tissue overlying the patient. Follow-up recommended. Other findings as described above. The patient is scheduled for follow-up chest CT
--- NOTE | ~2022-10-04 | CT_ITS ---
EXAMINATION: CT CHEST, ABDOMEN AND PELVIS WITHOUT IV CONTRAST CLINICAL INFORMATION: Left lower quadrant abdominal pain with ileostomy. Chest pain. COMPARISON: Chest x-ray 10/04/[address] chest and abdomen 07/24/2022. TECHNIQUE: 5 mm thin axial and reformatted 3 mm thin sagittal and coronal images of chest, abdomen pelvis were obtained without IV contrast. This CT examination was performed using dose optimization technique as appropriate, variously including the following: Automated exposure control. Adjustment of MA and/or KV according to patient size(this includes techniques or standardized protocols for targeted exams where dose is matched to indication/reason for exam; extremities or head. Use of iterative reconstruction techniques. DLP: 377 mGy-cm FINDINGS: CHEST: Lungs: The lungs are well expanded with patchy focal opacity left in the upper lobe anterior segment. Previously seen ill-defined opacity seen in the right upper lobe along the right middle fissure has significantly improved and resolved. Plate-like atelectasis seen in the right lower lobe lateral basal segment and the lingula. No additional patchy opacities seen. The lungs are hyperinflated, however, there is a shift of mediastinum to the right likely secondary to hyperinflation of the left lung or loss of right lung volume. Mediastinum: Heart size is normal. There is significant atherosclerotic calcification of coronary arteries and the aortic valve. There is aneurysmal dilatation of distal abdominal aorta measuring 6 cm x 4.7 cm on axial image 50/5. There is upper abdominal/distal descending thoracic aorta stent in place. No abnormal size mediastinal lymph nodes or mass. No pericardial effusion. Pleura: There is no pleural effusion or thickening. No calcified pleural plaques. Axilla: No abnormal axillary lymph nodes or mass seen. The chest wall is unremarkable. Osseous Structures: There is a sclerotic density in the left proximal humerus question bone island. No aggressive lytic process. There is exaggerated thoracic kyphosis. Endplate Schmorl's node seen in the lower dorsal vertebra. ABDOMEN AND PELVIS: Liver, Ducts and Gallbladder: The liver is homogeneous in density, enlarged in size and normal contour. The liver measures 17 cm in length. There is a 5 mm hypodensity inferior right hepatic lobe, unchanged. No additional lesion seen. No intrahepatic ductal dilatation seen. CBD is dilated, an expected finding post cholecystectomy with CBD measuring 1.4 cm. Gallbladder has been surgically removed. Spleen: Unremarkable. Pancreas: Atrophic. Adrenal Glands: Barely visible but unremarkable. Kidneys and Ureters: The left kidney is atrophic with multiple radiopaque stones throughout the kidney. The right kidney is normal size with probable cyst in the upper pole measuring 2.1 x 1.8 cm and approximately 0 to -2 HU. There is no hydronephrosis. Lymphovascular Structures: There is aneurysmal dilatation of proximal mid and distal abdominal aorta with stent throughout the abdominal aorta unchanged to the previous study. No abnormal retroperitoneal lymph nodes seen. GI Tract: Scattered stool and gas throughout the colon without significant distention. There is a right lower quadrant colostomy following colectomy. The small bowel loops are nondilated. The stomach is nondistended. Pelvis: The urinary bladder is distended. No free air or free fluid seen. No adnexal mass. The uterus is not visualized. Abdominal Wall: There is no evidence of hernia except for right lower quadrant colostomy. Osseous Structures: No aggressive lytic or sclerotic process seen. Mild facet joint arthropathy seen at the L5-S1 disc level. CT/CT abdomen pelvis wo IV con IMPRESSION: 1. 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 Previously seen right upper lobe patchy opacity adjacent to the minor fissure has resolved. 2. Patchy opacity in the left upper lobe anterior segment is unchanged. Plate-like atelectasis right lung base lateral segment and lingula is stable. 3. Descending thoracic and abdominal aortic aneurysm is stable. There is a stent throughout the descending thoracic and abdominal aorta. It is stable. 4. Atrophic left kidney with stones is unchanged. The right kidney is normal size with probable cyst in the upper pole and kidney stones but no hydronephrosis. 5. Mild hepatomegaly with cholecystectomy changes and prominent CBD, stable. 6. Right lower quadrant colostomy but probable colectomy changes are stable. There is no bowel distention. No free fluid. 7. Slightly distended urinary bladder.
[2022-10-04 15:17] VITALS: BP 183/89; PULSE 56; O2SAT 100
[2022-10-04 15:23] VITALS: BP 152/87; PULSE 56; RESP 18; TEMP 36.8; O2SAT 95; BMI 13.6
[2022-10-04 15:27] VITALS: BP 152/87; PULSE 56; RESP 18; TEMP 36.8; O2SAT 95
--- NOTE | 2022-10-04 15:33 | ED_ITS ---
HPI - Chest Pain General Chief Complaint: Chest Pain Stated Complaint: ABD/CP X'S 3 DAYS PER EMS Time Seen by Provider: 10/04/22 15:30 Source: patient Mode of arrival: ambulatory Limitations: no limitations History of Present Illness HPI narrative: 66-year-old female with history of chronic kidney disease ileostomy atrophic kidney anemia in your dissection repair presents to emergency department complaining of chest pain abdominal pain. Patient was last seen here in July for weakness and dehydration she had fluids given labs checked her chronic kidney disease was not much worse than previous and was sent home today she just is complaining of chest pain which is related to any kind of eating. She denies any fevers or falls denies nausea vomiting or diarrhea. MD complaint: chest pain Related Data Previous Rx's Medication Instructions Recorded hydralazine 50 mg tablet 100 mg PO TID 90 days #540 tabs 10/23/21 metoprolol succinate 100 mg 150 mg PO DAILY #135 tabs 10/23/21 tablet,extended release 24 hr isosorbide mononitrate 30 mg 30 mg PO DAILY 90 days #90 tabs 10/26/21 tablet,extended release 24 hr cholecalciferol (vitamin D3) 25 25 mcg PO DAILY #90 tabs 03/01/22 mcg (1,000 unit) tablet tramadol 50 mg tablet 50 mg PO Q6-8H PRN Pain #230 tabs 09/20/22 levothyroxine 137 mcg tablet 137 mcg PO DAILY 90 days #90 tabs 09/24/22 Allergies Allergy/AdvReac Type Severity Reaction Status Date / Time sumatriptan [From IMITREX] Allergy Severe ANGIOEDEMA Verified 10/04/22 15:20 atorvastatin [Lipitor] Allergy Unknown n Verified 10/04/22 15:20 rosuvastatin [Crestor] Allergy Unknown n Verified 10/04/22 15:20 simvastatin Allergy Unknown n Verified 10/04/22 15:20 pravastatin AdvReac Intermediate shaking Verified 10/04/22 15:20 muscle pain From IMITREX Allergy Severe ANGIOEDEMA Uncoded 08/17/22 10:14 Plavix Allergy Unknown rash Uncoded 08/17/22 10:14 Review of Systems Review of Systems: Review of systems: General: Patient denies any fever chills recent illness or falls Musculoskeletal: Denies back pain or body aches or other injuries HEENT: denies headache, runny nose, ear pain Respiratory: denies shortness of breath, cough Cardiovascular: no chest pain or palpitations : denies dysuria, frequency Abdomen: no nausea vomiting denies abdominal pain Extremities: no swelling, no pain Skin: no diaphoresis Yes all other systems are reviewed and are negative [facility]LY [facility] Past Medical History Medical History Anxiety Cataract Chronic kidney disease (CKD) stage G4/A1, severely decreased glomerular filtration rate (GFR) between 15-29 mL/min/1.73 square meter and albuminuria creatinine ratio less than 30 mg/g Chronic low back pain COPD (chronic obstructive pulmonary disease) History of renal calculi Hypercholesterolemia Hypertension Insomnia Physical deconditioning Pulmonary nodules Sacral decubitus ulcer, stage III Vitamin D deficiency Wrist laceration Surgical History AAA (abdominal aortic aneurysm) History of colectomy History of rectal surgery Hx of cataract surgery Hx of cholecystectomy S/P AICHA-BSO Family History Family History (Updated 08/17/22 @ 10:15 by Katy Rosa CMA) Mother Hypertension Father Lung cancer Brother Skin cancer (melanoma) Social History Social History Household Members: Spouse Housing: House Do you presently have visiting nurse or other home services: No Alcohol intake: never Patient Tobacco Use Status: Current someday Tobacco user Tobacco use type: Cigarette (2 cigarettes a week) Smoked in Last 30 Days: Yes e-Cigarette/Vaping Use: Never Used Second Hand Smoke Exposure: No Use of substances other than those prescribed or required for medical reasons: No Advance Directives: Yes Advance Directives Information Provided: No Advance Directives on File: No service: No Current occupational status: retired Current occupation: left handed Cognitive needs: Yes (wheelchair) Hearing needs: Yes (hearing aids) Vision needs: Yes Physical Exam Vital Signs: Vital Signs: Last Vital Signs Temp 98.2 F 10/04/22 19:17 Pulse 65 10/04/22 19:17 Resp 17 10/04/22 19:17 BP 175/80 H 10/04/22 19:17 Pulse Ox 99 10/04/22 19:17 O2 Del Method Room Air 10/04/22 19:17 BMI result Body Mass Index 13.6 General: Very thin baseline ill-appearing but she appears to be in no signs of distress HEENT: Normocephalic atraumatic Neck: No signs of JVD, no masses no tenderness or lymphadenopathy Cardiovascular: Regular rate and rhythm Respiratory: Clear to auscultation bilaterally Abdomen: Soft patient does have an ileostomy in place to the right mid abdomen she is tender all over the abdomen on palpation Extremities: Normal pedal pulses no signs of edema Skin: Dry warm no rashes Back: No tenderness full ROM Medications Administered Discontinued Medications Generic Name Dose Route Start Last Admin Trade Name Freq PRN Reason Stop Dose Admin Sodium Chloride 1,000 mls @ 999 mls/hr 10/04/22 15:30 10/04/22 17:49 Ns IV 10/04/22 16:30 Infused .Q1H1M YUNI Infusion Sodium Chloride 1,000 mls @ 999 mls/hr 10/04/22 15:45 10/04/22 19:51 Ns IV 10/04/22 16:45 Infused .Q1H1M YUNI Infusion Medical Decision Making Medical Decision Making [facility] Narrative: 66-year-old female very me seated very thin has not been able to eat for several months she was last seen here for the same thing approximately [address] chest abdomen pelvis are all unremarkable there is no acute issues that I can see. I did review the multiple times all looks like chronic findings. Her labs are unremarkable including urinalysis I will have reason for this patient to be admitted her vitals have remained stable with slightly elevated blood pressure I spoke with the patient who is happy with plan to go home I do think has a lot of chronic findings since she is alert oriented I will discharge the patient home she call her who came to the bedside and was happy to take her home. Differential Diagnosis Differential Diagnoses: The differential diagnosis associated with the pres entation includes Concern for intravascular dissection acute kidney injury on top of chronic renal disease abdominal pain related to previous surgery or new diverticulitis decreased appetite dehydration electrolyte abnormality UTI or pneumonia Admission/Observation Consideration of admission/observation: Escalation of care including admission/observation considered Lab Data [facility] Lab Attestation statement: I reviewed the patient's lab results. 10/04/22 15:46 10/04/22 15:46 Labs: Lab Results 10/04/22 10/04/22 10/04/22 Range/Units 15:46 15:46 15:46 WBC 2.9 L (4.8-10.8) X10*3/uL RBC 3.13 L (4.20-5.50) X10*6/uL Hgb 9.0 L (12.0-16.0) g/dl Hct 28.9 L (37.0-47.0) % MCV 92.3 (80.0-98.0) fL MCH 28.8 (27.0-33.0) pg MCHC 31.1 (31.0-35.0) g/dl RDW 13.6 (11.0-16.0) % Plt Count 105 L D (160-400) X10*3/uL MPV 10.2 (9.4-12.3) fL Immature Gran % (Auto) 1.0 H (0.0-0.4) % Neut % (Auto) 77.2 H (45-73) % Lymph % (Auto) 17.0 L (20-40) % [place] % (Auto) 4.5 (2-11) % Eos % (Auto) 0.0 (0-4) % Baso % (Auto) 0.3 (0-2) % Lymph # (Auto) 0.5 L (1.2-4.9) X10*3/uL [place] # (Auto) 0.1 (0.1-1.2) X10*3/uL Eos # (Auto) 0.0 (0.0-0.4) X10*3/uL Baso # (Auto) 0.0 (0.0-0.2) X10*3/uL Abs Immat Gran (auto) 0.03 (0.00-0.03) X10*3/uL Absolute Neuts (auto) 2.2 (2.0-8.3) x10*3/uL Absolute Nucleated RBC 0.000 (0.0-0.012) X10*3/uL Nucleated RBC % (auto) 0.0 (0.0-0.2) /100WBC Sodium 133 L (135-145) mmol/L Potassium 4.1 (3.3-5.1) mmol/L Chloride 104 (96-108) mmol/L Carbon Dioxide 23 (22-29) mmol/L Anion Gap 10 L (12-20) BUN 21 H (9-16) mg/dL Creatinine 1.82 H (0.5-1.4) mg/dL Estim Creat Clear Calc 17.0 Estimated GFR 28 Random Glucose 71 (60-115) mg/dL Calcium 8.1 L (8.4-10.2) mg/dL Total Bilirubin 0.7 (0.0-1.0) mg/dL AST 19 (5-31) U/L ALT 5 (0-31) U/L Alkaline Phosphatase 82 (39-117) U/L Troponin I High Sens 3.2 (<3.5-17.0) ng/L Total Protein 6.8 (6.5-8.0) g/dL Albumin 2.2 L (3.5-5.0) g/dL Lipase 20 (8-78) U/L Urine Color Urine Appearance Urine pH (5.0-9.0) Ur Specific [place] (1.005-1.025) Urine Protein (Neg-Trace) mg/dL Urine Glucose (UA) (Negative) mg/dL Urine Ketones (Negative) mg/dL Urine Blood (Negative) Urine Nitrite (Negative) Ur Leukocyte Esterase (Negative) Urine RBC (0-2) /HPF Urine WBC (0-5) /HPF Ur Squamous Epith Cells (0-2) /HPF Urine Bacteria (None Seen) Hyaline Casts (0-2) /LPF 10/04/22 Range/Units 18:15 WBC (4.8-10.8) X10*3/uL RBC (4.20-5.50) X10*6/uL Hgb (12.0-16.0) g/dl Hct (37.0-47.0) % MCV (80.0-98.0) fL MCH (27.0-33.0) pg MCHC (31.0-35.0) g/dl RDW (11.0-16.0) % Plt Count (160-400) X10*3/uL MPV (9.4-12.3) fL Immature Gran % (Auto) (0.0-0.4) % Neut % (Auto) (45-73) % Lymph % (Auto) (20-40) % [place] % (Auto) (2-11) % Eos % (Auto) (0-4) % Baso % (Auto) (0-2) % Lymph # (Auto) (1.2-4.9) X10*3/uL [place] # (Auto) (0.1-1.2) X10*3/uL Eos # (Auto) (0.0-0.4) X10*3/uL Baso # (Auto) (0.0-0.2) X10*3/uL Abs Immat Gran (auto) (0.00-0.03) X10*3/uL Absolute Neuts (auto) (2.0-8.3) x10*3/uL Absolute Nucleated RBC (0.0-0.012) X10*3/uL Nucleated RBC % (auto) (0.0-0.2) /100WBC Sodium (135-145) mmol/L Potassium (3.3-5.1) mmol/L Chloride (96-108) mmol/L Carbon Dioxide (22-29) mmol/L Anion Gap (12-20) BUN (9-16) mg/dL Creatinine (0.5-1.4) mg/dL Estim Creat Clear Calc Estimated GFR Random Glucose (60-115) mg/dL Calcium (8.4-10.2) mg/dL Total Bilirubin (0.0-1.0) mg/dL AST (5-31) U/L ALT (0-31) U/L Alkaline Phosphatase (39-117) U/L Troponin I High Sens (<3.5-17.0) ng/L Total Protein (6.5-8.0) g/dL Albumin (3.5-5.0) g/dL Lipase (8-78) U/L Urine Color Yellow Urine Appearance Clear Urine pH 5.5 (5.0-9.0) Ur Specific [place] 1.015 (1.005-1.025) Urine Protein 100 (2+) H (Neg-Trace) mg/dL Urine Glucose (UA) Negative (Negative) mg/dL Urine Ketones Negative (Negative) mg/dL Urine Blood Small (1+) H (Negative) Urine Nitrite Negative (Negative) Ur Leukocyte Esterase Trace H (Negative) Urine RBC 11-20 H (0-2) /HPF Urine WBC 0-5 (0-5) /HPF Ur Squamous Epith Cells 0-2 (0-2) /HPF Urine Bacteria None Seen (None Seen) Hyaline Casts 0-2 (0-2) /LPF Independent Interpretation I performed an independent interpretation of an: EKG Interpretation: Rate 55 normal sinus rhythm normal intervals no signs of ischemia Independent Historian Clinical information obtained from an independent historian. History obtained from or confirmed by: EMS External Record Review External record reviewed: Inpatient record Discharge Plan Discharge Clinical Impression: Weakness, Chest pain, Abdominal pain Patient Disposition: Home, Self-Care Instructions: Chest Pain (DC), Weakness (ED), Abdominal Pain (ED) Additional Instructions: You were seen today at [facility] for chest pain and abdominal pain. You had a CT scan of your chest abdomen pelvis as well as multiple labs and urinalysis that were all normal Please call follow-up with her doctor if you have worsening pain or any other concerns please do not hesitate to come back to emergency department. Prescriptions: No Action hydralazine 50 mg tablet 100 mg PO TID 90 Days Qty: 540 2RF Rx Instructions: This is the corrected dose 02/28/2021 ( Nephrology changed dose to this one) metoprolol succinate 100 mg tablet extended release 24 hr 150 mg PO DAILY Qty: 135 3RF isosorbide mononitrate 30 mg tablet extended release 24 hr 30 mg PO DAILY 90 Days Qty: 90 2RF cholecalciferol (vitamin D3) 25 mcg (1,000 unit) tablet 25 mcg PO DAILY Qty: 90 0RF tramadol 50 mg tablet 50 mg PO Q6-8H PRN (Reason: Pain) Qty: 230 1RF Rx Instructions: 1-2 tablets every 6-8 hours as needed for pain; levothyroxine 137 mcg tablet 137 mcg PO DAILY 90 Days Qty: 90 3RF
[2022-10-04] MEDS: 0.9 % Sodium Chloride 1,000 ML 999 ML IV ×2 (15:34→17:49)
[2022-10-04 15:50] LABS: MANUAL DIFF FLAG NO
[2022-10-04 15:53] LABS: Basophils Percent Auto 0.3 % (0-2); Hematocrit 28.9 % (37.0-47.0); Imm Gran Abs Auto 0.03 X10*3/uL (0.00-0.03); Lymphocytes Absolute Auto 0.5 X10*3/uL (1.2-4.9); Mean Corpuscular HGB Conc 31.1 g/dl (31.0-35.0); Mean Corpuscular Hemoglobin 28.8 pg (27.0-33.0); Mean Corpuscular Volume 92.3 fL (80.0-98.0); Mean Platelet Volume 10.2 fL (9.4-12.3); Monocytes Absolute Auto 0.1 X10*3/uL (0.1-1.2); Monocytes Percent Auto 4.5 % (2-11); Neutrophils Absolute Auto 2.2 x10*3/uL (2.0-8.3); Neutrophils Percent Auto 77.2 % (45-73); Platelet Count 105 X10*3/uL (160-400); Red Blood Count 3.13 X10*6/uL (4.20-5.50); Red Cell Distribution Width 13.6 % (11.0-16.0); White Blood Count 2.9 X10*3/uL (4.8-10.8)
[2022-10-04 16:14] LABS: Troponin-I High Sensitivity 3.2 ng/L (<3.5-17.0)
[2022-10-04 16:20] LABS: Alanine Aminotransferase 5 U/L (0-31); Albumin Level 2.2 g/dL (3.5-5.0); Alkaline Phosphatase 82 U/L (39-117); Anion Gap 10 (12-20); Aspartate Amino Transferase 19 U/L (5-31); Bilirubin Total 0.7 mg/dL (0.0-1.0); Blood Urea Nitrogen 21 mg/dL (9-16); Calcium 8.1 mg/dL (8.4-10.2); Carbon Dioxide 23 mmol/L (22-29); Chloride 104 mmol/L (96-108); Estimated Glomerular Filt Rate 28; Glucose Random 71 mg/dL (60-115); Lipase 20 U/L (8-78); Potassium 4.1 mmol/L (3.3-5.1); Sodium 133 mmol/L (135-145); Total Protein 6.8 g/dL (6.5-8.0)
--- NOTE | 2022-10-04 17:50 | PC.NURSE ---
pt a&ox3, vss, 20G IV placed right forearm, NS running per provider order, pt pending urine sample and CT scan results. supervisor soakers applied, vss, pt continues to report 6/10 chest pain. no new orders at this time.
[2022-10-04 18:49] LABS: Appearance Urine Clear; Color Urine Yellow; Glucose Urine UA Negative (Negative); Leukocyte Esterase Urine Trace (Negative); Nitrite Urine Negative (Negative); PH 5.5 (5.0-9.0); Specific Gravity - Urine 1.015 (1.005-1.025); UMIC TRIGGER UACC YES; Urine Blood Small (1+) (Negative); Urine Ketones Negative (Negative); Urine Protein 100 (2+) mg/dL (Neg-Trace)
[2022-10-04 18:56] LABS: Bacteria Urine None Seen (None Seen); Hyaline Casts Urine 0-2 /LPF (0-2); Squamous Epithelial Cell Urine 0-2 /HPF (0-2); WBC Urine 0-5 /HPF (0-5)
[2022-10-04 19:17] VITALS: BP 175/80; PULSE 65; RESP 17; TEMP 36.8; O2SAT 99
--- NOTE | 2022-10-04 19:56 | PC.NURSE ---
spoke with family to update on plan for discharge, plan to come pick remover pt.
--- NOTE | 2022-10-04 20:50 | PC.NURSE ---
assumed care of pt no apparent distress at bedside
[2022-10-04 20:56] VITALS: BP 153/66; PULSE 62; RESP 20; TEMP 36.4; O2SAT 98
--- NOTE | 2022-10-04 21:38 | PC.NURSE ---
no apparent distress discharge instructions given and explained aox3 at bedside IV cath intact upon removal periwick removed
== END 2022-10-04 21:22 | disposition home or self-care (01) ==
PROVIDERS: Emergency Provider Student in an Organized Health Care Education/Training Program; PCP Internal Medicine
DX: R53.1 Weakness (principal); R07.9 Chest pain, unspecified; R10.9 Unspecified abdominal pain; I12.9 Hypertensive chronic kidney disease with stage 1 through stage 4 chronic kidney disease, or unspecified chronic kidney disease; N18.30 Chronic kidney disease, stage 3 unspecified; N17.9 Acute kidney failure, unspecified; E78.00 Pure hypercholesterolemia, unspecified; R63.6 Underweight; Z68.1 Body mass index [BMI] 19.9 or less, adult; Z93.2 Ileostomy status; F17.210 Nicotine dependence, cigarettes, uncomplicated; Z79.899 Other long term (current) drug therapy
CPT/HCPCS: 36415; 71046; 71250; 74176; 80053; 81001; 83690; 84484; 85025; 93005; 96360; 96361; 99285

== ENCOUNTER → 2023-02-27 | Outpatient (RCR) | payer MEDICARE, SELFPAY ==
[2021-04-07 10:34] VITALS: BP 134/70; PULSE 61; RESP 12; TEMP 36.2; O2SAT 99; BMI 17.6
[2021-04-07 11:45] LABS: Hemoglobin 8.4 g/dl (12.0-16.0); IG%MD 0.9 %; Immature Retic Fraction 5.3 % (3.0-15.9); Lymph%MD 13.9 %; Mean Corpuscular HGB Conc 32.3 g/dl (31.0-35.0); Mean Corpuscular Hemoglobin 30.3 pg (27.0-33.0); Mean Corpuscular Volume 93.9 fL (80-98); Mean Platelet Volume 9.7 fL (9.4-12.3); Mono%MD 4.6 %; Neut%MD 80.6 %; Platelet Count 156 X10*3/uL (160-400); Red Blood Count 2.77 X10*6/uL (4.20-5.50); Red Cell Distribution Width 13.5 % (11.0-16.0); Retic HGB Equivalent 32.3 pg (30.0-35.0); Reticulocyte Percent 1.7 % (0.5-1.8); Reticulocytes Absolute 0.046 X10*6/uL (0.026-0.095); White Blood Count 3.2 X10*3/uL (4.8-10.8)
[2021-04-07 12:29] LABS: Band Neutrophils Percent 22 % (3-5); Lymphocytes Absolute Manual 0.4 X10*3/uL (0.6-4.8); Lymphocytes Percent Manual 13 % (20-40); Monocytes Absolute Manual 0.1 X10*3/uL (0.0-1.2); Monocytes Percent Manual 2 % (2-11); Neutrophils Absolute Manual 2.7 X10*3/uL (2.2-7.9); Neutrophils Percent Manual 63 % (45-73)
[2021-04-07 12:31] LABS: Hypochromasia 1+ (5-14) /OIF; RBC Morphology NOTED
[2021-04-07 12:32] LABS: Platelet Estimate SLIGHTLY DECREASED (NORMAL); Platelet Morphology Comment NORMAL
[2021-04-07 12:33] LABS: Tear Drop Cells 2+ (3-5) /OIF
[2021-04-07 12:42] LABS: Ferritin 390 ng/mL (10-250)
--- NOTE | 2021-04-07 13:47 | P.CNHO_ITS ---
Subjective - Subjective Chief complaint: Consult for: Anemia. Patient: new to practice Consult date: 04/07/21 Requesting Physician: Rodo. Primary Care Provider: Carla Koehler MD Medical Summary: DIAGNOSIS: ANEMIA. HPI - Consult Narrative Reason for consult: Consult for: Anemia. Narrative: Hayley Bassett is a pleasant 65 year old lady, referred here for history of anemia by Dr. Koehler. She was actually admitted to the hospital back in December: For dog bite/cellulitis of right hand. She was treated with zosyn. Cultures negative. Was seen by ortho who recommended no surgical intervention. She had noted improvement and completed 10 more days of augmentin. blood pressure was noted to be uncontrolled, hydralazine increased to 100mg tid. Also seen by wound care for chronic stage III pressure ulcer. She did mention that she had persistent bleeding from the pressure sore. During her stay, she was noted to be anemic. Hemoglobin was 7.6. She was given 2 units of packed RBCs. Hemoglobin came up to 12.6. It has drifted down since then. CBC from 03/28: WBC 3.2/hemoglobin 8.9/hematocrit 26/MCV 93.9/PLT 156. Philipp platelet count was 113 back in December. ROS: She tells me she has 0 energy. No fever chills. Appetite is good. Weight was lost down to 93 now up to 99 lb. She denies headaches. His sometimes loses her balance upon walking and shakes. No chest pain or trouble breathing. She denies abdominal pain nausea vomiting heartburn indigestion. Bowels are working without any gross blood in it. Denies dysuria or hematuria. She has arthritis in her hands. She feels depressed when she notices that she cannot clean as well as she used to. No skin rash is not pruritus. FAMILY HISTORY: Her sister has anemia. There is a cancer in the family an aunt has breast cancer. Another aunt stomach cancer. There is lung and skin cancer in the family as well. SOCIAL HISTORY: She worked as a food checkers and cashiers supervisor. She is . She has 1 child. She smokes. One pack would last her a week. Denies alcohol. Review of Systems - Constitutional Reports system reviewed and no additional complaints, except as documented, Reports fatigue, Reports lack of energy, Reports malaise, Reports weight gain, Denies fever(s) - Eyes Reports system reviewed and no additional complaints, except as documented - ENT Reports system reviewed and no additional complaints, except as documented - Cardiovascular Reports system reviewed and no additional complaints, except as documented - Respiratory Reports no additional respiratory complaints - Gastrointestinal Reports system reviewed and no additional complaints, except as documented - Genitourinary Reports no additional female genitourinary complaints - Musculoskeletal Reports system reviewed and no additional complaints, except as documented, Reports joint pain - Integumentary/Breasts Skin/Breast: Reports no additional skin complaints - Neurologic Reports system reviewed and no additional complaints, except as documented, Reports weakness - Psychiatric Reports system reviewed and no additional complaints, except as documented - Endocrine Reports no additional endocrine complaints - Hematologic/Lymphatic Reports system reviewed and no additional complaints, except as documented - Allergic/Immunologic Reports system reviewed and no additional complaints, except as documented PMFSH Medical History: Medical History (Last Reviewed 04/07/21 @ 10:37 by Nj Garrett) Anxiety Cataract Chronic kidney disease (CKD) stage G4/A1, severely decreased glomerular filtration rate (GFR) between 15-29 mL/min/1.73 square meter and albuminuria creatinine ratio less than 30 mg/g Chronic low back pain History of renal calculi Hypercholesterolemia Hypertension Insomnia Vitamin D deficiency Wrist laceration Functional capacity: uses cane/walker Patient : No Family History: Family History (Last Updated 04/07/21 @ 10:38 by Nj Garrett) Mother Hypertension Father Lung cancer Brother Skin cancer (melanoma) Surgical History: Surgical History (Last Reviewed 04/07/21 @ 10:37 by Nj Garrett) AAA (abdominal aortic aneurysm) History of colectomy History of rectal surgery Hx of cataract surgery Hx of cholecystectomy S/P AICHA-BSO Social History: Social History (Last Reviewed 04/07/21 @ 10:38 by Nj Garrett) Living Situation History: Household Members: Spouse Housing: House Do you presently have visiting nurse or other home services: No Tobacco History: Patient Tobacco Use Status: Former Tobacco user Tobacco use type: Cigarette Smoke Quit Date: years ago e-Cigarette/Vaping Use: Never Used Second Hand Smoke Exposure: No Nutrition Assessment: Patient : No Occupation Assessmet: service: No Current occupational status: retired Current occupation: left handed Home Medications and Allergies Home Medications Medication Instructions Recorded Confirmed Type cyanocobalamin (vitamin B-12) 1 ml IM QMONTH 12/25/20 04/07/21 History 1,000 mcg/mL injection solution isosorbide mononitrate 30 mg 1 tab PO DAILY 12/25/20 04/07/21 History tablet,extended release 24 hr Allergies Allergy/AdvReac Type Severity Reaction Status Date / Time sumatriptan [From IMITREX] Allergy Severe ANGIOEDEMA Verified 02/20/21 13:02 atorvastatin [Lipitor] Allergy Unknown n Verified 02/20/21 13:02 rosuvastatin [Crestor] Allergy Unknown n Verified 02/20/21 13:02 simvastatin Allergy Unknown n Verified 02/20/21 13:02 pravastatin AdvReac Intermediate shaking Verified 02/20/21 13:02 muscle pain From IMITREX Allergy Severe ANGIOEDEMA Uncoded 01/16/21 14:56 Plavix Allergy Unknown rash Uncoded 01/16/21 14:56 Physical Exam Vital signs: Vital Signs Temp 97.2 F 04/07/21 10:34 Pulse 61 04/07/21 10:34 Resp 12 04/07/21 10:34 BP 134/70 04/07/21 10:34 Pulse Ox 99 04/07/21 10:34 Intake & Output 04/06/21 04/07/21 04/07/21 18:59 06:59 18:59 Other: Weight 46.8 kg Weight in Grams 41236 Weight 46.8 kg - Constitutional Present: mild distress - Routine HEENT Exam Head: Present: normal inspection Eye: Present: normal appearance ENT: Present: mucous membranes moist, normal oropharynx - Routine Neck Exam Present: supple. Absent: lymphadenopathy - Routine Respiratory Exam Present: CTAB - Routine Cardiovascular Exam Cardiovascular: Present: RRR, S1, S2 - Routine Abdominal Exam Present: normal bowel sounds, nontender - Routine Extremities Exam Absent: calf tenderness Hem/Onc Consult Result - Labs CBC & Chem 7: 04/07/21 11:30 Labs: Short CBC 04/07/21 Range/Units 11:30 WBC 3.2 L (4.8-10.8) X10*3/uL Hgb 8.4 L (12.0-16.0) g/dl Hct 26.0 L (37-47) % Plt Count 156 L (160-400) X10*3/uL Assessment and Plan Patient Active problem list reviewed?: Yes (1) Normochromic normocytic anemia Status: Acute Assessment and plan: This is a pleasant 65-year-old lady with a history of normochromic normocytic anemia. DIFFERENTIAL DIAGNOSIS: 1. ANEMIA OF CHRONIC DISEASE: This is most likely. She does have underlying grade 3 kidney disease. 2. IRON DEFICIENCY ANEMIA: Her iron studies: 49/193//438. Does not have evidence of iron deficiency. 3. B12/FOLATE DEFICIENCY: However her B12 and folate levels are normal.((699/ 6.9) 4. HEMOLYTIC ANEMIA: Less likely. 5. MYELO INFILTRATIVE DISORDER: MDS versus multiple myeloma versus lymphoma: Possible since there are some teardrop cells on the peripheral smear. PLAN: I will proceed with further workup. Will check iron studies: ///. Will check hemolytic screen:Retic 1.7. LDH 236. Will check SIEP, LDH: 236. Hemoglobin is low. Will give trial of Procrit. Will continue to monitor over time. If the hemoglobin continues to drop will proceed with a bone marrow exam for further evaluation. She will return in 1 month for a follow-up. Thank you, CC: Dr. Koehler. - Time Spent With Patient Time Spent with Patient (in minutes): 40
--- NOTE | 2021-04-07 15:37 | MHC.HEMONCMA ---
Pt came in for hem follow up and states they are doing well. clinical summary was updated and labs were drawn. pt will be in 05/09/2021 for follow up.
--- NOTE | 2021-04-11 13:24 | HO.HEMONCPA ---
NO PA REQUIRED FOR PROCRIT. DRUG COVERED UNDER MEDICAL(PARTB) BENEFITS.
[2021-04-11] MEDS: Epoetin Alfa 40,000 UNIT/ML VIAL 40000 UNIT SUBCUT (14:42)
--- NOTE | 2021-04-11 14:48 | MHC.HEMONC ---
Retacrit [id number] given for hgb=8.4. Plan for weekly for 4 weeks then reevaluate with MD at follow up appointment. Pt aware of next appt.
[2021-04-11 14:51] VITALS: BP 174/81; PULSE 69; TEMP 36.8; O2SAT 99
[2021-04-11 18:11] LABS: Haptoglobin 179 mg/dL (43-212)
[2021-04-12 14:26] LABS: IgA 184 mg/dL (70-320); IgG 2678 mg/dL (600-1540); IgM 762 mg/dL (50-300)
[2021-04-18 14:24] LABS: MANUAL DIFF FLAG NO
[2021-04-18 14:30] LABS: Hemoglobin 8.5 g/dl (12.0-16.0); Imm Gran Abs Auto 0.05 X10*3/uL (0.00-0.03); Imm Gran Pct Auto 1.5 % (0.0-0.4); Lymphocytes Absolute Auto 0.4 X10*3/uL (1.2-4.9); Lymphocytes Percent Auto 12.2 % (20-40); Mean Corpuscular HGB Conc 31.5 g/dl (31.0-35.0); Mean Corpuscular Hemoglobin 30.8 pg (27.0-33.0); Mean Corpuscular Volume 97.8 fL (80.0-98.0); Monocytes Absolute Auto 0.2 X10*3/uL (0.1-1.2); Monocytes Percent Auto 5.8 % (2-11); Neutrophils Absolute Auto 2.8 x10*3/uL (2.0-8.3); Neutrophils Percent Auto 80.5 % (45-73); Red Blood Count 2.76 X10*6/uL (4.20-5.50); Red Cell Distribution Width 15.3 % (11.0-16.0); White Blood Count 3.4 X10*3/uL (4.8-10.8)
[2021-04-18 14:44] LABS: Alanine Aminotransferase 9 U/L (0-31); Albumin Level 2.6 g/dL (3.5-5.0); Alkaline Phosphatase 106 U/L (39-117); Anion Gap 10 (12-20); Aspartate Amino Transferase 18 U/L (5-31); Bilirubin Total 0.3 mg/dL (0.0-1.0); Blood Urea Nitrogen 24 mg/dL (9-16); Calcium 9.1 mg/dL (8.4-10.2); Carbon Dioxide 21 mmol/L (22-29); Chloride 106 mmol/L (96-108); Creatinine Clr Calc Pharmacy 19.6; Estimated Glomerular Filt Rate 24; Glucose Random 99 mg/dL (60-115); Potassium 3.5 mmol/L (3.3-5.1); Sodium 133 mmol/L (135-145); Total Protein 7.2 g/dL (6.5-8.0)
[2021-04-18 14:56] LABS: Mean Platelet Volume 10.6 fL (9.4-12.3); Platelet Count 97 X10*3/uL (160-400)
--- NOTE | 2021-04-18 16:29 | MHC.HEMONC ---
Hgb 8.5, reported to Dr Linares. Procrit 20,000units SC given as ordered. Scheduled to return in 1 week for next injection.
[2021-05-02 14:26] VITALS: BP 147/81; PULSE 58; RESP 18; TEMP 36.2; O2SAT 97; BMI 15.5
[2021-05-02 14:36] LABS: MANUAL DIFF FLAG NO
[2021-05-02 14:42] LABS: Hematocrit 34.1 % (37.0-47.0); Hemoglobin 10.8 g/dl (12.0-16.0); Imm Gran Abs Auto 0.04 X10*3/uL (0.00-0.03); Imm Gran Pct Auto 1.1 % (0.0-0.4); Lymphocytes Absolute Auto 0.5 X10*3/uL (1.2-4.9); Lymphocytes Percent Auto 13.5 % (20-40); Mean Corpuscular HGB Conc 31.7 g/dl (31.0-35.0); Mean Corpuscular Hemoglobin 29.3 pg (27.0-33.0); Mean Corpuscular Volume 92.7 fL (80.0-98.0); Mean Platelet Volume 10.1 fL (9.4-12.3); Monocytes Absolute Auto 0.2 X10*3/uL (0.1-1.2); Monocytes Percent Auto 5.3 % (2-11); Neutrophils Percent Auto 80.1 % (45-73); Platelet Count 118 X10*3/uL (160-400); Red Blood Count 3.68 X10*6/uL (4.20-5.50); Red Cell Distribution Width 13.8 % (11.0-16.0); White Blood Count 3.8 X10*3/uL (4.8-10.8)
--- NOTE | 2021-05-02 17:15 | MHC.HEMONC ---
Pt arrived in w/c accompanied by her for sched Procrit injection, pt was in good spirits, had no symptoms to report, VSS, labs were drawn and reviewed, Hgb resulted at 10.8. Pt's Procrit admin was therefor held, per parameters as pt was asymptomatic. Nurse updated Dr. Linares, and requested f/u recommendation, provider advised to book next Procrit inject in 2 weeks. Pt was given d/c packet and booked for next Procrit injec on 05/16/21, and her next sched Hem f/u was resched to coincide w/ this inject on 05/16/21.
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
--- NOTE | 2021-05-23 09:11 | MHC.HEMONC ---
Nurse called pt via phone to see if she was ready to reschedule last week's missed Procrit injection and Hem f/u w/ Dr. East. Pt agreed to book them both for next 05/29/21 at 13:20.
--- NOTE | 2021-06-26 15:24 | MHC.HEMONC ---
Patient not present for 13:00 Q 2 week Procrit injection. Message left on patients voicemail to contact the department.
--- NOTE | 2021-06-26 16:10 | HE.ONCSEC ---
NO SHOW FOR TODAY'S APPT. - CALLED [facility] TO CALL OFFICE BACK
== END | disposition home or self-care (01) ==
LOC: HO.ONC 04-07 10:24
PROVIDERS: PCP Internal Medicine; Referring Provider Internal Medicine; Visit Provider Internal Medicine Medical Oncology
DX: N18.4 Chronic kidney disease, stage 4 (severe) (principal); D63.1 Anemia in chronic kidney disease; I12.9 Hypertensive chronic kidney disease with stage 1 through stage 4 chronic kidney disease, or unspecified chronic kidney disease
CPT/HCPCS: 36415; 80053; 82728; 82784; 83010; 85007; 85025; 85027; 85045; 86334; 96372; 99204; J0885